=== PATIENT | male | born 1950 | race Hispanic/Latino ===

== ENCOUNTER 2017-08-06 02:04 | Emergency (ER) | payer BC, MEDICARE ==
[2017-08-06 02:21] VITALS: BMI 47.5
[2017-08-06 02:41] VITALS: RESP 18; O2SAT 95
[2017-08-06 03:03] VITALS: TEMP 98.2
[2017-08-06 04:02] LABS: BASO # 0.03 K/mm3 (0.0-2.0); BASO % 0.4 % (0.0-3.0); EOS # 0.2 (0.0-0.7); EOS % 3.2 % (1.5-5.0); GRAN # 4.86 (1.4-6.5); GRAN % 65.4 % (50.0-68.0); HEMOGLOBIN 12.7 g/dL (14.0-18.0); LYMPH % 26.6 % (22.0-35.0); MEAN CELL VOLUME 87.2 fl (80.0-105.0); MEAN CORPUSCULAR HEMOGLOBIN 30.2 pg (25.0-35.0); MEAN CORPUSCULAR HGB CONC 34.6 g/dl (31.0-37.0); MEAN PLATELET VOLUME 9.9 fl (7.0-11.0); MONO # 0.3 (0.1-0.6); MONO % 4.4 % (1.0-6.0); RBC 4.21 10^6/uL (3.5-6.1); RED CELL DISTRIBUTION WIDTH 14.6 % (11.5-14.5); WHITE BLOOD COUNT 7.4 10^3/ul (4.5-11.0)
[2017-08-06 04:06] LABS: INR 1.01 (0.93-1.08); PARTIAL THROMBOPLASTIN TIME 29.4 Seconds (25.1-36.5); PROTHROMBIN TIME 11.5 SECONDS (9.4-12.5)
[2017-08-06 04:27] LABS: ARTERIAL BLOOD GAS HCO3 30.5 mmol/L (21-28); ARTERIAL BLOOD GAS HEMOGLOBIN 11.8 g/dL (11.7-17.4); ARTERIAL BLOOD GAS O2 CAPACITY 16.1 mL/dl (16-24); ARTERIAL BLOOD GAS O2 CONTENT 15.4 ML/dl (15-23); ARTERIAL BLOOD GAS O2 SAT 95.5 % (95-98); ARTERIAL BLOOD GAS PCO2 46 mm/Hg (35-45); ARTERIAL BLOOD GAS PH 7.43 (7.35-7.45); ARTERIAL BLOOD GAS TCO2 31.9 mmol.L (22-28)
--- NOTE | 2017-08-06 04:52 | ED PDOC ---
Arrival/HPI <Bob Hooper - Last Filed: 08/06/17 05:39> - General Historian: Patient, Spouse - History of Present Illness Time/Duration: Prior to Arrival, 1 week Symptom Onset: Sudden <Deshawn Mosher - Last Filed: 08/06/17 06:24> - General Chief Complaint: Headache Time Seen by Provider: 08/06/17 03:14 - History of Present Illness Narrative History of Present Illness (Text): 08/06/17 04:50 67 yo M with PMH of hypertension, COPD, hyperlipidemia, diabetes, chronic back pain s/p pain pump implant, chronic leg wounds presents with complaining of pressure-like headache and "a hole in my head." Patient woke his up with the above complaints, which prompted them to call the ambulance. Symptoms started prior to presentation, and he has not had these symptoms before. Symptoms have resolved since presentation. Patient otherwise feels well. He denies chest pain, shortness of breath, fever, chills, nausea, vomiting, diarrhea, constipation, abdominal pain, dysuria, hematuria, urgency/frequency. Patient is immobile at baseline, chair-bound, though walks to/from bathroom. Patient and deny sick contacts or recent changes in medications. is at bedside, who reports that patient seems slightly confused for the past week, which the patient denies. Patient repeatedly explaining and demonstrating increased exercise tolerance, and increased mobility compared to his baseline. (Deshawn Mosher) Past Medical History - Provider Review Nursing Documentation Reviewed: Yes - Travel History Have you recently traveled outside [place] w/in the past 3 mons?: No - Infectious Disease Hx of Infectious Diseases: MRSA - Tetanus Immunization Tetanus Immunization: Unknown - Cardiac Hx Pacemaker: No - Neurological Hx Paralysis: No - Endocrine/Metabolic Hx Diabetes Mellitus Type 2: Yes Hx Hypothyroidism: Yes - Hematological/Oncological Hx Blood Transfusions: Yes (6 YRS AGO AFTER SPINAL SX-12 UNITS) - Musculoskeletal/Rheumatological Hx Musculoskeletal Disorders: Yes (ARTHRITIS -KNEES) - Psychiatric Hx Emotional Abuse: No Hx Physical Abuse: No Hx Substance Use: Yes (METHADONE FOR PAIN MGT) - Surgical History Hx Cholecystectomy: Yes (2001) Hx Gastric Bypass Surgery: Yes (2007) Hx Orthopedic Surgery: Yes (SPINAL FUSION 2005 &2011) - Anesthesia Hx Anesthesia Reactions: No Hx Malignant Hyperthermia: No - Suicidal Assessment Feels Threatened In Home Enviroment: No <Deshawn Mosher - Last Filed: 08/06/17 06:24> Family/Social History - Physician Review Nursing Documentation Reviewed: Yes Family/Social History: CVA/TIA, Diabetes Smoking Status: Never Smoked Hx Alcohol Use: No Hx Substance Use: Yes (METHADONE FOR PAIN MGT) Hx Substance Use Treatment: No <Deshawn Mosher - Last Filed: 08/06/17 06:24> Allergies/Home Meds <Bob Hooper - Last Filed: 08/06/17 05:39> <Deshawn Mosher - Last Filed: 08/06/17 06:24> Allergies/Adverse Reactions: Allergies Penicillins Allergy (Intermediate, Verified 08/06/17 02:21) hives/itching Home Medications: Home Meds Medication Instructions Recorded Confirmed Cyanocobalamin [Vitamin B12 1000 1,000 mcg IM Q30D 03/31/15 08/06/17 mcg/ml Inj] Ergocalciferol [Vitamin D] 50,000 iu PO MWF 03/31/15 08/06/17 Levothyroxine [Synthroid] 200 mg PO QAM 03/31/15 08/06/17 Testosterone [Androgel] 2 spry TOP DAILY 04/01/15 08/06/17 Benzonatate [Benzonatate] 200 mg PO TID 08/06/17 08/06/17 Fluticasone Propionate [Flonase 1 spray INH PRN PRN 08/06/17 08/06/17 Allergy Relief] Furosemide [Lasix] 40 mg PO DAILY 08/06/17 08/06/17 Gabapentin [Neurontin] 300 mg PO Q8H 08/06/17 08/06/17 Levalbuterol HCl [Xopenex] 1 inh NEB TID PRN 08/06/17 08/06/17 Naloxegol Oxalate [Movantik] 25 mg PO DAILY 08/06/17 08/06/17 hydrALAZINE [Apresoline] 10 mg PO BID 08/06/17 08/06/17 Review of Systems - Review of Systems Constitutional: Normal Eyes: Normal ENT: Normal Respiratory: Cough. absent: Sputum, Wheezing Cardiovascular: Normal Gastrointestinal: Normal Genitourinary Male: Normal Musculoskeletal: Back Pain Skin: Normal Neurological: Headache. absent: Focal Weakness, Gait Changes, Speech Changes, Facial Droop Endocrine: Normal Hemo/Lymphatic: Normal Psychiatric: Normal <Deshawn Mosher - Last Filed: 08/06/17 06:24> Physical Exam Vital Signs Reviewed: Yes Temperature: Afebrile Blood Pressure: Normal Pulse: Regular Respiratory Rate: Normal Appearance: Positive for: Comfortable, Other (chronically ill) Pain Distress: None Mental Status: Positive for: Alert and Oriented X 3. No: Confused, Agitated, Lethargic, Comatose - Systems Exam Head: Present: Atraumatic, Normocephalic, Other (No depression, fracture, or "hole" noted). No: Tenderness, Contusion, Swelling, Ecchymosis Pupils: Present: PERRL Extroacular Muscles: Present: EOMI Conjunctiva: Present: Normal Mouth: Present: Moist Mucous Membranes Neck: Present: Normal Range of Motion Respiratory/Chest: Present: Clear to Auscultation, Decreased Breath Sounds Cardiovascular: Present: Regular Rate and Rhythm, Normal S1, S2 Abdomen: Present: Normal Bowel Sounds. No: Tenderness, Distention Upper Extremity: Present: Normal Inspection. No: Cyanosis, Edema Lower Extremity: Present: Edema, Deformity. No: CALF TENDERNESS, Tenderness Neurological: Present: GCS=15, CN II-XII Intact, Speech Normal, Motor Func Grossly Intact, Normal Sensory Function, Normal Cerebellar Funct Skin: Present: Warm, Dry, Normal Color Psychiatric: Present: Alert, Oriented x 3, Normal Insight. No: Normal Concentration <Deshawn Mosher - Last Filed: 08/06/17 06:24> Vital Signs Temp Pulse Resp BP Pulse Ox 08/06/17 02:40 98.2 F 70 18 149/75 95 Medical Decision Making <Bob Hooper - Last Filed: 08/06/17 05:39> Reassessment Condition: Re-examined, Improved - Lab Interpretations Interpretation: No sign. chg./baseline - RAD Interpretation Workforce Planner: Radiologist <Deshawn Mosher - Last Filed: 08/06/17 06:24> ED Course and Treatment: Impression: Pt seen and evaluated with chief medical technologist. Aware and agree with HPI, clinical findings, plan, and management. Pt, whose past medical history includes COPD, hyperlipidemia, diabetes, chronic back pain, and chronic leg wounds, presented headache. Plan: -- CT Head w/o contrast -- Labs, ABG -- UA -- Reassess and disposition (Bob Hooper) 08/06/17 05:14 Impression: Headache, confusion Differential Diagnosis included but are not limited to: CVA, dementia, delerium , metabolic encephalopathy Plan: -- CT head -- Labs, ABG -- Reassess and disposition Prior Visits: Notes and results from previous visits were reviewed. Patient was last seen in the emergency department on 08/2014. Admitted for acute renal failure Progress Notes: CT head negative Labs, Urinalysis, and AGB unremarkable Patient not complaining of headache, shortness of breath, or confusion Patient's intrathecal pain pump delivers Prialt, which patient reportedly did have side effects from previously, including psychosis, hallucinations, and delusions. One month ago, dose was titrated up "10%". Confusion and delirium are known adverse effects of Prialt. Given current clinical findings, patient is likely presenting with adverse effects 2/2 Prialt. Advised patient to follow up with his PMD and his pain management doctor for continued monitoring and dose titration of Prialt. Patient instructed to return to the ER for any new or worsening concerns. 08/06/17 06:19 (Vidhi,Deshawn) - Lab Interpretations Lab Results: 08/06/17 03:30 08/06/17 03:30 Lab Results 08/06/17 05:30: Urine Color Yellow, Urine Appearance Clear, Urine pH 6.0, Ur Specific [place] <= 1.005, Urine Protein Negative, Urine Glucose (UA) Negative, Urine Ketones Negative, Urine Blood Negative, Urine Nitrate Negative, Urine Bilirubin Negative, Urine Urobilinogen 0.2, Ur Leukocyte Esterase Negative 08/06/17 04:20: pCO2 46 H, pO2 62.0 L, HCO3 30.5 H, ABG pH 7.43, ABG Total CO2 31.9 H, ABG O2 Saturation 95.5, ABG O2 Content 15.4, ABG Base Excess 5.4 H, ABG Hemoglobin 11.8, ABG Carboxyhemoglobin 2.0 H, POC ABG HHb (Measured) 4.4, ABG Methemoglobin 1.0, ABG O2 Capacity 16.1, Hgb O2 Saturation 92.5 L, FiO2 24.0 08/06/17 03:30: Sodium 139, Potassium 3.8, Chloride 100, Carbon Dioxide 29, Anion Gap 14, BUN 9, Creatinine 0.9, Est GFR ( Amer) > 60, Est GFR (Non- Af Amer) > 60, Random Glucose 115 H, Calcium 8.9, Total Bilirubin 1.6 H, AST 38 , ALT 34, Alkaline Phosphatase 71, Total Protein 7.4, Albumin 4.0, Globulin 3.4 , Albumin/Globulin Ratio 1.2 08/06/17 03:30: PT 11.5, INR 1.01, APTT 29.4 08/06/17 03:30: WBC 7.4 D, RBC 4.21, Hgb 12.7 L, Hct 36.7 L, MCV 87.2, MCH 30.2 , MCHC 34.6, RDW 14.6 H, Plt Count 181, MPV 9.9, Gran % 65.4, Lymph % (Auto) 26.6, [place] % (Auto) 4.4, Eos % (Auto) 3.2, Baso % (Auto) 0.4, Gran # 4.86, Lymph # (Auto) 2.0, [place] # (Auto) 0.3, Eos # (Auto) 0.2, Baso # (Auto) 0.03 - RAD Interpretation Radiology Orders: 08/06/17 03:25 HEAD W/O CONTRAST [CT] Stat - PA / 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 CAROLYN has examined the patient and agrees with the treatment plan. <Bob Hooper - Last Filed: 08/06/17 05:39> Disposition/Present on Arrival <Bob Hooper - Last Filed: 08/06/17 05:39> - Present on Arrival Any Indicators Present on Arrival: No History of DVT/PE: No History of Uncontrolled Diabetes: No Urinary Catheter: No History of Decub. Ulcer: No History Surgical Site Infection Following: None - Disposition Have Diagnosis and Disposition been Completed?: Yes Disposition Time: 06:24 Patient Plan: Discharge <Deshawn Mosher - Last Filed: 08/06/17 06:24> - Disposition Diagnosis: Headache, Confusion, Adverse drug effect Disposition: HOME/ ROUTINE Condition: FAIR Discharge Instructions (ExitCare): Adverse Drug Reactions, Adult (DC), Headache , Adult (DC) Forms: [employer] (Romanian)
[2017-08-06 04:58] LABS: ALB/GLOB RATIO 1.2 (1.1-1.8); ALT/SGPT 34 U/L (7-56); AST/SGOT 38 U/L (17-59); BLOOD UREA NITROGEN 9 mg/dL (7-21); CALCIUM 8.9 mg/dL (8.4-10.5); GFR AFRICAN-AMERICAN > 60; GFR NON-AFRICAN AMERICAN > 60
--- NOTE | 2017-08-06 05:14 | CT ---
EXAM: CT Head Without Intravenous Contrast CLINICAL HISTORY: 67 years old, male; Pain; Headache; Additional info: Headache; AMS TECHNIQUE: Axial computed tomography images of the head/brain without intravenous contrast. All CT scans at this facility use one or more dose reduction techniques, viz.: automated exposure control; ma/kV adjustment per patient size (including targeted exams where dose is matched to indication; i.e. head); or iterative reconstruction technique. Coronal and sagittal reformatted images were created and reviewed. COMPARISON: No relevant prior studies available. FINDINGS: Brain: Mild atrophy. No intracranial hemorrhage. No mass. Minimal decreased attenuation within periventricular white matter. No definite edema. Ventricles: No hydrocephalus. Bones/joints: No acute fracture. Soft tissues: Unremarkable. Vasculature: Atherosclerotic disease of intracranial arteries. Sinuses: [id number] mucosal thickening of ethmoid sinuses. Scattered minimal mucosal thickening of remaining sinuses. Mastoid air cells: No mastoid effusion. Orbits: Unremarkable as visualized. IMPRESSION: 1. Nonspecific white matter changes. Acute infarction may be CT occult within first 24 hours. If a focal deficit persists, consider followup CT or MRI for further evaluation. 2. Incidental/non-acute findings are described above.
[2017-08-06 06:08] LABS: URINE BILIRUBIN NEGATIVE (NEGATIVE); URINE BLOOD NEGATIVE (NEGATIVE); URINE GLUCOSE (UA) NEGATIVE (NEGATIVE); URINE LEUKOCYTE ESTERASE NEGATIVE Leu/uL (NEGATIVE); URINE PROTEIN NEGATIVE mg/dL (<30 mg/dL); URINE UROBILINOGEN 0.2 E.U./dL (<1 E.U./dL)
[2017-08-06 06:09] LABS: URINE APPEARANCE CLEAR (CLEAR); URINE COLOR YELLOW (YELLOW)
[2017-08-06 06:53] VITALS: BP 138/75; PULSE 78
== END 2017-08-06 06:45 | disposition home or self-care (01) ==
LOC: ED 02:04
DX: R51 Headache (principal); R41.0 Disorientation, unspecified; E03.9 Hypothyroidism, unspecified; E11.9 Type 2 diabetes mellitus without complications; E78.5 Hyperlipidemia, unspecified; I10 Essential (primary) hypertension; J44.9 Chronic obstructive pulmonary disease, unspecified

== ENCOUNTER 2017-08-06 18:12 | Inpatient (IN) | payer BC, MEDICARE ==
[2017-08-06] MEDS ORDERED: Iodixanol 320 MG/ML 100 ML BOTTLE IV ONE (18:38)
[2017-08-06 18:56] LABS: BASO # 0.03 K/mm3 (0.0-2.0); BASO % 0.2 % (0.0-3.0); EOS % 0.2 % (1.5-5.0); GRAN # 10.88 (1.4-6.5); GRAN % 83.7 % (50.0-68.0); HEMOGLOBIN 15.1 g/dL (14.0-18.0); LYMPH # 1.3 (1.2-3.4); LYMPH % 9.8 % (22.0-35.0); MEAN CELL VOLUME 87.6 fl (80.0-105.0); MEAN CORPUSCULAR HEMOGLOBIN 30.7 pg (25.0-35.0); MEAN PLATELET VOLUME 9.6 fl (7.0-11.0); MONO # 0.8 (0.1-0.6); MONO % 6.1 % (1.0-6.0); RBC 4.92 10^6/uL (3.5-6.1); RED CELL DISTRIBUTION WIDTH 14.6 % (11.5-14.5)
[2017-08-06] MEDS ORDERED: Midazolam 2 MG/2 ML VIAL IVP STA (18:56)
[2017-08-06] MEDS ORDERED: Midazolam 2 MG/2 ML VIAL ONE (19:02)
[2017-08-06 19:05] LABS: ALB/GLOB RATIO 1.2 (1.1-1.8); ALBUMIN 4.6 g/dL (3.0-4.8); ALT/SGPT 39 U/L (7-56); AST/SGOT 62 U/L (17-59); BLOOD UREA NITROGEN 10 mg/dL (7-21); CALCIUM 9.3 mg/dL (8.4-10.5); GFR AFRICAN-AMERICAN > 60; GFR NON-AFRICAN AMERICAN > 60
[2017-08-06 19:13] LABS: INR 1.08 (0.93-1.08); PARTIAL THROMBOPLASTIN TIME 29.3 Seconds (25.1-36.5); PROTHROMBIN TIME 12.3 SECONDS (9.4-12.5)
--- NOTE | 2017-08-06 19:18 | ED PDOC ---
Arrival/HPI - General Chief Complaint: Altered Mental Status Time Seen by Provider: 08/06/17 18:16 Historian: Spouse - History of Present Illness Narrative History of Present Illness (Text): 08/06/17 19:16 A 67 year old male, whose past medical history includes COPD, diabetes, chronic back pain, hypertension, morbid obesity, hyperlipidemia, intra-abdominal and intra-thecal pump device that delivers prialt (Ziconotide) , was brought in by EMS to the emergency department for evaluation of AMS. Patient reported to the emergency department this morning for evaluation of headache. Head CT was negative and patient was discharged home reportedly headache free ambulating to his car. His did report that on joleen way to car he was talking to people he didn't know as if he knew them which was atypical of his personality. Upon reaching home his intrathecal nurse foreman or supervisor and operator natasha at [phone] was contacted and it was deceided that it was possible that his ams was due to the Prialt side effect profile and she came to house and lowered the dosage transabdominally by 10%. Upon going home his mental status deteriorated with waxing /waning mental status, awakening to an increasingly agitated sensorium, not eating all day talking to people that weren't there, screaming at his and daughter calling them "Lucifer" saying that he is God, evetually becoming aggressive and threateninng necessitating a call to EMS , EMS arrived to find him thtroughly uncooperative , aggressive threatening , and had to sedate him with 8 mg IM ativan/ 150 mg ketamine , pt arrived in Emergency department with coarse rhonchorous respiratons on 100 % nonrebreather , nonresponsive to query, moaning uintelligibly , and thrashing about. Pt. was also noted to have fallen faceforward at a certain point during the day rousing and ambulating thereafter with no loc. and daughter denied that he ever complained of chest pain, no recent fevers /chills/complaining of neck pain , althogh ros (+) recent mostly dry cough. 08/06/17 20:28 Symptom Onset: Sudden Symptom Course: Unchanged Activities at Onset: Rest Context: Home Past Medical History - Provider Review Nursing Documentation Reviewed: Yes - Infectious Disease Hx of Infectious Diseases: MRSA - Tetanus Immunization Tetanus Immunization: Unknown - Cardiac Hx Pacemaker: No - Neurological Hx Paralysis: No - Endocrine/Metabolic Hx Diabetes Mellitus Type 2: Yes Hx Hypothyroidism: Yes - Hematological/Oncological Hx Blood Transfusions: Yes (6 YRS AGO AFTER SPINAL SX-12 UNITS) - Musculoskeletal/Rheumatological Hx Musculoskeletal Disorders: Yes (ARTHRITIS -KNEES) - Psychiatric Hx Emotional Abuse: No Hx Physical Abuse: No Hx Substance Use: No - Surgical History Hx Cholecystectomy: Yes (2001) Hx Gastric Bypass Surgery: Yes (2007) Hx Orthopedic Surgery: Yes (SPINAL FUSION 2005 &2011) - Anesthesia Hx Anesthesia Reactions: No Hx Malignant Hyperthermia: No - Suicidal Assessment Feels Threatened In Home Enviroment: No Family/Social History - Physician Review Nursing Documentation Reviewed: Yes Family/Social History: No Known Family HX Smoking Status: Never Smoked Hx Alcohol Use: No Hx Substance Use: No Hx Substance Use Treatment: No Allergies/Home Meds Allergies/Adverse Reactions: Allergies Penicillins Allergy (Intermediate, Verified 08/06/17 18:20) hives/itching Home Medications: Home Meds Medication Instructions Recorded Confirmed Cyanocobalamin [Vitamin B12 1000 1,000 mcg IM Q30D 03/31/15 08/06/17 mcg/ml Inj] Levothyroxine [Synthroid] 200 mg PO QAM 03/31/15 08/06/17 Testosterone [Androgel] 2 spry TOP DAILY 04/01/15 08/06/17 Benzonatate [Benzonatate] 200 mg PO TID 08/06/17 08/06/17 Fluticasone Propionate [Flonase 1 spray INH PRN PRN 08/06/17 08/06/17 Allergy Relief] Furosemide [Lasix] 40 mg PO DAILY 08/06/17 08/06/17 Gabapentin [Neurontin] 300 mg PO Q8H 08/06/17 08/06/17 Levalbuterol HCl [Xopenex] 1 inh NEB TID PRN 08/06/17 08/06/17 Naloxegol Oxalate [Movantik] 25 mg PO DAILY 08/06/17 08/06/17 hydrALAZINE [Apresoline] 10 mg PO BID 08/06/17 08/06/17 Review of Systems - Physician Review All systems were reviewed & negative as marked: Yes - Review of Systems Systems not reviewed;Unavailable: Altered Mental Status Constitutional: Normal Eyes: Normal ENT: Normal Respiratory: Normal Cardiovascular: Normal Gastrointestinal: Normal Genitourinary Male: Normal Musculoskeletal: Normal Skin: Normal Neurological: Headache Endocrine: Normal Hemo/Lymphatic: Normal Psychiatric: Normal Physical Exam Vital Signs Reviewed: Yes Vital Signs Temp Pulse Resp BP Pulse Ox 08/06/17 22:56 77 34 H 111/47 L 100 08/06/17 21:30 79 16 101/62 100 08/06/17 20:22 98.7 F 97 H 20 119/72 98 08/06/17 18:37 98 F 110 H 19 133/83 98 Temperature: Afebrile Blood Pressure: Normal Pulse: Regular Respiratory Rate: Normal Appearance: Positive for: Ill-Appearing, Uncomfortable Pain Distress: None Mental Status: Positive for: Confused, Agitated - Systems Exam Head: Present: Atraumatic, Normocephalic Pupils: Present: PERRL Extroacular Muscles: Present: EOMI Conjunctiva: Present: Normal Mouth: Present: Dry Neck: Present: Normal Range of Motion Respiratory/Chest: Present: Good Air Exchange, Rhonchi. No: Respiratory Distress, Accessory Muscle Use Cardiovascular: Present: Regular Rate and Rhythm, Normal S1, S2. No: Murmurs Abdomen: Present: Normal Bowel Sounds, Other (obese , + mid left sided intraabdominal pump palpable beneath his skin. ). No: Tenderness, Distention, Peritoneal Signs Back: Present: Normal Inspection Upper Extremity: Present: Normal Inspection. No: Cyanosis, Edema Lower Extremity: Present: Normal Inspection. No: Edema Neurological: Present: GCS=15, CN II-XII Intact, Other (barksdale, sonia, will not cooperate with any further neurological testing. ) Skin: Present: Warm, Dry, Normal Color. No: Rashes Psychiatric: Present: Alert, Agitated Medical Decision Making ED Course and Treatment: 08/06/17 19:15 Impression: A 67 year old male with AMS on ziconotide intrathecal pump ekg 1826 08/06/17 st @ 111 w/ + stemi pattern with st elevations in I, aVL, V2, st depressions in v4-v6, II, III, aVF relative to 09/08/2014 e[address] on file . Dr Janet Marcelino billing adjudicator on cath call was called to activate code STEMI at 1830 wth these ekg findings reported to him , but stated pt did not meet criteria and that these ekg findings could also be seen with certain intracerebral pathology such as intracerebral bleed. Dr Marcelino would not be activating code stemi at that point in time pending head ct . Dr. Lanier , stroke neurologist was called at 1841 and presentation discussed out of concern for possible intracerebral bleed and stted that he should be foolwled up post head ct . Stating that there was a strong liklelihood this may all have been toxidrome from the ziconotide. ALthough icp incrementation with intrathecal pumps coul dtheoretically place pt. at risk of SAh or IC bleed. Pt was too agitated to facilatate head ct on first attempt. Second attempt with myself in head ct using ivp versed was also unsuccesful. Pt was transported back to head ct and jointly with family at bedside the risks of possible IC bleed were discussed in light of not only earlier fall but also intrathecal pump and that intubation would be necesittated to faciliatte this procedure given the tie sensitive high stakes diagnosis at hand. Pt was also becoming more sonorous in his respirations and was not protecting his airway. Intubation was conducted with 100 mg fentanyl for IC protection/ 100 mg succinylcholine/ 20 mg etomidate and was succesful with first pass through tube using bougie/direct visualization/ RSI methodology. Upon resultation of troponin at 2.[address] Marcelino whom was resolute that head ct must be conducted first and that he will following the case . Differential Diagnosis included but are not limited to: Plan: -- CT head -- CTA head and neck -- EKG -- labs -- Chest X-ray -- Urinalysis -- Versed -- Reassess and disposition Prior Visits: Notes and results from previous visits were reviewed. Patient was last seen in the emergency department today for evaluation of headache. Progress Notes: PROCEDURE: INTUBATION Performed by the emergency provider Time: 19:47 Consent: Discussion of the risks, benefits, and alternatives to the procedure, along with informed consent was precluded by the urgency of the procedure and the patient condition. Timeout: A timeout to verify the correct patient, procedure, and site was performed. Indication: airway protection and procedural facilitation Pre-oxygenation: [id number] Medications: See MAR for details. ETT Size: 7.0 bougie Confirmation: Cords directly visualized as tube passed, good bilateral breath sounds, positive CO2 detector color change, tube fogging, adequate chest rise, improving pulse oximetry reading, improved skin color, and absence of gastric sounds ETT Secured: The cuff was inflated and the tube was secured appropriately at a distance of 24 cm at the lip. Post-Procedure: There were no immediate complications. CXR Confirmation: Yes 08/06/17 20:52 Pt was signed out to my replacement Dr. Moseley to follow up head ct and said findings with Drs. Marcelino and Dr. Lanier. - Lab Interpretations Lab Results: 08/06/17 18:15 08/06/17 18:15 Lab Results 08/06/17 22:30: pCO2 54 H, pO2 85.0, HCO3 26.0, ABG pH 7.29 L, ABG Total CO2 27.7, ABG O2 Saturation 98.2 H, ABG Base Excess -1.4, ABG Potassium 3.5 L, Glucose 141 H, Lactate 0.9, FiO2 50.0, Sodium 138.0, Chloride 105.0, Arterial Blood Potassium 3.5 L 08/06/17 18:30: PT 12.3, INR 1.08, APTT 29.3 08/06/17 18:17: POC Glucose (mg/dL) 386 H 08/06/17 18:15: Ammonia < 9 L 08/06/17 18:15: Alcohol, Quantitative < 10 08/06/17 18:15: Sodium 140, Potassium 3.9, Chloride 100, Carbon Dioxide 25, Anion Gap 19, BUN 10, Creatinine 1.1, Est GFR ( Amer) > 60, Est GFR (Non- Af Amer) > 60, Random Glucose 185 H, Calcium 9.3, Phosphorus 3.4, Magnesium 1.9 , Total Bilirubin 1.9 H, AST 62 H D, ALT 39, Alkaline Phosphatase 100, Lactate Dehydrogenase 768 H, Total Creatine Kinase 1297 H, CK-MB (CK-2) 20.0 H, CK-MB ( CK-2) % 1.5 L, Troponin I 2.86 H* D, Total Protein 8.4 H, Albumin 4.6, Globulin 3.8, Albumin/Globulin Ratio 1.2 08/06/17 18:15: WBC 13.0 H D, RBC 4.92, Hgb 15.1 D, Hct 43.1, MCV 87.6, MCH 30.7, MCHC 35.0, RDW 14.6 H, Plt Count 245, MPV 9.6, Gran % 83.7 H, Lymph % ( Auto) 9.8 L, Platte % (Auto) 6.1 H, Eos % (Auto) 0.2 L, Baso % (Auto) 0.2, Gran # 10.88 H, Lymph # (Auto) 1.3, Platte # (Auto) 0.8 H, Eos # (Auto) 0.0, Baso # (Auto ) 0.03 I have reviewed the lab results: Yes - RAD Interpretation Radiology Orders: 08/06/17 18:27 HEAD W/O CONTRAST [CT] Stat 08/06/17 18:29 CHEST PORTABLE [RAD] Stat 08/06/17 18:37 CTA HEAD & NECK BUNDLE [CT] Stat 08/06/17 19:57 CHEST PORTABLE [RAD] Stat 08/06/17 20:31 CHEST W/O CONTRAST [CT] Stat - EKG Interpretation Interpreted by ED Physician: Yes Type: 12 lead EKG - Medication Orders Current Medication Orders: Aspirin (Aspirin Chewable) 81 mg NG DAILY [facility] Last Admin: 08/07/17 09:10 Dose: 81 mg Atorvastatin Calcium (Lipitor) 40 mg NG DIN [facility] Last Admin: 08/07/17 17:04 Dose: 40 mg Carvedilol (Coreg) 3.125 mg PO BID [facility] Last Admin: 08/07/17 17:04 Dose: Not Given Non-Admin Reason: BP Parameters Not Met MAR Pulse and Blood Pressure Document 08/07/17 17:04 GLI (Rec: 08/07/17 17:04 [id number] [place] Pulse Pulse Rate (60-90) 103 Propofol (Diprivan) 1,000 mg in 100 mls @ 4.491 mls/hr IV .[id number] PRN; Protocol; 5 MCG/KG/MIN PRN Reason: TITRATE PER MD ORDER Last Admin: 08/07/17 17:02 Dose: 45 mcg/kg/min, 40.415 mls/hr eMAR Start Stop Document 08/07/17 17:02 GLI (Rec: 08/07/17 17:03 GLI [id number]) Intravenous Solution Start Date 08/07/17 Start Time 17:03 End Date 04/15/18 Torres Agitation Sedation Document 08/07/17 17:02 GLI (Rec: 08/07/17 17:03 GLI [id number]) Torres Agitation Sedation Scale Torres Agitation Sedation Scale Score +1 Restless Anxious bu movements not aggressive vigorous Titration Intervention Document 08/07/17 17:02 GLI (Rec: 08/07/17 17:03 GLI [id number]) Titration Intake Cumulative Intake (Rx) 200 Waste Amount 0 Container Volume 100 Titration Dosing Titration Dose 45 IV Rate 40.415 Intake/Decrease Started/Increased Cumulative Dose 2000 Vancomycin HCl (Vancomycin 1gm) 1 gm in 250 mls @ 167 mls/hr IVPB Q12H YESSENIA PRN Reason: Protocol Last Admin: 08/07/17 11:02 Dose: 167 mls/hr eMAR Start Stop Document 08/07/17 11:02 GLI (Rec: 08/07/17 11:03 GLI [id number]) Intravenous Solution Start Date 08/07/17 Start Time 11:03 End Date 08/07/17 Meropenem (Merrem Iv 1 Gm Premix) 50 mls @ 100 mls/hr IVPB Q8 YESSENIA PRN Reason: Protocol Stop: 08/07/17 20:00 Last Admin: 08/07/17 15:12 Dose: 100 mls/hr eMAR Start Stop Document 08/07/17 15:12 GLI (Rec: 08/07/17 15:13 GLI [id number]) Intravenous Solution Start Date 08/07/17 Start Time 15:12 End Date 08/07/17 Levofloxacin/Dextrose (Levaquin 750mg) 750 mg in 150 mls @ 100 mls/hr IVPB DAILY YESSENIA PRN Reason: Protocol Stop: 08/13/17 11:16 Last Admin: 08/07/17 11:15 Dose: 100 mls/hr eMAR Start Stop Document 08/07/17 11:15 GLI (Rec: 08/07/17 11:16 GLI [id number]) Intravenous Solution Start Date 08/07/17 Start Time 11:16 End Date 08/07/17 Sodium Chloride (Sodium Chloride 0.9%) 1,000 mls @ 100 mls/hr IV .Q10H YESSENIA Last Admin: 08/07/17 15:47 Dose: 100 mls/hr eMAR Start Stop Document 08/07/17 15:47 GLI (Rec: 08/07/17 15:47 GLI [id number]) Intravenous Solution Start Date 08/07/17 Start Time 15:47 End Date 08/07/17 Heparin Sodium/Sodium Chloride (Heparin 35489 Units/250ml 1/2 Normal Saline) 25 ,000 units in 250 mls @ 21.283 mls/hr IV .[id number] YESSENIA; 12 UNITS/KG/HR PRN Reason: Protocol Last Admin: 08/07/17 17:28 Dose: 12 units/kg/hr, 21.283 mls/hr eMAR Start Stop Document 08/07/17 17:28 GLI (Rec: 08/07/17 17:28 GLI [id number] Intravenous Solution Start Date 08/07/17 Start Time 17:28 End Date 08/07/17 MAR aPTT Document 08/07/17 17:28 GLI (Rec: 08/07/17 17:28 GL[id number] [place] aPTT aPTT (secs) 76 Titration Intervention Document 08/07/17 17:28 GLI (Rec: 08/07/17 17:28 GLI [id number]) Titration Intake Waste Amount 0 Container Volume 250 Titration Dosing Titration Dose 12 IV Rate 21.283 Intake/Decrease Started Levothyroxine Sodium (Synthroid) 100 mcg GT 0600 [facility] Pantoprazole Sodium (Protonix Inj) 40 mg IVP DAILY [facility] Last Admin: 08/07/17 09:10 Dose: 40 mg IVP Administration Document 08/07/17 09:10 GLI (Rec: 08/07/17 09:10 GLI [id number]) Charges for Administration # of IVP Administrations 1 Ticagrelor (Brilinta) 90 mg PO BID [facility] Last Admin: 08/07/17 17:03 Dose: 90 mg Discontinued Medications Aspirin (Aspirin Supp) 300 mg STAT STA Stop: 08/06/17 22:20 Last Admin: 08/07/17 00:30 Dose: 300 mg Re-Assess: MAR Pain/Vitals Document 08/07/17 01:30 ID (Rec: 08/07/17 02:52 ID [id number]) Pain Reassessment Is This A Pain ReAssessment? No Sleep Is patient sleeping during reassessment? Yes Atorvastatin Calcium (Lipitor) 40 mg PO STAT STA Stop: 08/06/17 22:37 Last Admin: 08/07/17 00:30 Dose: 40 mg Etomidate (Amidate) 20 mg IVP STAT STA Stop: 08/06/17 19:25 Last Admin: 08/06/17 19:47 Dose: 20 mg IVP Administration Document 08/06/17 19:47 GMI (Rec: 08/06/17 20:15 GMI [id number]) Charges for Administration # of IVP Administrations 1 Fentanyl (Fentanyl) 100 mcg IVP ONCE ONE Stop: 08/06/17 19:29 Last Admin: 08/06/17 19:46 Dose: 100 mcg MAR Pain Assessment Document 08/06/17 19:46 GMI (Rec: 08/06/17 20:14 GMI [id number]) Pain Reassessment Is this a pain reassessment? No Sleep Is patient sleeping during reassessment? No Presence of Pain Presence of Pain No IVP Administration Document 08/06/17 19:46 GMI (Rec: 08/06/17 20:14 GMI [id number]) Charges for Administration # of IVP Administrations 1 Furosemide (Lasix) 40 mg IVP ONCE ONE Stop: 08/07/17 11:38 Last Admin: 08/07/17 11:48 Dose: 40 mg MAR Blood Pressure Document 08/07/17 11:48 GLI (Rec: 08/07/17 11:48 GLI [id number] [place] Blood Pressure Blood Pressure (100/60-150/90) 105/70 IVP Administration Document 08/07/17 11:48 GLI (Rec: 08/07/17 11:48 GLI [id number] [place] Charges for Administration # of IVP Administrations 1 Heparin Sodium (Porcine) (Heparin) 8,000 units 70 units/kg (91110 units) IV ONCE ONE PRN Reason: Protocol Stop: 08/06/17 23:01 Last Admin: 08/07/17 02:04 Dose: 8,000 units eMAR Start Stop Document 08/07/17 02:04 ID (Rec: 08/07/17 02:07 ID [id number]) Intravenous Solution Start Date 08/06/17 Start Time 00:00 End Date 08/06/17 Heparin Sodium (Porcine) (Heparin) 4,400 units IVP STAT STA PRN Reason: Protocol Stop: 08/07/17 08:46 Last Admin: 08/07/17 09:06 Dose: 4,400 units MAR aPTT Document 08/07/17 09:06 GLI (Rec: 08/07/17 09:[address]) aPTT aPTT (secs) 36.2 IVP Administration Document 08/07/17 09:06 GLI (Rec: 08/07/17 09:[address]) Charges for Administration # of IVP Administrations 1 Heparin Sodium/Sodium Chloride (Heparin 31370 Units/250ml 1/2 Normal Saline) 25 ,000 units in 250 mls @ 17.962 mls/hr IV .[id number] YESSENIA; 12 UNITS/KG/HR PRN Reason: Protocol Last Admin: 08/07/17 14:30 Dose: 14 units/kg/hr, 20.956 mls/hr eMAR Start Stop Document 08/07/17 14:30 GLI (Rec: 08/07/17 15:[address]) Intravenous Solution Start Date 08/07/17 Start Time 15:46 End Date 08/07/17 Titration Intervention Document 08/07/17 14:30 GLI (Rec: 08/07/17 15:[address]) Titration Intake Cumulative Intake (Rx) 250 Waste Amount 0 Container Volume 250 Titration Dosing Titration Dose 14 IV Rate 20.956 Intake/Decrease Started/Running Cumulative Dose 68292 Cefepime HCl (Maxipime 2gm) 2 gm in 100 mls @ 100 mls/hr IVPB Q12 YESSENIA PRN Reason: Protocol Stop: 08/12/17 10:01 Last Admin: 08/07/17 09:11 Dose: 100 mls/hr eMAR Start Stop Document 08/07/17 09:11 GLI (Rec: 08/07/17 09:11 [facility] [place] Intravenous Solution Start Date 08/07/17 Start Time 09:11 End Date 08/07/17 Sodium Chloride (Sodium Chloride 0.9%) 250 mls @ 999 mls/hr IV .Q16M STA Stop: 08/07/17 00:28 Last Admin: 08/07/17 00:30 Dose: 999 mls/hr eMAR Start Stop Document 08/07/17 00:30 ID (Rec: 08/07/17 02:55 ID [id number]) Intravenous Solution Start Date 08/07/17 Start Time 00:30 End Date 08/07/17 Sodium Chloride (Sodium Chloride 0.9%) 500 mls @ 999 mls/hr IV .Q31M STA Stop: 08/07/17 00:45 Last Admin: 08/07/17 00:30 Dose: Sodium Chloride (Sodium Chloride 0.9%) 1,000 mls @ 100 mls/hr IV .Q10H [facility] Last Admin: 08/07/17 09:07 Dose: 100 mls/hr eMAR Start Stop Document 08/07/17 09:07 GLI (Rec: 08/07/17 09:07 GLI [id number]) Intravenous Solution Start Date 08/07/17 Start Time 09:07 End Date 08/07/17 Sodium Chloride (Sodium Chloride 0.9%) 1,000 mls @ 150 mls/hr IV .Q6H40M [facility] Last Admin: 08/07/17 11:13 Dose: 150 mls/hr eMAR Start Stop Document 08/07/17 11:13 GLI (Rec: 08/07/17 11:13 GLI [id number]) Intravenous Solution Start Date 08/07/17 Start Time 11:13 End Date 08/07/17 Sodium Chloride (Sodium Chloride 0.9%) 1,000 mls @ 999 mls/hr IV .Q1H1M STA Stop: 08/07/17 10:46 Last Admin: 08/07/17 09:50 Dose: 999 mls/hr eMAR Start Stop Document 08/07/17 09:50 GLI (Rec: 08/07/17 11:13 GLI [id number]) Intravenous Solution Start Date 08/07/17 Start Time 11:13 End Date 08/07/17 Levofloxacin/Dextrose (Levaquin 750mg) 750 mg IVPB STAT STA PRN Reason: Protocol Stop: 08/06/17 21:42 Last Admin: 08/06/17 23:08 Dose: 750 mg eMAR Start Stop Document 08/06/17 23:08 IT (Rec: 08/06/17 23:08 IT [id number] Intravenous Solution Start Date 08/06/17 Start Time 23:08 Lidocaine (Lidocaine) 100 mg IV ONCE ONE Stop: 08/06/17 19:24 Last Admin: 08/06/17 19:56 Dose: Midazolam HCl (Versed Inj) 2 mg IVP STAT STA Stop: 08/06/17 18:57 Last Admin: 08/06/17 19:03 Dose: 2 mg IVP Administration Document 08/06/17 19:03 GMI (Rec: 08/06/17 19:04 GMI [id number]) Charges for Administration # of IVP Administrations 1 Succinylcholine Chloride (Quelicin) 120 mg IV STAT STA Stop: 08/06/17 19:26 Last Admin: 08/06/17 19:50 Dose: 120 mg eMAR Start Stop Document 08/06/17 19:50 GMI (Rec: 08/06/17 20:18 GMI [id number]) Intravenous Solution Start Date 08/06/17 Start Time 19:50 End Date 08/06/17 End time 19:50 Total Infusion Time 0 Ticagrelor (Brilinta) 180 mg PO STAT STA Stop: 08/06/17 22:27 Last Admin: 08/07/17 00:45 Dose: 180 mg - Scribe Statement The provider has reviewed the documentation as recorded by the Kim Stevenson Provider Scribe Attestation: All medical record entries made by the Kim were at my direction and personally dictated by me. I have reviewed the chart and agree that the record accurately reflects my personal performance of the history, physical exam, medical decision making, and the department course for this patient. I have also personally directed, reviewed, and agree with the discharge instructions and disposition. Disposition/Present on Arrival - Present on Arrival Any Indicators Present on Arrival: No History of DVT/PE: No History of Uncontrolled Diabetes: No Urinary Catheter: No History of Decub. Ulcer: No History Surgical Site Infection Following: None - Disposition Have Diagnosis and Disposition been Completed?: Yes Diagnosis: Altered mental status, Acute coronary syndrome Disposition: HOSPITALIZED Disposition Time: 21:16 Patient Plan: Admission, ICU Patient Problems: Current Active Problems Problem Status Onset Acute coronary syndrome Acute Altered mental status Acute Condition: CRITICAL
[2017-08-06] MEDS ORDERED: Etomidate 20 mg/10ml Inj IV ONE (19:21)
[2017-08-06] MEDS ORDERED: Succinylcholine 200 mg/10 ml Inj IV ONE (19:22)
[2017-08-06] MEDS ORDERED: Etomidate 20 mg/10ml Inj IVP STA (19:24)
[2017-08-06] MEDS ORDERED: Succinylcholine 200 mg/10 ml Inj IV STA (19:25)
[2017-08-06 19:30] LABS: CK MB% 1.5 % (2.5-3.0); TROPONIN I 2.86 ng/mL
[2017-08-06] MEDS: Propofol 10 mg/ml 1,000 MG/100 ML VIAL IV PRN (20:19)
[2017-08-06] MEDS ORDERED: levoFLOXacin 750 mg in D5W 150 ML BAG IVPB STA (21:41)
--- NOTE | 2017-08-06 21:48 | ED PDOC ---
Physical Exam Vital Signs Reviewed: Yes Vital Signs Temp Pulse Resp BP Pulse Ox 08/06/17 21:30 79 16 101/62 100 08/06/17 20:22 98.7 F 97 H 20 119/72 98 08/06/17 18:37 98 F 110 H 19 133/83 98 Temperature: Afebrile Blood Pressure: Hypertensive Pulse: Tachycardic Respiratory Rate: Normal Appearance: Positive for: Comfortable Pain Distress: None Mental Status: Positive for: Comatose - Systems Exam Head: Present: Atraumatic, Normocephalic Pupils: Present: PERRL Extroacular Muscles: Present: EOMI Conjunctiva: Present: Normal Ears: Present: Normal Mouth: Present: Moist Mucous Membranes Pharnyx: Present: Normal Nose (External): Present: Atraumatic Nose (Internal): Present: Normal Inspection Upper Extremity: Present: Normal Inspection Lower Extremity: Present: Normal Inspection Neurological: Present: Other (intubation) Skin: Present: Warm, Normal Color Psychiatric: Present: Other (intubated) Medical Decision Making ED Course and Treatment: signed out pt with intubated, awaiting ct head, cta head/neck and ct chest. d/w Dr. Lanier who will review imaging. d/w Dr. Lees who will review case after ct readings. will give levaquin due to consolidative preliminary findings on ct chest. awaiting cultures 08/06/17 21:46 08/06/17 22:20 d/w Dr. Serrato ICU who will admit patient to ICU. d/w Dr. Stafford neurology who stated signs of global ischemia but no acute bleeding. no contraindication to anti-coagulation. d/w Dr. Blas who agreed to aspirin, brillinta, heparin. hold plavix at this time. reviewed ECG 2: and stated improved from prior. will hold off on intervention at this time. aspirin 300mg rectal. heparin. CT - HEAD W/O CONTRAST 2017-08-06 04:36 FINDINGS: Brain: Hypodensity of the periventricular white matter consistent with chronic small vessels ischemic change. No intracranial mass, mass effect, or midline shift. No hemorrhage. Ventricles: Unremarkable. No ventriculomegaly. Bones/joints: Unremarkable. No acute fracture. Soft tissues: Unremarkable. Sinuses: Partial opacification ethmoid air cells. Left frontal sinus mucosal disease. No acute sinusitis. Mastoid air cells: Unremarkable as visualized. No mastoid effusion. IMPRESSION: No acute intracranial abnormality. FINDINGS: cta HEAD: Right anterior cerebral artery: Unremarkable. No occlusion or significant stenosis. No aneurysm. Right middle cerebral artery: Unremarkable. No occlusion or significant stenosis. No aneurysm. Right posterior cerebral artery: Unremarkable. No occlusion or significant stenosis. No aneurysm. Left anterior cerebral artery: Unremarkable. No occlusion or significant stenosis. No aneurysm. Left middle cerebral artery: Unremarkable. No occlusion or significant stenosis. No aneurysm. Left posterior cerebral artery: Unremarkable. No occlusion or significant stenosis. No aneurysm. Basilar artery: Unremarkable. No occlusion or significant stenosis. No aneurysm. NECK: Right common carotid artery: Unremarkable. No significant stenosis. No dissection or occlusion. Right internal carotid artery: Unremarkable. No significant stenosis. No dissection or occlusion. Right external carotid artery: Unremarkable. No occlusion. Right vertebral artery: Unremarkable. No significant stenosis. No dissection or occlusion. Left common carotid artery: Unremarkable. No significant stenosis. No dissection or occlusion. Left internal carotid artery: Unremarkable. No significant stenosis. No dissection or occlusion. Left external carotid artery: Unremarkable. No occlusion. Left vertebral artery: Unremarkable. No significant stenosis. No dissection or occlusion. Lung apices: Dependent consolidative changes within both lung apices. HEAD and NECK: Bones/joints: Degenerative changes cervical spine. No acute fracture. No dislocation. Soft tissues: Unremarkable as visualized. No mass. Tubes, lines and devices: Endotracheal tube is above the rolly. CAROTID STENOSIS REFERENCE USING NASCET CRITERIA: % ICA stenosis = (1 - narrowest ICA diameter/diameter of distal cervical ICA) x 100. Mild - <50% stenosis. Moderate - 50-69% stenosis. Severe - 70-94% stenosis. Near occlusion - 95-99% stenosis. Occluded - 100% stenosis. IMPRESSION: 1. Unremarkable intracranial arteries. 2. Unremarkable cervical carotid arteries. 3. Patent vertebral arteries CT - NECK CHEST W/O CONTRAST 2017-04-05 13:54 FINDINGS: Lungs: Severe, bilateral, dependent consolidative changes. Foci of bilateral nonspecific groundglass opacity. Pleural space: Unremarkable. No pneumothorax. No significant effusion. Heart: Mild cardiomegaly. No significant pericardial effusion. Bones/joints: Diffuse thoracic spinal degenerative changes. No acute fracture. No dislocation. Soft tissues: Unremarkable. Vasculature: Atherosclerotic vascular disease. No thoracic aortic aneurysm. Lymph nodes: Unremarkable. No enlarged lymph nodes. Gallbladder and bile ducts: Cholecystectomy. Kidneys and ureters: Bilateral renal calculi. Tubes, lines and devices: The tip of the endotracheal tube is above the rolly. IMPRESSION: 1. The tip of the endotracheal tube is above the rolly. 2. Severe, bilateral, dependent consolidative changes. Foci of bilateral nonspecific groundglass opacity. 3. Remainder of findings as above. 08/06/17 22:24 08/06/17 22:30 d/w Dr. Serrato [facility] who will place heparin orders. 08/06/17 22:30 d/w silvana who accepted for sofia oatesm. 08/06/17 22:31 08/06/17 22:33 Reassessment Condition: Re-examined, Improved - Lab Interpretations Lab Results: 08/06/17 18:15 08/06/17 18:15 Lab Results 08/06/17 18:30: PT 12.3, INR 1.08, APTT 29.3 08/06/17 18:17: POC Glucose (mg/dL) 386 H 08/06/17 18:15: Ammonia < 9 L 08/06/17 18:15: Alcohol, Quantitative < 10 08/06/17 18:15: Sodium 140, Potassium 3.9, Chloride 100, Carbon Dioxide 25, Anion Gap 19, BUN 10, Creatinine 1.1, Est GFR ( Amer) > 60, Est GFR (Non- Af Amer) > 60, Random Glucose 185 H, Calcium 9.3, Phosphorus 3.4, Magnesium 1.9 , Total Bilirubin 1.9 H, AST 62 H D, ALT 39, Alkaline Phosphatase 100, Lactate Dehydrogenase 768 H, Total Creatine Kinase 1297 H, CK-MB (CK-2) 20.0 H, CK-MB ( CK-2) % 1.5 L, Troponin I 2.86 H* D, Total Protein 8.4 H, Albumin 4.6, Globulin 3.8, Albumin/Globulin Ratio 1.2 08/06/17 18:15: WBC 13.0 H D, RBC 4.92, Hgb 15.1 D, Hct 43.1, MCV 87.6, MCH 30.7, MCHC 35.0, RDW 14.6 H, Plt Count 245, MPV 9.6, Gran % 83.7 H, Lymph % ( Auto) 9.8 L, [place] % (Auto) 6.1 H, Eos % (Auto) 0.2 L, Baso % (Auto) 0.2, Gran # 10.88 H, Lymph # (Auto) 1.3, [place] # (Auto) 0.8 H, Eos # (Auto) 0.0, Baso # (Auto ) 0.03 I have reviewed the lab results: Yes - RAD Interpretation Radiology Orders: 08/06/17 18:27 HEAD W/O CONTRAST [CT] Stat 08/06/17 18:29 CHEST PORTABLE [RAD] Stat 08/06/17 18:37 CTA HEAD & NECK BUNDLE [CT] Stat 08/06/17 19:57 CHEST PORTABLE [RAD] Stat 08/06/17 20:31 CHEST W/O CONTRAST [CT] Stat - Medication Orders Current Medication Orders: Propofol (Diprivan) 1,000 mg in 100 mls @ 4.491 mls/hr IV .[id number] PRN; Protocol; 5 MCG/KG/MIN PRN Reason: TITRATE PER MD ORDER Last Admin: 08/06/17 20:19 Dose: 4.491 mls/hr eMAR Start Stop Document 08/06/17 20:19 GMI (Rec: 08/06/17 20:21 GMI [id number]) Intravenous Solution Start Date 08/06/17 Start Time 20:00 Torres Agitation Sedation Document 08/06/17 20:19 GMI (Rec: 08/06/17 20:21 GMI [id number]) Torres Agitation Sedation Scale Torres Agitation Sedation Scale Score +3 Very Agitated: Pulls or removes tube(s) or catheter(s) ; aggressive Discontinued Medications Aspirin (Aspirin Supp) 300 mg RC STAT STA Stop: 08/06/17 22:20 Etomidate (Amidate) 20 mg IVP STAT STA Stop: 08/06/17 19:25 Last Admin: 08/06/17 19:47 Dose: 20 mg IVP Administration Document 08/06/17 19:47 GMI (Rec: 08/06/17 20:15 GMI [id number]) Charges for Administration # of IVP Administrations 1 Fentanyl (Fentanyl) 100 mcg IVP ONCE ONE Stop: 08/06/17 19:29 Last Admin: 08/06/17 19:46 Dose: 100 mcg MAR Pain Assessment Document 08/06/17 19:46 GMI (Rec: 08/06/17 20:14 GMI [id number]) Pain Reassessment Is this a pain reassessment? No Sleep Is patient sleeping during reassessment? No Presence of Pain Presence of Pain No IVP Administration Document 08/06/17 19:46 GMI (Rec: 08/06/17 20:14 GMI [id number]) Charges for Administration # of IVP Administrations 1 Levofloxacin/Dextrose (Levaquin 750mg) 750 mg IVPB STAT STA PRN Reason: Protocol Stop: 08/06/17 21:42 Lidocaine (Lidocaine) 100 mg IV ONCE ONE Stop: 08/06/17 19:24 Last Admin: 08/06/17 19:56 Dose: Midazolam HCl (Versed Inj) 2 mg IVP STAT STA Stop: 08/06/17 18:57 Last Admin: 08/06/17 19:03 Dose: 2 mg IVP Administration Document 08/06/17 19:03 GMI (Rec: 08/06/17 19:04 GMI [id number]) Charges for Administration # of IVP Administrations 1 Succinylcholine Chloride (Quelicin) 120 mg IV STAT STA Stop: 08/06/17 19:26 Last Admin: 08/06/17 19:50 Dose: 120 mg eMAR Start Stop Document 08/06/17 19:50 GMI (Rec: 08/06/17 20:18 GMI [id number]) Intravenous Solution Start Date 08/06/17 Start Time 19:50 End Date 08/06/17 End time 19:50 Total Infusion Time 0 Disposition/Present on Arrival - Present on Arrival Any Indicators Present on Arrival: No History of DVT/PE: No History of Uncontrolled Diabetes: No Urinary Catheter: No History of Decub. Ulcer: No History Surgical Site Infection Following: None - Disposition Have Diagnosis and Disposition been Completed?: Yes Diagnosis: Altered mental status, Acute coronary syndrome Disposition: HOSPITALIZED Disposition Time: 22:30 Patient Plan: Admission, ICU Patient Problems: Current Active Problems Problem Status Onset Altered mental status Acute Acute coronary syndrome Acute Condition: CRITICAL Forms: [employer] ([place]ian)
--- NOTE | 2017-08-06 22:18 | CT ---
EXAM: CT Chest Without Intravenous Contrast CLINICAL HISTORY: 67 years old, male; Signs and symptoms; Other: AMS; Additional info: 67m, AMS, intubation TECHNIQUE: Axial computed tomography images of the chest without intravenous contrast. All CT scans at this facility use one or more dose reduction techniques, viz.: automated exposure control; ma/kV adjustment per patient size (including targeted exams where dose is matched to indication; i.e. head); or iterative reconstruction technique. Coronal and sagittal reformatted images were created and reviewed. COMPARISON: CT - NECK CHEST W/O CONTRAST 2017-04-05 13:54 FINDINGS: Lungs: Severe, bilateral, dependent consolidative changes. Foci of bilateral nonspecific groundglass opacity. Pleural space: Unremarkable. No pneumothorax. No significant effusion. Heart: Mild cardiomegaly. No significant pericardial effusion. Bones/joints: Diffuse thoracic spinal degenerative changes. No acute fracture. No dislocation. Soft tissues: Unremarkable. Vasculature: Atherosclerotic vascular disease. No thoracic aortic aneurysm. Lymph nodes: Unremarkable. No enlarged lymph nodes. Gallbladder and bile ducts: Cholecystectomy. Kidneys and ureters: Bilateral renal calculi. Tubes, lines and devices: The tip of the endotracheal tube is above the rolly. IMPRESSION: 1. The tip of the endotracheal tube is above the rolly. 2. Severe, bilateral, dependent consolidative changes. Foci of bilateral nonspecific groundglass opacity. 3. Remainder of findings as above.
--- NOTE | 2017-08-06 22:22 | CT ---
EXAM: CT Head Without Intravenous Contrast CLINICAL HISTORY: 67 years old, male; Signs and symptoms; Other: AMS R/O bleed TECHNIQUE: Axial computed tomography images of the head/brain without intravenous contrast. All CT scans at this facility use one or more dose reduction techniques, viz.: automated exposure control; ma/kV adjustment per patient size (including targeted exams where dose is matched to indication; i.e. head); or iterative reconstruction technique. Coronal and sagittal reformatted images were created and reviewed. COMPARISON: CT - HEAD W/O CONTRAST 2017-08-06 04:36 FINDINGS: Brain: Hypodensity of the periventricular white matter consistent with chronic small vessels ischemic change. No intracranial mass, mass effect, or midline shift. No hemorrhage. Ventricles: Unremarkable. No ventriculomegaly. Bones/joints: Unremarkable. No acute fracture. Soft tissues: Unremarkable. Sinuses: Partial opacification ethmoid air cells. Left frontal sinus mucosal disease. No acute sinusitis. Mastoid air cells: Unremarkable as visualized. No mastoid effusion. IMPRESSION: No acute intracranial abnormality.
[2017-08-06 22:40] LABS: ARTERIAL BLOOD GAS O2 SAT 98.2 % (95-98); ARTERIAL BLOOD GAS PCO2 54 mm/Hg (35-45); ARTERIAL BLOOD GAS PH 7.29 (7.35-7.45); ARTERIAL BLOOD GAS TCO2 27.7 mmol.L (22-28)
[2017-08-07] MEDS ORDERED: SODIUM CHLORIDE IV STA (00:09)
[2017-08-07] MEDS ORDERED: Sodium Chloride 0.9% 250 ML IV STA (00:13)
[2017-08-07] MEDS ORDERED: Sodium Chloride 0.9% 500 ML IV STA (00:15)
[2017-08-07 00:56] LABS: URINE BILIRUBIN MODERATE (NEGATIVE); URINE BLOOD NEGATIVE (NEGATIVE); URINE GLUCOSE (UA) NEGATIVE (NEGATIVE); URINE LEUKOCYTE ESTERASE NEGATIVE Leu/uL (NEGATIVE); URINE PROTEIN 100 mg/dL (<30 mg/dL); URINE UROBILINOGEN 0.2 E.U./dL (<1 E.U./dL)
[2017-08-07 00:58] LABS: URINE APPEARANCE CLEAR (CLEAR); URINE COLOR YELLOW (YELLOW)
[2017-08-07 01:29] LABS: URINE BACTERIA FEW (NEG); URINE EPITHELIAL CELLS 0 - 2 /hpf (0-5); URINE RBC 0 - 2 /hpf (0-2); URINE WBC 0 - 2 /hpf (0-6)
[2017-08-07 01:30] LABS: VENOUS BLOOD GAS BASE EXCESS 0.8 mmol/L (0.0-2.0); VENOUS BLOOD GAS PO2 60 mm/Hg (30-55); VENOUS BLOOD PH 7.35 (7.32-7.43)
[2017-08-07] MEDS: Vancomycin 1gm in NS 250ml 1 GM/250 ML BAG IVPB SCH ×3 (02:09→21:53)
[2017-08-07] MEDS: Heparin25000 units/250ml 1/2NS 25,000 UNITS/250 ML BAG IV SCH ×2 (02:20→14:30)
[2017-08-07] MEDS: Propofol 10 mg/ml 1,000 MG/100 ML VIAL IV PRN ×6 (02:45→22:15)
--- NOTE | 2017-08-07 02:46 | CP.PCM.CON ---
<Joaquin Banerjee - Last Filed: 08/07/17 03:25> History of Present Illness - History of Present Illness History of Present Illness: ICU Consult Note Consulted for: Intubated pt This is a 67 yo M with PMH including HTN, COPD, HLD, DM, Chronic back pain s/p intrathecal Ziconotide pump, and peripheral vascular disease of bilateral LE who represents to [facility] [place] after being seen in the tester operator (for severe headache , self-resolved) for new onset and worsening AMS, now intubated and sedated. As per family, after being discharged this AM, began speaking to people he didn' t know on his way out of the hospital as if he knew them. Once home, he slept for prolonged period, and intrathecal nurse decreased dose by ~10% as per ED documentation (reduction confirmed by family). On awakening, he was more confused, and now aggressive to family, hallucinating peole who weren't here. Police and EMS called, sedated pt with 8mg Ativan and 150mg Ketamine. Here in ED, given side effect profile of intrathecal ziconotide, efforts were made to obtain head CT as per Neuro, but due to patient's inability to lay flat (due to back pain), two efforts failed, so he was intubated (for airway protection) and sedated heavily to undergo head CT and CTA head/neck. As per neuro, signs of global ischemic, but no acute bleeding, able to be anticoagulated. Additionally , EKG on re-presentation initially concerning for ST-elevations in leads I, aVL , V2, and ST depressions in V4-5, II, III, and aVF. Case was discussed between ED and on-call [facility] Child Nurse, who expressed concern that head CT should be obtained as priority, and after receiving it and being determined to have no contraindications to anticoagulation as per Neuro, pt was started on loading dose Brilinta, was given aspirin, and heparin bolus/drip. Patient will remain intubated tonight, will attempt to wean tomorrow AM, so patient to be monitored in the ICU overnight. Of note, patient was noted to be waking from sedation while in the ICU, getting very agitated, so increasing sedation was pushed, and then he developed pink frothy sputum in his ETT suspicious for flash pulm edema. Additionally, as per family, while on the ziconotide, pt has been intermittently confused and talking to people who aren't there, but denies any h PMH: as above PSH: intrathecal pump placement, cholecystectomy, spinal fusion x2, gastric bypass Fam Hx: unobtainable from pt, no relevant family hx as per family at bedside SocHx: Lives with , as per family and charting no hx tobacco/alcohol/ illicits PMD: Dr. Melgar Review of Systems - Review of Systems All systems: reviewed and no additional remarkable complaints except (as per HPI , unobtainable from pt as intubated prior to consultation/exam) Past Patient History - Infectious Disease Hx of Infectious Diseases: MRSA - Tetanus Immunizations Tetanus Immunization: Unknown - Past Social History Smoking Status: Never Smoked - CARDIAC Hx Cardiac Disorders: Yes Hx Hypercholesterolemia: Yes Hx Hypertension: Yes Hx Pacemaker: No Hx Peripheral Edema: Yes - PULMONARY Hx Respiratory Disorders: Yes Hx Chronic Obstructive Pulmonary Disease (COPD): Yes - NEUROLOGICAL Hx Migraine: No - RENAL Hx Chronic Kidney Disease: Yes - ENDOCRINE/METABOLIC Hx Diabetes Mellitus Type 2: Yes Hx Hypothyroidism: Yes - HEMATOLOGICAL/ONCOLOGICAL Hx Blood Disorders: No - MUSCULOSKELETAL/RHEUMATOLOGICAL Hx Musculoskeletal Disorders: Yes (ARTHRITIS -KNEES) - GENITOURINARY/GYNECOLOGICAL Hx Genitourinary Disorders: No - PSYCHIATRIC Hx Emotional Abuse: No Hx Physical Abuse: No - SURGICAL HISTORY Hx Cholecystectomy: Yes (2001) Hx Gastric Bypass Surgery: Yes (2007) Hx Orthopedic Surgery: Yes (SPINAL FUSION 2005 &2011) - ANESTHESIA Hx Anesthesia Reactions: No Hx Malignant Hyperthermia: No Meds Allergies/Adverse Reactions: Allergies Allergy/AdvReac Type Severity Reaction Status Date / Time Penicillins Allergy Intermediate hives/itchi Verified 08/06/17 18:20 ng - Medications Medications: Current Medications Aspirin (Aspirin Chewable) 81 mg NG DAILY [facility] Carvedilol (Coreg) 3.125 mg PO BID [facility] Propofol (Diprivan) 1,000 mg in 100 mls @ 4.491 mls/hr IV .[id number] PRN; Protocol; 5 MCG/KG/MIN PRN Reason: TITRATE PER MD ORDER Last Admin: 08/06/17 20:19 Dose: 4.491 mls/hr Heparin Sodium/Sodium Chloride (Heparin 82280 Units/250ml 1/2 Normal Saline) 25 ,000 units in 250 mls @ 17.962 mls/hr IV .[id number] [facility]; 12 UNITS/KG/HR PRN Reason: Protocol Cefepime HCl (Maxipime 2gm) 2 gm in 100 mls @ 100 mls/hr IVPB Q12 YESSENIA PRN Reason: Protocol Stop: 08/12/17 10:01 Vancomycin HCl (Vancomycin 1gm) 1 gm in 250 mls @ 167 mls/hr IVPB Q12H YESSENIA PRN Reason: Protocol Pantoprazole Sodium (Protonix Inj) 40 mg IVP DAILY [facility] Physical Exam - Constitutional Appears: No Acute Distress, Combative (when coming out of sedation), Chronically Ill - Head Exam Head Exam: ATRAUMATIC, NORMAL INSPECTION, NORMOCEPHALIC - Eye Exam Eye Exam: absent: Conjunctival injection, Scleral icterus Additional comments: when coming off sedation, opened his eyes, tracking staff at bedside, following some simple commands when awakening from sedation prior to intubation - ENT Exam ENT Exam: Mucous Membranes Moist, Normal Oropharynx - Neck Exam Neck exam: Positive for: Full Rom (appeared to have full ROM when awakening from sedation and thrashing head around) - Respiratory Exam Respiratory Exam: Decreased Breath Sounds (moderately decreased breath sounds in all brock, likely 2/2 body habitus), Clear to Auscultation Bilateral, NORMAL BREATHING PATTERN. absent: Rales, Rhonchi, Wheezes - Cardiovascular Exam Cardiovascular Exam: REGULAR RHYTHM, RRR, +S1, +S2. absent: Bradycardia, Tachycardia, Irregular Rhythm, JVD, +S4 - Extremities Exam Extremities exam: Positive for: pedal edema (+1-2 pitting edema from foot to mid -knee). Negative for: calf tenderness, joint swelling, normal capillary refill , normal inspection (skin changes and waxy texture consistent with PVD), tenderness - Neurological Exam Additional comments: unable to assess, intubated - Psychiatric Exam Additional comments: anxious/agitated when insufficiently sedated - Skin Additional comments: except for bilateral LE, skin dry/warm/intact chronic venous stasis skin changes in bilateral LE Results - Vital Signs Recent Vital Signs: Last Vital Signs Temp 99.2 F 08/07/17 00:02 Pulse 68 08/06/17 23:24 Resp 30 H 08/06/17 23:24 BP 105/55 L 08/06/17 23:24 Pulse Ox 100 08/06/17 23:24 - Labs Result Diagrams: 08/06/17 18:15 08/06/17 18:15 Labs: Laboratory Results - last 24 hr 08/07/17 08/07/17 00:30 01:00 pO2 60 H VBG pH 7.35 VBG pCO2 49.0 VBG HCO3 27.1 VBG Total CO2 28.6 H VBG O2 Sat (Calc) 94.3 H VBG Base Excess 0.8 VBG Potassium 4.1 Sodium 137.0 Chloride 103.0 Glucose 141 H Lactate 1.0 FiO2 21.0 Venous Blood Potassium 4.1 Urine Color Yellow Urine Appearance Clear Urine pH 6.0 Ur Specific Sedley >= 1.030 Urine Protein 100 H Urine Glucose (UA) Negative Urine Ketones 15 H Urine Blood Negative Urine Nitrate Negative Urine Bilirubin Moderate H Urine Urobilinogen 0.2 Ur Leukocyte Esterase Negative Urine RBC 0 - 2 Urine WBC 0 - 2 Ur Epithelial Cells 0 - 2 Urine Bacteria Few Assessment & Plan - Assessment and Plan (Free Text) Assessment: This is a 67 yo M with PMH including HTN, COPD, HLD, DM, Chronic back pain s/p intrathecal Ziconotide pump, and peripheral vascular disease of bilateral LE who represents to [facility] [place] after being seen in the tester operator (for severe headache , self-resolved) for new onset and worsening AMS, now intubated and sedated. Plan: Neuro: -maintain normothermia -CT head/CTA head and neck negative for acute bleed; as per Neuro, concerning for global ischemia, no contraindication for AC as per Neuro -Neuro consulted, appreciate all recs -Pt's Pain Management Physician, Dr. Leon ([phone]) aware of pt in hospital, notified of pt's condition, had pump turned to lowest setting, should be out of system within [address] Leon -Neuroccks -continue sedation with propofol to prevent fighting the ventilator, can consider Versed if additional sedation required or if BP unable to tolerate propfol -patient unable to lay flat due to severity of back pain/disease, maintain at least 30 degree elevation of bed Pulm -intubated for airway protection, sedated on propofol -currently satting well -can attempt sedation vacation in the AM, assess status, may be able to extubate tomorrow AM -pending repeat ABG in AM, repeat CXR -CT chest showed bilateral upper lobe infiltrate, unclear if infectious process vs fungal, s/p Levofloxacin x1 in ED, started on Cefepime/Vanco for empiric coverage, would rec ID consult (no Zosyn, penicillin allergic) -blood and urine cx pending, procal pending Cardio: -transient ST elevations in leads I, aVL, V2, and ST depressions in V4-5, II, III, and aVF; not a STEMI as per [facility] on-call [employer] 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 -ST-elevations disappeared on follow up EKGs, possible transient myocardial stress -no contraindication for AC given head CT findings, so Cardio cleared to start on ASA, Brilinta, Heparin drip -Trop 2.[address] on [address] with transient [address]-elevations, trending trops q6, if continue to elevate may need to undergo cath, decision to be made by Cardio -Started on Coreg 3.125 mg BID -check TSH in AM labs -given likely flash pulmonary edema in ED, avoid aggressive fluids, can bolus 250cc NS IVF for low systolic pressures as needed GI: -OGT placed in ED for access -Protonix 40mg IVP daily for ppx -NPO Renal: -castaneda placed, strict I's and O's -maintain euvolemia and euglycemia (BG 140-180) -continue to monitor Cr -monitor and replete electrolytes as needed Heme: -Hgb 15.1 on admission, but likely hemoconcentration as was 12.7 on initial visit to ED in the AM, and as per prior charting, baseline hgb appears to be 10- 12 -AC with Heparin drip, ASA and Brilinta loading dose as per Cardio -continue to monitor ID: -leukocytosis of 13.0, afebrile -lung CT showed bilateral upper lobe infiltrate vs mass, continue empiric coverage with Vanc/Cefepime Dispo: ICU, pending Cardio eval and additional recs, pending trended trops, pending Heparin drip and medical management of transient ST-elevation on EKG with elevated troponin FEN: NPO, NS IVF only as needed Access: Peripheral IVs, OGT, ETT Consults: Neuro, Cardio Ppx: Protonix for GI, Heparin drip covers for DVT Patient seen and examined with attending, Dr. Serrato. <Richard Serrato Q - Last Filed: 08/07/17 06:48> Meds - Medications Medications: Current Medications Aspirin (Aspirin Chewable) 81 mg NG DAILY [facility] Carvedilol (Coreg) 3.125 mg PO BID [facility] Last Admin: 08/07/17 02:12 Dose: Not Given Propofol (Diprivan) 1,000 mg in 100 mls @ 4.491 mls/hr IV .[id number] PRN; Protocol; 5 MCG/KG/MIN PRN Reason: TITRATE PER MD ORDER Last Admin: 08/07/17 02:45 Dose: 5 mcg/kg/min, 4.491 mls/hr Heparin Sodium/Sodium Chloride (Heparin 94097 Units/250ml 1/2 Normal Saline) 25 ,000 units in 250 mls @ 17.962 mls/hr IV .[id number] [facility]; 12 UNITS/KG/HR PRN Reason: Protocol Last Admin: 08/07/17 02:20 Dose: 12 units/kg/hr, 17.962 mls/hr Cefepime HCl (Maxipime 2gm) 2 gm in 100 mls @ 100 mls/hr IVPB Q12 YESSENIA PRN Reason: Protocol Stop: 08/12/17 10:01 Vancomycin HCl (Vancomycin 1gm) 1 gm in 250 mls @ 167 mls/hr IVPB Q12H YESSENIA PRN Reason: Protocol Last Admin: 08/07/17 02:09 Dose: 167 mls/hr Pantoprazole Sodium (Protonix Inj) 40 mg IVP DAILY [facility] Results - Vital Signs Recent Vital Signs: Last Vital Signs Temp 99.2 F 08/07/17 00:02 Pulse 69 08/07/17 02:12 Resp 30 H 08/06/17 23:24 BP 80/54 L 08/07/17 02:12 Pulse Ox 100 08/06/17 23:24 - Labs Result Diagrams: 08/07/17 05:15 08/07/17 05:15 Labs: Laboratory Results - last 24 hr 08/07/17 08/07/17 08/07/17 00:30 01:00 01:00 WBC RBC Hgb Hct MCV MCH MCHC RDW Plt Count MPV Gran % Lymph % (Auto) Levy % (Auto) Eos % (Auto) Baso % (Auto) Gran # Lymph # (Auto) Levy # (Auto) Eos # (Auto) Baso # (Auto) PT INR APTT pO2 60 H VBG pH 7.35 VBG pCO2 49.0 VBG HCO3 27.1 VBG Total CO2 28.6 H VBG O2 Sat (Calc) 94.3 H VBG Base Excess 0.8 VBG Potassium 4.1 Sodium 137.0 Chloride 103.0 Glucose 141 H Lactate 1.0 FiO2 21.0 Potassium Carbon Dioxide Anion Gap BUN Creatinine Est GFR ( Amer) Est GFR (Non-Af Amer) Random Glucose Calcium Phosphorus Magnesium Total Bilirubin AST ALT Alkaline Phosphatase Troponin I 4.08 H* D Total Protein Albumin Globulin Albumin/Globulin Ratio Venous Blood Potassium 4.1 Urine Color Yellow Urine Appearance Clear Urine pH 6.0 Ur Specific Sedley >= 1.030 Urine Protein 100 H Urine Glucose (UA) Negative Urine Ketones 15 H Urine Blood Negative Urine Nitrate Negative Urine Bilirubin Moderate H Urine Urobilinogen 0.2 Ur Leukocyte Esterase Negative Urine RBC 0 - 2 Urine WBC 0 - 2 Ur Epithelial Cells 0 - 2 Urine Bacteria Few 08/07/17 08/07/17 08/07/17 05:15 05:15 05:15 WBC 11.1 H RBC 4.01 Hgb 12.2 L D Hct 35.7 L MCV 89.0 MCH 30.4 MCHC 34.2 RDW 15.0 H Plt Count 186 MPV 9.9 Gran % 84.2 H Lymph % (Auto) 10.6 L Levy % (Auto) 4.9 Eos % (Auto) 0.1 L Baso % (Auto) 0.2 Gran # 9.36 H Lymph # (Auto) 1.2 Levy # (Auto) 0.5 Eos # (Auto) 0.0 Baso # (Auto) 0.02 PT 13.3 H INR 1.15 H APTT 36.2 pO2 VBG pH VBG pCO2 VBG HCO3 VBG Total CO2 VBG O2 Sat (Calc) VBG Base Excess VBG Potassium Sodium 136 Chloride 100 Glucose Lactate FiO2 Potassium 3.9 Carbon Dioxide 25 Anion Gap 15 BUN 11 Creatinine 1.1 Est GFR ( Amer) > 60 Est GFR (Non-Af Amer) > 60 Random Glucose 111 H Calcium 8.1 L Phosphorus 4.4 Magnesium 1.9 Total Bilirubin 1.3 AST 58 ALT 35 Alkaline Phosphatase 54 Troponin I 3.00 H* D Total Protein 6.2 Albumin 3.4 Globulin 2.8 Albumin/Globulin Ratio 1.2 Venous Blood Potassium Urine Color Urine Appearance Urine pH Ur Specific Sedley Urine Protein Urine Glucose (UA) Urine Ketones Urine Blood Urine Nitrate Urine Bilirubin Urine Urobilinogen Ur Leukocyte Esterase Urine RBC Urine WBC Ur Epithelial Cells Urine Bacteria Attending/Attestation - Attestation I have personally seen and examined this patient.: Yes I have fully participated in the care of the patient.: Yes I have reviewed all pertinent clinical information: Yes Notes (Text): 08/07/17 06:44 I agree with the above note by the resident with the addition of the followin67 y/o male with a complex pmhx as listed above including chronic pain syndrome where he was weaned off of high doses of opiates and started on an intrathecal pump of Ziconitide presented to the ED for the 2nd time in 24hrs with altered mentation and agitation. Case discussed with patient's pain management doctor ( Zandra) who stated the pump had essentially been turned down to the lowest level possible in order to avoid occlusion. Medication effects should ideally be resolved by the AM, where patient's mentation could be re-assessed. Patient was intubated for airway protection; appeared to show copious amounts of pink frothy sputum c/w pulmonary edema. Started on IV Abx for CAP as well as therapeutic anticoagulation for ACS. Case discussed at length with Dr. Moseley in the ED all labs and images available to me thus far have been reviewed total time of care: 45 minutes
[2017-08-07 06:18] LABS: ALB/GLOB RATIO 1.2 (1.1-1.8); ALBUMIN 3.4 g/dL (3.0-4.8); ALT/SGPT 35 U/L (7-56); AST/SGOT 58 U/L (17-59); BLOOD UREA NITROGEN 11 mg/dL (7-21); CALCIUM 8.1 mg/dL (8.4-10.5); GFR AFRICAN-AMERICAN > 60; GFR NON-AFRICAN AMERICAN > 60
[2017-08-07 06:19] LABS: BASO # 0.02 K/mm3 (0.0-2.0); BASO % 0.2 % (0.0-3.0); EOS % 0.1 % (1.5-5.0); GRAN # 9.36 (1.4-6.5); GRAN % 84.2 % (50.0-68.0); HEMOGLOBIN 12.2 g/dL (14.0-18.0); LYMPH # 1.2 (1.2-3.4); LYMPH % 10.6 % (22.0-35.0); MEAN CORPUSCULAR HEMOGLOBIN 30.4 pg (25.0-35.0); MEAN CORPUSCULAR HGB CONC 34.2 g/dl (31.0-37.0); MEAN PLATELET VOLUME 9.9 fl (7.0-11.0); MONO # 0.5 (0.1-0.6); MONO % 4.9 % (1.0-6.0); RBC 4.01 10^6/uL (3.5-6.1); WHITE BLOOD COUNT 11.1 10^3/ul (4.5-11.0)
[2017-08-07 06:35] LABS: INR 1.15 (0.93-1.08); PROTHROMBIN TIME 13.3 SECONDS (9.4-12.5)
[2017-08-07 06:36] LABS: PARTIAL THROMBOPLASTIN TIME 36.2 Seconds (25.1-36.5)
[2017-08-07 07:05] VITALS: BMI 50.2
[2017-08-07 08:02] LABS: ARTERIAL BLOOD GAS HCO3 27.3 mmol/L (21-28); ARTERIAL BLOOD GAS HEMOGLOBIN 15.8 g/dL (11.7-17.4); ARTERIAL BLOOD GAS O2 CAPACITY 21.7 mL/dl (16-24); ARTERIAL BLOOD GAS O2 CONTENT 21.4 ML/dl (15-23); ARTERIAL BLOOD GAS O2 SAT 98.7 % (95-98); ARTERIAL BLOOD GAS PCO2 53 mm/Hg (35-45); ARTERIAL BLOOD GAS PH 7.32 (7.35-7.45); ARTERIAL BLOOD GAS TCO2 28.9 mmol.L (22-28)
--- NOTE | 2017-08-07 08:37 | RAD ---
HISTORY: routine med exam COMPARISON: 02/25/2017 FINDINGS: LUNGS: No active pulmonary disease. PLEURA: No significant pleural effusion identified, no pneumothorax apparent. CARDIOVASCULAR: Normal. OSSEOUS STRUCTURES: No significant abnormalities. VISUALIZED UPPER ABDOMEN: Normal. OTHER FINDINGS: None. IMPRESSION: No active disease.
--- NOTE | 2017-08-07 08:39 | RAD ---
HISTORY: post intubation COMPARISON: 08/06/2017 at 6:35 p.m. FINDINGS: LUNGS: New patchy right-sided opacity, predominantly in lower lung. Patchy left perihilar opacity. New since prior. PLEURA: No significant pleural effusion identified, no pneumothorax apparent. CARDIOVASCULAR: New ET tube approximately 3.6 cm above the tracheal rolly. Nasogastric tube extends to left upper quadrant of abdomen. OSSEOUS STRUCTURES: No significant abnormalities. VISUALIZED UPPER ABDOMEN: Normal. OTHER FINDINGS: None. IMPRESSION: New bilateral pulmonary infiltrates. ETT and NG tube noted.
--- NOTE | 2017-08-07 08:41 | RAD ---
HISTORY: intubated, f/u COMPARISON: 08/06/2017 FINDINGS: LUNGS: Increasing diffuse right-sided pulmonary opacity consistent with consolidation demonstrated on CT examination of the prior day. Increasing left upper lobe patchy opacity. PLEURA: No significant pleural effusion identified, no pneumothorax apparent. CARDIOVASCULAR: ET tube appropriately positioned approximately 4.2 cm above the tracheal rolly. Nasogastric tube extends to the left upper quadrant of the abdomen. OSSEOUS STRUCTURES: No significant abnormalities. VISUALIZED UPPER ABDOMEN: Normal. OTHER FINDINGS: None. IMPRESSION: Increasing right-sided diffuse opacity. Increasing left upper lobe opacity. ET tube and NG tube unchanged.
[2017-08-07] MEDS ORDERED: Sodium Chloride 0.9% 1,000 ML IV SCH ×2 (09:00→09:33)
--- NOTE | 2017-08-07 09:39 | CARD ---
APPROVED REPORT EKG Measurement Heart [id number] MS [id number] <Conclusion> Normal sinus rhythm PRWP NSSTW changes Prolonged QTc
--- NOTE | 2017-08-07 09:40 | CARD ---
APPROVED REPORT EKG Measurement Heart [id number] VA [id number] <Conclusion> Sinus rhythm with 1st degree AV block Right axis deviation Low voltage QRS Cannot rule out lateral wall infarct, acute STTW changes c/w ischemia
[2017-08-07] MEDS ORDERED: Sodium Chloride 0.9% 1,000 ML IV STA (09:46)
--- NOTE | 2017-08-07 09:48 | CARD ---
APPROVED REPORT EKG Measurement Heart [id number] VA [id number] [id number] <Conclusion> Sinus tachycardia Acute AL MO STTW changes c/w injury and ischemia No change from earlier ECG
--- NOTE | 2017-08-07 09:50 | CARD ---
APPROVED REPORT EKG Measurement Heart [id number] [place] [id number] [id number] <Conclusion> Sinus tachycardia Acute anterolateral infarct Lateral injury pattern ACUTE NE STTW changes c/w injury and ischemia
[2017-08-07] MEDS ORDERED: Cefepime IV 2 gm in NS 2 GM/100 ML BAG IVPB SCH (10:00)
--- NOTE | 2017-08-07 10:18 | CP.CCUPN ---
Addendum entered and electronically signed by Franko Hunt DO 08/07/17 12 :42: Please disregard Part 1 of assessment and plan of original document. This is the current Assessment and Plan A/P This is a 67 yo M with PMH including HTN, COPD, HLD, DM, Chronic back pain s/p intrathecal Ziconotide pump, and peripheral vascular disease of bilateral LE who represents to [facility] after being seen in the office support associate (for severe headache , self-resolved) for new onset and worsening AMS, now intubated and sedated. Neuro: -Due to CT head and CTA head and neck findings to be negative for acute bleed, patient can be started on anticoagulation as per Neurology. -Patient's intrathecal ziconotide is currently being controlled by Dr. Leon, patient's Pain management physician. Medication should be out of patient's system within 24 hours. -Continue with neurocheck -Continue with propofol for sedation -Maintain patient elevated at least 30 degrees, complete supine position causes severe pain for patient. Pulmonary -Patient is intubated and on sedation with propofol -PRVC settings 60 4 16 450 -Repeat ABG reveals respiratory acidosis; TV was increased -CT chest showed bilateral upper lobe infiltrate, unclear if infectious process vs fungal, s/p Levofloxacin x1 in ED, started on Cefepime/Vanco for empiric coverage, would rec ID consult (no Zosyn, penicillin allergic) -blood and urine cx pending, procal pending Cardio -Initial transiet ST elevations on EKG upon being admitted which have resolved -Brillinta, Heparin Drip and aspirin started with negative CT and CTA findings. -Troponin 2.86, 4.08, 3.00 -Coreg started -Cardiology on consult Gastrointestinal -OGT -Protonix for prophylaxis -NPO Renal -Patient not producing urine w/ castaneda -Patient given bolus of NS, will continue IVF@150 -Continue to monitor I&O and renal function with Cr -maintain euvolemia and euglycemia -monitor and replete electrolytes as needed Hematological -H&H stable however continue monitor. Patient may be volume depleted causing hemoconcentration -Patient currently on anticoagulation with Heparin, aspirin, brillinta -continue to monitor Infectious disease -leukocytosis downtrending -lung CT showed bilateral upper lobe infiltrate vs mass, continue empiric coverage with Vanc/Cefepime Dispo: ICU FEN: NPO Access: Peripheral IVs, OGT, ETT Consults: Neuro, Cardio Ppx: Protonix for GI, Heparin drip covers for DVT Original Note: <Franko Hunt - Last Filed: 08/07/17 11:38> CCU Subjective - Physician Review Events Since Last Encounter (Free Text): 08/07/17 09:53 Patient has castaneda in, has not been producing urine Subjective (Free Text): 08/07/17 10:18 Patient seen and examined at bedside intubated and on PRVC 60 4 16 450. Critical Care Time Spent (in minutes): 45 CCU Objective - Vital Signs / Intake & Output Vital Signs (Last 4 hours): Vital Signs Pulse BP 08/07/17 09:08 63 91/55 L 08/07/17 06:00 78 Intake and Output (Last 8hrs): Intake & Output 08/06/17 08/07/17 08/07/17 22:59 06:59 14:59 Intake Total 600 90 Output Total 10 Balance 590 90 Weight 177.355 kg Intake: IV 600 90 Right Hand 600 Oral 0 Output: Urine 10 Urethral (Castaneda) 10 Other: # Bowel Movements 0 - Physical Exam Head: Positive for: Atraumatic, Normocephalic Pupils: Positive for: PERRL Extroacular Muscles: Positive for: EOMI Conjunctiva: Positive for: Normal Ears: Positive for: Normal Mouth: Positive for: Moist Mucous Membranes Pharnyx: Positive for: Normal Nose (External): Positive for: Atraumatic Nose (Internal): Positive for: Normal Inspection Neck: Positive for: Normal Range of Motion Respiratory/Chest: Positive for: Good Air Exchange, Rhonchi. Negative for: Respiratory Distress, Accessory Muscle Use Cardiovascular: Positive for: Regular Rate and Rhythm, Normal S1, S2. Negative for: Murmurs Abdomen: Positive for: Normal Bowel Sounds, Other (obese , + mid left sided intraabdominal pump palpable beneath his skin. ). Negative for: Tenderness, Distention, Peritoneal Signs Back: Positive for: Normal Inspection Upper Extremity: Positive for: Normal Inspection Lower Extremity: Positive for: Normal Inspection Neurological: Positive for: Other (intubation) Skin: Positive for: Warm, Normal Color Psychiatric: Positive for: Other (intubated) - Medications Active Medications: Active Medications Generic Name Dose Route Start Last Admin Trade Name Freq PRN Reason Stop Dose Admin Aspirin 81 mg 08/07/17 10:00 08/07/17 09:10 Aspirin Chewable NG 81 mg DAILY YESSENIA Administration Carvedilol 3.125 mg 08/06/17 22:45 08/07/17 09:08 Coreg PO Not Given BID YESSENIA Propofol 1,000 mg in 100 mls @ 4.491 mls/hr 08/06/17 19:32 08/07/17 02:45 Diprivan IV 5 mcg/kg/min .[id number] PRN 4.491 mls/hr TITRATE PER MD ORDER Administration Protocol 5 MCG/KG/MIN Heparin Sodium/Sodium Chloride 25,000 units in 250 mls @ 17.962 mls/hr 22:45 08/07/17 08:28 Heparin 48085 Units/250ml 1/2 Normal Saline IV 14 units/kg/hr .[id number] YESSENIA 20.956 mls/hr Protocol Titration 12 UNITS/KG/HR Cefepime HCl 2 gm in 100 mls @ 100 mls/hr 08/07/17 10:00 08/07/17 09:11 Maxipime 2gm IVPB 08/12/17 10:01 100 mls/hr Q12 YESSENIA Administration Protocol Vancomycin HCl 1 gm in 250 mls @ 167 mls/hr 08/06/17 22:45 08/07/17 02:09 Vancomycin 1gm IVPB 167 mls/hr Q12H YESSENIA Administration Protocol Sodium Chloride 1,000 mls @ 150 mls/hr 08/07/17 09:33 Sodium Chloride 0.9% IV .[id number] YESSENIA Sodium Chloride 1,000 mls @ 999 mls/hr 08/07/17 09:46 Sodium Chloride 0.9% IV 08/07/17 10:46 .[id number] STA Levothyroxine Sodium 100 mcg 08/08/17 06:00 Synthroid GT 0600 YESSENIA Pantoprazole Sodium 40 mg 08/07/17 10:00 08/07/17 09:10 Protonix Inj IVP 40 mg DAILY YESSENIA Administration Ticagrelor 90 mg 08/07/17 10:00 Brilinta PO BID YESSENIA - Patient Studies Lab Studies: Lab Studies 08/07/17 08/07/17 08/07/17 Range/Units 07:50 07:35 05:15 WBC (4.5-11.0) 10^3/ul RBC (3.5-6.1) 10^6/uL Hgb (14.0-18.0) g/dL Hct (42.0-52.0) % MCV (80.0-105.0) fl MCH (25.0-35.0) pg MCHC (31.0-37.0) g/dl RDW (11.5-14.5) % Plt Count (120.0-450.0) 10^3/uL MPV (7.0-11.0) fl Gran % (50.0-68.0) % Lymph % (Auto) (22.0-35.0) % [place] % (Auto) (1.0-6.0) % Eos % (Auto) (1.5-5.0) % Baso % (Auto) (0.0-3.0) % Gran # (1.4-6.5) Lymph # (Auto) (1.2-3.4) [place] # (Auto) (0.1-0.6) Eos # (Auto) (0.0-0.7) Baso # (Auto) (0.0-2.0) K/mm3 PT (9.4-12.5) SECONDS INR (0.93-1.08) APTT (25.1-36.5) Seconds pCO2 53 H (35-45) mm/Hg pO2 101.0 H (30-55) mm/Hg HCO3 27.3 (21-28) mmol/L ABG pH 7.32 L (7.35-7.45) ABG Total CO2 28.9 H (22-28) mmol.L ABG O2 Saturation 98.7 H (95-98) % ABG O2 Content 21.4 (15-23) ML/dl ABG Base Excess 0.1 (-2.0-3.0) mmol/L ABG Hemoglobin 15.8 (11.7-17.4) g/dL ABG Carboxyhemoglobin 1.8 H (0.5-1.5) % POC ABG HHb (Measured) 1.3 (0-5) % ABG Methemoglobin 0.8 (0.0-3.0) % ABG O2 Capacity 21.7 (16-24) mL/dl VBG pH (7.32-7.43) VBG pCO2 (40-60) VBG HCO3 (21-28) mmol/l VBG Total CO2 (22-28) mmol.L VBG O2 Sat (Calc) (40-65) % VBG Base Excess (0.0-2.0) mmol/L VBG Potassium (3.6-5.2) mmol/L Hgb O2 Saturation 96.1 (95.0-98.0) % Sodium (132-148) mmol/L Chloride (98-107) mmol/L Glucose (75-110) mg/dl Lactate (0.7-2.1) mmol/L FiO2 60.0 % Potassium (3.6-5.0) mmol/L Carbon Dioxide (21-33) mmol/L Anion Gap (10-20) BUN (7-21) mg/dL Creatinine (0.8-1.5) mg/dl Est GFR ( Amer) Est GFR (Non-Af Amer) POC Glucose (mg/dL) 106 (65-110) mg/dL Random Glucose (70-110) mg/dL Calcium (8.4-10.5) mg/dL Phosphorus (2.5-4.5) mg/dL Magnesium (1.7-2.2) mg/dL Total Bilirubin (0.2-1.3) mg/dL AST (17-59) U/L ALT (7-56) U/L Alkaline Phosphatase (38-126) U/L Troponin I ng/mL Total Protein (5.8-8.3) g/dL Albumin (3.0-4.8) g/dL Globulin gm/dL Albumin/Globulin Ratio (1.1-1.8) TSH 3rd Generation 1.60 (0.46-4.68) mIU/mL Venous Blood Potassium (3.6-5.2) mmol/L Urine Color (YELLOW) Urine Appearance (CLEAR) Urine pH (4.7-8.0) Ur Specific [place] (1.005-1.035) Urine Protein (<30 mg/dL) mg/dL Urine Glucose (UA) (NEGATIVE) mg/dL Urine Ketones (NEGATIVE) mg/dL Urine Blood (NEGATIVE) Urine Nitrate (NEGATIVE) Urine Bilirubin (NEGATIVE) Urine Urobilinogen (<1 E.U./dL) E.U./dL Ur Leukocyte Esterase (NEGATIVE) Michael/uL Urine RBC (0-2) /hpf Urine WBC (0-6) /hpf Ur Epithelial Cells (0-5) /hpf Urine Bacteria (NEG) 08/07/17 08/07/17 08/07/17 Range/Units 05:15 05:15 05:15 WBC 11.1 H (4.5-11.0) 10^3/ul RBC 4.01 (3.5-6.1) 10^6/uL Hgb 12.2 L D (14.0-18.0) g/dL Hct 35.7 L (42.0-52.0) % MCV 89.0 (80.0-105.0) fl MCH 30.4 (25.0-35.0) pg MCHC 34.2 (31.0-37.0) g/dl RDW 15.0 H (11.5-14.5) % Plt Count 186 (120.0-450.0) 10^3/uL MPV 9.9 (7.0-11.0) fl Gran % 84.2 H (50.0-68.0) % Lymph % (Auto) 10.6 L (22.0-35.0) % [place] % (Auto) 4.9 (1.0-6.0) % Eos % (Auto) 0.1 L (1.5-5.0) % Baso % (Auto) 0.2 (0.0-3.0) % Gran # 9.36 H (1.4-6.5) Lymph # (Auto) 1.2 (1.2-3.4) [place] # (Auto) 0.5 (0.1-0.6) Eos # (Auto) 0.0 (0.0-0.7) Baso # (Auto) 0.02 (0.0-2.0) K/mm3 PT 13.3 H (9.4-12.5) SECONDS INR 1.15 H (0.93-1.08) APTT 36.2 (25.1-36.5) Seconds pCO2 (35-45) mm/Hg pO2 (30-55) mm/Hg HCO3 (21-28) mmol/L ABG pH (7.35-7.45) ABG Total CO2 (22-28) mmol.L ABG O2 Saturation (95-98) % ABG O2 Content (15-23) ML/dl ABG Base Excess (-2.0-3.0) mmol/L ABG Hemoglobin (11.7-17.4) g/dL ABG Carboxyhemoglobin (0.5-1.5) % POC ABG HHb (Measured) (0-5) % ABG Methemoglobin (0.0-3.0) % ABG O2 Capacity (16-24) mL/dl VBG pH (7.32-7.43) VBG pCO2 (40-60) VBG HCO3 (21-28) mmol/l VBG Total CO2 (22-28) mmol.L VBG O2 Sat (Calc) (40-65) % VBG Base Excess (0.0-2.0) mmol/L VBG Potassium (3.6-5.2) mmol/L Hgb O2 Saturation (95.0-98.0) % Sodium 136 (132-148) mmol/L Chloride 100 (98-107) mmol/L Glucose (75-110) mg/dl Lactate (0.7-2.1) mmol/L FiO2 % Potassium 3.9 (3.6-5.0) mmol/L Carbon Dioxide 25 (21-33) mmol/L Anion Gap 15 (10-20) BUN 11 (7-21) mg/dL Creatinine 1.1 (0.8-1.5) mg/dl Est GFR ( Amer) > 60 Est GFR (Non-Af Amer) > 60 POC Glucose (mg/dL) (65-110) mg/dL Random Glucose 111 H (70-110) mg/dL Calcium 8.1 L (8.4-10.5) mg/dL Phosphorus 4.4 (2.5-4.5) mg/dL Magnesium 1.9 (1.7-2.2) mg/dL Total Bilirubin 1.3 (0.2-1.3) mg/dL AST 58 (17-59) U/L ALT 35 (7-56) U/L Alkaline Phosphatase 54 (38-126) U/L Troponin I 3.00 H* D ng/mL Total Protein 6.2 (5.8-8.3) g/dL Albumin 3.4 (3.0-4.8) g/dL Globulin 2.8 gm/dL Albumin/Globulin Ratio 1.2 (1.1-1.8) TSH 3rd Generation (0.46-4.68) mIU/mL Venous Blood Potassium (3.6-5.2) mmol/L Urine Color (YELLOW) Urine Appearance (CLEAR) Urine pH (4.7-8.0) Ur Specific [place] (1.005-1.035) Urine Protein (<30 mg/dL) mg/dL Urine Glucose (UA) (NEGATIVE) mg/dL Urine Ketones (NEGATIVE) mg/dL Urine Blood (NEGATIVE) Urine Nitrate (NEGATIVE) Urine Bilirubin (NEGATIVE) Urine Urobilinogen (<1 E.U./dL) E.U./dL Ur Leukocyte Esterase (NEGATIVE) Michael/uL Urine RBC (0-2) /hpf Urine WBC (0-6) /hpf Ur Epithelial Cells (0-5) /hpf Urine Bacteria (NEG) 08/07/17 08/07/17 08/07/17 Range/Units 01:00 01:00 00:30 WBC (4.5-11.0) 10^3/ul RBC (3.5-6.1) 10^6/uL Hgb (14.0-18.0) g/dL Hct (42.0-52.0) % MCV (80.0-105.0) fl MCH (25.0-35.0) pg MCHC (31.0-37.0) g/dl RDW (11.5-14.5) % Plt Count (120.0-450.0) 10^3/uL MPV (7.0-11.0) fl Gran % (50.0-68.0) % Lymph % (Auto) (22.0-35.0) % [place] % (Auto) (1.0-6.0) % Eos % (Auto) (1.5-5.0) % Baso % (Auto) (0.0-3.0) % Gran # (1.4-6.5) Lymph # (Auto) (1.2-3.4) [place] # (Auto) (0.1-0.6) Eos # (Auto) (0.0-0.7) Baso # (Auto) (0.0-2.0) K/mm3 PT (9.4-12.5) SECONDS INR (0.93-1.08) APTT (25.1-36.5) Seconds pCO2 (35-45) mm/Hg pO2 60 H (30-55) mm/Hg HCO3 (21-28) mmol/L ABG pH (7.35-7.45) ABG Total CO2 (22-28) mmol.L ABG O2 Saturation (95-98) % ABG O2 Content (15-23) ML/dl ABG Base Excess (-2.0-3.0) mmol/L ABG Hemoglobin (11.7-17.4) g/dL ABG Carboxyhemoglobin (0.5-1.5) % POC ABG HHb (Measured) (0-5) % ABG Methemoglobin (0.0-3.0) % ABG O2 Capacity (16-24) mL/dl VBG pH 7.35 (7.32-7.43) VBG pCO2 49.0 (40-60) VBG HCO3 27.1 (21-28) mmol/l VBG Total CO2 28.6 H (22-28) mmol.L VBG O2 Sat (Calc) 94.3 H (40-65) % VBG Base Excess 0.8 (0.0-2.0) mmol/L VBG Potassium 4.1 (3.6-5.2) mmol/L Hgb O2 Saturation (95.0-98.0) % Sodium 137.0 (132-148) mmol/L Chloride 103.0 (98-107) mmol/L Glucose 141 H (75-110) mg/dl Lactate 1.0 (0.7-2.1) mmol/L FiO2 21.0 % Potassium (3.6-5.0) mmol/L Carbon Dioxide (21-33) mmol/L Anion Gap (10-20) BUN (7-21) mg/dL Creatinine (0.8-1.5) mg/dl Est GFR ( Amer) Est GFR (Non-Af Amer) POC Glucose (mg/dL) (65-110) mg/dL Random Glucose (70-110) mg/dL Calcium (8.4-10.5) mg/dL Phosphorus (2.5-4.5) mg/dL Magnesium (1.7-2.2) mg/dL Total Bilirubin (0.2-1.3) mg/dL AST (17-59) U/L ALT (7-56) U/L Alkaline Phosphatase (38-126) U/L Troponin I 4.08 H* D ng/mL Total Protein (5.8-8.3) g/dL Albumin (3.0-4.8) g/dL Globulin gm/dL Albumin/Globulin Ratio (1.1-1.8) TSH 3rd Generation (0.46-4.68) mIU/mL Venous Blood Potassium 4.1 (3.6-5.2) mmol/L Urine Color Yellow (YELLOW) Urine Appearance Clear (CLEAR) Urine pH 6.0 (4.7-8.0) Ur Specific [place] >= 1.030 (1.005-1.035) Urine Protein 100 H (<30 mg/dL) mg/dL Urine Glucose (UA) Negative (NEGATIVE) mg/dL Urine Ketones 15 H (NEGATIVE) mg/dL Urine Blood Negative (NEGATIVE) Urine Nitrate Negative (NEGATIVE) Urine Bilirubin Moderate H (NEGATIVE) Urine Urobilinogen 0.2 (<1 E.U./dL) E.U./dL Ur Leukocyte Esterase Negative (NEGATIVE) Michael/uL Urine RBC 0 - 2 (0-2) /hpf Urine WBC 0 - 2 (0-6) /hpf Ur Epithelial Cells 0 - 2 (0-5) /hpf Urine Bacteria Few (NEG) Laboratory Results - last 24 hr 08/07/17 08/07/17 08/07/17 00:30 01:00 01:00 WBC RBC Hgb Hct MCV MCH MCHC RDW Plt Count MPV Gran % Lymph % (Auto) [place] % (Auto) Eos % (Auto) Baso % (Auto) Gran # Lymph # (Auto) [place] # (Auto) Eos # (Auto) Baso # (Auto) PT INR APTT pCO2 pO2 60 H HCO3 ABG pH ABG Total CO2 ABG O2 Saturation ABG O2 Content ABG Base Excess ABG Hemoglobin ABG Carboxyhemoglobin POC ABG HHb (Measured) ABG Methemoglobin ABG O2 Capacity VBG pH 7.35 VBG pCO2 49.0 VBG HCO3 27.1 VBG Total CO2 28.6 H VBG O2 Sat (Calc) 94.3 H VBG Base Excess 0.8 VBG Potassium 4.1 Hgb O2 Saturation Sodium 137.0 Chloride 103.0 Glucose 141 H Lactate 1.0 FiO2 21.0 Potassium Carbon Dioxide Anion Gap BUN Creatinine Est GFR ( Amer) Est GFR (Non-Af Amer) POC Glucose (mg/dL) Random Glucose Calcium Phosphorus Magnesium Total Bilirubin AST ALT Alkaline Phosphatase Troponin I 4.08 H* D Total Protein Albumin Globulin Albumin/Globulin Ratio TSH 3rd Generation Venous Blood Potassium 4.1 Urine Color Yellow Urine Appearance Clear Urine pH 6.0 Ur Specific [place] >= 1.030 Urine Protein 100 H Urine Glucose (UA) Negative Urine Ketones 15 H Urine Blood Negative Urine Nitrate Negative Urine Bilirubin Moderate H Urine Urobilinogen 0.2 Ur Leukocyte Esterase Negative Urine RBC 0 - 2 Urine WBC 0 - 2 Ur Epithelial Cells 0 - 2 Urine Bacteria Few 08/07/17 08/07/17 08/07/17 05:15 05:15 05:15 WBC 11.1 H RBC 4.01 Hgb 12.2 L D Hct 35.7 L MCV 89.0 MCH 30.4 MCHC 34.2 RDW 15.0 H Plt Count 186 MPV 9.9 Gran % 84.2 H Lymph % (Auto) 10.6 L [place] % (Auto) 4.9 Eos % (Auto) 0.1 L Baso % (Auto) 0.2 Gran # 9.36 H Lymph # (Auto) 1.2 [place] # (Auto) 0.5 Eos # (Auto) 0.0 Baso # (Auto) 0.02 PT 13.3 H INR 1.15 H APTT 36.2 pCO2 pO2 HCO3 ABG pH ABG Total CO2 ABG O2 Saturation ABG O2 Content ABG Base Excess ABG Hemoglobin ABG Carboxyhemoglobin POC ABG HHb (Measured) ABG Methemoglobin ABG O2 Capacity VBG pH VBG pCO2 VBG HCO3 VBG Total CO2 VBG O2 Sat (Calc) VBG Base Excess VBG Potassium Hgb O2 Saturation Sodium 136 Chloride 100 Glucose Lactate FiO2 Potassium 3.9 Carbon Dioxide 25 Anion Gap 15 BUN 11 Creatinine 1.1 Est GFR ( Amer) > 60 Est GFR (Non-Af Amer) > 60 POC Glucose (mg/dL) Random Glucose 111 H Calcium 8.1 L Phosphorus 4.4 Magnesium 1.9 Total Bilirubin 1.3 AST 58 ALT 35 Alkaline Phosphatase 54 Troponin I 3.00 H* D Total Protein 6.2 Albumin 3.4 Globulin 2.8 Albumin/Globulin Ratio 1.2 TSH 3rd Generation Venous Blood Potassium Urine Color Urine Appearance Urine pH Ur Specific [place] Urine Protein Urine Glucose (UA) Urine Ketones Urine Blood Urine Nitrate Urine Bilirubin Urine Urobilinogen Ur Leukocyte Esterase Urine RBC Urine WBC Ur Epithelial Cells Urine Bacteria 08/07/17 08/07/17 08/07/17 05:15 07:35 07:50 WBC RBC Hgb Hct MCV MCH MCHC RDW Plt Count MPV Gran % Lymph % (Auto) [place] % (Auto) Eos % (Auto) Baso % (Auto) Gran # Lymph # (Auto) [place] # (Auto) Eos # (Auto) Baso # (Auto) PT INR APTT pCO2 53 H pO2 101.0 H HCO3 27.3 ABG pH 7.32 L ABG Total CO2 28.9 H ABG O2 Saturation 98.7 H ABG O2 Content 21.4 ABG Base Excess 0.1 ABG Hemoglobin 15.8 ABG Carboxyhemoglobin 1.8 H POC ABG HHb (Measured) 1.3 ABG Methemoglobin 0.8 ABG O2 Capacity 21.7 VBG pH VBG pCO2 VBG HCO3 VBG Total CO2 VBG O2 Sat (Calc) VBG Base Excess VBG Potassium Hgb O2 Saturation 96.1 Sodium Chloride Glucose Lactate FiO2 60.0 Potassium Carbon Dioxide Anion Gap BUN Creatinine Est GFR ( Amer) Est GFR (Non-Af Amer) POC Glucose (mg/dL) 106 Random Glucose Calcium Phosphorus Magnesium Total Bilirubin AST ALT Alkaline Phosphatase Troponin I Total Protein Albumin Globulin Albumin/Globulin Ratio TSH 3rd Generation 1.60 Venous Blood Potassium Urine Color Urine Appearance Urine pH Ur Specific [place] Urine Protein Urine Glucose (UA) Urine Ketones Urine Blood Urine Nitrate Urine Bilirubin Urine Urobilinogen Ur Leukocyte Esterase Urine RBC Urine WBC Ur Epithelial Cells Urine Bacteria EKG/Cardiology Studies: Cardiology / EKG Studies 08/07/17 07:00 EKG [ELECTROCARDIOGRAM] DAILY Comment: Reason For Exam: f/u, transient ST elevations on admit Review of Systems - Review of Systems Systems not reviewed;Unavailable: Intubated Assessment/Plan - Assessment and Plan (Free Text) Assessment: This is a 67 yo M with PMH including HTN, COPD, HLD, DM, Chronic back pain s/p intrathecal Ziconotide pump, and peripheral vascular disease of bilateral LE who represents to [facility] after being seen in the office support associate (for severe headache , self-resolved) for new onset and worsening AMS, now intubated and sedated. Plan: Neurologic -patient is currently intubated however not currently on sedation, able to follow commands Cardiovascular -Patient experienced Atrial fibrillation with RVR, was given Lopressor 5 mg. Currently in A. fib however HR is controlled -BP is controlled, maintain normotension -Continue with solu-cortef Hematological -S/P 2 units of platelets, no further platelets needed at this time as per GI -S/P 5 units of PRBC -General surgery on consult for AV fistula evaluation Renal -ESRD on HD MWF -Nephrology on consult -Continue to maintain euvolemia -Replete electrolytes as needed Pulmonary -Cont with vent support, low tidal volume ventilation and continue with daily cpap trials Gastrointestinal -Bleeding scan negative -Patient will have EGD prior to extubation this morning INfectious disease -Leukocytosis downtrending -Patient will continue on broad spectrum antibiotics -procalcitnon elevated >200 but possibly due to fact that patient was in h emorrhagic shock -CXR negative for infection -CT abdomen/pelvis shows possible enteritis Metabolic -ISS-low -Maintain euglycemia Neuro: -Due to CT head and CTA head and neck findings to be negative for acute bleed, patient can be started on anticoagulation as per Neurology. -Patient's intrathecal ziconotide is currently being controlled by Dr. Leon, patient's Pain management physician. Medication should be out of patient's system within 24 hours. -Continue with neurocheck -Continue with propofol for sedation -Maintain patient elevated at least 30 degrees, complete supine position causes severe pain for patient. Pulmonary -Patient is intubated and on sedation with propofol -PRVC settings 60 4 16 450 -Repeat ABG reveals respiratory acidosis; TV was increased -CT chest showed bilateral upper lobe infiltrate, unclear if infectious process vs fungal, s/p Levofloxacin x1 in ED, started on Cefepime/Vanco for empiric coverage, would rec ID consult (no Zosyn, penicillin allergic) -blood and urine cx pending, procal pending Cardio -Initial transiet ST elevations on EKG upon being admitted which have resolved -Brillinta, Heparin Drip and aspirin started with negative CT and CTA findings. -Troponin 2.86, 4.08, 3.00 -Coreg started -Cardiology on consult Gastrointestinal -OGT -Protonix for prophylaxis -NPO Renal -Patient not producing urine w/ castaneda -Patient given bolus of NS, will continue IVF@150 -Continue to monitor I&O and renal function with Cr -maintain euvolemia and euglycemia -monitor and replete electrolytes as needed Hematological -H&H stable however continue monitor. Patient may be volume depleted causing hemoconcentration -Patient currently on anticoagulation with Heparin, aspirin, brillinta -continue to monitor Infectious disease -leukocytosis downtrending -lung CT showed bilateral upper lobe infiltrate vs mass, continue empiric coverage with Vanc/Cefepime Dispo: ICU FEN: NPO Access: Peripheral IVs, OGT, ETT Consults: Neuro, Cardio Ppx: Protonix for GI, Heparin drip covers for DVT <Min Momin - Last Filed: 08/07/17 13:32> CCU Objective - Vital Signs / Intake & Output Vital Signs (Last 4 hours): Vital Signs Pulse BP Pulse Ox 08/07/17 11:48 105/70 08/07/17 10:00 63 98/58 L 100 08/07/17 09:50 63 100 08/07/17 09:41 64 91/60 L 100 08/07/17 09:40 62 88/53 L 100 08/07/17 09:30 66 89/56 L 100 Intake and Output (Last 8hrs): Intake & Output 08/06/17 08/07/17 08/07/17 22:59 06:59 14:59 Intake Total 600 90 Output Total 10 Balance 590 90 Weight 391 lb 391 lb Intake: IV 600 90 Right Hand 600 Oral 0 Output: Urine 10 Urethral (Castaneda) 10 Other: # Bowel Movements 0 - Medications Active Medications: Active Medications Generic Name Dose Route Start Last Admin Trade Name Freq PRN Reason Stop Dose Admin Aspirin 81 mg 08/07/17 10:00 08/07/17 09:10 Aspirin Chewable NG 81 mg DAILY YESSENIA Administration Atorvastatin Calcium 40 mg 08/07/17 17:00 Lipitor NG DIN YESSENIA Carvedilol 3.125 mg 08/06/17 22:45 08/07/17 09:08 Coreg PO Not Given BID YESSENIA Propofol 1,000 mg in 100 mls @ 4.491 mls/hr 08/06/17 19:32 08/07/17 11:03 Diprivan IV 24.49 mcg/kg/min .[id number] PRN 22 mls/hr TITRATE PER MD ORDER Administration Protocol 5 MCG/KG/MIN Heparin Sodium/Sodium Chloride 25,000 units in 250 mls @ 17.962 mls/hr 22:45 08/07/17 08:28 Heparin 87935 Units/250ml 1/2 Normal Saline IV 14 units/kg/hr .[id number] YESSENIA 20.956 mls/hr Protocol Titration 12 UNITS/KG/HR Vancomycin HCl 1 gm in 250 mls @ 167 mls/hr 08/06/17 22:45 08/07/17 11:02 Vancomycin 1gm IVPB 167 mls/hr Q12H YESSENIA Administration Protocol Meropenem 50 mls @ 100 mls/hr 08/07/17 10:59 08/07/17 11:15 Merrem Iv 1 Gm Premix IVPB 08/07/17 20:00 100 mls/hr Q8 YESSENIA Administration Protocol Levofloxacin/Dextrose 750 mg in 150 mls @ 100 mls/hr 08/07/17 11:15 08/07/17 11:15 Levaquin 750mg IVPB 08/13/17 11:16 100 mls/hr DAILY YESSENIA Administration Protocol Levothyroxine Sodium 100 mcg 08/08/17 06:00 Synthroid GT 0600 YESSENIA Pantoprazole Sodium 40 mg 08/07/17 10:00 08/07/17 09:10 Protonix Inj IVP 40 mg DAILY YESSENIA Administration Ticagrelor 90 mg 08/07/17 10:00 08/07/17 11:15 Brilinta PO 90 mg BID YESSENIA Administration - Patient Studies Lab Studies: Lab Studies 08/07/17 08/07/17 08/07/17 Range/Units 07:50 07:35 05:15 WBC (4.5-11.0) 10^3/ul RBC (3.5-6.1) 10^6/uL Hgb (14.0-18.0) g/dL Hct (42.0-52.0) % MCV (80.0-105.0) fl MCH (25.0-35.0) pg MCHC (31.0-37.0) g/dl RDW (11.5-14.5) % Plt Count (120.0-450.0) 10^3/uL MPV (7.0-11.0) fl Gran % (50.0-68.0) % Lymph % (Auto) (22.0-35.0) % [place] % (Auto) (1.0-6.0) % Eos % (Auto) (1.5-5.0) % Baso % (Auto) (0.0-3.0) % Gran # (1.4-6.5) Lymph # (Auto) (1.2-3.4) [place] # (Auto) (0.1-0.6) Eos # (Auto) (0.0-0.7) Baso # (Auto) (0.0-2.0) K/mm3 PT (9.4-12.5) SECONDS INR (0.93-1.08) APTT (25.1-36.5) Seconds pCO2 53 H (35-45) mm/Hg pO2 101.0 H (30-55) mm/Hg HCO3 27.3 (21-28) mmol/L ABG pH 7.32 L (7.35-7.45) ABG Total CO2 28.9 H (22-28) mmol.L ABG O2 Saturation 98.7 H (95-98) % ABG O2 Content 21.4 (15-23) ML/dl ABG Base Excess 0.1 (-2.0-3.0) mmol/L ABG Hemoglobin 15.8 (11.7-17.4) g/dL ABG Carboxyhemoglobin 1.8 H (0.5-1.5) % POC ABG HHb (Measured) 1.3 (0-5) % ABG Methemoglobin 0.8 (0.0-3.0) % ABG O2 Capacity 21.7 (16-24) mL/dl VBG pH (7.32-7.43) VBG pCO2 (40-60) VBG HCO3 (21-28) mmol/l VBG Total CO2 (22-28) mmol.L VBG O2 Sat (Calc) (40-65) % VBG Base Excess (0.0-2.0) mmol/L VBG Potassium (3.6-5.2) mmol/L Hgb O2 Saturation 96.1 (95.0-98.0) % Sodium (132-148) mmol/L Chloride (98-107) mmol/L Glucose (75-110) mg/dl Lactate (0.7-2.1) mmol/L FiO2 60.0 % Potassium (3.6-5.0) mmol/L Carbon Dioxide (21-33) mmol/L Anion Gap (10-20) BUN (7-21) mg/dL Creatinine (0.8-1.5) mg/dl Est GFR ( Amer) Est GFR (Non-Af Amer) POC Glucose (mg/dL) 106 (65-110) mg/dL Random Glucose (70-110) mg/dL Calcium (8.4-10.5) mg/dL Phosphorus (2.5-4.5) mg/dL Magnesium (1.7-2.2) mg/dL Total Bilirubin (0.2-1.3) mg/dL AST (17-59) U/L ALT (7-56) U/L Alkaline Phosphatase (38-126) U/L Troponin I ng/mL Total Protein (5.8-8.3) g/dL Albumin (3.0-4.8) g/dL Globulin gm/dL Albumin/Globulin Ratio (1.1-1.8) TSH 3rd Generation 1.60 (0.46-4.68) mIU/mL Venous Blood Potassium (3.6-5.2) mmol/L Urine Color (YELLOW) Urine Appearance (CLEAR) Urine pH (4.7-8.0) Ur Specific [place] (1.005-1.035) Urine Protein (<30 mg/dL) mg/dL Urine Glucose (UA) (NEGATIVE) mg/dL Urine Ketones (NEGATIVE) mg/dL Urine Blood (NEGATIVE) Urine Nitrate (NEGATIVE) Urine Bilirubin (NEGATIVE) Urine Urobilinogen (<1 E.U./dL) E.U./dL Ur Leukocyte Esterase (NEGATIVE) Michael/uL Urine RBC (0-2) /hpf Urine WBC (0-6) /hpf Ur Epithelial Cells (0-5) /hpf Urine Bacteria (NEG) 08/07/17 08/07/17 08/07/17 Range/Units 05:15 05:15 05:15 WBC 11.1 H (4.5-11.0) 10^3/ul RBC 4.01 (3.5-6.1) 10^6/uL Hgb 12.2 L D (14.0-18.0) g/dL Hct 35.7 L (42.0-52.0) % MCV 89.0 (80.0-105.0) fl MCH 30.4 (25.0-35.0) pg MCHC 34.2 (31.0-37.0) g/dl RDW 15.0 H (11.5-14.5) % Plt Count 186 (120.0-450.0) 10^3/uL MPV 9.9 (7.0-11.0) fl Gran % 84.2 H (50.0-68.0) % Lymph % (Auto) 10.6 L (22.0-35.0) % [place] % (Auto) 4.9 (1.0-6.0) % Eos % (Auto) 0.1 L (1.5-5.0) % Baso % (Auto) 0.2 (0.0-3.0) % Gran # 9.36 H (1.4-6.5) Lymph # (Auto) 1.2 (1.2-3.4) [place] # (Auto) 0.5 (0.1-0.6) Eos # (Auto) 0.0 (0.0-0.7) Baso # (Auto) 0.02 (0.0-2.0) K/mm3 PT 13.3 H (9.4-12.5) SECONDS INR 1.15 H (0.93-1.08) APTT 36.2 (25.1-36.5) Seconds pCO2 (35-45) mm/Hg pO2 (30-55) mm/Hg HCO3 (21-28) mmol/L ABG pH (7.35-7.45) ABG Total CO2 (22-28) mmol.L ABG O2 Saturation (95-98) % ABG O2 Content (15-23) ML/dl ABG Base Excess (-2.0-3.0) mmol/L ABG Hemoglobin (11.7-17.4) g/dL ABG Carboxyhemoglobin (0.5-1.5) % POC ABG HHb (Measured) (0-5) % ABG Methemoglobin (0.0-3.0) % ABG O2 Capacity (16-24) mL/dl VBG pH (7.32-7.43) VBG pCO2 (40-60) VBG HCO3 (21-28) mmol/l VBG Total CO2 (22-28) mmol.L VBG O2 Sat (Calc) (40-65) % VBG Base Excess (0.0-2.0) mmol/L VBG Potassium (3.6-5.2) mmol/L Hgb O2 Saturation (95.0-98.0) % Sodium 136 (132-148) mmol/L Chloride 100 (98-107) mmol/L Glucose (75-110) mg/dl Lactate (0.7-2.1) mmol/L FiO2 % Potassium 3.9 (3.6-5.0) mmol/L Carbon Dioxide 25 (21-33) mmol/L Anion Gap 15 (10-20) BUN 11 (7-21) mg/dL Creatinine 1.1 (0.8-1.5) mg/dl Est GFR ( Amer) > 60 Est GFR (Non-Af Amer) > 60 POC Glucose (mg/dL) (65-110) mg/dL Random Glucose 111 H (70-110) mg/dL Calcium 8.1 L (8.4-10.5) mg/dL Phosphorus 4.4 (2.5-4.5) mg/dL Magnesium 1.9 (1.7-2.2) mg/dL Total Bilirubin 1.3 (0.2-1.3) mg/dL AST 58 (17-59) U/L ALT 35 (7-56) U/L Alkaline Phosphatase 54 (38-126) U/L Troponin I 3.00 H* D ng/mL Total Protein 6.2 (5.8-8.3) g/dL Albumin 3.4 (3.0-4.8) g/dL Globulin 2.8 gm/dL Albumin/Globulin Ratio 1.2 (1.1-1.8) TSH 3rd Generation (0.46-4.68) mIU/mL Venous Blood Potassium (3.6-5.2) mmol/L Urine Color (YELLOW) Urine Appearance (CLEAR) Urine pH (4.7-8.0) Ur Specific [place] (1.005-1.035) Urine Protein (<30 mg/dL) mg/dL Urine Glucose (UA) (NEGATIVE) mg/dL Urine Ketones (NEGATIVE) mg/dL Urine Blood (NEGATIVE) Urine Nitrate (NEGATIVE) Urine Bilirubin (NEGATIVE) Urine Urobilinogen (<1 E.U./dL) E.U./dL Ur Leukocyte Esterase (NEGATIVE) Michael/uL Urine RBC (0-2) /hpf Urine WBC (0-6) /hpf Ur Epithelial Cells (0-5) /hpf Urine Bacteria (NEG) 08/07/17 08/07/17 08/07/17 Range/Units 01:00 01:00 00:30 WBC (4.5-11.0) 10^3/ul RBC (3.5-6.1) 10^6/uL Hgb (14.0-18.0) g/dL Hct (42.0-52.0) % MCV (80.0-105.0) fl MCH (25.0-35.0) pg MCHC (31.0-37.0) g/dl RDW (11.5-14.5) % Plt Count (120.0-450.0) 10^3/uL MPV (7.0-11.0) fl Gran % (50.0-68.0) % Lymph % (Auto) (22.0-35.0) % [place] % (Auto) (1.0-6.0) % Eos % (Auto) (1.5-5.0) % Baso % (Auto) (0.0-3.0) % Gran # (1.4-6.5) Lymph # (Auto) (1.2-3.4) [place] # (Auto) (0.1-0.6) Eos # (Auto) (0.0-0.7) Baso # (Auto) (0.0-2.0) K/mm3 PT (9.4-12.5) SECONDS INR (0.93-1.08) APTT (25.1-36.5) Seconds pCO2 (35-45) mm/Hg pO2 60 H (30-55) mm/Hg HCO3 (21-28) mmol/L ABG pH (7.35-7.45) ABG Total CO2 (22-28) mmol.L ABG O2 Saturation (95-98) % ABG O2 Content (15-23) ML/dl ABG Base Excess (-2.0-3.0) mmol/L ABG Hemoglobin (11.7-17.4) g/dL ABG Carboxyhemoglobin (0.5-1.5) % POC ABG HHb (Measured) (0-5) % ABG Methemoglobin (0.0-3.0) % ABG O2 Capacity (16-24) mL/dl VBG pH 7.35 (7.32-7.43) VBG pCO2 49.0 (40-60) VBG HCO3 27.1 (21-28) mmol/l VBG Total CO2 28.6 H (22-28) mmol.L VBG O2 Sat (Calc) 94.3 H (40-65) % VBG Base Excess 0.8 (0.0-2.0) mmol/L VBG Potassium 4.1 (3.6-5.2) mmol/L Hgb O2 Saturation (95.0-98.0) % Sodium 137.0 (132-148) mmol/L Chloride 103.0 (98-107) mmol/L Glucose 141 H (75-110) mg/dl Lactate 1.0 (0.7-2.1) mmol/L FiO2 21.0 % Potassium (3.6-5.0) mmol/L Carbon Dioxide (21-33) mmol/L Anion Gap (10-20) BUN (7-21) mg/dL Creatinine (0.8-1.5) mg/dl Est GFR ( Amer) Est GFR (Non-Af Amer) POC Glucose (mg/dL) (65-110) mg/dL Random Glucose (70-110) mg/dL Calcium (8.4-10.5) mg/dL Phosphorus (2.5-4.5) mg/dL Magnesium (1.7-2.2) mg/dL Total Bilirubin (0.2-1.3) mg/dL AST (17-59) U/L ALT (7-56) U/L Alkaline Phosphatase (38-126) U/L Troponin I 4.08 H* D ng/mL Total Protein (5.8-8.3) g/dL Albumin (3.0-4.8) g/dL Globulin gm/dL Albumin/Globulin Ratio (1.1-1.8) TSH 3rd Generation (0.46-4.68) mIU/mL Venous Blood Potassium 4.1 (3.6-5.2) mmol/L Urine Color Yellow (YELLOW) Urine Appearance Clear (CLEAR) Urine pH 6.0 (4.7-8.0) Ur Specific [place] >= 1.030 (1.005-1.035) Urine Protein 100 H (<30 mg/dL) mg/dL Urine Glucose (UA) Negative (NEGATIVE) mg/dL Urine Ketones 15 H (NEGATIVE) mg/dL Urine Blood Negative (NEGATIVE) Urine Nitrate Negative (NEGATIVE) Urine Bilirubin Moderate H (NEGATIVE) Urine Urobilinogen 0.2 (<1 E.U./dL) E.U./dL Ur Leukocyte Esterase Negative (NEGATIVE) Michael/uL Urine RBC 0 - 2 (0-2) /hpf Urine WBC 0 - 2 (0-6) /hpf Ur Epithelial Cells 0 - 2 (0-5) /hpf Urine Bacteria Few (NEG) Laboratory Results - last 24 hr 08/07/17 08/07/17 08/07/17 00:30 01:00 01:00 WBC RBC Hgb Hct MCV MCH MCHC RDW Plt Count MPV Gran % Lymph % (Auto) [place] % (Auto) Eos % (Auto) Baso % (Auto) Gran # Lymph # (Auto) [place] # (Auto) Eos # (Auto) Baso # (Auto) PT INR APTT pCO2 pO2 60 H HCO3 ABG pH ABG Total CO2 ABG O2 Saturation ABG O2 Content ABG Base Excess ABG Hemoglobin ABG Carboxyhemoglobin POC ABG HHb (Measured) ABG Methemoglobin ABG O2 Capacity VBG pH 7.35 VBG pCO2 49.0 VBG HCO3 27.1 VBG Total CO2 28.6 H VBG O2 Sat (Calc) 94.3 H VBG Base Excess 0.8 VBG Potassium 4.1 Hgb O2 Saturation Sodium 137.0 Chloride 103.0 Glucose 141 H Lactate 1.0 FiO2 21.0 Potassium Carbon Dioxide Anion Gap BUN Creatinine Est GFR ( Amer) Est GFR (Non-Af Amer) POC Glucose (mg/dL) Random Glucose Calcium Phosphorus Magnesium Total Bilirubin AST ALT Alkaline Phosphatase Troponin I 4.08 H* D Total Protein Albumin Globulin Albumin/Globulin Ratio TSH 3rd Generation Venous Blood Potassium 4.1 Urine Color Yellow Urine Appearance Clear Urine pH 6.0 Ur Specific [place] >= 1.030 Urine Protein 100 H Urine Glucose (UA) Negative Urine Ketones 15 H Urine Blood Negative Urine Nitrate Negative Urine Bilirubin Moderate H Urine Urobilinogen 0.2 Ur Leukocyte Esterase Negative Urine RBC 0 - 2 Urine WBC 0 - 2 Ur Epithelial Cells 0 - 2 Urine Bacteria Few 08/07/17 08/07/17 08/07/17 05:15 05:15 05:15 WBC 11.1 H RBC 4.01 Hgb 12.2 L D Hct 35.7 L MCV 89.0 MCH 30.4 MCHC 34.2 RDW 15.0 H Plt Count 186 MPV 9.9 Gran % 84.2 H Lymph % (Auto) 10.6 L [place] % (Auto) 4.9 Eos % (Auto) 0.1 L Baso % (Auto) 0.2 Gran # 9.36 H Lymph # (Auto) 1.2 [place] # (Auto) 0.5 Eos # (Auto) 0.0 Baso # (Auto) 0.02 PT 13.3 H INR 1.15 H APTT 36.2 pCO2 pO2 HCO3 ABG pH ABG Total CO2 ABG O2 Saturation ABG O2 Content ABG Base Excess ABG Hemoglobin ABG Carboxyhemoglobin POC ABG HHb (Measured) ABG Methemoglobin ABG O2 Capacity VBG pH VBG pCO2 VBG HCO3 VBG Total CO2 VBG O2 Sat (Calc) VBG Base Excess VBG Potassium Hgb O2 Saturation Sodium 136 Chloride 100 Glucose Lactate FiO2 Potassium 3.9 Carbon Dioxide 25 Anion Gap 15 BUN 11 Creatinine 1.1 Est GFR ( Amer) > 60 Est GFR (Non-Af Amer) > 60 POC Glucose (mg/dL) Random Glucose 111 H Calcium 8.1 L Phosphorus 4.4 Magnesium 1.9 Total Bilirubin 1.3 AST 58 ALT 35 Alkaline Phosphatase 54 Troponin I 3.00 H* D Total Protein 6.2 Albumin 3.4 Globulin 2.8 Albumin/Globulin Ratio 1.2 TSH 3rd Generation Venous Blood Potassium Urine Color Urine Appearance Urine pH Ur Specific [place] Urine Protein Urine Glucose (UA) Urine Ketones Urine Blood Urine Nitrate Urine Bilirubin Urine Urobilinogen Ur Leukocyte Esterase Urine RBC Urine WBC Ur Epithelial Cells Urine Bacteria 08/07/17 08/07/17 08/07/17 05:15 07:35 07:50 WBC RBC Hgb Hct MCV MCH MCHC RDW Plt Count MPV Gran % Lymph % (Auto) [place] % (Auto) Eos % (Auto) Baso % (Auto) Gran # Lymph # (Auto) [place] # (Auto) Eos # (Auto) Baso # (Auto) PT INR APTT pCO2 53 H pO2 101.0 H HCO3 27.3 ABG pH 7.32 L ABG Total CO2 28.9 H ABG O2 Saturation 98.7 H ABG O2 Content 21.4 ABG Base Excess 0.1 ABG Hemoglobin 15.8 ABG Carboxyhemoglobin 1.8 H POC ABG HHb (Measured) 1.3 ABG Methemoglobin 0.8 ABG O2 Capacity 21.7 VBG pH VBG pCO2 VBG HCO3 VBG Total CO2 VBG O2 Sat (Calc) VBG Base Excess VBG Potassium Hgb O2 Saturation 96.1 Sodium Chloride Glucose Lactate FiO2 60.0 Potassium Carbon Dioxide Anion Gap BUN Creatinine Est GFR ( Amer) Est GFR (Non-Af Amer) POC Glucose (mg/dL) 106 Random Glucose Calcium Phosphorus Magnesium Total Bilirubin AST ALT Alkaline Phosphatase Troponin I Total Protein Albumin Globulin Albumin/Globulin Ratio TSH 3rd Generation 1.60 Venous Blood Potassium Urine Color Urine Appearance Urine pH Ur Specific [place] Urine Protein Urine Glucose (UA) Urine Ketones Urine Blood Urine Nitrate Urine Bilirubin Urine Urobilinogen Ur Leukocyte Esterase Urine RBC Urine WBC Ur Epithelial Cells Urine Bacteria EKG/Cardiology Studies: Cardiology / EKG Studies 08/07/17 07:00 EKG [ELECTROCARDIOGRAM] DAILY Comment: Reason For Exam: f/u, transient ST elevations on admit Assessment/Plan - Assessment and Plan (Free Text) Plan: Patient seen and examined on rounds with resident, agree with note with following additions/exceptions: Patient is 67yo male morbidly obese, PMHx of intrathecal pump Ziconotide, presents with NSTEMI, PNA, AMS. Currently afebrile, HD stable, comfortable on PRVC, adequate oxygenation. CT chest with bilateral lower lobe infiltrates. ID following. Elevated torponin, started on heparin drip, cardiology consulted. NSTEMI AMS PNA Recommned: - cont with vent support, low tidal vol ventilation, daily sedation vacation, duonebs Q6hr - Panculture, UCx, BCx, Procal, Sputum Culture - Follow up ID, consider an LP - antibiotics as per ID - Vanco, Cefepime - follow up neuro - follow pain management - ASA, Brillinta, Heparin drip - Statin - ECHO - cardiology eval - monitor - FS control - GI ppx - DVT ppx - Monitor in MICU Critical care time 35 minutes
[2017-08-07] MEDS: levoFLOXacin 750 mg in D5W 750 MG/150 ML BAG IVPB SCH (11:15)
[2017-08-07] MEDS: Meropenem IV 1 gm in NS 50 ML IVPB SCH ×2 (11:15→15:12)
--- NOTE | 2017-08-07 14:27 | CON ---
DATE: The patient is in the ICU, room 128, bed 1. CHIEF COMPLAINT: Respiratory failure, intubated on the ventilator x1 day. HISTORY OF PRESENT ILLNESS: A 67-year-old male with past medical history of morbid obesity with BMI of 50, hypertension, chronic obstructive lung disease, diabetes mellitus, chronic pain syndrome, chronic methadone and oxycodone use, peripheral vascular disease. Intrathecal pump for chronic back pain and has had bilateral lower extremity cellulitis in the past and was seen in 2015 and was admitted in the Emergency Room, required intubation and ventilation, on a ventilator. Infectious Disease consultation requested for choice of antibiotics for his lungs. REVIEW OF SYSTEMS: Reveals no fever has been documented. The patient is intubated on a ventilator, unresponsive, unable to get information out of the patient. There has been no diarrhea. No bright red blood per rectum reported. No chest pain was reported. PAST MEDICAL HISTORY: Significant for hypertension, diabetes, chronic obstructive lung disease, morbid obesity, BMI of 50, chronic methadone and oxycodone use, peripheral vascular disease, chronic pain syndrome. PAST SURGICAL HISTORY: Significant for the intrathecal pump and gastric bypass, orthopedic surgery, spinal fusion, cholecystectomy. ALLERGIES: THE PATIENT IS ALLERGIC TO PENICILLIN, TYPE OF ALLERGY IS NOT CLEAR. MEDICATIONS AT HOME: Reviewed and include Apresoline, AndroGel, Synthroid, gabapentin, Lasix, folic acid. PHYSICAL EXAMINATION GENERAL: On exam, the patient is in bed. VITAL SIGNS: Temperature of 99.2, heart rate of 63, blood pressure is 98/58, it was down below to 88 and down to 80. The patient is on a vent. HEENT: Examination reveals ET tube to be in place. NECK: Supple. LUNGS: Have decreased breath sounds bilaterally. HEART: Normal S1, S2. ABDOMEN: Soft. No rebound or guarding. EXTREMITIES: Examination of the lower extremities, chronic changes, no evidence of active infection. DATA: Laboratory examination reveals a white count of 13,000, hemoglobin of 15, platelets of 245, 83% granulocytosis. Coagulation is noted and the gases are noted. BUN of 11, creatinine of 1.1. Troponin is elevated at 4 and 3. Urinalysis is noted. Microbiology is pending. Chest x-ray is positive for infiltrate. CT scan is positive for an infiltrate. ASSESSMENT AND PLAN: This is a 67-year-old male with morbid obesity, hypertension, body mass index of 50, chronic obstructive lung disease, diabetes, chronic methadone and oxycodone use, peripheral vascular disease, chronic back pain with intrathecal pump presenting with hypotension, leukocytosis, respiratory failure, infiltrates. Severe sepsis, respiratory failure, intubated on a ventilator with community-acquired pneumonia with an acute non-ST elevation myocardial infarction. We will treat the patient with vancomycin, meropenem and Levaquin pending blood cultures, urine cultures, sputum cultures, MRSA screen, HIV test and procalcitonin. Legionella urine antigen will be ordered and we will make further recommendations upon availability of the initial results. Overall prognosis is quite poor, this patient is in critical condition. Antonino Gilmore MD
[2017-08-07] MEDS: Sodium Chloride 0.9% 1,000 ML IV SCH (15:47)
--- NOTE | 2017-08-07 16:17 | CON ---
DATE: CARDIOLOGY CONSULTATION REASON FOR CONSULTATION: Elevated troponin. HISTORY OF PRESENT ILLNESS: The patient is a 67-year-old white male who has a history of hypertension, chronic obstructive lung disease, diabetes mellitus, chronic low back pain, status post intrathecal ziconotide pump and history of peripheral vascular disease who was initially presented to the emergency room yesterday because of headache, which resolved, to be brought in back because of altered mental status. The patient was reported by the family to be confused, hallucinating, and aggressive. The patient required intubation in emergency room. A CT scan and CT angio of the head and neck was reported by the neurologist as signs of global ischemia, but no acute bleeding. Initially, on the second EKG, the patient was noted to have subtle lateral ST elevation with inferior ischemic ST-T wave changes. Dr. Duff, claims supervisor, was consulted, but no intervention was performed because of the neurological instability. So far, while the patient in ICU, there is no reported sustained ventricular tachycardia. The patient is noted to be mildly hypotensive. MEDICATIONS: Aspirin 81 mg once a day, Brilinta 90 mg twice a day, Coreg 3.125 mg twice a day is being withheld because of borderline hypertension, intravenous heparin infusion in the therapeutic regimen for acute coronary artery syndrome, meropenem 1 g intravenously every 8 hours, Synthroid 100 mcg daily via gastrotomy tube, vancomycin 1 g intravenously daily every 12 hours. PHYSICAL EXAMINATION: GENERAL: The patient is an elderly male who is sedated on a ventilator. VITAL SIGNS: Blood pressure 103/61, heart rate 66, temperature 98.2, respirations 23. HEENT: Normocephalic. CHEST: Absent breath sounds over the bases bilaterally. HEART: S1 and S2 regular. ABDOMEN: Soft. EXTREMITIES: A 1+ bilateral leg edema with chronic skin changes bilaterally without pigmentation. LABORATORY DATA: Hemoglobin and hematocrit 12.2 and 35.7 with nearly a drop of 3 g compared to yesterday's hemoglobin and hematocrit of 15.1 and 43.1. White count today is 11.1, platelet count 186,000. Today's SMA-7; sodium 136, potassium 3.9, chloride 100, CO2 of 25, glucose 111, BUN 11, creatinine 1.1. Troponins were 4.08 and 3.01; initial troponin was 2.86. I did review the EKGs and except for the second EKG which was performed exactly 4 minutes after the first EKG and that second EKG revealed a subtle lateral ST elevation with inferolateral ischemic ST segment changes. The rest of the EKGs revealed nonspecific ST-T wave changes including today's EKG. Echocardiographic study performed in February last year revealed normal left ventricular size, wall thickness, and systolic function with grade I abnormal relaxation pattern. Chest x-ray revealed cardiomegaly with bilateral diffuse alveolar infiltrate. Chest CT scan revealed the tip of endotracheal tube is at the level of the rolly, severe bilateral dependent consolidative changes, foci of bilateral nonspecific ground-glass opacity. ASSESSMENT: 1. Consider non-ST elevation myocardial infarction. 2. Altered mental status, rule out underlying sepsis. Other central nervous system differential diagnosis will be left to the neurologist's assessment. 3. Peripheral vascular disease. 4. Chronic obstructive lung disease. 5. Bilateral pneumonia. RECOMMENDATIONS: Continue aspirin 81 mg once a day, Brilinta 90 mg once a day, therapeutic intravenous heparin regimen, continue IV meropenem and IV vancomycin as well as IV Levaquin. Obtain a bedside echocardiogram. Start Lipitor at 40 mg once a day via nasogastric tube. Obtain two sets of blood cultures as well as sputum aspirates for Gram stain and culture. Sharif Giron MD
[2017-08-07] MEDS: Heparin 25,000units in 1/2NS 250 ML BAG IV SCH (17:28)
--- NOTE | 2017-08-07 21:26 | CP.PCM.CON ---
History of Present Illness - History of Present Illness History of Present Illness: Mr. López is a 67-year-old man with a past medical history of PVD, HTN, COPD, HLD, DM, Chronic back pain with intrathecal ziconotide (Prialt) pump, who apparently had a psychotic reaction to ziconitide, started to have visual/ auditory hallucinations, agitation confusion, became combative and was brought back to the ED. He then required intubated for airway protection and combativeness. CT scan of the head did not show any acute findings. In order to have control of his aggressive behavior, he required more than 8 mg of Ativan , 150 mg of Ketamine, and eventually propofol. Currently, he is on 50 mcg of propofol, but his BP appears to be labile. He is responsive to pain and moves all extremities. Review of Systems - Review of Systems All systems: reviewed and no additional remarkable complaints except Past Patient History - Infectious Disease Hx of Infectious Diseases: MRSA - Tetanus Immunizations Tetanus Immunization: Unknown - Past Social History Smoking Status: Never Smoked - CARDIAC Hx Pacemaker: No - PULMONARY Hx Respiratory Disorders: Yes Hx Chronic Obstructive Pulmonary Disease (COPD): Yes - NEUROLOGICAL Hx Paralysis: No - RENAL Hx Chronic Kidney Disease: Yes - ENDOCRINE/METABOLIC Hx Diabetes Mellitus Type 2: Yes Hx Hypothyroidism: Yes - HEMATOLOGICAL/ONCOLOGICAL Hx Blood Transfusions: Yes (6 YRS AGO AFTER SPINAL SX-12 UNITS) - MUSCULOSKELETAL/RHEUMATOLOGICAL Hx Musculoskeletal Disorders: Yes (ARTHRITIS -KNEES) - GENITOURINARY/GYNECOLOGICAL Hx Genitourinary Disorders: No - PSYCHIATRIC Hx Emotional Abuse: No Hx Physical Abuse: No Hx Substance Use: No - SURGICAL HISTORY Hx Cholecystectomy: Yes (2001) Hx Gastric Bypass Surgery: Yes (2007) Hx Orthopedic Surgery: Yes (SPINAL FUSION 2005 &2011) - ANESTHESIA Hx Anesthesia Reactions: No Hx Malignant Hyperthermia: No Meds Allergies/Adverse Reactions: Allergies Allergy/AdvReac Type Severity Reaction Status Date / Time Penicillins Allergy Intermediate hives/itchi Verified 08/06/17 18:20 ng - Medications Medications: Current Medications Aspirin (Aspirin Chewable) 81 mg NG DAILY [facility] Last Admin: 08/07/17 09:10 Dose: 81 mg Atorvastatin Calcium (Lipitor) 40 mg NG DIN [facility] Last Admin: 08/07/17 17:04 Dose: 40 mg Carvedilol (Coreg) 3.125 mg PO BID [facility] Last Admin: 08/07/17 17:04 Dose: Not Given Propofol (Diprivan) 1,000 mg in 100 mls @ 4.491 mls/hr IV .[id number] PRN; Protocol; 5 MCG/KG/MIN PRN Reason: TITRATE PER MD ORDER Last Admin: 08/07/17 19:35 Dose: 45 mcg/kg/min, 40.415 mls/hr Vancomycin HCl (Vancomycin 1gm) 1 gm in 250 mls @ 167 mls/hr IVPB Q12H YESSENIA PRN Reason: Protocol Last Admin: 08/07/17 11:02 Dose: 167 mls/hr Levofloxacin/Dextrose (Levaquin 750mg) 750 mg in 150 mls @ 100 mls/hr IVPB DAILY YESSENIA PRN Reason: Protocol Stop: 08/13/17 11:16 Last Admin: 08/07/17 11:15 Dose: 100 mls/hr Sodium Chloride (Sodium Chloride 0.9%) 1,000 mls @ 100 mls/hr IV .Q10H YESSENIA Last Admin: 08/07/17 15:47 Dose: 100 mls/hr Heparin Sodium/Sodium Chloride (Heparin 85032 Units/250ml 1/2 Normal Saline) 25 ,000 units in 250 mls @ 21.283 mls/hr IV .[id number] YESSENIA; 12 UNITS/KG/HR PRN Reason: Protocol Last Admin: 08/07/17 17:28 Dose: 12 units/kg/hr, 21.283 mls/hr Levothyroxine Sodium (Synthroid) 100 mcg GT 0600 YESSENIA Pantoprazole Sodium (Protonix Inj) 40 mg IVP DAILY [facility] Last Admin: 08/07/17 09:10 Dose: 40 mg Ticagrelor (Brilinta) 90 mg PO BID [facility] Last Admin: 08/07/17 17:03 Dose: 90 mg Physical Exam - Neurological Exam Additional comments: Intubated/sedated. Pupils are reactive, corneals are intact, breathing over the ventilator, responds to painful stimulus with withdrawal. Plantar responses are downgoing. Results - Vital Signs Recent Vital Signs: Last Vital Signs Temp 97.6 F 08/07/17 16:00 Pulse 79 08/07/17 18:00 Resp 28 H 08/07/17 05:40 BP 105/70 08/07/17 11:48 Pulse Ox 100 08/07/17 10:00 - Labs Result Diagrams: 08/07/17 05:15 08/07/17 05:15 Labs: Laboratory Results - last 24 hr 08/07/17 08/07/17 08/07/17 00:30 01:00 01:00 WBC RBC Hgb Hct MCV MCH MCHC RDW Plt Count MPV Gran % Lymph % (Auto) [place] % (Auto) Eos % (Auto) Baso % (Auto) Gran # Lymph # (Auto) [place] # (Auto) Eos # (Auto) Baso # (Auto) PT INR APTT pCO2 pO2 60 H HCO3 ABG pH ABG Total CO2 ABG O2 Saturation ABG O2 Content ABG Base Excess ABG Hemoglobin ABG Carboxyhemoglobin POC ABG HHb (Measured) ABG Methemoglobin ABG O2 Capacity VBG pH 7.35 VBG pCO2 49.0 VBG HCO3 27.1 VBG Total CO2 28.6 H VBG O2 Sat (Calc) 94.3 H VBG Base Excess 0.8 VBG Potassium 4.1 Hgb O2 Saturation Sodium 137.0 Chloride 103.0 Glucose 141 H Lactate 1.0 FiO2 21.0 Potassium Carbon Dioxide Anion Gap BUN Creatinine Est GFR ( Amer) Est GFR (Non-Af Amer) POC Glucose (mg/dL) Random Glucose Calcium Phosphorus Magnesium Total Bilirubin AST ALT Alkaline Phosphatase Troponin I 4.08 H* D Total Protein Albumin Globulin Albumin/Globulin Ratio Procalcitonin TSH 3rd Generation Venous Blood Potassium 4.1 Urine Color Yellow Urine Appearance Clear Urine pH 6.0 Ur Specific [place] >= 1.030 Urine Protein 100 H Urine Glucose (UA) Negative Urine Ketones 15 H Urine Blood Negative Urine Nitrate Negative Urine Bilirubin Moderate H Urine Urobilinogen 0.2 Ur Leukocyte Esterase Negative Urine RBC 0 - 2 Urine WBC 0 - 2 Ur Epithelial Cells 0 - 2 Urine Bacteria Few Ur L.pneumophila Ag 08/07/17 08/07/17 08/07/17 05:15 05:15 05:15 WBC 11.1 H RBC 4.01 Hgb 12.2 L D Hct 35.7 L MCV 89.0 MCH 30.4 MCHC 34.2 RDW 15.0 H Plt Count 186 MPV 9.9 Gran % 84.2 H Lymph % (Auto) 10.6 L [place] % (Auto) 4.9 Eos % (Auto) 0.1 L Baso % (Auto) 0.2 Gran # 9.36 H Lymph # (Auto) 1.2 [place] # (Auto) 0.5 Eos # (Auto) 0.0 Baso # (Auto) 0.02 PT 13.3 H INR 1.15 H APTT 36.2 pCO2 pO2 HCO3 ABG pH ABG Total CO2 ABG O2 Saturation ABG O2 Content ABG Base Excess ABG Hemoglobin ABG Carboxyhemoglobin POC ABG HHb (Measured) ABG Methemoglobin ABG O2 Capacity VBG pH VBG pCO2 VBG HCO3 VBG Total CO2 VBG O2 Sat (Calc) VBG Base Excess VBG Potassium Hgb O2 Saturation Sodium 136 Chloride 100 Glucose Lactate FiO2 Potassium 3.9 Carbon Dioxide 25 Anion Gap 15 BUN 11 Creatinine 1.1 Est GFR ( Amer) > 60 Est GFR (Non-Af Amer) > 60 POC Glucose (mg/dL) Random Glucose 111 H Calcium 8.1 L Phosphorus 4.4 Magnesium 1.9 Total Bilirubin 1.3 AST 58 ALT 35 Alkaline Phosphatase 54 Troponin I 3.00 H* D Total Protein 6.2 Albumin 3.4 Globulin 2.8 Albumin/Globulin Ratio 1.2 Procalcitonin TSH 3rd Generation Venous Blood Potassium Urine Color Urine Appearance Urine pH Ur Specific [place] Urine Protein Urine Glucose (UA) Urine Ketones Urine Blood Urine Nitrate Urine Bilirubin Urine Urobilinogen Ur Leukocyte Esterase Urine RBC Urine WBC Ur Epithelial Cells Urine Bacteria Ur L.pneumophila Ag 08/07/17 08/07/17 08/07/17 05:15 05:15 07:35 WBC RBC Hgb Hct MCV MCH MCHC RDW Plt Count MPV Gran % Lymph % (Auto) [place] % (Auto) Eos % (Auto) Baso % (Auto) Gran # Lymph # (Auto) [place] # (Auto) Eos # (Auto) Baso # (Auto) PT INR APTT pCO2 pO2 HCO3 ABG pH ABG Total CO2 ABG O2 Saturation ABG O2 Content ABG Base Excess ABG Hemoglobin ABG Carboxyhemoglobin POC ABG HHb (Measured) ABG Methemoglobin ABG O2 Capacity VBG pH VBG pCO2 VBG HCO3 VBG Total CO2 VBG O2 Sat (Calc) VBG Base Excess VBG Potassium Hgb O2 Saturation Sodium Chloride Glucose Lactate FiO2 Potassium Carbon Dioxide Anion Gap BUN Creatinine Est GFR ( Amer) Est GFR (Non-Af Amer) POC Glucose (mg/dL) 106 Random Glucose Calcium Phosphorus Magnesium Total Bilirubin AST ALT Alkaline Phosphatase Troponin I Total Protein Albumin Globulin Albumin/Globulin Ratio Procalcitonin 0.05 L TSH 3rd Generation 1.60 Venous Blood Potassium Urine Color Urine Appearance Urine pH Ur Specific [place] Urine Protein Urine Glucose (UA) Urine Ketones Urine Blood Urine Nitrate Urine Bilirubin Urine Urobilinogen Ur Leukocyte Esterase Urine RBC Urine WBC Ur Epithelial Cells Urine Bacteria Ur L.pneumophila Ag 08/07/17 08/07/17 08/07/17 07:50 10:59 13:35 WBC RBC Hgb Hct MCV MCH MCHC RDW Plt Count MPV Gran % Lymph % (Auto) [place] % (Auto) Eos % (Auto) Baso % (Auto) Gran # Lymph # (Auto) [place] # (Auto) Eos # (Auto) Baso # (Auto) PT INR APTT pCO2 53 H pO2 101.0 H HCO3 27.3 ABG pH 7.32 L ABG Total CO2 28.9 H ABG O2 Saturation 98.7 H ABG O2 Content 21.4 ABG Base Excess 0.1 ABG Hemoglobin 15.8 ABG Carboxyhemoglobin 1.8 H POC ABG HHb (Measured) 1.3 ABG Methemoglobin 0.8 ABG O2 Capacity 21.7 VBG pH VBG pCO2 VBG HCO3 VBG Total CO2 VBG O2 Sat (Calc) VBG Base Excess VBG Potassium Hgb O2 Saturation 96.1 Sodium Chloride Glucose Lactate FiO2 60.0 Potassium Carbon Dioxide Anion Gap BUN Creatinine Est GFR ( Amer) Est GFR (Non-Af Amer) POC Glucose (mg/dL) 129 H Random Glucose Calcium Phosphorus Magnesium Total Bilirubin AST ALT Alkaline Phosphatase Troponin I Total Protein Albumin Globulin Albumin/Globulin Ratio Procalcitonin TSH 3rd Generation Venous Blood Potassium Urine Color Urine Appearance Urine pH Ur Specific [place] Urine Protein Urine Glucose (UA) Urine Ketones Urine Blood Urine Nitrate Urine Bilirubin Urine Urobilinogen Ur Leukocyte Esterase Urine RBC Urine WBC Ur Epithelial Cells Urine Bacteria Ur L.pneumophila Ag Negative 08/07/17 08/07/17 08/07/17 14:30 14:30 16:49 WBC RBC Hgb Hct MCV MCH MCHC RDW Plt Count MPV Gran % Lymph % (Auto) [place] % (Auto) Eos % (Auto) Baso % (Auto) Gran # Lymph # (Auto) [place] # (Auto) Eos # (Auto) Baso # (Auto) PT INR APTT 73.8 H pCO2 pO2 HCO3 ABG pH ABG Total CO2 ABG O2 Saturation ABG O2 Content ABG Base Excess ABG Hemoglobin ABG Carboxyhemoglobin POC ABG HHb (Measured) ABG Methemoglobin ABG O2 Capacity VBG pH VBG pCO2 VBG HCO3 VBG Total CO2 VBG O2 Sat (Calc) VBG Base Excess VBG Potassium Hgb O2 Saturation Sodium Chloride Glucose Lactate FiO2 Potassium Carbon Dioxide Anion Gap BUN Creatinine Est GFR ( Amer) Est GFR (Non-Af Amer) POC Glucose (mg/dL) 113 H Random Glucose Calcium Phosphorus Magnesium Total Bilirubin AST ALT Alkaline Phosphatase Troponin I 1.54 H* D Total Protein Albumin Globulin Albumin/Globulin Ratio Procalcitonin TSH 3rd Generation Venous Blood Potassium Urine Color Urine Appearance Urine pH Ur Specific [place] Urine Protein Urine Glucose (UA) Urine Ketones Urine Blood Urine Nitrate Urine Bilirubin Urine Urobilinogen Ur Leukocyte Esterase Urine RBC Urine WBC Ur Epithelial Cells Urine Bacteria Ur L.pneumophila Ag 08/07/17 20:00 WBC RBC Hgb Hct MCV MCH MCHC RDW Plt Count MPV Gran % Lymph % (Auto) [place] % (Auto) Eos % (Auto) Baso % (Auto) Gran # Lymph # (Auto) [place] # (Auto) Eos # (Auto) Baso # (Auto) PT INR APTT 57.3 H pCO2 pO2 HCO3 ABG pH ABG Total CO2 ABG O2 Saturation ABG O2 Content ABG Base Excess ABG Hemoglobin ABG Carboxyhemoglobin POC ABG HHb (Measured) ABG Methemoglobin ABG O2 Capacity VBG pH VBG pCO2 VBG HCO3 VBG Total CO2 VBG O2 Sat (Calc) VBG Base Excess VBG Potassium Hgb O2 Saturation Sodium Chloride Glucose Lactate FiO2 Potassium Carbon Dioxide Anion Gap BUN Creatinine Est GFR ( Amer) Est GFR (Non-Af Amer) POC Glucose (mg/dL) Random Glucose Calcium Phosphorus Magnesium Total Bilirubin AST ALT Alkaline Phosphatase Troponin I Total Protein Albumin Globulin Albumin/Globulin Ratio Procalcitonin TSH 3rd Generation Venous Blood Potassium Urine Color Urine Appearance Urine pH Ur Specific [place] Urine Protein Urine Glucose (UA) Urine Ketones Urine Blood Urine Nitrate Urine Bilirubin Urine Urobilinogen Ur Leukocyte Esterase Urine RBC Urine WBC Ur Epithelial Cells Urine Bacteria Ur L.pneumophila Ag Assessment & Plan (1) Encephalopathy acute Assessment and Plan: Likely due to ziconotide side effects which appear to be common in up to 15% of patients. Based on the PI, this medication can be stopped abruptly due to side effects of psychosis without risk of withdrawal. Furthermore, since the patient has a history of psychosis, it is now contraindicated to continue with this medication. I recommend discontinuing it. We attempted to contact the infusion nurse and Dr. Leon for assistance. CT scan of the head did not show any concerning findings and his brisk response to painful stimulus with normal brainstem reflexes indicate no significant prolonged injury to the brain. However, the patient appears to be hypotensive due to propofol at this time. I recommend using a different sedation strategy if needed. Consider Precedex. If the patient does not return to baseline after stopping ziconotide and he is extubated/off sedation, we may obtain repeat imaging and and EEG for further evaluation. Thank you for this consultation. Status: Acute Priority: High
[2017-08-08] MEDS: Propofol 10 mg/ml 1,000 MG/100 ML VIAL IV PRN ×5 (01:30→21:39)
[2017-08-08] MEDS: Sodium Chloride 0.9% 1,000 ML IV SCH (02:33)
[2017-08-08] MEDS: Levothyroxine 100 MCG TAB GT SCH (05:06)
[2017-08-08] MEDS: Heparin 25,000units in 1/2NS 250 ML BAG IV SCH ×2 (05:15→16:20)
[2017-08-08 06:05] LABS: HEMOGLOBIN 11.5 g/dL (14.0-18.0); MEAN CELL VOLUME 90.8 fl (80.0-105.0); MEAN CORPUSCULAR HEMOGLOBIN 30.2 pg (25.0-35.0); MEAN CORPUSCULAR HGB CONC 33.2 g/dl (31.0-37.0); MEAN PLATELET VOLUME 9.4 fl (7.0-11.0); RBC 3.81 10^6/uL (3.5-6.1); RED CELL DISTRIBUTION WIDTH 15.6 % (11.5-14.5)
[2017-08-08 06:39] LABS: ALB/GLOB RATIO 1.2 (1.1-1.8); ALBUMIN 3.3 g/dL (3.0-4.8); ALT/SGPT 30 U/L (7-56); AST/SGOT 44 U/L (17-59); BLOOD UREA NITROGEN 9 mg/dL (7-21); CALCIUM 8.1 mg/dL (8.4-10.5); GFR AFRICAN-AMERICAN > 60; GFR NON-AFRICAN AMERICAN > 60
[2017-08-08 06:51] LABS: TROPONIN I 0.68 ng/mL
--- NOTE | 2017-08-08 07:20 | HP ---
HISTORY OF PRESENT ILLNESS: The patient is seen in the [facility] in [place]. He is in the ICU. The patient was admitted through the emergency room. The history is protracted. The patient was brought in with altered mental state, aggressive behavior. The patient apparently had a headache in the morning. The patient visited the emergency room. He was evaluated with a CAT scan, which was negative. The patient was discharged and the patient ambulated home, but according to the , the patient after he left the hospital started hallucinating and getting very aggressive, so the patient was brought back to the emergency room and the patient was very difficult to control. He was not accepting the request for test to be done on him and he was fighting the staff. The patient had to be sedated. Apparently, he was given 8 mg of Ativan and he was also given ketamine. The patient was subsequently intubated and attempt to do a CAT scan failed and in the meantime, the patient's evaluation was continued and it was found that the patient had abnormal troponin in the blood as well as the patient has changes in the EKG consistent with ischemic heart disease, possible myocardial infarction and the key operator who is friction welding machine operator was called. The restaurant busser denied or refused to treat the patient with invasive method to prevent an acute AK or progression of an acute AK. borematic machine operator requested the ER physician to contact the neurologist, get a CAT scan and when everything is clear that he should be notified. PAST MEDICAL HISTORY: The patient's past history is significant in that he is a big man, weighs more than 300 pounds and he is more than 6 feet tall. Apparently, in the past he has had gastric bypass to lose weight. He lost 100 pounds and he has regained all that weight. The patient also has history of cholecystectomy. The patient has had back pain, for which he has a pain pump inserted in the dural space. The patient also has history of diabetes. The patient has history of hypertension, chronic lung disease. The patient has a history of sepsis in the past. The patient has had deficiency of testosterone for which he was getting supplement. The patient also has hypothyroidism and chronic respiratory cough. PHYSICAL EXAMINATION: GENERAL: The patient is sedated and he is intubated and he is on a respirator. HEENT: Examination of the head, the patient has a . The eyes show dilated pupils bilaterally. NECK: The thyroid is not clinically enlarged. JVP is not noted to be elevated. LUNGS: Trachea central. The bilateral respiratory sounds heard scattered. No localizing signs. HEART: Normal sinus rhythm. Heart rate of 78. VITAL SIGNS: The patient's blood pressure 80/54, his oxygen is maintained by respirator. ABDOMEN: Soft. Liver and spleen not palpable. CHIEF MERCHANDISING OFFICER: He is sedated and on the respirator. MEDICATIONS: The patient's list of medications at home, the patient was on hydralazine for blood pressure. The patient was on testosterone daily. The patient was on [place], Synthroid, , which is a bronchodilator. The patient is on Neurontin, Lasix, folic acid. The patient was on Flonase for nasal allergy sign and also vitamin B12. The patient is currently placed on Maxipime and vancomycin antibiotic. The patient is getting Coreg 3.125 mg b.i.d., aspirin 81 mg daily. The patient gets heparin drip for prophylaxis. LABORATORY DATA: His blood work done in the hospital shows a white count of 13,000 to start with, his platelet count was 245,000. His chemistry: The patient's blood sugar was 111 and 106, but intermittently the patient's blood sugar has been elevated, we have to cover the patient with insulin. The patient's troponin level was abnormal. It was noted and was notified to the restaurant busser. IMPRESSION: The patient's condition is critical. He is in the Intensive Care Unit and we will have consultation with Dr. Andrew Hernandez, who is the restaurant busser, normally covering for Dr. Melgar and we will have digital media producer, Dr. Grace see the patient and consult and may have Infectious Disease also see the patient and consult and the radiosonde specialist in the Intensive Care Unit will keep a close eye on the patient and treat the patient accordingly. As mentioned, his overall prognosis is guarded. Khoa Ramos MD EM
[2017-08-08] MEDS ORDERED: Potassium Chloride 20 mEq/15 ml LIQ UD PO STA (07:28)
--- NOTE | 2017-08-08 07:32 | CP.CCUPN ---
<Franko Hunt - Last Filed: 08/08/17 11:52> CCU Subjective - Physician Review Subjective (Free Text): 08/07/17 10:18 Patient seen and examined at bedside intubated and on PRVC 60 4 16 450. 08/08/17 07:45 Patient seen and examined at bedside, intubated and on PRVC 50 7 16 450. Critical Care Time Spent (in minutes): 40 CCU Objective - Vital Signs / Intake & Output Vital Signs (Last 4 hours): Vital Signs Temp Pulse 08/08/17 06:00 61 08/08/17 04:00 98.3 F Intake and Output (Last 8hrs): Intake & Output 08/07/17 08/08/17 08/08/17 22:59 06:59 14:59 Intake Total 2660 2200 Output Total 2550 800 Balance 110 1400 Intake: IV 2660 2200 Left Hand 240 1100 Right Antecubital 1800 400 Right Hand 320 250 Oral 0 Output: Urine 2550 800 Urethral (Castaneda) 2550 800 Stool 0 0 - Physical Exam Head: Positive for: Atraumatic, Normocephalic Pupils: Positive for: PERRL Extroacular Muscles: Positive for: EOMI Conjunctiva: Positive for: Normal Ears: Positive for: Normal Mouth: Positive for: Dry Pharnyx: Positive for: Normal Nose (External): Positive for: Atraumatic Nose (Internal): Positive for: Normal Inspection Neck: Positive for: Normal Range of Motion Respiratory/Chest: Positive for: Good Air Exchange, Rhonchi. Negative for: Clear to Auscultation, Respiratory Distress, Accessory Muscle Use Cardiovascular: Positive for: Regular Rate and Rhythm, Normal S1, S2. Negative for: Murmurs Abdomen: Positive for: Normal Bowel Sounds, Other (obese , + mid left sided intraabdominal pump palpable beneath his skin. ). Negative for: Tenderness, Distention, Peritoneal Signs Back: Positive for: Normal Inspection Upper Extremity: Positive for: Normal Inspection. Negative for: Cyanosis, Edema Lower Extremity: Positive for: Normal Inspection. Negative for: Edema Neurological: Positive for: GCS=15, CN II-XII Intact, Other (barksdale, sonia, will not cooperate with any further neurological testing. ) Skin: Positive for: Warm, Dry, Normal Color. Negative for: Rashes Psychiatric: Positive for: Alert, Agitated - Medications Active Medications: Active Medications Generic Name Dose Route Start Last Admin Trade Name Freq PRN Reason Stop Dose Admin Aspirin 81 mg 08/07/17 10:00 08/07/17 09:10 Aspirin Chewable NG 81 mg DAILY YESSENIA Administration Atorvastatin Calcium 40 mg 08/07/17 17:00 08/07/17 17:04 Lipitor NG 40 mg DIN YESSENIA Administration Carvedilol 3.125 mg 08/06/17 22:45 08/07/17 17:04 Coreg PO Not Given BID YESSENIA Propofol 1,000 mg in 100 mls @ 4.491 mls/hr 08/06/17 19:32 08/08/17 04:01 Diprivan IV 45 mcg/kg/min .[id number] PRN 40.415 mls/hr TITRATE PER MD ORDER Administration Protocol 5 MCG/KG/MIN Vancomycin HCl 1 gm in 250 mls @ 167 mls/hr 08/06/17 22:45 08/07/17 21:53 Vancomycin 1gm IVPB 167 mls/hr Q12H YESSENIA Administration Protocol Levofloxacin/Dextrose 750 mg in 150 mls @ 100 mls/hr 08/07/17 11:15 08/07/17 11:15 Levaquin 750mg IVPB 08/13/17 11:16 100 mls/hr DAILY YESSENIA Administration Protocol Sodium Chloride 1,000 mls @ 100 mls/hr 08/07/17 15:15 08/08/17 02:33 Sodium Chloride 0.9% IV 100 mls/hr .Q10H YESSENIA Administration Heparin Sodium/Sodium Chloride 25,000 units in 250 mls @ 21.283 mls/hr 17:30 08/08/17 05:15 Heparin 66429 Units/250ml 1/2 Normal Saline IV 12 units/kg/hr .[id number] YESSENIA 21.283 mls/hr Protocol Administration 12 UNITS/KG/HR Levothyroxine Sodium 100 mcg 08/08/17 06:00 08/08/17 05:06 Synthroid GT 100 mcg 0600 YESSENIA Administration Pantoprazole Sodium 40 mg 08/07/17 10:00 08/07/17 09:10 Protonix Inj IVP 40 mg DAILY YESSENIA Administration Ticagrelor 90 mg 08/07/17 10:00 08/07/17 17:03 Brilinta PO 90 mg BID YESSENIA Administration - Patient Studies Lab Studies: Microbiology Studies 08/07/17 14:00 Gram Stain - Final Trachasp Lab Studies 08/08/17 08/08/17 08/07/17 Range/Units 05:25 05:25 22:28 WBC 7.0 D (4.5-11.0) 10^3/ul RBC 3.81 (3.5-6.1) 10^6/uL Hgb 11.5 L (14.0-18.0) g/dL Hct 34.6 L (42.0-52.0) % MCV 90.8 (80.0-105.0) fl MCH 30.2 (25.0-35.0) pg MCHC 33.2 (31.0-37.0) g/dl RDW 15.6 H (11.5-14.5) % Plt Count 133 (120.0-450.0) 10^3/uL MPV 9.4 (7.0-11.0) fl APTT (25.1-36.5) Seconds pCO2 (35-45) mm/Hg pO2 (80-100) mm/Hg HCO3 (21-28) mmol/L ABG pH (7.35-7.45) ABG Total CO2 (22-28) mmol.L ABG O2 Saturation (95-98) % ABG O2 Content (15-23) ML/dl ABG Base Excess (-2.0-3.0) mmol/L ABG Hemoglobin (11.7-17.4) g/dL ABG Carboxyhemoglobin (0.5-1.5) % POC ABG HHb (Measured) (0-5) % ABG Methemoglobin (0.0-3.0) % ABG O2 Capacity (16-24) mL/dl Hgb O2 Saturation (95.0-98.0) % FiO2 % Sodium 142 (132-148) mmol/L Potassium 3.3 L (3.6-5.0) mmol/L Chloride 104 (98-107) mmol/L Carbon Dioxide 30 (21-33) mmol/L Anion Gap 12 (10-20) BUN 9 (7-21) mg/dL Creatinine 1.0 (0.8-1.5) mg/dl Est GFR ( Amer) > 60 Est GFR (Non-Af Amer) > 60 POC Glucose (mg/dL) 87 (65-110) mg/dL Random Glucose 85 (70-110) mg/dL Calcium 8.1 L (8.4-10.5) mg/dL Total Bilirubin 1.5 H (0.2-1.3) mg/dL AST 44 (17-59) U/L ALT 30 (7-56) U/L Alkaline Phosphatase 55 (38-126) U/L Troponin I 0.68 H* D ng/mL Total Protein 5.9 (5.8-8.3) g/dL Albumin 3.3 (3.0-4.8) g/dL Globulin 2.6 gm/dL Albumin/Globulin Ratio 1.2 (1.1-1.8) Procalcitonin (0.19-0.49) NG/ML Ur L.pneumophila Ag (NEGATIVE) 08/07/17 08/07/17 08/07/17 Range/Units 20:00 20:00 16:49 WBC (4.5-11.0) 10^3/ul RBC (3.5-6.1) 10^6/uL Hgb (14.0-18.0) g/dL Hct (42.0-52.0) % MCV (80.0-105.0) fl MCH (25.0-35.0) pg MCHC (31.0-37.0) g/dl RDW (11.5-14.5) % Plt Count (120.0-450.0) 10^3/uL MPV (7.0-11.0) fl APTT 57.3 H (25.1-36.5) Seconds pCO2 (35-45) mm/Hg pO2 (80-100) mm/Hg HCO3 (21-28) mmol/L ABG pH (7.35-7.45) ABG Total CO2 (22-28) mmol.L ABG O2 Saturation (95-98) % ABG O2 Content (15-23) ML/dl ABG Base Excess (-2.0-3.0) mmol/L ABG Hemoglobin (11.7-17.4) g/dL ABG Carboxyhemoglobin (0.5-1.5) % POC ABG HHb (Measured) (0-5) % ABG Methemoglobin (0.0-3.0) % ABG O2 Capacity (16-24) mL/dl Hgb O2 Saturation (95.0-98.0) % FiO2 % Sodium (132-148) mmol/L Potassium (3.6-5.0) mmol/L Chloride (98-107) mmol/L Carbon Dioxide (21-33) mmol/L Anion Gap (10-20) BUN (7-21) mg/dL Creatinine (0.8-1.5) mg/dl Est GFR ( Amer) Est GFR (Non-Af Amer) POC Glucose (mg/dL) 113 H (65-110) mg/dL Random Glucose (70-110) mg/dL Calcium (8.4-10.5) mg/dL Total Bilirubin (0.2-1.3) mg/dL AST (17-59) U/L ALT (7-56) U/L Alkaline Phosphatase (38-126) U/L Troponin I 1.11 H* D ng/mL Total Protein (5.8-8.3) g/dL Albumin (3.0-4.8) g/dL Globulin gm/dL Albumin/Globulin Ratio (1.1-1.8) Procalcitonin (0.19-0.49) NG/ML Ur L.pneumophila Ag (NEGATIVE) 08/07/17 08/07/17 08/07/17 Range/Units 14:30 14:30 13:35 WBC (4.5-11.0) 10^3/ul RBC (3.5-6.1) 10^6/uL Hgb (14.0-18.0) g/dL Hct (42.0-52.0) % MCV (80.0-105.0) fl MCH (25.0-35.0) pg MCHC (31.0-37.0) g/dl RDW (11.5-14.5) % Plt Count (120.0-450.0) 10^3/uL MPV (7.0-11.0) fl APTT 73.8 H (25.1-36.5) Seconds pCO2 (35-45) mm/Hg pO2 (80-100) mm/Hg HCO3 (21-28) mmol/L ABG pH (7.35-7.45) ABG Total CO2 (22-28) mmol.L ABG O2 Saturation (95-98) % ABG O2 Content (15-23) ML/dl ABG Base Excess (-2.0-3.0) mmol/L ABG Hemoglobin (11.7-17.4) g/dL ABG Carboxyhemoglobin (0.5-1.5) % POC ABG HHb (Measured) (0-5) % ABG Methemoglobin (0.0-3.0) % ABG O2 Capacity (16-24) mL/dl Hgb O2 Saturation (95.0-98.0) % FiO2 % Sodium (132-148) mmol/L Potassium (3.6-5.0) mmol/L Chloride (98-107) mmol/L Carbon Dioxide (21-33) mmol/L Anion Gap (10-20) BUN (7-21) mg/dL Creatinine (0.8-1.5) mg/dl Est GFR ( Amer) Est GFR (Non-Af Amer) POC Glucose (mg/dL) (65-110) mg/dL Random Glucose (70-110) mg/dL Calcium (8.4-10.5) mg/dL Total Bilirubin (0.2-1.3) mg/dL AST (17-59) U/L ALT (7-56) U/L Alkaline Phosphatase (38-126) U/L Troponin I 1.54 H* D ng/mL Total Protein (5.8-8.3) g/dL Albumin (3.0-4.8) g/dL Globulin gm/dL Albumin/Globulin Ratio (1.1-1.8) Procalcitonin (0.19-0.49) NG/ML Ur L.pneumophila Ag Negative (NEGATIVE) 08/07/17 08/07/17 08/07/17 Range/Units 10:59 07:50 07:35 WBC (4.5-11.0) 10^3/ul RBC (3.5-6.1) 10^6/uL Hgb (14.0-18.0) g/dL Hct (42.0-52.0) % MCV (80.0-105.0) fl MCH (25.0-35.0) pg MCHC (31.0-37.0) g/dl RDW (11.5-14.5) % Plt Count (120.0-450.0) 10^3/uL MPV (7.0-11.0) fl APTT (25.1-36.5) Seconds pCO2 53 H (35-45) mm/Hg pO2 101.0 H (80-100) mm/Hg HCO3 27.3 (21-28) mmol/L ABG pH 7.32 L (7.35-7.45) ABG Total CO2 28.9 H (22-28) mmol.L ABG O2 Saturation 98.7 H (95-98) % ABG O2 Content 21.4 (15-23) ML/dl ABG Base Excess 0.1 (-2.0-3.0) mmol/L ABG Hemoglobin 15.8 (11.7-17.4) g/dL ABG Carboxyhemoglobin 1.8 H (0.5-1.5) % POC ABG HHb (Measured) 1.3 (0-5) % ABG Methemoglobin 0.8 (0.0-3.0) % ABG O2 Capacity 21.7 (16-24) mL/dl Hgb O2 Saturation 96.1 (95.0-98.0) % FiO2 60.0 % Sodium (132-148) mmol/L Potassium (3.6-5.0) mmol/L Chloride (98-107) mmol/L Carbon Dioxide (21-33) mmol/L Anion Gap (10-20) BUN (7-21) mg/dL Creatinine (0.8-1.5) mg/dl Est GFR ( Amer) Est GFR (Non-Af Amer) POC Glucose (mg/dL) 129 H 106 (65-110) mg/dL Random Glucose (70-110) mg/dL Calcium (8.4-10.5) mg/dL Total Bilirubin (0.2-1.3) mg/dL AST (17-59) U/L ALT (7-56) U/L Alkaline Phosphatase (38-126) U/L Troponin I ng/mL Total Protein (5.8-8.3) g/dL Albumin (3.0-4.8) g/dL Globulin gm/dL Albumin/Globulin Ratio (1.1-1.8) Procalcitonin (0.19-0.49) NG/ML Ur L.pneumophila Ag (NEGATIVE) 08/07/17 Range/Units 05:15 WBC (4.5-11.0) 10^3/ul RBC (3.5-6.1) 10^6/uL Hgb (14.0-18.0) g/dL Hct (42.0-52.0) % MCV (80.0-105.0) fl MCH (25.0-35.0) pg MCHC (31.0-37.0) g/dl RDW (11.5-14.5) % Plt Count (120.0-450.0) 10^3/uL MPV (7.0-11.0) fl APTT (25.1-36.5) Seconds pCO2 (35-45) mm/Hg pO2 (80-100) mm/Hg HCO3 (21-28) mmol/L ABG pH (7.35-7.45) ABG Total CO2 (22-28) mmol.L ABG O2 Saturation (95-98) % ABG O2 Content (15-23) ML/dl ABG Base Excess (-2.0-3.0) mmol/L ABG Hemoglobin (11.7-17.4) g/dL ABG Carboxyhemoglobin (0.5-1.5) % POC ABG HHb (Measured) (0-5) % ABG Methemoglobin (0.0-3.0) % ABG O2 Capacity (16-24) mL/dl Hgb O2 Saturation (95.0-98.0) % FiO2 % Sodium (132-148) mmol/L Potassium (3.6-5.0) mmol/L Chloride (98-107) mmol/L Carbon Dioxide (21-33) mmol/L Anion Gap (10-20) BUN (7-21) mg/dL Creatinine (0.8-1.5) mg/dl Est GFR ( Amer) Est GFR (Non-Af Amer) POC Glucose (mg/dL) (65-110) mg/dL Random Glucose (70-110) mg/dL Calcium (8.4-10.5) mg/dL Total Bilirubin (0.2-1.3) mg/dL AST (17-59) U/L ALT (7-56) U/L Alkaline Phosphatase (38-126) U/L Troponin I ng/mL Total Protein (5.8-8.3) g/dL Albumin (3.0-4.8) g/dL Globulin gm/dL Albumin/Globulin Ratio (1.1-1.8) Procalcitonin 0.05 L (0.19-0.49) NG/ML Ur L.pneumophila Ag (NEGATIVE) Laboratory Results - last 24 hr 08/07/17 08/07/17 08/07/17 05:15 07:35 07:50 WBC RBC Hgb Hct MCV MCH MCHC RDW Plt Count MPV APTT pCO2 53 H pO2 101.0 H HCO3 27.3 ABG pH 7.32 L ABG Total CO2 28.9 H ABG O2 Saturation 98.7 H ABG O2 Content 21.4 ABG Base Excess 0.1 ABG Hemoglobin 15.8 ABG Carboxyhemoglobin 1.8 H POC ABG HHb (Measured) 1.3 ABG Methemoglobin 0.8 ABG O2 Capacity 21.7 Hgb O2 Saturation 96.1 FiO2 60.0 Sodium Potassium Chloride Carbon Dioxide Anion Gap BUN Creatinine Est GFR ( Amer) Est GFR (Non-Af Amer) POC Glucose (mg/dL) 106 Random Glucose Calcium Total Bilirubin AST ALT Alkaline Phosphatase Troponin I Total Protein Albumin Globulin Albumin/Globulin Ratio Procalcitonin 0.05 L Ur L.pneumophila Ag 08/07/17 08/07/17 08/07/17 10:59 13:35 14:30 WBC RBC Hgb Hct MCV MCH MCHC RDW Plt Count MPV APTT pCO2 pO2 HCO3 ABG pH ABG Total CO2 ABG O2 Saturation ABG O2 Content ABG Base Excess ABG Hemoglobin ABG Carboxyhemoglobin POC ABG HHb (Measured) ABG Methemoglobin ABG O2 Capacity Hgb O2 Saturation FiO2 Sodium Potassium Chloride Carbon Dioxide Anion Gap BUN Creatinine Est GFR ( Amer) Est GFR (Non-Af Amer) POC Glucose (mg/dL) 129 H Random Glucose Calcium Total Bilirubin AST ALT Alkaline Phosphatase Troponin I 1.54 H* D Total Protein Albumin Globulin Albumin/Globulin Ratio Procalcitonin Ur L.pneumophila Ag Negative 08/07/17 08/07/17 08/07/17 14:30 16:49 20:00 WBC RBC Hgb Hct MCV MCH MCHC RDW Plt Count MPV APTT 73.8 H pCO2 pO2 HCO3 ABG pH ABG Total CO2 ABG O2 Saturation ABG O2 Content ABG Base Excess ABG Hemoglobin ABG Carboxyhemoglobin POC ABG HHb (Measured) ABG Methemoglobin ABG O2 Capacity Hgb O2 Saturation FiO2 Sodium Potassium Chloride Carbon Dioxide Anion Gap BUN Creatinine Est GFR ( Amer) Est GFR (Non-Af Amer) POC Glucose (mg/dL) 113 H Random Glucose Calcium Total Bilirubin AST ALT Alkaline Phosphatase Troponin I 1.11 H* D Total Protein Albumin Globulin Albumin/Globulin Ratio Procalcitonin Ur L.pneumophila Ag 08/07/17 08/07/17 08/08/17 20:00 22:28 05:25 WBC 7.0 D RBC 3.81 Hgb 11.5 L Hct 34.6 L MCV 90.8 MCH 30.2 MCHC 33.2 RDW 15.6 H Plt Count 133 MPV 9.4 APTT 57.3 H pCO2 pO2 HCO3 ABG pH ABG Total CO2 ABG O2 Saturation ABG O2 Content ABG Base Excess ABG Hemoglobin ABG Carboxyhemoglobin POC ABG HHb (Measured) ABG Methemoglobin ABG O2 Capacity Hgb O2 Saturation FiO2 Sodium Potassium Chloride Carbon Dioxide Anion Gap BUN Creatinine Est GFR ( Amer) Est GFR (Non-Af Amer) POC Glucose (mg/dL) 87 Random Glucose Calcium Total Bilirubin AST ALT Alkaline Phosphatase Troponin I Total Protein Albumin Globulin Albumin/Globulin Ratio Procalcitonin Ur L.pneumophila Ag 08/08/17 05:25 WBC RBC Hgb Hct MCV MCH MCHC RDW Plt Count MPV APTT pCO2 pO2 HCO3 ABG pH ABG Total CO2 ABG O2 Saturation ABG O2 Content ABG Base Excess ABG Hemoglobin ABG Carboxyhemoglobin POC ABG HHb (Measured) ABG Methemoglobin ABG O2 Capacity Hgb O2 Saturation FiO2 Sodium 142 Potassium 3.3 L Chloride 104 Carbon Dioxide 30 Anion Gap 12 BUN 9 Creatinine 1.0 Est GFR ( Amer) > 60 Est GFR (Non-Af Amer) > 60 POC Glucose (mg/dL) Random Glucose 85 Calcium 8.1 L Total Bilirubin 1.5 H AST 44 ALT 30 Alkaline Phosphatase 55 Troponin I 0.68 H* D Total Protein 5.9 Albumin 3.3 Globulin 2.6 Albumin/Globulin Ratio 1.2 Procalcitonin Ur L.pneumophila Ag EKG/Cardiology Studies: Cardiology / EKG Studies 08/07/17 07:00 EKG [ELECTROCARDIOGRAM] DAILY Comment: Reason For Exam: f/u, transient ST elevations on admit Fingerstick Blood Sugar Results: 87 Review of Systems - Review of Systems Systems not reviewed;Unavailable: Intubated Assessment/Plan - Assessment and Plan (Free Text) Assessment: This is a 67 yo M with PMH including HTN, COPD, HLD, DM, Chronic back pain s/p intrathecal Ziconotide pump, and peripheral vascular disease of bilateral LE who represents to [facility] [place] being seen in the [employer] (for severe headache , self-resolved) for new onset and worsening AMS, now intubated and sedated. Plan: Neuro: -Due to CT head and CTA head and neck findings to be negative for acute bleed, anticoagulation started. -Patient's intrathecal ziconotide is currently being controlled by Dr. Leon, currently at lowest basal dose. Symptoms of psychosis should be completely resolved as it has been >24 hours. -Continue with neurocheck -Will consider extubation today, patient now responsive. -Maintain patient elevated at least 30 degrees, complete supine position causes severe pain for patient. Pulmonary -Patient is intubated and on sedation with precedex, will go down on propofol as patient becomes hypotensive -PRVC settings 50 7 16 450 -Repeat ABG -CT chest showed bilateral upper lobe infiltrate, currently treating pneumonia with vancomycin and levaquin -blood cx negative for growth after 24 hours, procal 0.05, trachasp cultures pending Cardio -Initial transiet ST elevations on EKG upon being admitted which have resolved -Continue with Brillinta, Heparin Drip and aspirin -Troponin highest was 4.08 now down to 0.68 -Cardiology on consult Gastrointestinal -OGT -Protonix for prophylaxis -NPO Renal -castaneda in place, producing urine, NS@100 -Continue to monitor I&O and renal function with Cr -maintain euvolemia -monitor and replete electrolytes as needed Hematological -H&H decreasing, anemia work up Infectious disease -leukocytosis resolved -lung CT showed bilateral upper lobe infiltrate vs mass, continue with vanc and levaquin, will start merrem Dispo: ICU FEN: NPO Access: Peripheral IVs, OGT, ETT Consults: Neuro, Cardio Ppx: Protonix for GI, Heparin drip covers for DVT <Rasheed Porter - Last Filed: 08/08/17 12:13> CCU Objective - Vital Signs / Intake & Output Vital Signs (Last 4 hours): Vital Signs Pulse Resp BP Pulse Ox 08/08/17 10:20 54 L 95 08/08/17 10:15 55 L 81/44 L 95 08/08/17 10:10 56 L 81/37 L 95 08/08/17 10:08 56 L 79/56 L 08/08/17 10:05 57 L 79/42 L 95 08/08/17 10:00 56 L 78/38 L 96 08/08/17 09:50 59 L 96 08/08/17 09:40 63 95 08/08/17 09:30 68 96 08/08/17 09:20 74 96 08/08/17 09:10 74 96 08/08/17 09:00 86 105/58 L 90 L 08/08/17 08:59 85 123/58 L 91 L 08/08/17 08:50 100 08/08/17 08:40 87 100 08/08/17 08:30 91 H 99 08/08/17 08:20 86 100 08/08/17 08:19 87 21 99 08/08/17 08:10 83 100 Intake and Output (Last 8hrs): Intake & Output 08/07/17 08/08/17 08/08/17 22:59 06:59 14:59 Intake Total 2660 2200 195 Output Total 2550 800 Balance 110 1400 195 Weight 397 lb 14.95 oz Intake: IV 2660 2200 195 Left Hand 240 1100 Right Antecubital 1800 400 Right Hand 320 250 Oral 0 Output: Urine 2550 800 Urethral (Castaneda) 2550 800 Stool 0 0 - Medications Active Medications: Active Medications Generic Name Dose Route Start Last Admin Trade Name Freq PRN Reason Stop Dose Admin Albuterol/Ipratropium 3 ml 08/08/17 08:52 Duoneb 3 Mg/0.5 Mg (3 Ml) Ud IH Q2H PRN Shortness of Breath Albuterol/Ipratropium 3 ml 08/08/17 14:00 Duoneb 3 Mg/0.5 Mg (3 Ml) Ud IH [id number] YESSENIA Aspirin 81 mg 08/07/17 10:00 04/16/18 10:08 Aspirin Chewable NG 81 mg DAILY YESSENIA Administration Atorvastatin Calcium 40 mg 08/07/17 17:00 08/07/17 17:04 Lipitor NG 40 mg DIN YESSENIA Administration Carvedilol 3.125 mg 08/06/17 22:45 08/08/17 10:08 Coreg PO Not Given BID YESSENIA Propofol 1,000 mg in 100 mls @ 4.491 mls/hr 08/06/17 19:32 08/08/17 11:47 Diprivan IV 30 mcg/kg/min .[id number] PRN 26.943 mls/hr TITRATE PER MD ORDER Titration Protocol 5 MCG/KG/MIN Vancomycin HCl 1 gm in 250 mls @ 167 mls/hr 08/06/17 22:45 08/08/17 10:04 Vancomycin 1gm IVPB 167 mls/hr Q12H YESSENIA Administration Protocol Levofloxacin/Dextrose 750 mg in 150 mls @ 100 mls/hr 08/07/17 11:15 08/07/17 11:15 Levaquin 750mg IVPB 08/13/17 11:16 100 mls/hr DAILY YESSENIA Administration Protocol Heparin Sodium/Sodium Chloride 25,000 units in 250 mls @ 21.283 mls/hr 17:30 08/08/17 08:15 Heparin 96406 Units/250ml 1/2 Normal Saline IV 14 units/kg/hr .[id number] YESSENIA 24.83 mls/hr Protocol Titration 12 UNITS/KG/HR Dexmedetomidine HCl 400 mcg in 100 mls @ 8.868 mls/hr 08/08/17 08:48 11:47 Precedex 400mcg/100ml IV 0.2 mcg/kg/hr .[id number] PRN 8.868 mls/hr Agitation Titration Protocol 0.2 MCG/KG/HR Meropenem 50 mls @ 100 mls/hr 08/08/17 12:15 Merrem Iv 1 Gm Premix IVPB 08/08/17 12:44 Q8H YESSENIA Protocol Levothyroxine Sodium 100 mcg 08/08/17 06:00 08/08/17 05:06 Synthroid GT 100 mcg 0600 YESSENIA Administration Pantoprazole Sodium 40 mg 08/07/17 10:00 08/08/17 10:05 Protonix Inj IVP 40 mg DAILY YESSENIA Administration Ticagrelor 90 mg 08/07/17 10:00 08/08/17 10:05 Brilinta PO 90 mg BID YESSENIA Administration - Patient Studies Lab Studies: Microbiology Studies 08/07/17 14:00 Gram Stain - Final Trachasp Lab Studies 08/08/17 08/08/17 08/08/17 Range/Units 11:22 08:30 08:00 WBC (4.5-11.0) 10^3/ul RBC (3.5-6.1) 10^6/uL Hgb (14.0-18.0) g/dL Hct (42.0-52.0) % MCV (80.0-105.0) fl MCH (25.0-35.0) pg MCHC (31.0-37.0) g/dl RDW (11.5-14.5) % Plt Count (120.0-450.0) 10^3/uL MPV (7.0-11.0) fl APTT (25.1-36.5) Seconds pCO2 (35-45) mm/Hg pO2 (80-100) mm/Hg HCO3 (21-28) mmol/L ABG pH (7.35-7.45) ABG Total CO2 (22-28) mmol.L ABG O2 Saturation (95-98) % ABG Base Excess (-2.0-3.0) mmol/L ABG Potassium (3.6-5.2) mmol/L Glucose (75-110) mg/dl Lactate (0.7-2.1) mmol/L Mechanical Rate FiO2 % Tidal Volume PEEP Sodium (132-148) mmol/L Potassium (3.6-5.0) mmol/L Chloride (98-107) mmol/L Carbon Dioxide (21-33) mmol/L Anion Gap (10-20) BUN (7-21) mg/dL Creatinine (0.8-1.5) mg/dl Est GFR ( Amer) Est GFR (Non-Af Amer) POC Glucose (mg/dL) 117 H (65-110) mg/dL Random Glucose (70-110) mg/dL Calcium (8.4-10.5) mg/dL Iron 50 (45-180) ug/dL TIBC 271 (261-462) ug/dL % Saturation 19 L (20-55) % Total Bilirubin (0.2-1.3) mg/dL Direct Bilirubin (0.0-0.4) mg/dL AST (17-59) U/L ALT (7-56) U/L Alkaline Phosphatase (38-126) U/L Troponin I ng/mL NT-Pro-B Natriuret Pep 1420 H (0-450) pg/mL Total Protein (5.8-8.3) g/dL Albumin (3.0-4.8) g/dL Globulin gm/dL Albumin/Globulin Ratio (1.1-1.8) Procalcitonin (0.19-0.49) NG/ML Arterial Blood Potassium (3.6-5.2) mmol/L Ur L.pneumophila Ag (NEGATIVE) 08/08/17 08/08/17 08/08/17 Range/Units 08:00 07:45 07:39 WBC (4.5-11.0) 10^3/ul RBC (3.5-6.1) 10^6/uL Hgb (14.0-18.0) g/dL Hct (42.0-52.0) % MCV (80.0-105.0) fl MCH (25.0-35.0) pg MCHC (31.0-37.0) g/dl RDW (11.5-14.5) % Plt Count (120.0-450.0) 10^3/uL MPV (7.0-11.0) fl APTT (25.1-36.5) Seconds pCO2 46 H (35-45) mm/Hg pO2 111.0 H (80-100) mm/Hg HCO3 27.2 (21-28) mmol/L ABG pH 7.38 (7.35-7.45) ABG Total CO2 28.6 H (22-28) mmol.L ABG O2 Saturation 99.6 H (95-98) % ABG Base Excess 1.5 (-2.0-3.0) mmol/L ABG Potassium 3.2 L (3.6-5.2) mmol/L Glucose 91 (75-110) mg/dl Lactate 0.5 L (0.7-2.1) mmol/L Mechanical Rate 16 FiO2 60.0 % Tidal Volume 450 PEEP 7 Sodium 142.0 (132-148) mmol/L Potassium (3.6-5.0) mmol/L Chloride 109.0 H (98-107) mmol/L Carbon Dioxide (21-33) mmol/L Anion Gap (10-20) BUN (7-21) mg/dL Creatinine (0.8-1.5) mg/dl Est GFR ( Amer) Est GFR (Non-Af Amer) POC Glucose (mg/dL) 82 (65-110) mg/dL Random Glucose (70-110) mg/dL Calcium (8.4-10.5) mg/dL Iron (45-180) ug/dL TIBC (261-462) ug/dL % Saturation (20-55) % Total Bilirubin (0.2-1.3) mg/dL Direct Bilirubin 0.2 (0.0-0.4) mg/dL AST (17-59) U/L ALT (7-56) U/L Alkaline Phosphatase (38-126) U/L Troponin I ng/mL NT-Pro-B Natriuret Pep (0-450) pg/mL Total Protein (5.8-8.3) g/dL Albumin (3.0-4.8) g/dL Globulin gm/dL Albumin/Globulin Ratio (1.1-1.8) Procalcitonin (0.19-0.49) NG/ML Arterial Blood Potassium 3.2 L (3.6-5.2) mmol/L Ur L.pneumophila Ag (NEGATIVE) 08/08/17 08/08/17 08/08/17 Range/Units 06:45 05:25 05:25 WBC 7.0 D (4.5-11.0) 10^3/ul RBC 3.81 (3.5-6.1) 10^6/uL Hgb 11.5 L (14.0-18.0) g/dL Hct 34.6 L (42.0-52.0) % MCV 90.8 (80.0-105.0) fl MCH 30.2 (25.0-35.0) pg MCHC 33.2 (31.0-37.0) g/dl RDW 15.6 H (11.5-14.5) % Plt Count 133 (120.0-450.0) 10^3/uL MPV 9.4 (7.0-11.0) fl APTT 43.1 H (25.1-36.5) Seconds pCO2 (35-45) mm/Hg pO2 (80-100) mm/Hg HCO3 (21-28) mmol/L ABG pH (7.35-7.45) ABG Total CO2 (22-28) mmol.L ABG O2 Saturation (95-98) % ABG Base Excess (-2.0-3.0) mmol/L ABG Potassium (3.6-5.2) mmol/L Glucose (75-110) mg/dl Lactate (0.7-2.1) mmol/L Mechanical Rate FiO2 % Tidal Volume PEEP Sodium 142 (132-148) mmol/L Potassium 3.3 L (3.6-5.0) mmol/L Chloride 104 (98-107) mmol/L Carbon Dioxide 30 (21-33) mmol/L Anion Gap 12 (10-20) BUN 9 (7-21) mg/dL Creatinine 1.0 (0.8-1.5) mg/dl Est GFR ( Amer) > 60 Est GFR (Non-Af Amer) > 60 POC Glucose (mg/dL) (65-110) mg/dL Random Glucose 85 (70-110) mg/dL Calcium 8.1 L (8.4-10.5) mg/dL Iron (45-180) ug/dL TIBC (261-462) ug/dL % Saturation (20-55) % Total Bilirubin 1.5 H (0.2-1.3) mg/dL Direct Bilirubin (0.0-0.4) mg/dL AST 44 (17-59) U/L ALT 30 (7-56) U/L Alkaline Phosphatase 55 (38-126) U/L Troponin I 0.68 H* D ng/mL NT-Pro-B Natriuret Pep (0-450) pg/mL Total Protein 5.9 (5.8-8.3) g/dL Albumin 3.3 (3.0-4.8) g/dL Globulin 2.6 gm/dL Albumin/Globulin Ratio 1.2 (1.1-1.8) Procalcitonin (0.19-0.49) NG/ML Arterial Blood Potassium (3.6-5.2) mmol/L Ur L.pneumophila Ag (NEGATIVE) 08/07/17 08/07/17 08/07/17 Range/Units 22:28 20:00 20:00 WBC (4.5-11.0) 10^3/ul RBC (3.5-6.1) 10^6/uL Hgb (14.0-18.0) g/dL Hct (42.0-52.0) % MCV (80.0-105.0) fl MCH (25.0-35.0) pg MCHC (31.0-37.0) g/dl RDW (11.5-14.5) % Plt Count (120.0-450.0) 10^3/uL MPV (7.0-11.0) fl APTT 57.3 H (25.1-36.5) Seconds pCO2 (35-45) mm/Hg pO2 (80-100) mm/Hg HCO3 (21-28) mmol/L ABG pH (7.35-7.45) ABG Total CO2 (22-28) mmol.L ABG O2 Saturation (95-98) % ABG Base Excess (-2.0-3.0) mmol/L ABG Potassium (3.6-5.2) mmol/L Glucose (75-110) mg/dl Lactate (0.7-2.1) mmol/L Mechanical Rate FiO2 % Tidal Volume PEEP Sodium (132-148) mmol/L Potassium (3.6-5.0) mmol/L Chloride (98-107) mmol/L Carbon Dioxide (21-33) mmol/L Anion Gap (10-20) BUN (7-21) mg/dL Creatinine (0.8-1.5) mg/dl Est GFR ( Amer) Est GFR (Non-Af Amer) POC Glucose (mg/dL) 87 (65-110) mg/dL Random Glucose (70-110) mg/dL Calcium (8.4-10.5) mg/dL Iron (45-180) ug/dL TIBC (261-462) ug/dL % Saturation (20-55) % Total Bilirubin (0.2-1.3) mg/dL Direct Bilirubin (0.0-0.4) mg/dL AST (17-59) U/L ALT (7-56) U/L Alkaline Phosphatase (38-126) U/L Troponin I 1.11 H* D ng/mL NT-Pro-B Natriuret Pep (0-450) pg/mL Total Protein (5.8-8.3) g/dL Albumin (3.0-4.8) g/dL Globulin gm/dL Albumin/Globulin Ratio (1.1-1.8) Procalcitonin (0.19-0.49) NG/ML Arterial Blood Potassium (3.6-5.2) mmol/L Ur L.pneumophila Ag (NEGATIVE) 08/07/17 08/07/17 08/07/17 Range/Units 16:49 14:30 14:30 WBC (4.5-11.0) 10^3/ul RBC (3.5-6.1) 10^6/uL Hgb (14.0-18.0) g/dL Hct (42.0-52.0) % MCV (80.0-105.0) fl MCH (25.0-35.0) pg MCHC (31.0-37.0) g/dl RDW (11.5-14.5) % Plt Count (120.0-450.0) 10^3/uL MPV (7.0-11.0) fl APTT 73.8 H (25.1-36.5) Seconds pCO2 (35-45) mm/Hg pO2 (80-100) mm/Hg HCO3 (21-28) mmol/L ABG pH (7.35-7.45) ABG Total CO2 (22-28) mmol.L ABG O2 Saturation (95-98) % ABG Base Excess (-2.0-3.0) mmol/L ABG Potassium (3.6-5.2) mmol/L Glucose (75-110) mg/dl Lactate (0.7-2.1) mmol/L Mechanical Rate FiO2 % Tidal Volume PEEP Sodium (132-148) mmol/L Potassium (3.6-5.0) mmol/L Chloride (98-107) mmol/L Carbon Dioxide (21-33) mmol/L Anion Gap (10-20) BUN (7-21) mg/dL Creatinine (0.8-1.5) mg/dl Est GFR ( Amer) Est GFR (Non-Af Amer) POC Glucose (mg/dL) 113 H (65-110) mg/dL Random Glucose (70-110) mg/dL Calcium (8.4-10.5) mg/dL Iron (45-180) ug/dL TIBC (261-462) ug/dL % Saturation (20-55) % Total Bilirubin (0.2-1.3) mg/dL Direct Bilirubin (0.0-0.4) mg/dL AST (17-59) U/L ALT (7-56) U/L Alkaline Phosphatase (38-126) U/L Troponin I 1.54 H* D ng/mL NT-Pro-B Natriuret Pep (0-450) pg/mL Total Protein (5.8-8.3) g/dL Albumin (3.0-4.8) g/dL Globulin gm/dL Albumin/Globulin Ratio (1.1-1.8) Procalcitonin (0.19-0.49) NG/ML Arterial Blood Potassium (3.6-5.2) mmol/L Ur L.pneumophila Ag (NEGATIVE) 08/07/17 08/07/17 08/07/17 Range/Units 13:35 10:59 05:15 WBC (4.5-11.0) 10^3/ul RBC (3.5-6.1) 10^6/uL Hgb (14.0-18.0) g/dL Hct (42.0-52.0) % MCV (80.0-105.0) fl MCH (25.0-35.0) pg MCHC (31.0-37.0) g/dl RDW (11.5-14.5) % Plt Count (120.0-450.0) 10^3/uL MPV (7.0-11.0) fl APTT (25.1-36.5) Seconds pCO2 (35-45) mm/Hg pO2 (80-100) mm/Hg HCO3 (21-28) mmol/L ABG pH (7.35-7.45) ABG Total CO2 (22-28) mmol.L ABG O2 Saturation (95-98) % ABG Base Excess (-2.0-3.0) mmol/L ABG Potassium (3.6-5.2) mmol/L Glucose (75-110) mg/dl Lactate (0.7-2.1) mmol/L Mechanical Rate FiO2 % Tidal Volume PEEP Sodium (132-148) mmol/L Potassium (3.6-5.0) mmol/L Chloride (98-107) mmol/L Carbon Dioxide (21-33) mmol/L Anion Gap (10-20) BUN (7-21) mg/dL Creatinine (0.8-1.5) mg/dl Est GFR ( Amer) Est GFR (Non-Af Amer) POC Glucose (mg/dL) 129 H (65-110) mg/dL Random Glucose (70-110) mg/dL Calcium (8.4-10.5) mg/dL Iron (45-180) ug/dL TIBC (261-462) ug/dL % Saturation (20-55) % Total Bilirubin (0.2-1.3) mg/dL Direct Bilirubin (0.0-0.4) mg/dL AST (17-59) U/L ALT (7-56) U/L Alkaline Phosphatase (38-126) U/L Troponin I ng/mL NT-Pro-B Natriuret Pep (0-450) pg/mL Total Protein (5.8-8.3) g/dL Albumin (3.0-4.8) g/dL Globulin gm/dL Albumin/Globulin Ratio (1.1-1.8) Procalcitonin 0.05 L (0.19-0.49) NG/ML Arterial Blood Potassium (3.6-5.2) mmol/L Ur L.pneumophila Ag Negative (NEGATIVE) Laboratory Results - last 24 hr 08/07/17 08/07/17 08/07/17 05:15 10:59 13:35 WBC RBC Hgb Hct MCV MCH MCHC RDW Plt Count MPV APTT pCO2 pO2 HCO3 ABG pH ABG Total CO2 ABG O2 Saturation ABG Base Excess ABG Potassium Glucose Lactate Mechanical Rate FiO2 Tidal Volume PEEP Sodium Potassium Chloride Carbon Dioxide Anion Gap BUN Creatinine Est GFR ( Amer) Est GFR (Non-Af Amer) POC Glucose (mg/dL) 129 H Random Glucose Calcium Iron TIBC % Saturation Total Bilirubin Direct Bilirubin AST ALT Alkaline Phosphatase Troponin I NT-Pro-B Natriuret Pep Total Protein Albumin Globulin Albumin/Globulin Ratio Procalcitonin 0.05 L Arterial Blood Potassium Ur L.pneumophila Ag Negative 08/07/17 08/07/17 08/07/17 14:30 14:30 16:49 WBC RBC Hgb Hct MCV MCH MCHC RDW Plt Count MPV APTT 73.8 H pCO2 pO2 HCO3 ABG pH ABG Total CO2 ABG O2 Saturation ABG Base Excess ABG Potassium Glucose Lactate Mechanical Rate FiO2 Tidal Volume PEEP Sodium Potassium Chloride Carbon Dioxide Anion Gap BUN Creatinine Est GFR ( Amer) Est GFR (Non-Af Amer) POC Glucose (mg/dL) 113 H Random Glucose Calcium Iron TIBC % Saturation Total Bilirubin Direct Bilirubin AST ALT Alkaline Phosphatase Troponin I 1.54 H* D NT-Pro-B Natriuret Pep Total Protein Albumin Globulin Albumin/Globulin Ratio Procalcitonin Arterial Blood Potassium Ur L.pneumophila Ag 08/07/17 08/07/17 08/07/17 20:00 20:00 22:28 WBC RBC Hgb Hct MCV MCH MCHC RDW Plt Count MPV APTT 57.3 H pCO2 pO2 HCO3 ABG pH ABG Total CO2 ABG O2 Saturation ABG Base Excess ABG Potassium Glucose Lactate Mechanical Rate FiO2 Tidal Volume PEEP Sodium Potassium Chloride Carbon Dioxide Anion Gap BUN Creatinine Est GFR ( Amer) Est GFR (Non-Af Amer) POC Glucose (mg/dL) 87 Random Glucose Calcium Iron TIBC % Saturation Total Bilirubin Direct Bilirubin AST ALT Alkaline Phosphatase Troponin I 1.11 H* D NT-Pro-B Natriuret Pep Total Protein Albumin Globulin Albumin/Globulin Ratio Procalcitonin Arterial Blood Potassium Ur L.pneumophila Ag 08/08/17 08/08/17 08/08/17 05:25 05:25 06:45 WBC 7.0 D RBC 3.81 Hgb 11.5 L Hct 34.6 L MCV 90.8 MCH 30.2 MCHC 33.2 RDW 15.6 H Plt Count 133 MPV 9.4 APTT 43.1 H pCO2 pO2 HCO3 ABG pH ABG Total CO2 ABG O2 Saturation ABG Base Excess ABG Potassium Glucose Lactate Mechanical Rate FiO2 Tidal Volume PEEP Sodium 142 Potassium 3.3 L Chloride 104 Carbon Dioxide 30 Anion Gap 12 BUN 9 Creatinine 1.0 Est GFR ( Amer) > 60 Est GFR (Non-Af Amer) > 60 POC Glucose (mg/dL) Random Glucose 85 Calcium 8.1 L Iron TIBC % Saturation Total Bilirubin 1.5 H Direct Bilirubin AST 44 ALT 30 Alkaline Phosphatase 55 Troponin I 0.68 H* D NT-Pro-B Natriuret Pep Total Protein 5.9 Albumin 3.3 Globulin 2.6 Albumin/Globulin Ratio 1.2 Procalcitonin Arterial Blood Potassium Ur L.pneumophila Ag 08/08/17 08/08/17 08/08/17 07:39 07:45 08:00 WBC RBC Hgb Hct MCV MCH MCHC RDW Plt Count MPV APTT pCO2 46 H pO2 111.0 H HCO3 27.2 ABG pH 7.38 ABG Total CO2 28.6 H ABG O2 Saturation 99.6 H ABG Base Excess 1.5 ABG Potassium 3.2 L Glucose 91 Lactate 0.5 L Mechanical Rate 16 FiO2 60.0 Tidal Volume 450 PEEP 7 Sodium 142.0 Potassium Chloride 109.0 H Carbon Dioxide Anion Gap BUN Creatinine Est GFR ( Amer) Est GFR (Non-Af Amer) POC Glucose (mg/dL) 82 Random Glucose Calcium Iron TIBC % Saturation Total Bilirubin Direct Bilirubin 0.2 AST ALT Alkaline Phosphatase Troponin I NT-Pro-B Natriuret Pep Total Protein Albumin Globulin Albumin/Globulin Ratio Procalcitonin Arterial Blood Potassium 3.2 L Ur L.pneumophila Ag 08/08/17 08/08/17 08/08/17 08:00 08:30 11:22 WBC RBC Hgb Hct MCV MCH MCHC RDW Plt Count MPV APTT pCO2 pO2 HCO3 ABG pH ABG Total CO2 ABG O2 Saturation ABG Base Excess ABG Potassium Glucose Lactate Mechanical Rate FiO2 Tidal Volume PEEP Sodium Potassium Chloride Carbon Dioxide Anion Gap BUN Creatinine Est GFR ( Amer) Est GFR (Non-Af Amer) POC Glucose (mg/dL) 117 H Random Glucose Calcium Iron 50 TIBC 271 % Saturation 19 L Total Bilirubin Direct Bilirubin AST ALT Alkaline Phosphatase Troponin I NT-Pro-B Natriuret Pep 1420 H Total Protein Albumin Globulin Albumin/Globulin Ratio Procalcitonin Arterial Blood Potassium Ur L.pneumophila Ag Attending/Attestation - Attestation I have personally seen and examined this patient.: Yes I have fully participated in the care of the patient.: Yes I have reviewed all pertinent clinical information: Yes Notes (Text): 08/08/17 12:09 The patient was seen and examined at the bedside. Patient care was discussed with resident Medical records, lab studies, and imaging were reviewed and management issues were discussed and formulated. Last 24H events reviewed. Agree with above treatment plans as outlined in ' note with addition of the following: Acute Respiratory Failure \ Hypoxemia \ Sepsis \ PNA \ NSTEMI \ COPD \ Encephalopathy -hemodynamic monitoring to maintain MAP>65; continue ASa, Brilinta, Statin, and BBlocker as per cardio team; f\u Echo -heparin drip and monitor PTT and for bleed -mechanical ventilation and o2 supplementation to maintain Spo2 >90 Pao2>60 -monitor for TV 6ml\kg IBW and plateau pressure <30 -ABG in AM reviewed and Fio2 decreased to 50%; start PS and weaning when oxygenation improves -CXR reviewed and consolidation still noted -continue nebs and pulmonary toileting -continue broad spectrum Abx as per ID team and f\u cultures -f\u Bun\Cr and U\o; monitor and replace e-lites; d\c NS; diuresis if B\P tolerates -Tube feds diet and aspiration precautions -Neurology f\u appreciated; pt awake and alert during sedation vacation -continue precedex -DVT \ PUD prophylaxis CCM time 37min
[2017-08-08 07:42] LABS: ARTERIAL BLOOD GAS HCO3 27.2 mmol/L (21-28); ARTERIAL BLOOD GAS O2 SAT 99.6 % (95-98); ARTERIAL BLOOD GAS PCO2 46 mm/Hg (35-45); ARTERIAL BLOOD GAS PH 7.38 (7.35-7.45); ARTERIAL BLOOD GAS TCO2 28.6 mmol.L (22-28)
[2017-08-08 08:13] LABS: BILIRUBIN,DIRECT 0.2 mg/dL (0.0-0.4)
[2017-08-08 08:17] LABS: IRON 50 ug/dL (45-180)
[2017-08-08 08:26] LABS: % IRON SATURATION 19 % (20-55); TOTAL IRON BINDING CAPACITY 271 ug/dL (261-462)
--- NOTE | 2017-08-08 08:33 | RAD ---
HISTORY: pna, resp failure COMPARISON: 08/07/2017. FINDINGS: The endotracheal tube terminates 3 cm proximal to the rolly. The nasogastric tube terminates in the stomach LUNGS: There is no significant interval change in right upper lobe consolidation and severe pulmonary venous congestion. PLEURA: No significant pleural effusion identified, no pneumothorax apparent. CARDIOVASCULAR: The heart remains enlarged. OSSEOUS STRUCTURES: No significant abnormalities. VISUALIZED UPPER ABDOMEN: Normal. OTHER FINDINGS: None. IMPRESSION: Persistent right upper lobe consolidation which may represent pneumonia or pulmonary edema. Persistent cardiomegaly and pulmonary venous congestion. Stable position of endotracheal and nasogastric tubes.
[2017-08-08] MEDS: Dexmedetomidine 400mcg/100mL 400 MCG/100 ML BOTTLE IV PRN ×2 (08:55→16:43)
[2017-08-08] MEDS: Vancomycin 1gm in NS 250ml 1 GM/250 ML BAG IVPB SCH ×2 (10:04→22:10)
--- NOTE | 2017-08-08 10:14 | CON ---
DATE: 08/07/2017 PULMONARY CONSULTATION The patient was seen and examined in Intensive Care Unit on ventilator. He is moderately sedated, but arousable. His temperature is 98, respirations 16/16. He is on 60% FiO2 by mechanical ventilation and 4 cm of positive pressure. The patient is unable to give history. All information was obtained from chart and prior encounters. Today's arterial blood gas shows pH of 7.32, pCO2 of 53 and pO2 of 101. His initial blood gas showed pH of 7.29 with pCO2 of 54 and pO2 of 85, so it is not much different from the current one. His chemistries are normal except for the slightly elevated glucose and his troponins are elevated. WBC is 11.1, hemoglobin of 12.2. PAST SURGICAL HISTORY: Intrathecal pump placement, cholecystectomy, spinal fusion, gastric bypass. FAMILY HISTORY: Unobtainable. SOCIAL HISTORY: Lives with . No history of tobacco or alcohol abuse. REVIEW OF SYSTEMS: All 12 systems were reviewed and this expresses itself just complains of agitation, unable to obtain the rest of the review of systems. All other systems negative. PHYSICAL EXAMINATION VITAL SIGNS: T 98, R 18. He is on 60% FiO2 by mechanical ventilation and 4 cm of positive pressure. HEAD, EARS, NOSE AND THROAT: Examination is within normal limits. NECK: Supple with no jugular vein distention. CHEST: Symmetrical. HEART: S1 and S2. No S3. Regular. LUNGS: A few scattered rhonchi. No wheezing. GASTROINTESTINAL: Soft and nontender. No organomegaly. GENITOURINARY: Unable to evaluate. EXTREMITIES: No edema. SKIN: Clear with no skin rashes. NEUROLOGIC: No neurologic deficits. HISTORY OF PRESENT ILLNESS: He was discharged today prior to admission actually the same day and on the way to home, he became confused and agitated. The nurse who manages the intrathecal ziconotide pump decreased the dose of medication; however, patient became more agitated and upon arrival at the Emergency Room, required endotracheal intubation for airway protection. ASSESSMENT: So, initial assessment was respiratory failure in a patient with altered mental status. He had a clear chest x-ray and good blood gas with some increase in the alveolar-arterial oxygen gradient on 60% FiO2. His FiO2 can be decreased slightly and as soon as patient is awake and alert, an attempt can be made to place him on CPAP. Extubation should take place in the next 24 hours. Isaac Giron MD [facility] # [id number] EM
--- NOTE | 2017-08-08 10:29 | CP.PCM.PN ---
Subjective - Date & Time of Evaluation Date of Evaluation: 08/08/17 Time of Evaluation: 09:25 - Subjective Subjective: Comfortable, still on the ventilator, not in distress, afebrile. Objective - Vital Signs/Intake and Output Vital Signs (last 24 hours): Temp Pulse Resp BP Pulse Ox 98.3 F 59 L 28 H 105/70 100 08/08/17 04:00 08/08/17 02:00 08/07/17 05:40 08/07/17 11:48 08/07/17 10:00 Intake and Output: 08/07/17 08/08/17 18:59 06:59 Intake Total 2810 2150 Output Total 2550 800 Balance 260 1350 - Medications Medications: Current Medications Aspirin (Aspirin Chewable) 81 mg NG DAILY [facility] Last Admin: 08/07/17 09:10 Dose: 81 mg Atorvastatin Calcium (Lipitor) 40 mg NG DIN [facility] Last Admin: 08/07/17 17:04 Dose: 40 mg Carvedilol (Coreg) 3.125 mg PO BID [facility] Last Admin: 08/07/17 17:04 Dose: Not Given Propofol (Diprivan) 1,000 mg in 100 mls @ 4.491 mls/hr IV .[id number] PRN; Protocol; 5 MCG/KG/MIN PRN Reason: TITRATE PER MD ORDER Last Admin: 08/08/17 04:01 Dose: 45 mcg/kg/min, 40.415 mls/hr Vancomycin HCl (Vancomycin 1gm) 1 gm in 250 mls @ 167 mls/hr IVPB Q12H [facility] PRN Reason: Protocol Last Admin: 08/07/17 21:53 Dose: 167 mls/hr Levofloxacin/Dextrose (Levaquin 750mg) 750 mg in 150 mls @ 100 mls/hr IVPB DAILY [facility] PRN Reason: Protocol Stop: 08/13/17 11:16 Last Admin: 08/07/17 11:15 Dose: 100 mls/hr Sodium Chloride (Sodium Chloride 0.9%) 1,000 mls @ 100 mls/hr IV .Q10H [facility] Last Admin: 08/08/17 02:33 Dose: 100 mls/hr Heparin Sodium/Sodium Chloride (Heparin 42779 Units/250ml 1/2 Normal Saline) 25 ,000 units in 250 mls @ 21.283 mls/hr IV .[id number] YESSENIA; 12 UNITS/KG/HR PRN Reason: Protocol Last Admin: 08/07/17 17:28 Dose: 12 units/kg/hr, 21.283 mls/hr Levothyroxine Sodium (Synthroid) 100 mcg GT 0600 [facility] Last Admin: 08/08/17 05:06 Dose: 100 mcg Pantoprazole Sodium (Protonix Inj) 40 mg IVP DAILY [facility] Last Admin: 08/07/17 09:10 Dose: 40 mg Ticagrelor (Brilinta) 90 mg PO BID [facility] Last Admin: 08/07/17 17:03 Dose: 90 mg - Labs Labs: 08/08/17 05:25 08/07/17 05:15 PT 13.3 SECONDS (9.4-12.5) H 08/07/17 05:15 INR 1.15 (0.93-1.08) H 08/07/17 05:15 APTT 57.3 Seconds (25.1-36.5) H 08/07/17 20:00 - Constitutional Appears: Chronically Ill, Other (intubated, sedated) - Head Exam Head Exam: NORMAL INSPECTION - ENT Exam Additional comments: ET tube in place - Respiratory Exam Respiratory Exam: Decreased Breath Sounds - Cardiovascular Exam Cardiovascular Exam: +S1, +S2 - GI/Abdominal Exam GI & Abdominal Exam: Soft. absent: Tenderness Assessment and Plan - Assessment and Plan (Free Text) Plan: Assessment Severe sepsis with ventilator-dependent respiratory failure due to severe community-acquired pneumonia on top of acute NSTEMI morbid obesity with BMI 50 HTN COPD chronic methadone use DM peripheral vascular disease chronic back pain S/P intrathecal pump placement Plan Continue Vancomycin, Merrem and Levaquin day 2 pending final sputum cx results; blood cx are negative; reviewed CT chest showing bilateral lower lobe consolidations; WBC count has now normalized will continue to monitor clinically follow up management for NSTEMI
[2017-08-08] MEDS ORDERED: Meropenem IV 1 gm in NS 50 ML IVPB SCH (12:15)
[2017-08-08] MEDS: levoFLOXacin 750 mg in D5W 750 MG/150 ML BAG IVPB SCH (12:27)
[2017-08-08] MEDS: Albuterol-Ipratrop 3 mg / 0.5 (3 ml) UD IH SCH ×2 (13:07→20:28)
[2017-08-08 13:15] LABS: FERRITIN 22.9 ng/mL
--- NOTE | 2017-08-08 13:40 | PN ---
DATE: 08/08/2017 CARDIOLOGY FOLLOWUP SUBJECTIVE: The patient remains sedated and remains on a ventilator. PHYSICAL EXAMINATION VITAL SIGNS: Blood pressure is 81 systolic, heart rate is in the 90s. NECK: Negative JVD. LUNGS: No rales noted. HEART: Reveals S1, S2. EXTREMITIES: Chronic edematous changes. LABORATORY DATA: Potassium is 3.3, BUN and creatinine unremarkable. Hemoglobin is 11. IMPRESSION: 1. Respiratory failure. 2. Altered mental status. 3. Morbid obesity. 4. Chronic pain syndrome. 5. Non-ST elevation myocardial infarction. 6. History of hypertension. PLAN: Given these findings, the patient's hypotension is likely due to the heavy sedation. His elevated ProBNP is unlikely due to left heart CHF. His last ejection fraction was normal. We will discuss with the game attendant to try to get him off the respirator as soon as possible. Andrew Hernandez MD
[2017-08-08 13:45] LABS: FOLATE > 20.0 ng/mL
--- NOTE | 2017-08-08 14:03 | PN ---
DATE: 08/08/2017(740am-830am) PULMONARY NOTE SUBJECTIVE: The patient remains on the ventilator. He is currently awake and alert. PHYSICAL EXAMINATION VITAL SIGNS: Temperature is 98.3, pulse 61, respirations 16/16, last blood pressure recorded 98/58. HEENT: Normocephalic, atraumatic. No JVD. CARDIOVASCULAR: Systolic ejection murmur at the lower left sternal border. Questionable S3 gallop. LUNGS: Crackles at both bases. Minimal rhonchi. No wheezing. EXTREMITIES: Positive for chronic edema. No cyanosis or clubbing. Calves are nontender to palpation. GI: Abdomen is soft, nontender and nondistended. Bowel sounds are positive. SKIN: Chronic cellulitic changes on his legs. NEUROLOGIC: Limited at the present time. PERTINENT LABORATORY DATA: Chest x-ray was done this morning and reviewed. There is a slight decrease in the pulmonary infiltrates on today's film. Arterial blood gas was done on PRVC 16, tidal volume 450, FiO2 of 40%. Results are pH 7.38, pCO2 of 46, pO2 of 111. Troponin this morning 0.68. Peak troponin 4.08. IMPRESSION: 1. Respiratory failure. 2. Rule out aspiration pneumonia. Rule out noncardiac pulmonary edema. Rule out congestive heart failure. 3. Acute myocardial infarction. 4. Morbid obesity. 5. Mild anemia. 6. Encephalopathy - improving. PLAN: The patient remains on the ventilator. He is currently in the ICU. He is awake and alert this morning. I did discuss the case with the night nurse at length. The night nurse stated that the patient had a pretty good night. I did review the chest x-ray as above. The x-ray shows decreased pulmonary infiltrates - compared to the previous film. Previous procalcitonin done was negative. I would continue with the antibiotic coverage as per Infectious Disease. Input by Dr. Gilmore is noted. There are no temperatures noted. The leukocytosis has resolved. I have also ordered a stat B-type natriuretic peptide to be done. The patient was given one dose of Lasix yesterday. As above, the infiltrates are slightly better on chest x-ray. In addition, the arterial blood gas is also better - with a decrease in the alveolar-arterial gradient. I would continue with the Cardiology evaluation. Troponin is now trending downward. Again, the peak troponin is 4.08. The patient is currently on a heparin drip. The clinical status of this patient is certainly improved - compared to his initial presentation. He does remain critically ill. I will discuss the above with the entire ICU team the next few moments. I will also discuss the above with the attending physician. García Grace MD MTDD
--- NOTE | 2017-08-08 14:19 | PN ---
DATE: 08/08/17 SUBJECTIVE: The patient is in the Critical Care Unit and the patient was admitted with unresponsive state, altered mental state. The patient has been treated for morbid obesity. The patient has had bariatric surgery in the past. The patient also has history of severe pain, back pain. The patient had catheter implant in the epidural space to control the pain. The patient is septic. Patient had pneumonia of the lung and is more alert and awake this morning. He is able to move all four limbs and shows aggressive side of him. OBJECTIVE VITAL SIGNS: The patient's pulse is 61. LUNGS: Bilateral crepitations with no localizing signs clinically. Chest x-ray shows pneumonia. HEART: Normal sinus rhythm. Sinus bradycardia. ABDOMEN: Obesity present. CENTRAL NERVOUS SYSTEM: He is conscious and not able to assess his mental state. He moves all 4 limbs, but the true neurological findings cannot be established. We will continue his medication. The patient is on aspirin 81 mg daily, Brilinta 90 mg b.i.d., Coreg 3.125 mg b.i.d., on Diprivan drip. The patient is on wean on the respirator. The patient is on heparin prophylaxis. The patient is on levofloxacin, Lipitor, pantoprazole, Synthroid, vancomycin. LABORATORY DATA: The patient's blood work, hemoglobin 11.5, white count is 7000. Chemistry: The patient's iron is 50, TIBC 271, saturation is . The patient is improving. . Khoa Ramos MD EM
--- NOTE | 2017-08-08 17:19 | CARD ---
APPROVED REPORT EXAM: Two-dimensional and M-mode echocardiogram with Doppler and color Doppler. INDICATION ID [id number] DIMENSIONS Left Atrium (2D)4.2 (1.6-4.0cm)IVSd1.1 (0.7-1.1cm) LVDd4.6 (3.9-5.9cm)PWd1.2 (0.7-1.1cm) LVDs3.2 (2.5-4.0cm)FS (%) 30.8 % LVEF (%)58.5 (>50%) M-Mode DIMENSIONS Aortic Root3.90 (2.2-3.7cm)Aortic Cusp Exc.2.30 (1.5-2.0cm) Aortic Valve AoV Peak Eghvuymm175.0cm/Annamarie Peak GR.11mmHg Mitral Valve MV E Pisdalal31.1cm/sMV A Fqlbrcoc00.6cm/sE/A ratio1.0 TDI Lateral E' Peak V8.09cm/sMedial E' Peak V6.24cm/sE/Lateral E'8.2 E/Medial E'10.6 Pulmonary Valve PV Peak Wbabtooa14.6cm/sPV Peak Grad.2mmHg Tricuspid Valve TR Peak [id number]/sRAP [id number] Peak Gr.21mmHg [id number] LEFT VENTRICLE The left ventricle is normal size. There is normal left ventricular wall thickness. The left ventricular function is normal. The left ventricular ejection fraction is within the normal range. There is normal LV segmental wall motion. Transmitral Doppler flow pattern is Grade I-abnormal relaxation pattern. RIGHT VENTRICLE The right ventricle is normal size. There is normal right ventricular wall thickness. The right ventricular systolic function is normal. ATRIA The left atrium size is normal. The right atrium size is normal. AORTIC VALVE The aortic valve is not well visualized. No aortic regurgitation is present. There is no aortic valvular stenosis. MITRAL VALVE The mitral valve is moderately thickened. There is no mitral valve regurgitation noted. There is no mitral valve stenosis. TRICUSPID VALVE The tricuspid valve is normal in structure. There is trace tricuspid regurgitation. GREAT VESSELS The aortic root is mildly enlarged. The IVC is normal in size and collapses >50% with inspiration. <Conclusion> The left ventricle is normal size. There is normal left ventricular wall thickness. The left ventricular function is normal. The left ventricular ejection fraction is within the normal range. There is normal LV segmental wall motion. Transmitral Doppler flow pattern is Grade I-abnormal relaxation pattern.
[2017-08-09] MEDS: Propofol 10 mg/ml 1,000 MG/100 ML VIAL IV PRN ×4 (00:05→06:34)
[2017-08-09] MEDS: Albuterol-Ipratrop 3 mg / 0.5 (3 ml) UD IH SCH ×5 (01:29→19:54)
[2017-08-09] MEDS: Dexmedetomidine 400mcg/100mL 400 MCG/100 ML BOTTLE IV PRN ×2 (01:30→07:42)
[2017-08-09] MEDS: Heparin 25,000units in 1/2NS 250 ML BAG IV SCH ×2 (04:50→15:51)
[2017-08-09 06:12] LABS: ARTERIAL BLOOD GAS HCO3 20.9 mmol/L (21-28); ARTERIAL BLOOD GAS HEMOGLOBIN 9.9 g/dL (11.7-17.4); ARTERIAL BLOOD GAS O2 CAPACITY 13.6 mL/dl (16-24); ARTERIAL BLOOD GAS O2 CONTENT 13.4 ML/dl (15-23); ARTERIAL BLOOD GAS O2 SAT 98.5 % (95-98); ARTERIAL BLOOD GAS PCO2 37 mm/Hg (35-45); ARTERIAL BLOOD GAS PH 7.36 (7.35-7.45)
[2017-08-09 06:33] LABS: BASO # 0.02 K/mm3 (0.0-2.0); BASO % 0.3 % (0.0-3.0); EOS # 0.2 (0.0-0.7); EOS % 2.2 % (1.5-5.0); GRAN # 5.34 (1.4-6.5); GRAN % 73.4 % (50.0-68.0); HEMOGLOBIN 10.6 g/dL (14.0-18.0); LYMPH # 1.4 (1.2-3.4); LYMPH % 19.2 % (22.0-35.0); MEAN CELL VOLUME 90.7 fl (80.0-105.0); MEAN CORPUSCULAR HEMOGLOBIN 29.9 pg (25.0-35.0); MEAN CORPUSCULAR HGB CONC 32.9 g/dl (31.0-37.0); MEAN PLATELET VOLUME 9.9 fl (7.0-11.0); MONO # 0.4 (0.1-0.6); MONO % 4.9 % (1.0-6.0); RBC 3.55 10^6/uL (3.5-6.1); RED CELL DISTRIBUTION WIDTH 15.7 % (11.5-14.5); WHITE BLOOD COUNT 7.3 10^3/ul (4.5-11.0)
[2017-08-09 06:51] LABS: ALB/GLOB RATIO 1.2 (1.1-1.8); ALBUMIN 3.3 g/dL (3.0-4.8); ALT/SGPT 33 U/L (7-56); AST/SGOT 39 U/L (17-59); BLOOD UREA NITROGEN 10 mg/dL (7-21); CALCIUM 8.2 mg/dL (8.4-10.5); GFR AFRICAN-AMERICAN > 60; GFR NON-AFRICAN AMERICAN > 60
[2017-08-09] MEDS: Levothyroxine 100 MCG TAB GT SCH (06:53)
--- NOTE | 2017-08-09 07:31 | CP.CCUPN ---
<Franko Hunt - Last Filed: 08/09/17 11:45> CCU Subjective - Physician Review Subjective (Free Text): 08/07/17 10:18 Patient seen and examined at bedside intubated and on PRVC 60 4 16 450. 08/08/17 07:45 Patient seen and examined at bedside, intubated and on PRVC 50 7 16 450. 08/09/17 07:30 Patient aggressive overnight, precedex was stopped this morning. Patient currently intubated and on sedation with propofol. Normotensive. CCU Objective - Vital Signs / Intake & Output Vital Signs (Last 4 hours): Vital Signs Temp Pulse BP Pulse Ox 08/09/17 06:53 124/70 08/09/17 05:00 60 08/09/17 04:30 99.7 F H 60 107/54 L 97 08/09/17 04:20 99.7 F H 54 L 96 08/09/17 04:15 99.7 F H 52 L 96/43 L 95 08/09/17 04:10 99.7 F H 55 L 95 08/09/17 04:00 99.7 F H 53 L 101/44 L 94 L 08/09/17 03:50 99.7 F H 55 L 92 L 08/09/17 03:45 99.7 F H 54 L 92/44 L 96 08/09/17 03:40 99.7 F H 53 L 96 Intake and Output (Last 8hrs): Intake & Output 08/08/17 08/09/17 08/09/17 22:59 06:59 14:59 Intake Total 1247 3688 50 Output Total 1000 450 Balance 247 3238 50 Intake: IV 797 3238 50 Left Hand 1100 Right Antecubital 324 Right Hand 168 168 Right Upper arm 1330 Oral 0 Other 450 450 Output: Urine 1000 450 Urethral (Barger) 1000 450 Stool 0 - Physical Exam Head: Positive for: Atraumatic, Normocephalic Pupils: Positive for: PERRL Extroacular Muscles: Positive for: EOMI Conjunctiva: Positive for: Normal Ears: Positive for: Normal Mouth: Positive for: Dry Pharnyx: Positive for: Normal Nose (External): Positive for: Atraumatic Nose (Internal): Positive for: Normal Inspection Neck: Positive for: Normal Range of Motion Respiratory/Chest: Positive for: Good Air Exchange, Rales. Negative for: Clear to Auscultation, Respiratory Distress, Accessory Muscle Use Cardiovascular: Positive for: Regular Rate and Rhythm, Normal S1, S2. Negative for: Murmurs Abdomen: Positive for: Normal Bowel Sounds, Other (obese , + mid left sided intraabdominal pump palpable beneath his skin. ). Negative for: Tenderness, Distention, Peritoneal Signs Back: Positive for: Normal Inspection Upper Extremity: Positive for: Normal Inspection. Negative for: Cyanosis, Edema Lower Extremity: Positive for: Normal Inspection. Negative for: Edema Neurological: Positive for: GCS=15, CN II-XII Intact, Other (barksdale, sonia, will not cooperate with any further neurological testing. ) Skin: Positive for: Warm, Dry, Normal Color. Negative for: Rashes Psychiatric: Positive for: Alert, Agitated - Medications Active Medications: Active Medications Generic Name Dose Route Start Last Admin Trade Name Freq PRN Reason Stop Dose Admin Albuterol/Ipratropium 3 ml 08/08/17 08:52 Duoneb 3 Mg/0.5 Mg (3 Ml) Ud IH Q2H PRN Shortness of Breath Albuterol/Ipratropium 3 ml 08/08/17 14:00 08/09/17 02:46 Duoneb 3 Mg/0.5 Mg (3 Ml) Ud IH 3 ml [id number] YESSENIA Administration Aspirin 81 mg 08/07/17 10:00 08/08/17 10:08 Aspirin Chewable NG 81 mg DAILY YESSENIA Administration Atorvastatin Calcium 40 mg 08/07/17 17:00 08/08/17 18:11 Lipitor NG Not Given DIN YESSENIA Carvedilol 3.125 mg 08/06/17 22:45 08/08/17 17:30 Coreg PO Not Given BID YESSENIA Propofol 1,000 mg in 100 mls @ 4.491 mls/hr 08/06/17 19:32 08/09/17 06:34 Diprivan IV 45 mcg/kg/min .[id number] PRN 40.415 mls/hr TITRATE PER MD ORDER Administration Protocol 5 MCG/KG/MIN Vancomycin HCl 1 gm in 250 mls @ 167 mls/hr 08/06/17 22:45 08/08/17 22:10 Vancomycin 1gm IVPB 167 mls/hr Q12H YESSENIA Administration Protocol Levofloxacin/Dextrose 750 mg in 150 mls @ 100 mls/hr 08/07/17 11:15 08/08/17 12:27 Levaquin 750mg IVPB 08/13/17 11:16 100 mls/hr DAILY YESSENIA Administration Protocol Heparin Sodium/Sodium Chloride 25,000 units in 250 mls @ 21.283 mls/hr 17:30 08/09/17 07:22 Heparin 21039 Units/250ml 1/2 Normal Saline IV 14 units/kg/hr .[id number] YESSENIA 24.83 mls/hr Protocol Titration 12 UNITS/KG/HR Dexmedetomidine HCl 400 mcg in 100 mls @ 8.868 mls/hr 08/08/17 08:48 01:30 Precedex 400mcg/100ml IV 0.5 mcg/kg/hr .[id number] PRN 22.169 mls/hr Agitation Administration Protocol 0.2 MCG/KG/HR Acetaminophen 1,000 mg in 100 mls @ 400 mls/hr 08/08/17 14:10 08/08/17 14:20 Ofirmev IVPB 08/10/17 14:11 400 mls/hr Q6H PRN Administration Pain, severe (8-10) Levothyroxine Sodium 100 mcg 08/08/17 06:00 08/09/17 06:53 Synthroid GT 100 mcg 0600 YESSENIA Administration Pantoprazole Sodium 40 mg 08/07/17 10:00 08/08/17 10:05 Protonix Inj IVP 40 mg DAILY YESSENIA Administration Ticagrelor 90 mg 08/07/17 10:00 08/08/17 18:10 Brilinta PO Not Given BID [facility] - Patient Studies Lab Studies: Microbiology Studies 08/07/17 00:30 MRSA Culture (Admit) - Final Naris MRSA NOT DETECTED 08/07/17 00:30 Urine Culture - Final Urine,Barger No Growth (<1,000 CFU/ML) Lab Studies 08/09/17 08/09/17 08/09/17 Range/Units 06:33 06:07 05:30 WBC (4.5-11.0) 10^3/ul RBC (3.5-6.1) 10^6/uL Hgb (14.0-18.0) g/dL Hct (42.0-52.0) % MCV (80.0-105.0) fl MCH (25.0-35.0) pg MCHC (31.0-37.0) g/dl RDW (11.5-14.5) % Plt Count (120.0-450.0) 10^3/uL MPV (7.0-11.0) fl Gran % (50.0-68.0) % Lymph % (Auto) (22.0-35.0) % [place] % (Auto) (1.0-6.0) % Eos % (Auto) (1.5-5.0) % Baso % (Auto) (0.0-3.0) % Gran # (1.4-6.5) Lymph # (Auto) (1.2-3.4) [place] # (Auto) (0.1-0.6) Eos # (Auto) (0.0-0.7) Baso # (Auto) (0.0-2.0) K/mm3 APTT 82.1 H (25.1-36.5) Seconds pCO2 37 (35-45) mm/Hg pO2 86.0 (80-100) mm/Hg HCO3 20.9 L (21-28) mmol/L ABG pH 7.36 (7.35-7.45) ABG Total CO2 22.0 (22-28) mmol.L ABG O2 Saturation 98.5 H (95-98) % ABG O2 Content 13.4 L (15-23) ML/dl ABG Base Excess -4.1 L (-2.0-3.0) mmol/L ABG Hemoglobin 9.9 L (11.7-17.4) g/dL ABG Carboxyhemoglobin 1.8 H (0.5-1.5) % POC ABG HHb (Measured) 1.5 (0-5) % ABG Methemoglobin 1.2 (0.0-3.0) % ABG O2 Capacity 13.6 L (16-24) mL/dl ABG Potassium (3.6-5.2) mmol/L Hgb O2 Saturation 95.6 (95.0-98.0) % Sodium 143 (132-148) mmol/L Chloride 106 (98-107) mmol/L Glucose (75-110) mg/dl Lactate (0.7-2.1) mmol/L Mechanical Rate FiO2 50.0 % Tidal Volume PEEP Potassium 3.6 (3.6-5.0) mmol/L Carbon Dioxide 25 (21-33) mmol/L Anion Gap 16 (10-20) BUN 10 (7-21) mg/dL Creatinine 1.0 (0.8-1.5) mg/dl Est GFR ( Amer) > 60 Est GFR (Non-Af Amer) > 60 POC Glucose (mg/dL) (65-110) mg/dL Random Glucose 102 (70-110) mg/dL Calcium 8.2 L (8.4-10.5) mg/dL Iron (45-180) ug/dL TIBC (261-462) ug/dL % Saturation (20-55) % Transferrin (206-381) mg/dL Ferritin ng/mL Total Bilirubin 1.0 (0.2-1.3) mg/dL Direct Bilirubin (0.0-0.4) mg/dL AST 39 (17-59) U/L ALT 33 (7-56) U/L Alkaline Phosphatase 51 (38-126) U/L NT-Pro-B Natriuret Pep (0-450) pg/mL Total Protein 6.1 (5.8-8.3) g/dL Albumin 3.3 (3.0-4.8) g/dL Globulin 2.8 gm/dL Albumin/Globulin Ratio 1.2 (1.1-1.8) Vitamin B12 (239-931) pg/mL Folate ng/mL Arterial Blood Potassium (3.6-5.2) mmol/L 08/09/17 08/09/17 08/08/17 Range/Units 05:30 00:40 22:00 WBC 7.3 (4.5-11.0) 10^3/ul RBC 3.55 (3.5-6.1) 10^6/uL Hgb 10.6 L (14.0-18.0) g/dL Hct 32.2 L (42.0-52.0) % MCV 90.7 (80.0-105.0) fl MCH 29.9 (25.0-35.0) pg MCHC 32.9 (31.0-37.0) g/dl RDW 15.7 H (11.5-14.5) % Plt Count 145 (120.0-450.0) 10^3/uL MPV 9.9 (7.0-11.0) fl Gran % 73.4 H (50.0-68.0) % Lymph % (Auto) 19.2 L (22.0-35.0) % [place] % (Auto) 4.9 (1.0-6.0) % Eos % (Auto) 2.2 (1.5-5.0) % Baso % (Auto) 0.3 (0.0-3.0) % Gran # 5.34 (1.4-6.5) Lymph # (Auto) 1.4 (1.2-3.4) [place] # (Auto) 0.4 (0.1-0.6) Eos # (Auto) 0.2 (0.0-0.7) Baso # (Auto) 0.02 (0.0-2.0) K/mm3 APTT 77.4 H (25.1-36.5) Seconds pCO2 (35-45) mm/Hg pO2 (80-100) mm/Hg HCO3 (21-28) mmol/L ABG pH (7.35-7.45) ABG Total CO2 (22-28) mmol.L ABG O2 Saturation (95-98) % ABG O2 Content (15-23) ML/dl ABG Base Excess (-2.0-3.0) mmol/L ABG Hemoglobin (11.7-17.4) g/dL ABG Carboxyhemoglobin (0.5-1.5) % POC ABG HHb (Measured) (0-5) % ABG Methemoglobin (0.0-3.0) % ABG O2 Capacity (16-24) mL/dl ABG Potassium (3.6-5.2) mmol/L Hgb O2 Saturation (95.0-98.0) % Sodium (132-148) mmol/L Chloride (98-107) mmol/L Glucose (75-110) mg/dl Lactate (0.7-2.1) mmol/L Mechanical Rate FiO2 % Tidal Volume PEEP Potassium (3.6-5.0) mmol/L Carbon Dioxide (21-33) mmol/L Anion Gap (10-20) BUN (7-21) mg/dL Creatinine (0.8-1.5) mg/dl Est GFR ( Amer) Est GFR (Non-Af Amer) POC Glucose (mg/dL) 108 (65-110) mg/dL Random Glucose (70-110) mg/dL Calcium (8.4-10.5) mg/dL Iron (45-180) ug/dL TIBC (261-462) ug/dL % Saturation (20-55) % Transferrin (206-381) mg/dL Ferritin ng/mL Total Bilirubin (0.2-1.3) mg/dL Direct Bilirubin (0.0-0.4) mg/dL AST (17-59) U/L ALT (7-56) U/L Alkaline Phosphatase (38-126) U/L NT-Pro-B Natriuret Pep (0-450) pg/mL Total Protein (5.8-8.3) g/dL Albumin (3.0-4.8) g/dL Globulin gm/dL Albumin/Globulin Ratio (1.1-1.8) Vitamin B12 (239-931) pg/mL Folate ng/mL Arterial Blood Potassium (3.6-5.2) mmol/L 08/08/17 08/08/17 08/08/17 Range/Units 16:13 16:05 11:22 WBC (4.5-11.0) 10^3/ul RBC (3.5-6.1) 10^6/uL Hgb (14.0-18.0) g/dL Hct (42.0-52.0) % MCV (80.0-105.0) fl MCH (25.0-35.0) pg MCHC (31.0-37.0) g/dl RDW (11.5-14.5) % Plt Count (120.0-450.0) 10^3/uL MPV (7.0-11.0) fl Gran % (50.0-68.0) % Lymph % (Auto) (22.0-35.0) % [place] % (Auto) (1.0-6.0) % Eos % (Auto) (1.5-5.0) % Baso % (Auto) (0.0-3.0) % Gran # (1.4-6.5) Lymph # (Auto) (1.2-3.4) [place] # (Auto) (0.1-0.6) Eos # (Auto) (0.0-0.7) Baso # (Auto) (0.0-2.0) K/mm3 APTT 41.0 H (25.1-36.5) Seconds pCO2 (35-45) mm/Hg pO2 (80-100) mm/Hg HCO3 (21-28) mmol/L ABG pH (7.35-7.45) ABG Total CO2 (22-28) mmol.L ABG O2 Saturation (95-98) % ABG O2 Content (15-23) ML/dl ABG Base Excess (-2.0-3.0) mmol/L ABG Hemoglobin (11.7-17.4) g/dL ABG Carboxyhemoglobin (0.5-1.5) % POC ABG HHb (Measured) (0-5) % ABG Methemoglobin (0.0-3.0) % ABG O2 Capacity (16-24) mL/dl ABG Potassium (3.6-5.2) mmol/L Hgb O2 Saturation (95.0-98.0) % Sodium (132-148) mmol/L Chloride (98-107) mmol/L Glucose (75-110) mg/dl Lactate (0.7-2.1) mmol/L Mechanical Rate FiO2 % Tidal Volume PEEP Potassium (3.6-5.0) mmol/L Carbon Dioxide (21-33) mmol/L Anion Gap (10-20) BUN (7-21) mg/dL Creatinine (0.8-1.5) mg/dl Est GFR ( Amer) Est GFR (Non-Af Amer) POC Glucose (mg/dL) 108 117 H (65-110) mg/dL Random Glucose (70-110) mg/dL Calcium (8.4-10.5) mg/dL Iron (45-180) ug/dL TIBC (261-462) ug/dL % Saturation (20-55) % Transferrin (206-381) mg/dL Ferritin ng/mL Total Bilirubin (0.2-1.3) mg/dL Direct Bilirubin (0.0-0.4) mg/dL AST (17-59) U/L ALT (7-56) U/L Alkaline Phosphatase (38-126) U/L NT-Pro-B Natriuret Pep (0-450) pg/mL Total Protein (5.8-8.3) g/dL Albumin (3.0-4.8) g/dL Globulin gm/dL Albumin/Globulin Ratio (1.1-1.8) Vitamin B12 (239-931) pg/mL Folate ng/mL Arterial Blood Potassium (3.6-5.2) mmol/L 08/08/17 08/08/17 08/08/17 Range/Units 08:30 08:00 08:00 WBC (4.5-11.0) 10^3/ul RBC (3.5-6.1) 10^6/uL Hgb (14.0-18.0) g/dL Hct (42.0-52.0) % MCV (80.0-105.0) fl MCH (25.0-35.0) pg MCHC (31.0-37.0) g/dl RDW (11.5-14.5) % Plt Count (120.0-450.0) 10^3/uL MPV (7.0-11.0) fl Gran % (50.0-68.0) % Lymph % (Auto) (22.0-35.0) % [place] % (Auto) (1.0-6.0) % Eos % (Auto) (1.5-5.0) % Baso % (Auto) (0.0-3.0) % Gran # (1.4-6.5) Lymph # (Auto) (1.2-3.4) [place] # (Auto) (0.1-0.6) Eos # (Auto) (0.0-0.7) Baso # (Auto) (0.0-2.0) K/mm3 APTT (25.1-36.5) Seconds pCO2 (35-45) mm/Hg pO2 (80-100) mm/Hg HCO3 (21-28) mmol/L ABG pH (7.35-7.45) ABG Total CO2 (22-28) mmol.L ABG O2 Saturation (95-98) % ABG O2 Content (15-23) ML/dl ABG Base Excess (-2.0-3.0) mmol/L ABG Hemoglobin (11.7-17.4) g/dL ABG Carboxyhemoglobin (0.5-1.5) % POC ABG HHb (Measured) (0-5) % ABG Methemoglobin (0.0-3.0) % ABG O2 Capacity (16-24) mL/dl ABG Potassium (3.6-5.2) mmol/L Hgb O2 Saturation (95.0-98.0) % Sodium (132-148) mmol/L Chloride (98-107) mmol/L Glucose (75-110) mg/dl Lactate (0.7-2.1) mmol/L Mechanical Rate FiO2 % Tidal Volume PEEP Potassium (3.6-5.0) mmol/L Carbon Dioxide (21-33) mmol/L Anion Gap (10-20) BUN (7-21) mg/dL Creatinine (0.8-1.5) mg/dl Est GFR ( Amer) Est GFR (Non-Af Amer) POC Glucose (mg/dL) (65-110) mg/dL Random Glucose (70-110) mg/dL Calcium (8.4-10.5) mg/dL Iron 50 (45-180) ug/dL TIBC 271 (261-462) ug/dL % Saturation 19 L (20-55) % Transferrin 203.59 L (206-381) mg/dL Ferritin ng/mL Total Bilirubin (0.2-1.3) mg/dL Direct Bilirubin (0.0-0.4) mg/dL AST (17-59) U/L ALT (7-56) U/L Alkaline Phosphatase (38-126) U/L NT-Pro-B Natriuret Pep 1420 H (0-450) pg/mL Total Protein (5.8-8.3) g/dL Albumin (3.0-4.8) g/dL Globulin gm/dL Albumin/Globulin Ratio (1.1-1.8) Vitamin B12 (239-931) pg/mL Folate ng/mL Arterial Blood Potassium (3.6-5.2) mmol/L 04/16/18 04/16/18 04/16/18 Range/Units 08:00 07:45 07:39 WBC (4.5-11.0) 10^3/ul RBC (3.5-6.1) 10^6/uL Hgb (14.0-18.0) g/dL Hct (42.0-52.0) % MCV (80.0-105.0) fl MCH (25.0-35.0) pg MCHC (31.0-37.0) g/dl RDW (11.5-14.5) % Plt Count (120.0-450.0) 10^3/uL MPV (7.0-11.0) fl Gran % (50.0-68.0) % Lymph % (Auto) (22.0-35.0) % [place] % (Auto) (1.0-6.0) % Eos % (Auto) (1.5-5.0) % Baso % (Auto) (0.0-3.0) % Gran # (1.4-6.5) Lymph # (Auto) (1.2-3.4) [place] # (Auto) (0.1-0.6) Eos # (Auto) (0.0-0.7) Baso # (Auto) (0.0-2.0) K/mm3 APTT (25.1-36.5) Seconds pCO2 46 H (35-45) mm/Hg pO2 111.0 H (80-100) mm/Hg HCO3 27.2 (21-28) mmol/L ABG pH 7.38 (7.35-7.45) ABG Total CO2 28.6 H (22-28) mmol.L ABG O2 Saturation 99.6 H (95-98) % ABG O2 Content (15-23) ML/dl ABG Base Excess 1.5 (-2.0-3.0) mmol/L ABG Hemoglobin (11.7-17.4) g/dL ABG Carboxyhemoglobin (0.5-1.5) % POC ABG HHb (Measured) (0-5) % ABG Methemoglobin (0.0-3.0) % ABG O2 Capacity (16-24) mL/dl ABG Potassium 3.2 L (3.6-5.2) mmol/L Hgb O2 Saturation (95.0-98.0) % Sodium 142.0 (132-148) mmol/L Chloride 109.0 H (98-107) mmol/L Glucose 91 (75-110) mg/dl Lactate 0.5 L (0.7-2.1) mmol/L Mechanical Rate 16 FiO2 60.0 % Tidal Volume 450 PEEP 7 Potassium (3.6-5.0) mmol/L Carbon Dioxide (21-33) mmol/L Anion Gap (10-20) BUN (7-21) mg/dL Creatinine (0.8-1.5) mg/dl Est GFR ( Amer) Est GFR (Non-Af Amer) POC Glucose (mg/dL) 82 (65-110) mg/dL Random Glucose (70-110) mg/dL Calcium (8.4-10.5) mg/dL Iron (45-180) ug/dL TIBC (261-462) ug/dL % Saturation (20-55) % Transferrin (206-381) mg/dL Ferritin 22.9 ng/mL Total Bilirubin (0.2-1.3) mg/dL Direct Bilirubin 0.2 (0.0-0.4) mg/dL AST (17-59) U/L ALT (7-56) U/L Alkaline Phosphatase (38-126) U/L NT-Pro-B Natriuret Pep (0-450) pg/mL Total Protein (5.8-8.3) g/dL Albumin (3.0-4.8) g/dL Globulin gm/dL Albumin/Globulin Ratio (1.1-1.8) Vitamin B12 377 (239-931) pg/mL Folate > 20.0 ng/mL Arterial Blood Potassium 3.2 L (3.6-5.2) mmol/L 08/08/17 Range/Units 06:45 WBC (4.5-11.0) 10^3/ul RBC (3.5-6.1) 10^6/uL Hgb (14.0-18.0) g/dL Hct (42.0-52.0) % MCV (80.0-105.0) fl MCH (25.0-35.0) pg MCHC (31.0-37.0) g/dl RDW (11.5-14.5) % Plt Count (120.0-450.0) 10^3/uL MPV (7.0-11.0) fl Gran % (50.0-68.0) % Lymph % (Auto) (22.0-35.0) % [place] % (Auto) (1.0-6.0) % Eos % (Auto) (1.5-5.0) % Baso % (Auto) (0.0-3.0) % Gran # (1.4-6.5) Lymph # (Auto) (1.2-3.4) [place] # (Auto) (0.1-0.6) Eos # (Auto) (0.0-0.7) Baso # (Auto) (0.0-2.0) K/mm3 APTT 43.1 H (25.1-36.5) Seconds pCO2 (35-45) mm/Hg pO2 (80-100) mm/Hg HCO3 (21-28) mmol/L ABG pH (7.35-7.45) ABG Total CO2 (22-28) mmol.L ABG O2 Saturation (95-98) % ABG O2 Content (15-23) ML/dl ABG Base Excess (-2.0-3.0) mmol/L ABG Hemoglobin (11.7-17.4) g/dL ABG Carboxyhemoglobin (0.5-1.5) % POC ABG HHb (Measured) (0-5) % ABG Methemoglobin (0.0-3.0) % ABG O2 Capacity (16-24) mL/dl ABG Potassium (3.6-5.2) mmol/L Hgb O2 Saturation (95.0-98.0) % Sodium (132-148) mmol/L Chloride (98-107) mmol/L Glucose (75-110) mg/dl Lactate (0.7-2.1) mmol/L Mechanical Rate FiO2 % Tidal Volume PEEP Potassium (3.6-5.0) mmol/L Carbon Dioxide (21-33) mmol/L Anion Gap (10-20) BUN (7-21) mg/dL Creatinine (0.8-1.5) mg/dl Est GFR ( Amer) Est GFR (Non-Af Amer) POC Glucose (mg/dL) (65-110) mg/dL Random Glucose (70-110) mg/dL Calcium (8.4-10.5) mg/dL Iron (45-180) ug/dL TIBC (261-462) ug/dL % Saturation (20-55) % Transferrin (206-381) mg/dL Ferritin ng/mL Total Bilirubin (0.2-1.3) mg/dL Direct Bilirubin (0.0-0.4) mg/dL AST (17-59) U/L ALT (7-56) U/L Alkaline Phosphatase (38-126) U/L NT-Pro-B Natriuret Pep (0-450) pg/mL Total Protein (5.8-8.3) g/dL Albumin (3.0-4.8) g/dL Globulin gm/dL Albumin/Globulin Ratio (1.1-1.8) Vitamin B12 (239-931) pg/mL Folate ng/mL Arterial Blood Potassium (3.6-5.2) mmol/L Laboratory Results - last 24 hr 08/08/17 08/08/17 08/08/17 06:45 07:39 07:45 WBC RBC Hgb Hct MCV MCH MCHC RDW Plt Count MPV Gran % Lymph % (Auto) [place] % (Auto) Eos % (Auto) Baso % (Auto) Gran # Lymph # (Auto) [place] # (Auto) Eos # (Auto) Baso # (Auto) APTT 43.1 H pCO2 46 H pO2 111.0 H HCO3 27.2 ABG pH 7.38 ABG Total CO2 28.6 H ABG O2 Saturation 99.6 H ABG O2 Content ABG Base Excess 1.5 ABG Hemoglobin ABG Carboxyhemoglobin POC ABG HHb (Measured) ABG Methemoglobin ABG O2 Capacity ABG Potassium 3.2 L Hgb O2 Saturation Sodium 142.0 Chloride 109.0 H Glucose 91 Lactate 0.5 L Mechanical Rate 16 FiO2 60.0 Tidal Volume 450 PEEP 7 Potassium Carbon Dioxide Anion Gap BUN Creatinine Est GFR ( Amer) Est GFR (Non-Af Amer) POC Glucose (mg/dL) 82 Random Glucose Calcium Iron TIBC % Saturation Transferrin Ferritin Total Bilirubin Direct Bilirubin AST ALT Alkaline Phosphatase NT-Pro-B Natriuret Pep Total Protein Albumin Globulin Albumin/Globulin Ratio Vitamin B12 Folate Arterial Blood Potassium 3.2 L 08/08/17 08/08/17 08/08/17 08:00 08:00 08:00 WBC RBC Hgb Hct MCV MCH MCHC RDW Plt Count MPV Gran % Lymph % (Auto) [place] % (Auto) Eos % (Auto) Baso % (Auto) Gran # Lymph # (Auto) [place] # (Auto) Eos # (Auto) Baso # (Auto) APTT pCO2 pO2 HCO3 ABG pH ABG Total CO2 ABG O2 Saturation ABG O2 Content ABG Base Excess ABG Hemoglobin ABG Carboxyhemoglobin POC ABG HHb (Measured) ABG Methemoglobin ABG O2 Capacity ABG Potassium Hgb O2 Saturation Sodium Chloride Glucose Lactate Mechanical Rate FiO2 Tidal Volume PEEP Potassium Carbon Dioxide Anion Gap BUN Creatinine Est GFR ( Amer) Est GFR (Non-Af Amer) POC Glucose (mg/dL) Random Glucose Calcium Iron 50 TIBC 271 % Saturation 19 L Transferrin 203.59 L Ferritin 22.9 Total Bilirubin Direct Bilirubin 0.2 AST ALT Alkaline Phosphatase NT-Pro-B Natriuret Pep Total Protein Albumin Globulin Albumin/Globulin Ratio Vitamin B12 377 Folate > 20.0 Arterial Blood Potassium 08/08/17 08/08/17 08/08/17 08:30 11:22 16:05 WBC RBC Hgb Hct MCV MCH MCHC RDW Plt Count MPV Gran % Lymph % (Auto) [place] % (Auto) Eos % (Auto) Baso % (Auto) Gran # Lymph # (Auto) [place] # (Auto) Eos # (Auto) Baso # (Auto) APTT 41.0 H pCO2 pO2 HCO3 ABG pH ABG Total CO2 ABG O2 Saturation ABG O2 Content ABG Base Excess ABG Hemoglobin ABG Carboxyhemoglobin POC ABG HHb (Measured) ABG Methemoglobin ABG O2 Capacity ABG Potassium Hgb O2 Saturation Sodium Chloride Glucose Lactate Mechanical Rate FiO2 Tidal Volume PEEP Potassium Carbon Dioxide Anion Gap BUN Creatinine Est GFR ( Amer) Est GFR (Non-Af Amer) POC Glucose (mg/dL) 117 H Random Glucose Calcium Iron TIBC % Saturation Transferrin Ferritin Total Bilirubin Direct Bilirubin AST ALT Alkaline Phosphatase NT-Pro-B Natriuret Pep 1420 H Total Protein Albumin Globulin Albumin/Globulin Ratio Vitamin B12 Folate Arterial Blood Potassium 08/08/17 08/08/17 08/09/17 16:13 22:00 00:40 WBC RBC Hgb Hct MCV MCH MCHC RDW Plt Count MPV Gran % Lymph % (Auto) [place] % (Auto) Eos % (Auto) Baso % (Auto) Gran # Lymph # (Auto) [place] # (Auto) Eos # (Auto) Baso # (Auto) APTT 77.4 H pCO2 pO2 HCO3 ABG pH ABG Total CO2 ABG O2 Saturation ABG O2 Content ABG Base Excess ABG Hemoglobin ABG Carboxyhemoglobin POC ABG HHb (Measured) ABG Methemoglobin ABG O2 Capacity ABG Potassium Hgb O2 Saturation Sodium Chloride Glucose Lactate Mechanical Rate FiO2 Tidal Volume PEEP Potassium Carbon Dioxide Anion Gap BUN Creatinine Est GFR ( Amer) Est GFR (Non-Af Amer) POC Glucose (mg/dL) 108 108 Random Glucose Calcium Iron TIBC % Saturation Transferrin Ferritin Total Bilirubin Direct Bilirubin AST ALT Alkaline Phosphatase NT-Pro-B Natriuret Pep Total Protein Albumin Globulin Albumin/Globulin Ratio Vitamin B12 Folate Arterial Blood Potassium 08/09/17 08/09/17 08/09/17 05:30 05:30 06:07 WBC 7.3 RBC 3.55 Hgb 10.6 L Hct 32.2 L MCV 90.7 MCH 29.9 MCHC 32.9 RDW 15.7 H Plt Count 145 MPV 9.9 Gran % 73.4 H Lymph % (Auto) 19.2 L [place] % (Auto) 4.9 Eos % (Auto) 2.2 Baso % (Auto) 0.3 Gran # 5.34 Lymph # (Auto) 1.4 [place] # (Auto) 0.4 Eos # (Auto) 0.2 Baso # (Auto) 0.02 APTT pCO2 37 pO2 86.0 HCO3 20.9 L ABG pH 7.36 ABG Total CO2 22.0 ABG O2 Saturation 98.5 H ABG O2 Content 13.4 L ABG Base Excess -4.1 L ABG Hemoglobin 9.9 L ABG Carboxyhemoglobin 1.8 H POC ABG HHb (Measured) 1.5 ABG Methemoglobin 1.2 ABG O2 Capacity 13.6 L ABG Potassium Hgb O2 Saturation 95.6 Sodium 143 Chloride 106 Glucose Lactate Mechanical Rate FiO2 50.0 Tidal Volume PEEP Potassium 3.6 Carbon Dioxide 25 Anion Gap 16 BUN 10 Creatinine 1.0 Est GFR ( Amer) > 60 Est GFR (Non-Af Amer) > 60 POC Glucose (mg/dL) Random Glucose 102 Calcium 8.2 L Iron TIBC % Saturation Transferrin Ferritin Total Bilirubin 1.0 Direct Bilirubin AST 39 ALT 33 Alkaline Phosphatase 51 NT-Pro-B Natriuret Pep Total Protein 6.1 Albumin 3.3 Globulin 2.8 Albumin/Globulin Ratio 1.2 Vitamin B12 Folate Arterial Blood Potassium 08/09/17 06:33 WBC RBC Hgb Hct MCV MCH MCHC RDW Plt Count MPV Gran % Lymph % (Auto) [place] % (Auto) Eos % (Auto) Baso % (Auto) Gran # Lymph # (Auto) [place] # (Auto) Eos # (Auto) Baso # (Auto) APTT 82.1 H pCO2 pO2 HCO3 ABG pH ABG Total CO2 ABG O2 Saturation ABG O2 Content ABG Base Excess ABG Hemoglobin ABG Carboxyhemoglobin POC ABG HHb (Measured) ABG Methemoglobin ABG O2 Capacity ABG Potassium Hgb O2 Saturation Sodium Chloride Glucose Lactate Mechanical Rate FiO2 Tidal Volume PEEP Potassium Carbon Dioxide Anion Gap BUN Creatinine Est GFR ( Amer) Est GFR (Non-Af Amer) POC Glucose (mg/dL) Random Glucose Calcium Iron TIBC % Saturation Transferrin Ferritin Total Bilirubin Direct Bilirubin AST ALT Alkaline Phosphatase NT-Pro-B Natriuret Pep Total Protein Albumin Globulin Albumin/Globulin Ratio Vitamin B12 Folate Arterial Blood Potassium Fingerstick Blood Sugar Results: 87 Review of Systems - Review of Systems Systems not reviewed;Unavailable: Intubated Assessment/Plan - Assessment and Plan (Free Text) Plan: This is a 67 yo M with PMH including HTN, COPD, HLD, DM, Chronic back pain s/p intrathecal Ziconotide pump, and peripheral vascular disease of bilateral LE who represents to [facility] after being seen in the inspector line (for severe headache , self-resolved) for new onset and worsening AMS, psychosis and aggression, now intubated and sedated on propofol. Plan: Neuro/Psych: -Intubated and on sedation with propofol -Intrathecal Prilant still present, cannot be shut off completely -Haldol has been added -Consider get psych on consult considering family history of psychosis from paternal grandfather Pulmonary -Patient is intubated and on propofol -PRVC -Repeat ABG pCO2 37, pO2 86, HCO3 20.9, pH 7.36 -CT chest showed bilateral upper lobe infiltrate, currently treating pneumonia with vancomycin,levaquin, and merrem -blood cx negative for growth after 48 hours, procal 0.05, trachasp cultures pending -Patient now on ativan and precedex, will try wean off propofol. Cardio -NSTEMI; Continue with Brillinta, Heparin Drip and aspirin -Cardiology on consult -Echo; echo LVEF normal Gastrointestinal -OGT -Protonix for prophylaxis -NPO Renal -maintain euvolemia -monitor and replete electrolytes as needed Hematological -monitor H&H Infectious disease -leukocytosis resolved -Infectious disease consulted; patient on merrem, vancomycin, levaquin -blood cx negative after 48 hours, trachasp cultures pending, procal 0.05; procal repeated Dispo: ICU FEN: NPO Access: Peripheral IVs, OGT, ETT Consults: Neuro, Cardio Ppx: Protonix for GI, Heparin drip covers for DVT <Yovani Roland - Last Filed: 08/09/17 17:27> CCU Objective - Vital Signs / Intake & Output Vital Signs (Last 4 hours): Vital Signs Temp Pulse Resp BP Pulse Ox 08/09/17 17:17 142/75 08/09/17 16:38 20 08/09/17 16:03 100.4 F H 101 H 92 L 08/09/17 16:00 100.4 F H 105 H 34 H 133/60 88 L 08/09/17 15:58 100.4 F H 105 H 46 H 08/09/17 15:53 100.4 F H 100 H 31 H 08/09/17 15:50 100.4 F H 100 H 33 H 90 L 08/09/17 15:48 100.4 F H 102 H 28 H 08/09/17 15:40 100.4 F H 105 H 38 H 87 L 08/09/17 15:39 100.4 F H 107 H 15 08/09/17 15:37 100.4 F H 105 H 86 L 08/09/17 15:35 100.4 F H 108 H 88 L 08/09/17 15:30 100.4 F H 103 H 18 91 L 08/09/17 15:29 100.4 F H 103 H 27 H 08/09/17 15:24 100.4 F H 104 H 91 L 08/09/17 15:20 100.4 F H 106 H 19 92 L 04/17/18 15:10 100.4 F H 111 H 34 H 89 L 18 15:01 100.4 F H 110 H 15 101/60 94 L 18 15:00 100.4 F H 112 H 92 L 18 14:59 100.4 F H 106 H 95 18 14:50 100.4 F H 101 H 25 H 95 18 14:44 100.2 F H 117 H 100 18 14:42 100.2 F H 107 H 95 18 14:41 100.2 F H 109 H 99 08/09/18 14:40 100.2 F H 105 H 19 100 08/09/17 14:37 100.2 F H 105 H 97 08/09/17 14:30 100.2 F H 103 H 26 H 95 18 14:25 100.2 F H 109 H 97 08/09/17 14:20 100.2 F H 110 H 33 H 95 08/09/17 14:17 100.2 F H 106 H 97 08/09/18 14:16 100.0 F H 104 H 96 18 14:10 100.0 F H 107 H 28 H 98 18 14:08 100.0 F H 105 H 98 08/09/18 14:07 100.0 F H 109 H 99 08/09/18 14:00 100.0 F H 118 H 37 H 93 L 08/09/17 13:59 100.0 F H 118 H 96 18 13:50 99.9 F H 107 H 47 H 89 L 18 13:40 100.0 F H 108 H 38 H 89 L 18 13:38 100.0 F H 105 H 30 H 145/77 90 L 18 13:35 100.0 F H 107 H 33 H 18 13:34 100.0 F H 123 H 21 18 13:33 100.0 F H 105 H 39 H 08/09/18 13:32 100.0 F H 104 H 32 H 18 13:31 100.0 F H 104 H 29 H 18 13:30 100.0 F H 102 H 18 96 08/09/17 13:29 100.0 F H 105 H 90 L 08/09/17 13:28 100.0 F H 101 H 25 H Intake and Output (Last 8hrs): Intake & Output 08/09/17 08/09/17 08/09/17 06:59 14:59 22:59 Intake Total 3688 331 200 Output Total 450 2400 Balance 3238 -2069 200 Intake: IV 3238 331 200 Left Hand 1100 Right Hand 168 Right Upper arm 1330 246 Oral 0 Other 450 Output: Urine 450 2400 Urethral (Barger) 450 2400 Stool 0 - Medications Active Medications: Active Medications Generic Name Dose Route Start Last Admin Trade Name Freq PRN Reason Stop Dose Admin Albuterol/Ipratropium 3 ml 08/08/17 08:52 Duoneb 3 Mg/0.5 Mg (3 Ml) Ud IH Q2H PRN Shortness of Breath Albuterol/Ipratropium 3 ml 08/08/17 14:00 08/09/17 13:22 Duoneb 3 Mg/0.5 Mg (3 Ml) Ud IH 3 ml [id number] YESSENIA Administration Aspirin 325 mg 08/10/17 10:00 Ecotrin PO DAILY YESSENIA Atorvastatin Calcium 40 mg 08/07/17 17:00 08/09/17 16:46 Lipitor NG Not Given DIN YESSENIA Furosemide 40 mg 08/09/17 18:00 08/09/17 17:17 Lasix IVP 40 mg BID YESSENIA Administration Haloperidol Lactate 4 mg 08/09/17 07:37 08/09/17 17:16 Haldol IVP 4 mg Q4H PRN Administration Agitation Protocol Propofol 1,000 mg in 100 mls @ 4.491 mls/hr 08/06/17 19:32 08/09/17 08:05 Diprivan IV 0 mcg/kg/min .[id number] PRN 0 mls/hr TITRATE PER MD ORDER Titration Protocol 5 MCG/KG/MIN Vancomycin HCl 1 gm in 250 mls @ 167 mls/hr 08/06/17 22:45 08/09/17 10:04 Vancomycin 1gm IVPB 167 mls/hr Q12H YESSENIA Administration Protocol Levofloxacin/Dextrose 750 mg in 150 mls @ 100 mls/hr 08/07/17 11:15 08/09/17 09:04 Levaquin 750mg IVPB 08/13/17 11:16 100 mls/hr DAILY YESSENIA Administration Protocol Heparin Sodium/Sodium Chloride 25,000 units in 250 mls @ 21.283 mls/hr 17:30 08/09/17 15:51 Heparin 56129 Units/250ml 1/2 Normal Saline IV 14 units/kg/hr .[id number] YESSENIA 24.83 mls/hr Protocol Administration 12 UNITS/KG/HR Dexmedetomidine HCl 400 mcg in 100 mls @ 9.025 mls/hr 08/09/17 07:32 09:18 Precedex 400mcg/100ml IV 0 mcg/kg/hr .[id number] PRN 0 mls/hr Agitation Titration Protocol 0.2 MCG/KG/HR Acetaminophen 1,000 mg in 100 mls @ 400 mls/hr 08/09/17 15:31 Ofirmev IVPB 08/10/17 14:11 Q6H PRN Temperature Levothyroxine Sodium 100 mcg 08/08/17 06:00 08/09/17 06:53 Synthroid GT 100 mcg 0600 YESSENIA Administration Lorazepam 4 mg 08/09/17 07:39 08/09/17 11:00 Ativan IVP 4 mg Q4H PRN Administration Agitation Pantoprazole Sodium 40 mg 08/07/17 10:00 08/09/17 09:04 Protonix Inj IVP 40 mg DAILY YESSENIA Administration Saliva Substitute 0 ml 08/09/17 13:10 Saliva Substitute PO DAILY PRN Dry mouth - Patient Studies Lab Studies: Microbiology Studies 08/07/17 14:00 Gram Stain - Final Trachasp Sputum Culture - Final NORMAL ORAL VANESSA 08/07/17 00:30 MRSA Culture (Admit) - Final Naris MRSA NOT DETECTED Lab Studies 08/09/17 08/09/17 08/09/17 Range/Units 15:28 11:48 11:19 WBC (4.5-11.0) 10^3/ul RBC (3.5-6.1) 10^6/uL Hgb (14.0-18.0) g/dL Hct (42.0-52.0) % MCV (80.0-105.0) fl MCH (25.0-35.0) pg MCHC (31.0-37.0) g/dl RDW (11.5-14.5) % Plt Count (120.0-450.0) 10^3/uL MPV (7.0-11.0) fl Gran % (50.0-68.0) % Lymph % (Auto) (22.0-35.0) % [place] % (Auto) (1.0-6.0) % Eos % (Auto) (1.5-5.0) % Baso % (Auto) (0.0-3.0) % Gran # (1.4-6.5) Lymph # (Auto) (1.2-3.4) [place] # (Auto) (0.1-0.6) Eos # (Auto) (0.0-0.7) Baso # (Auto) (0.0-2.0) K/mm3 APTT 59.5 H (25.1-36.5) Seconds pCO2 43 (35-45) mm/Hg pO2 89.0 (80-100) mm/Hg HCO3 27.3 (21-28) mmol/L ABG pH 7.41 (7.35-7.45) ABG Total CO2 28.6 H (22-28) mmol.L ABG O2 Saturation 98.4 H (95-98) % ABG O2 Content 16.0 (15-23) ML/dl ABG Base Excess 2.3 (-2.0-3.0) mmol/L ABG Hemoglobin 11.8 (11.7-17.4) g/dL ABG Carboxyhemoglobin 1.6 H (0.5-1.5) % POC ABG HHb (Measured) 1.6 (0-5) % ABG Methemoglobin 0.8 (0.0-3.0) % ABG O2 Capacity 16.3 (16-24) mL/dl Hgb O2 Saturation 96.0 (95.0-98.0) % FiO2 50.0 % Sodium (132-148) mmol/L Potassium (3.6-5.0) mmol/L Chloride (98-107) mmol/L Carbon Dioxide (21-33) mmol/L Anion Gap (10-20) BUN (7-21) mg/dL Creatinine (0.8-1.5) mg/dl Est GFR ( Amer) Est GFR (Non-Af Amer) POC Glucose (mg/dL) 192 H (65-110) mg/dL Random Glucose (70-110) mg/dL Calcium (8.4-10.5) mg/dL Phosphorus (2.5-4.5) mg/dL Magnesium (1.7-2.2) mg/dL Total Bilirubin (0.2-1.3) mg/dL AST (17-59) U/L ALT (7-56) U/L Alkaline Phosphatase (38-126) U/L Total Creatine Kinase (35-230) U/L CK-MB (CK-2) (0.0-3.6) ng/mL CK-MB (CK-2) % (2.5-3.0) % Troponin I ng/mL Total Protein (5.8-8.3) g/dL Albumin (3.0-4.8) g/dL Globulin gm/dL Albumin/Globulin Ratio (1.1-1.8) Urine Opiates Screen (NEGATIVE) Urine Methadone Screen (NEGATIVE) Ur Barbiturates Screen (NEGATIVE) Ur Phencyclidine Scrn (NEGATIVE) Ur Amphetamines Screen (NEGATIVE) U Benzodiazepines Scrn (NEGATIVE) U Oth Cocaine Metabols (NEGATIVE) U Cannabinoids Screen (NEGATIVE) HIV 1&2 Ag/Ab, 4th Gen (Nonreactive) 08/09/17 08/09/17 08/09/17 Range/Units 10:30 10:30 07:39 WBC (4.5-11.0) 10^3/ul RBC (3.5-6.1) 10^6/uL Hgb (14.0-18.0) g/dL Hct (42.0-52.0) % MCV (80.0-105.0) fl MCH (25.0-35.0) pg MCHC (31.0-37.0) g/dl RDW (11.5-14.5) % Plt Count (120.0-450.0) 10^3/uL MPV (7.0-11.0) fl Gran % (50.0-68.0) % Lymph % (Auto) (22.0-35.0) % [place] % (Auto) (1.0-6.0) % Eos % (Auto) (1.5-5.0) % Baso % (Auto) (0.0-3.0) % Gran # (1.4-6.5) Lymph # (Auto) (1.2-3.4) [place] # (Auto) (0.1-0.6) Eos # (Auto) (0.0-0.7) Baso # (Auto) (0.0-2.0) K/mm3 APTT (25.1-36.5) Seconds pCO2 (35-45) mm/Hg pO2 (80-100) mm/Hg HCO3 (21-28) mmol/L ABG pH (7.35-7.45) ABG Total CO2 (22-28) mmol.L ABG O2 Saturation (95-98) % ABG O2 Content (15-23) ML/dl ABG Base Excess (-2.0-3.0) mmol/L ABG Hemoglobin (11.7-17.4) g/dL ABG Carboxyhemoglobin (0.5-1.5) % POC ABG HHb (Measured) (0-5) % ABG Methemoglobin (0.0-3.0) % ABG O2 Capacity (16-24) mL/dl Hgb O2 Saturation (95.0-98.0) % FiO2 % Sodium (132-148) mmol/L Potassium (3.6-5.0) mmol/L Chloride (98-107) mmol/L Carbon Dioxide (21-33) mmol/L Anion Gap (10-20) BUN (7-21) mg/dL Creatinine (0.8-1.5) mg/dl Est GFR ( Amer) Est GFR (Non-Af Amer) POC Glucose (mg/dL) 90 (65-110) mg/dL Random Glucose (70-110) mg/dL Calcium (8.4-10.5) mg/dL Phosphorus (2.5-4.5) mg/dL Magnesium (1.7-2.2) mg/dL Total Bilirubin (0.2-1.3) mg/dL AST (17-59) U/L ALT (7-56) U/L Alkaline Phosphatase (38-126) U/L Total Creatine Kinase 541 H (35-230) U/L CK-MB (CK-2) 5.4 H (0.0-3.6) ng/mL CK-MB (CK-2) % 1.0 L (2.5-3.0) % Troponin I 0.60 H* ng/mL Total Protein (5.8-8.3) g/dL Albumin (3.0-4.8) g/dL Globulin gm/dL Albumin/Globulin Ratio (1.1-1.8) Urine Opiates Screen Negative (NEGATIVE) Urine Methadone Screen Negative (NEGATIVE) Ur Barbiturates Screen Negative (NEGATIVE) Ur Phencyclidine Scrn Negative (NEGATIVE) Ur Amphetamines Screen Negative (NEGATIVE) U Benzodiazepines Scrn Negative (NEGATIVE) U Oth Cocaine Metabols Negative (NEGATIVE) U Cannabinoids Screen Negative (NEGATIVE) HIV 1&2 Ag/Ab, 4th Gen (Nonreactive) 08/09/17 08/09/17 08/09/17 Range/Units 06:33 06:07 05:30 WBC (4.5-11.0) 10^3/ul RBC (3.5-6.1) 10^6/uL Hgb (14.0-18.0) g/dL Hct (42.0-52.0) % MCV (80.0-105.0) fl MCH (25.0-35.0) pg MCHC (31.0-37.0) g/dl RDW (11.5-14.5) % Plt Count (120.0-450.0) 10^3/uL MPV (7.0-11.0) fl Gran % (50.0-68.0) % Lymph % (Auto) (22.0-35.0) % [place] % (Auto) (1.0-6.0) % Eos % (Auto) (1.5-5.0) % Baso % (Auto) (0.0-3.0) % Gran # (1.4-6.5) Lymph # (Auto) (1.2-3.4) [place] # (Auto) (0.1-0.6) Eos # (Auto) (0.0-0.7) Baso # (Auto) (0.0-2.0) K/mm3 APTT 82.1 H (25.1-36.5) Seconds pCO2 37 (35-45) mm/Hg pO2 86.0 (80-100) mm/Hg HCO3 20.9 L (21-28) mmol/L ABG pH 7.36 (7.35-7.45) ABG Total CO2 22.0 (22-28) mmol.L ABG O2 Saturation 98.5 H (95-98) % ABG O2 Content 13.4 L (15-23) ML/dl ABG Base Excess -4.1 L (-2.0-3.0) mmol/L ABG Hemoglobin 9.9 L (11.7-17.4) g/dL ABG Carboxyhemoglobin 1.8 H (0.5-1.5) % POC ABG HHb (Measured) 1.5 (0-5) % ABG Methemoglobin 1.2 (0.0-3.0) % ABG O2 Capacity 13.6 L (16-24) mL/dl Hgb O2 Saturation 95.6 (95.0-98.0) % FiO2 50.0 % Sodium (132-148) mmol/L Potassium (3.6-5.0) mmol/L Chloride (98-107) mmol/L Carbon Dioxide (21-33) mmol/L Anion Gap (10-20) BUN (7-21) mg/dL Creatinine (0.8-1.5) mg/dl Est GFR ( Amer) Est GFR (Non-Af Amer) POC Glucose (mg/dL) (65-110) mg/dL Random Glucose (70-110) mg/dL Calcium (8.4-10.5) mg/dL Phosphorus 3.7 (2.5-4.5) mg/dL Magnesium 2.0 (1.7-2.2) mg/dL Total Bilirubin (0.2-1.3) mg/dL AST (17-59) U/L ALT (7-56) U/L Alkaline Phosphatase (38-126) U/L Total Creatine Kinase (35-230) U/L CK-MB (CK-2) (0.0-3.6) ng/mL CK-MB (CK-2) % (2.5-3.0) % Troponin I ng/mL Total Protein (5.8-8.3) g/dL Albumin (3.0-4.8) g/dL Globulin gm/dL Albumin/Globulin Ratio (1.1-1.8) Urine Opiates Screen (NEGATIVE) Urine Methadone Screen (NEGATIVE) Ur Barbiturates Screen (NEGATIVE) Ur Phencyclidine Scrn (NEGATIVE) Ur Amphetamines Screen (NEGATIVE) U Benzodiazepines Scrn (NEGATIVE) U Oth Cocaine Metabols (NEGATIVE) U Cannabinoids Screen (NEGATIVE) HIV 1&2 Ag/Ab, 4th Gen (Nonreactive) 08/09/17 08/09/17 08/09/17 Range/Units 05:30 05:30 00:40 WBC 7.3 (4.5-11.0) 10^3/ul RBC 3.55 (3.5-6.1) 10^6/uL Hgb 10.6 L (14.0-18.0) g/dL Hct 32.2 L (42.0-52.0) % MCV 90.7 (80.0-105.0) fl MCH 29.9 (25.0-35.0) pg MCHC 32.9 (31.0-37.0) g/dl RDW 15.7 H (11.5-14.5) % Plt Count 145 (120.0-450.0) 10^3/uL MPV 9.9 (7.0-11.0) fl Gran % 73.4 H (50.0-68.0) % Lymph % (Auto) 19.2 L (22.0-35.0) % [place] % (Auto) 4.9 (1.0-6.0) % Eos % (Auto) 2.2 (1.5-5.0) % Baso % (Auto) 0.3 (0.0-3.0) % Gran # 5.34 (1.4-6.5) Lymph # (Auto) 1.4 (1.2-3.4) [place] # (Auto) 0.4 (0.1-0.6) Eos # (Auto) 0.2 (0.0-0.7) Baso # (Auto) 0.02 (0.0-2.0) K/mm3 APTT 77.4 H (25.1-36.5) Seconds pCO2 (35-45) mm/Hg pO2 (80-100) mm/Hg HCO3 (21-28) mmol/L ABG pH (7.35-7.45) ABG Total CO2 (22-28) mmol.L ABG O2 Saturation (95-98) % ABG O2 Content (15-23) ML/dl ABG Base Excess (-2.0-3.0) mmol/L ABG Hemoglobin (11.7-17.4) g/dL ABG Carboxyhemoglobin (0.5-1.5) % POC ABG HHb (Measured) (0-5) % ABG Methemoglobin (0.0-3.0) % ABG O2 Capacity (16-24) mL/dl Hgb O2 Saturation (95.0-98.0) % FiO2 % Sodium 143 (132-148) mmol/L Potassium 3.6 (3.6-5.0) mmol/L Chloride 106 (98-107) mmol/L Carbon Dioxide 25 (21-33) mmol/L Anion Gap 16 (10-20) BUN 10 (7-21) mg/dL Creatinine 1.0 (0.8-1.5) mg/dl Est GFR ( Amer) > 60 Est GFR (Non-Af Amer) > 60 POC Glucose (mg/dL) (65-110) mg/dL Random Glucose 102 (70-110) mg/dL Calcium 8.2 L (8.4-10.5) mg/dL Phosphorus (2.5-4.5) mg/dL Magnesium (1.7-2.2) mg/dL Total Bilirubin 1.0 (0.2-1.3) mg/dL AST 39 (17-59) U/L ALT 33 (7-56) U/L Alkaline Phosphatase 51 (38-126) U/L Total Creatine Kinase (35-230) U/L CK-MB (CK-2) (0.0-3.6) ng/mL CK-MB (CK-2) % (2.5-3.0) % Troponin I ng/mL Total Protein 6.1 (5.8-8.3) g/dL Albumin 3.3 (3.0-4.8) g/dL Globulin 2.8 gm/dL Albumin/Globulin Ratio 1.2 (1.1-1.8) Urine Opiates Screen (NEGATIVE) Urine Methadone Screen (NEGATIVE) Ur Barbiturates Screen (NEGATIVE) Ur Phencyclidine Scrn (NEGATIVE) Ur Amphetamines Screen (NEGATIVE) U Benzodiazepines Scrn (NEGATIVE) U Oth Cocaine Metabols (NEGATIVE) U Cannabinoids Screen (NEGATIVE) HIV 1&2 Ag/Ab, 4th Gen (Nonreactive) 08/08/17 08/08/17 08/07/17 Range/Units 22:00 16:13 05:30 WBC (4.5-11.0) 10^3/ul RBC (3.5-6.1) 10^6/uL Hgb (14.0-18.0) g/dL Hct (42.0-52.0) % MCV (80.0-105.0) fl MCH (25.0-35.0) pg MCHC (31.0-37.0) g/dl RDW (11.5-14.5) % Plt Count (120.0-450.0) 10^3/uL MPV (7.0-11.0) fl Gran % (50.0-68.0) % Lymph % (Auto) (22.0-35.0) % [place] % (Auto) (1.0-6.0) % Eos % (Auto) (1.5-5.0) % Baso % (Auto) (0.0-3.0) % Gran # (1.4-6.5) Lymph # (Auto) (1.2-3.4) [place] # (Auto) (0.1-0.6) Eos # (Auto) (0.0-0.7) Baso # (Auto) (0.0-2.0) K/mm3 APTT (25.1-36.5) Seconds pCO2 (35-45) mm/Hg pO2 (80-100) mm/Hg HCO3 (21-28) mmol/L ABG pH (7.35-7.45) ABG Total CO2 (22-28) mmol.L ABG O2 Saturation (95-98) % ABG O2 Content (15-23) ML/dl ABG Base Excess (-2.0-3.0) mmol/L ABG Hemoglobin (11.7-17.4) g/dL ABG Carboxyhemoglobin (0.5-1.5) % POC ABG HHb (Measured) (0-5) % ABG Methemoglobin (0.0-3.0) % ABG O2 Capacity (16-24) mL/dl Hgb O2 Saturation (95.0-98.0) % FiO2 % Sodium (132-148) mmol/L Potassium (3.6-5.0) mmol/L Chloride (98-107) mmol/L Carbon Dioxide (21-33) mmol/L Anion Gap (10-20) BUN (7-21) mg/dL Creatinine (0.8-1.5) mg/dl Est GFR ( Amer) Est GFR (Non-Af Amer) POC Glucose (mg/dL) 108 108 (65-110) mg/dL Random Glucose (70-110) mg/dL Calcium (8.4-10.5) mg/dL Phosphorus (2.5-4.5) mg/dL Magnesium (1.7-2.2) mg/dL Total Bilirubin (0.2-1.3) mg/dL AST (17-59) U/L ALT (7-56) U/L Alkaline Phosphatase (38-126) U/L Total Creatine Kinase (35-230) U/L CK-MB (CK-2) (0.0-3.6) ng/mL CK-MB (CK-2) % (2.5-3.0) % Troponin I ng/mL Total Protein (5.8-8.3) g/dL Albumin (3.0-4.8) g/dL Globulin gm/dL Albumin/Globulin Ratio (1.1-1.8) Urine Opiates Screen (NEGATIVE) Urine Methadone Screen (NEGATIVE) Ur Barbiturates Screen (NEGATIVE) Ur Phencyclidine Scrn (NEGATIVE) Ur Amphetamines Screen (NEGATIVE) U Benzodiazepines Scrn (NEGATIVE) U Oth Cocaine Metabols (NEGATIVE) U Cannabinoids Screen (NEGATIVE) HIV 1&2 Ag/Ab, 4th Gen Nonreactive (Nonreactive) Laboratory Results - last 24 hr 08/07/17 08/08/17 08/08/17 05:30 16:13 22:00 WBC RBC Hgb Hct MCV MCH MCHC RDW Plt Count MPV Gran % Lymph % (Auto) [place] % (Auto) Eos % (Auto) Baso % (Auto) Gran # Lymph # (Auto) [place] # (Auto) Eos # (Auto) Baso # (Auto) APTT pCO2 pO2 HCO3 ABG pH ABG Total CO2 ABG O2 Saturation ABG O2 Content ABG Base Excess ABG Hemoglobin ABG Carboxyhemoglobin POC ABG HHb (Measured) ABG Methemoglobin ABG O2 Capacity Hgb O2 Saturation FiO2 Sodium Potassium Chloride Carbon Dioxide Anion Gap BUN Creatinine Est GFR ( Amer) Est GFR (Non-Af Amer) POC Glucose (mg/dL) 108 108 Random Glucose Calcium Phosphorus Magnesium Total Bilirubin AST ALT Alkaline Phosphatase Total Creatine Kinase CK-MB (CK-2) CK-MB (CK-2) % Troponin I Total Protein Albumin Globulin Albumin/Globulin Ratio Urine Opiates Screen Urine Methadone Screen Ur Barbiturates Screen Ur Phencyclidine Scrn Ur Amphetamines Screen U Benzodiazepines Scrn U Oth Cocaine Metabols U Cannabinoids Screen HIV 1&2 Ag/Ab, 4th Gen Nonreactive 08/09/17 08/09/17 08/09/17 00:40 05:30 05:30 WBC 7.3 RBC 3.55 Hgb 10.6 L Hct 32.2 L MCV 90.7 MCH 29.9 MCHC 32.9 RDW 15.7 H Plt Count 145 MPV 9.9 Gran % 73.4 H Lymph % (Auto) 19.2 L [place] % (Auto) 4.9 Eos % (Auto) 2.2 Baso % (Auto) 0.3 Gran # 5.34 Lymph # (Auto) 1.4 [place] # (Auto) 0.4 Eos # (Auto) 0.2 Baso # (Auto) 0.02 APTT 77.4 H pCO2 pO2 HCO3 ABG pH ABG Total CO2 ABG O2 Saturation ABG O2 Content ABG Base Excess ABG Hemoglobin ABG Carboxyhemoglobin POC ABG HHb (Measured) ABG Methemoglobin ABG O2 Capacity Hgb O2 Saturation FiO2 Sodium 143 Potassium 3.6 Chloride 106 Carbon Dioxide 25 Anion Gap 16 BUN 10 Creatinine 1.0 Est GFR ( Amer) > 60 Est GFR (Non-Af Amer) > 60 POC Glucose (mg/dL) Random Glucose 102 Calcium 8.2 L Phosphorus Magnesium Total Bilirubin 1.0 AST 39 ALT 33 Alkaline Phosphatase 51 Total Creatine Kinase CK-MB (CK-2) CK-MB (CK-2) % Troponin I Total Protein 6.1 Albumin 3.3 Globulin 2.8 Albumin/Globulin Ratio 1.2 Urine Opiates Screen Urine Methadone Screen Ur Barbiturates Screen Ur Phencyclidine Scrn Ur Amphetamines Screen U Benzodiazepines Scrn U Oth Cocaine Metabols U Cannabinoids Screen HIV 1&2 Ag/Ab, 4th Gen 08/09/17 08/09/17 08/09/17 05:30 06:07 06:33 WBC RBC Hgb Hct MCV MCH MCHC RDW Plt Count MPV Gran % Lymph % (Auto) [place] % (Auto) Eos % (Auto) Baso % (Auto) Gran # Lymph # (Auto) [place] # (Auto) Eos # (Auto) Baso # (Auto) APTT 82.1 H pCO2 37 pO2 86.0 HCO3 20.9 L ABG pH 7.36 ABG Total CO2 22.0 ABG O2 Saturation 98.5 H ABG O2 Content 13.4 L ABG Base Excess -4.1 L ABG Hemoglobin 9.9 L ABG Carboxyhemoglobin 1.8 H POC ABG HHb (Measured) 1.5 ABG Methemoglobin 1.2 ABG O2 Capacity 13.6 L Hgb O2 Saturation 95.6 FiO2 50.0 Sodium Potassium Chloride Carbon Dioxide Anion Gap BUN Creatinine Est GFR ( Amer) Est GFR (Non-Af Amer) POC Glucose (mg/dL) Random Glucose Calcium Phosphorus 3.7 Magnesium 2.0 Total Bilirubin AST ALT Alkaline Phosphatase Total Creatine Kinase CK-MB (CK-2) CK-MB (CK-2) % Troponin I Total Protein Albumin Globulin Albumin/Globulin Ratio Urine Opiates Screen Urine Methadone Screen Ur Barbiturates Screen Ur Phencyclidine Scrn Ur Amphetamines Screen U Benzodiazepines Scrn U Oth Cocaine Metabols U Cannabinoids Screen HIV 1&2 Ag/Ab, 4th Gen 08/09/17 08/09/17 08/09/17 07:39 10:30 10:30 WBC RBC Hgb Hct MCV MCH MCHC RDW Plt Count MPV Gran % Lymph % (Auto) [place] % (Auto) Eos % (Auto) Baso % (Auto) Gran # Lymph # (Auto) [place] # (Auto) Eos # (Auto) Baso # (Auto) APTT pCO2 pO2 HCO3 ABG pH ABG Total CO2 ABG O2 Saturation ABG O2 Content ABG Base Excess ABG Hemoglobin ABG Carboxyhemoglobin POC ABG HHb (Measured) ABG Methemoglobin ABG O2 Capacity Hgb O2 Saturation FiO2 Sodium Potassium Chloride Carbon Dioxide Anion Gap BUN Creatinine Est GFR ( Amer) Est GFR (Non-Af Amer) POC Glucose (mg/dL) 90 Random Glucose Calcium Phosphorus Magnesium Total Bilirubin AST ALT Alkaline Phosphatase Total Creatine Kinase 541 H CK-MB (CK-2) 5.4 H CK-MB (CK-2) % 1.0 L Troponin I 0.60 H* Total Protein Albumin Globulin Albumin/Globulin Ratio Urine Opiates Screen Negative Urine Methadone Screen Negative Ur Barbiturates Screen Negative Ur Phencyclidine Scrn Negative Ur Amphetamines Screen Negative U Benzodiazepines Scrn Negative U Oth Cocaine Metabols Negative U Cannabinoids Screen Negative HIV 1&2 Ag/Ab, 4th Gen 08/09/17 08/09/17 08/09/17 11:19 11:48 15:28 WBC RBC Hgb Hct MCV MCH MCHC RDW Plt Count MPV Gran % Lymph % (Auto) [place] % (Auto) Eos % (Auto) Baso % (Auto) Gran # Lymph # (Auto) [place] # (Auto) Eos # (Auto) Baso # (Auto) APTT 59.5 H pCO2 43 pO2 89.0 HCO3 27.3 ABG pH 7.41 ABG Total CO2 28.6 H ABG O2 Saturation 98.4 H ABG O2 Content 16.0 ABG Base Excess 2.3 ABG Hemoglobin 11.8 ABG Carboxyhemoglobin 1.6 H POC ABG HHb (Measured) 1.6 ABG Methemoglobin 0.8 ABG O2 Capacity 16.3 Hgb O2 Saturation 96.0 FiO2 50.0 Sodium Potassium Chloride Carbon Dioxide Anion Gap BUN Creatinine Est GFR ( Amer) Est GFR (Non-Af Amer) POC Glucose (mg/dL) 192 H Random Glucose Calcium Phosphorus Magnesium Total Bilirubin AST ALT Alkaline Phosphatase Total Creatine Kinase CK-MB (CK-2) CK-MB (CK-2) % Troponin I Total Protein Albumin Globulin Albumin/Globulin Ratio Urine Opiates Screen Urine Methadone Screen Ur Barbiturates Screen Ur Phencyclidine Scrn Ur Amphetamines Screen U Benzodiazepines Scrn U Oth Cocaine Metabols U Cannabinoids Screen HIV 1&2 Ag/Ab, 4th Gen EKG/Cardiology Studies: Cardiology / EKG Studies 08/09/17 10:04 EKG [ELECTROCARDIOGRAM] Stat Comment: Reason For Exam: AMI 08/10/17 07:00 EKG [ELECTROCARDIOGRAM] DAILY Comment: Reason For Exam: AMI 08/11/17 07:00 EKG [ELECTROCARDIOGRAM] DAILY Comment: Reason For Exam: AMI Attending/Attestation - Attestation I have personally seen and examined this patient.: Yes I have fully participated in the care of the patient.: Yes I have reviewed all pertinent clinical information: Yes Notes (Text): 08/09/17 17:[address] Roland note
--- NOTE | 2017-08-09 08:30 | RAD ---
HISTORY: f/u COMPARISON: 08/08/2017. FINDINGS: The endotracheal tube terminates 4.5 cm proximal to the rolly. LUNGS: Again seen opacification of the right hemithorax. There is severe pulmonary venous congestion. PLEURA: No significant pleural effusion identified, no pneumothorax apparent. CARDIOVASCULAR: The heart remains enlarged with prominent central vasculature. OSSEOUS STRUCTURES: No significant abnormalities. VISUALIZED UPPER ABDOMEN: Normal. OTHER FINDINGS: None. IMPRESSION: No significant interval change in congestive heart failure with presumable pulmonary edema in the right lung. Follow-up is advised.
--- NOTE | 2017-08-09 08:43 | PN ---
DATE: 08/09/2017 SUBJECTIVE: The patient was seen and examined at bedside. At present time, he is sedated with propofol 40 mcg/kg per minute. Precedex was held temporarily due to concern for his heart rate overnight. PHYSICAL EXAMINATION: VITAL SIGNS: Nevertheless, the patient tolerates pressure support trial with 5/5 and FIO2 of 40-50%. His rapid shallow breathing index is 50. He is breathing about 25 times per minute with tidal volume around 360-450. On that setting, his heart rate 74, blood pressure 145/54, temperature 98.6, end-tidal CO2 on the monitor 42, oxygen saturation 94-98%. ENT: Head and neck atraumatic. LUNGS: Few crackles bibasilarly. HEART: Regular rate and rhythm. S1 and S2 normal. ABDOMEN: Soft, nontender and nondistended. MUSCULOSKELETAL: Chronic venous stasis in both lower extremities. Trace bilateral pedal and ankle edema. NEURO: The patient was seen moving upper and lower extremities. SKIN: Moist. PSYCH: The patient is sedated. LABORATORY DATA: ABG is 7.36/37/86 on 50% FIO2. WBC is 7.3, hemoglobin 10.6, platelet count 145. Sodium 143, potassium 3.6, chloride 106, carbon dioxide 25. BUN 10, creatinine 1, down from 1.1. Glucose 102. Of note, proBNP 1420. Procalcitonin less than 0.05. Urine Legionella antigen is negative. Urine is negative for leukocyte esterase and nitrites. MEDICATIONS: Tylenol IV p.r.n., DuoNeb p.r.n. and every 6 hours, aspirin, Lipitor, Coreg, Precedex drip, Lasix 40 mg IV was given early in the morning with subsequent release of more than 900 mL of urine, Haldol p.r.n., heparin drip (PTT today 82, therapeutic), levofloxacin, Synthroid, Ativan p.r.n., Protonix, propofol drip, Brilinta, vancomycin. Chest x-ray: Bilateral fluffy infiltrates. Echocardiogram revealed relatively normal left ventricular systolic and diastolic function as well as right ventricular function as well. ASSESSMENT AND PLAN: This is a 67-year-old gentleman, who presented with altered mental status including hallucinations, agitations and inability to control his airways, for which he was intubated. Later, he was found to have bilateral fluffy infiltrates with concomitant hypoxemic respiratory failure. His troponin leaked and he had only minimal leukocytosis. Differential diagnosis included congestive heart failure versus severe community-acquired pneumonia including aspiration pneumonia/pneumonitis. The patient was started on broad-spectrum antibiotics and septic workup initiated. Of note, procalcitonin came back less than 0.05. Due to initial troponin leak up to 4, the patient was started on dual antiplatelet therapy as well as therapeutic anticoagulation and beta-blockers as well as statins. Cardiology Service was following the patient as well. Conservative fluid management was utilized and Lasix was given early in the morning with good response 2.4 L u/o within couple hours). His creatinine started trending down. At present time, the patient is afebrile. His leukocytosis resolved. Results of procalcitonin level noted. If requires PRVC we will continue with protective lung ventilation strategy including 6-8 mL per predicted body weight of tidal volume and plateau pressure less than 30, head of bed elevated >35 degrees. Oral hygiene. At present time, however, the patient tolerates pressure support trial pretty well. It appears that main obstacle to the patient's liberation from mechanical ventilation during the Intensive Care Unit course was his mental status. We will proceed with Precedex and attempt weaning off propofol. We will start the patient on Ativan p.r.n. as well as Haldol p.r.n. We will get urine toxicology screen. We will try to employ non-medicamentous measures to minimize possibility of delirium including optimization of circadian and sleep pattern. Frequent reorientation. The patient is on broad-spectrum antibiotics and ID Service is following him. I would repeat procalcitonin level just to make sure it stays low. So far, blood cultures from August 06 (3 days ago) were negative. Tracheal aspirate showed no organisms and only a few polymorphonuclears wbc. If unable to extubate, we will put nasogastric tube and start enteral nutrition. We will continue gastrointestinal prophylaxis and head of bed elevated at >35 degrees. We will continue to maintain blood glucose within 140-180 range according to NICE-SUGAR trial We will continue to maintain euvolemia, euglycemia, normothermia and oxygen saturation more than 90%. We will try to came at -1 L fluid balance snow. Addendum: patient received 2 doses of Haldol 4 mg IV with good effect, which allowed extubate to BPAP. Patient is on 06/10; fi02 50%. Relatively comfortable, following commands, good cough reflex. Tolerates BPAP intermittantly. ccm time 40 min Yovani Roland MD [place]
--- NOTE | 2017-08-09 08:50 | PN ---
DATE: 08/09/2017(640am-730am) PULMONARY NOTE SUBJECTIVE: The patient remains on the ventilator. He is sedated this morning. PHYSICAL EXAMINATION: VITAL SIGNS: Temperature is 99.7, pulse is 60, respiratory rate 16/16, blood pressure 124/70. Oxygen saturation on the ventilator is 98%. HEENT: Normocephalic, atraumatic. NECK: No JVD. CARDIOVASCULAR: Systolic ejection murmur at the lower left sternal border. Questionable S3 gallop. LUNGS: Crackles at both bases. Less rhonchi. No wheezing. EXTREMITIES: Positive for chronic edema. No cyanosis or clubbing. GI: Abdomen is soft, nondistended. Bowel sounds are positive. SKIN: Skin reveals chronic cellulitic changes on his legs. NEUROLOGIC: Exam limited at the present time. PERTINENT LABORATORY DATA: Chest x-ray was done this morning and reviewed. Significant bilateral pulmonary infiltrates remain. Arterial blood gas was done on PRVC 16, tidal volume 450, FiO2 of 50%. Results are pH 7.36, pCO2 of 37 and pO2 of 86. B-type natriuretic peptide was done yesterday. It is significantly elevated at 1420. IMPRESSION: 1. Respiratory failure. 2. Rule out aspiration pneumonia. Rule out noncardiac pulmonary edema. Rule out congestive heart failure. 3. Acute myocardial infarction. 4. Morbid obesity. 5. Mild anemia. 6. Encephalopathy. PLAN: The patient remains on the ventilator. He is currently sedated. I discussed the case with the night nurse at length. The night nurse stated that the patient had a pretty uneventful night, but is not doing well overall. I did review the chest x-ray as above. Significant bilateral pulmonary infiltrates remain. I have also reviewed the laboratory data. A significant rise in the B-type natriuretic peptide was noted. I will give a stat dose of Lasix this morning. I will also discuss the above with Cardiology (Dr. Hernandez). I have also reviewed the arterial blood gas. The arterial blood gas is worse--- with an increase in the alveolar-arterial gradient. I will discuss the ventilator settings with the ICU team in the next few moments. Low grade temperatures are now noted. The leukocytosis, however, has resolved. I would continue with the antibiotic coverage as per Infectious Disease. Input by Dr. Hardy is noted. Repeat a.m. labs are pending. The patient remains critically ill with overall very guarded prognosis. I will discuss the above with the entire ICU team in the next few moments. I will also discuss the above with the attending physician later this morning. García Grace MD MTDBrinda
[2017-08-09] MEDS: levoFLOXacin 750 mg in D5W 750 MG/150 ML BAG IVPB SCH (09:04)
[2017-08-09] MEDS ORDERED: Potassium Chloride 20 mEq/15 ml LIQ UD PO STA (09:43)
[2017-08-09] MEDS: Vancomycin 1gm in NS 250ml 1 GM/250 ML BAG IVPB SCH ×2 (10:04→21:53)
[2017-08-09 11:02] LABS: TROPONIN I 0.6 ng/mL
[2017-08-09 11:04] LABS: CK-MB 5.4 ng/mL (0.0-3.6)
[2017-08-09 11:08] LABS: OPIATES, UR NEGATIVE (NEGATIVE); PHENCYCLIDINE, UR NEGATIVE (NEGATIVE)
[2017-08-09 11:09] LABS: BARBITURATES, UR NEGATIVE (NEGATIVE); BENZODIAZEPINES, UR NEGATIVE (NEGATIVE)
--- NOTE | 2017-08-09 11:42 | PN ---
DATE: 08/09/2017 SUBJECTIVE: The patient has been seen by since admission. The patient was seen in ICU bed 1. The patient is intubated on CPAP at this time. Responsive to painful stimuli. Overnight nurse's notes were reviewed. The patient received Lasix 40 mg IV with an output of more than 2000 mL after Lasix. PHYSICAL EXAMINATION: VITAL SIGNS: T-max 98.6. Telemetry shows sinus rhythm 59, 63, 54, 82, blood pressure 105/56, 145/54, 133/71, 133/70, respiration is 21, 23. The patient is on CPAP at present, O2 sat is 92-90%. Output for 08/08/2017 was 1800. Today's output is 2850. HEENT: Head: Normocephalic, atraumatic. HEENT examination shows positive ET tube. CARDIOVASCULAR: S1, S2, regular rhythm. LUNGS: Shows questionable decreased breath sound at the bases. ABDOMEN: Protuberant, obese. GENITALIA: Male. Positive Barger catheter. EXTREMITIES: Shows chronic leg skin changes of the both legs with decreasing lymphedema. MUSCULOSKELETAL: Shows a body weight of almost 400 pounds and a BMI of 51. NEUROLOGICAL: The patient is only responsive to painful stimuli. DIAGNOSTICS: On 08/09/2017, WBC 7.3, hemoglobin and hematocrit 10.6 and 32.2, platelet 145. Granulocytes 73%. PTT 82. ABG on 50% FiO2, pH of 7.36, pCO2 37, pO2 86, bicarb 22, saturation 98.5. Chemistries: Sodium 143, potassium 3.6, chloride 106, CO2 25, anion gap 16, BUN 10, creatinine 1, GFR greater than 60, glucose 102, calcium 8.2. LFTs are normal. BNP yesterday was 1420. Sputum cultures, urine cultures, MRSA and blood cultures no growth. IMPRESSION AND PLAN: 1. Ventilator-dependent respiratory failure. 2. Status post altered mental status and behavioral disorder. 3. Status post hallucination. 4. Morbid obesity with elevated body mass index of 51. 5. Transient low grade fever. 6. Transient tachycardia. 7. Transient hypotension. 8. Hypoxemia. 9. Leukocytosis with granulocytosis. 10. Normocytic anemia. 11. Transient hypercarbia and respiratory acidosis. 12. Hypokalemia. 13. Non-ST elevation myocardial infarction with elevated troponin. 14. Elevated CPK, questionable rhabdomyolysis. 15. History of hypothyroidism and vitamin B12 deficiency. 16. History of testosterone deficiency. 17. Hypokalemia. 18. Proteinuria, bilirubinuria, pyuria and ketonuria. 19. Questionable bilateral pleural effusion. 20. Right upper lobe consolidation versus pneumonia versus pulmonary edema. 21. Cardiomegaly. 22. Questionable ventilator dependent pneumonia and consolidation. 23. Bilateral dependent consolidation and bilateral ground-glass opacities. 24. Thoracic spine degenerative joint disease. 25. Status post cholecystectomy. 26. Status post gastric bypass. 27. Bilateral nephrolithiasis. 28. Encephalopathy, etiology undetermined. 29. 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 30. Ethmoid air cell partial opacification and left frontal sinus mucosal disease. 31. Left ventricular ejection fraction of 58% with grade 1 abnormal relaxation pattern. 32. Moderately thickened mitral valve. 33. Sinus tachycardia. 34. Acute anterolateral infarct with lateral injury and ischemia. 35. Acute anterolateral myocardial infarction. 36. History of hypertension, history of chronic pain syndrome, status post intrathecal ziconotide pump placement. 37. Bilateral lower extremity lymphedema. 38. Chronic pain syndrome. 39. Bilateral multilobar pneumonia. 40. History of chronic obstructive pulmonary disease. 41. History of chronic methadone and oxycodone use. 42. Transient hypertension. 43. Severe sepsis with ventilator-dependent respiratory failure. 44. Non-ST elevation myocardial infarction. 45. Acute encephalopathy probably secondary to intrathecal ziconotide side effect. 46. Transient psychosis. 47. Status post encephalopathy with hallucination and psychosis. 48. Questionable and possible ventilator-dependent bilateral multilobar aspiration pneumonia versus healthcare-associated pneumonia. 49. Morbid obesity. 50. Severe sepsis. 51. History of hypothyroidism. PLAN: At this time, the patient is placed on CPAP at present. The patient has been ordered serial labs. Overall prognosis guarded to poor. Condition critical, family aware. Time spent in the entire management more than 35 minutes. Dictated and electronically signed, not read. Kolton Melgar MD
[2017-08-09 11:51] LABS: ARTERIAL BLOOD GAS HCO3 27.3 mmol/L (21-28); ARTERIAL BLOOD GAS HEMOGLOBIN 11.8 g/dL (11.7-17.4); ARTERIAL BLOOD GAS O2 CAPACITY 16.3 mL/dl (16-24); ARTERIAL BLOOD GAS O2 SAT 98.4 % (95-98); ARTERIAL BLOOD GAS PCO2 43 mm/Hg (35-45); ARTERIAL BLOOD GAS PH 7.41 (7.35-7.45); ARTERIAL BLOOD GAS TCO2 28.6 mmol.L (22-28)
[2017-08-09] MEDS ORDERED: Saliva Substitute 44.3 ML PO PRN (13:10)
--- NOTE | 2017-08-09 14:01 | PN ---
DATE: 08/09/2017 CARDIOLOGY FOLLOWUP The patient is extubated today. He is awake, restless with mild dyspnea. OBJECTIVE VITAL SIGNS: On physical exam, blood pressure is 168/90, heart rate is in the 90s. NECK: Negative JVD. LUNGS: Bilateral rhonchi. HEART: Reveal S1, S2. EXTREMITIES: Without change. LABORATORY DATA: Troponin is down to 0.6 from peak of 4.08. BUN and creatinine unremarkable. Hemoglobin is 10.8. IMPRESSION 1. Status post respiratory failure, status post extubated 2. Non-ST elevation myocardial infarction. 3. Altered mental status. 4. Coronary artery disease. 5. Hypertension. 6. Morbid obesity. 7. Pneumonia. Given these findings, we will increase his Lasix to 40 b.i.d. We will discontinue his Brilinta. We will continue his aspirin and heparin. When the patient is more cooperative and his mental status and respiratory status improves, we will consider taking him to the director of cardiac cath lab to evaluate his high probability for coronary artery disease. I have discussed this in detail with the patient's daughter. nAdrew Hernandez MD
--- NOTE | 2017-08-09 15:53 | CP.PCM.PN ---
<Danny Almanza Ashvin - Last Filed: 08/09/17 16:50> Subjective - Date & Time of Evaluation Date of Evaluation: 08/09/17 Time of Evaluation: 15:50 - Subjective Subjective: Medicine progress note: Dr. Melgar Patient seen and examined at bedside. HPI limited 2/2 patient being intubated and sedated. Nursing notes from overnight reviewed. Limited urine output, patient getting agitated. Objective - Vital Signs/Intake and Output Vital Signs (last 24 hours): Temp Pulse Resp BP Pulse Ox 100.4 F H 111 H 34 H 101/60 89 L 08/09/17 15:10 08/09/17 15:10 08/09/17 15:10 08/09/17 15:01 08/09/17 15:10 Intake and Output: 08/09/17 08/09/17 06:59 18:59 Intake Total 3878 331 Output Total 450 2400 Balance 3428 -4229 - Medications Medications: Current Medications Albuterol/Ipratropium (Duoneb 3 Mg/0.5 Mg (3 Ml) Ud) 3 ml IH Q2H PRN PRN Reason: Shortness of Breath Albuterol/Ipratropium (Duoneb 3 Mg/0.5 Mg (3 Ml) Ud) 3 ml IH [id number] [facility] Last Admin: 08/09/17 13:22 Dose: 3 ml Aspirin (Ecotrin) 325 mg PO DAILY [facility] Atorvastatin Calcium (Lipitor) 40 mg NG DIN [facility] Last Admin: 08/08/17 18:11 Dose: Not Given Furosemide (Lasix) 40 mg IVP BID [facility] Haloperidol Lactate (Haldol) 4 mg IVP Q4H PRN; Protocol PRN Reason: Agitation Last Admin: 08/09/17 12:30 Dose: 4 mg Propofol (Diprivan) 1,000 mg in 100 mls @ 4.491 mls/hr IV .[id number] PRN; Protocol; 5 MCG/KG/MIN PRN Reason: TITRATE PER MD ORDER Last Titration: 08/09/17 08:05 Dose: 0 mcg/kg/min, 0 mls/hr Vancomycin HCl (Vancomycin 1gm) 1 gm in 250 mls @ 167 mls/hr IVPB Q12H YESSENIA PRN Reason: Protocol Last Admin: 08/09/17 10:04 Dose: 167 mls/hr Levofloxacin/Dextrose (Levaquin 750mg) 750 mg in 150 mls @ 100 mls/hr IVPB DAILY YESSENIA PRN Reason: Protocol Stop: 08/13/17 11:16 Last Admin: 08/09/17 09:04 Dose: 100 mls/hr Heparin Sodium/Sodium Chloride (Heparin 87347 Units/250ml 1/2 Normal Saline) 25 ,000 units in 250 mls @ 21.283 mls/hr IV .[id number] YESSENIA; 12 UNITS/KG/HR PRN Reason: Protocol Last Titration: 08/09/17 07:22 Dose: 14 units/kg/hr, 24.83 mls/hr Dexmedetomidine HCl (Precedex 400mcg/100ml) 400 mcg in 100 mls @ 9.025 mls/hr IV .[id number] PRN; Protocol; 0.2 MCG/KG/HR PRN Reason: Agitation Last Titration: 08/09/17 09:18 Dose: 0 mcg/kg/hr, 0 mls/hr Acetaminophen (Ofirmev) 1,000 mg in 100 mls @ 400 mls/hr IVPB Q6H PRN PRN Reason: Temperature Stop: 08/10/17 14:11 Levothyroxine Sodium (Synthroid) 100 mcg GT 0600 YESSENIA Last Admin: 08/09/17 06:53 Dose: 100 mcg Lorazepam (Ativan) 4 mg IVP Q4H PRN PRN Reason: Agitation Last Admin: 08/09/17 11:00 Dose: 4 mg Pantoprazole Sodium (Protonix Inj) 40 mg IVP DAILY YESS[facility] Last Admin: 08/09/17 09:04 Dose: 40 mg Saliva Substitute (Saliva Substitute) 0 ml PO DAILY PRN PRN Reason: Dry mouth - Labs Labs: 08/09/17 05:30 08/09/17 05:30 PT 13.3 SECONDS (9.4-12.5) H 08/07/17 05:15 INR 1.15 (0.93-1.08) H 08/07/17 05:15 APTT 59.5 Seconds (25.1-36.5) H 08/09/17 15:28 - Constitutional Appears: Chronically Ill - Head Exam Head Exam: ATRAUMATIC, NORMAL INSPECTION, NORMOCEPHALIC Additional comments: Patient intubated and sedated - Eye Exam Eye Exam: EOMI, Normal appearance, PERRL Pupil Exam: NORMAL ACCOMODATION, PERRL - ENT Exam ENT Exam: Mucous Membranes Moist, Normal Exam - Neck Exam Neck Exam: Full ROM, Normal Inspection. absent: Lymphadenopathy - Respiratory Exam Respiratory Exam: Clear to Ausculation Bilateral, NORMAL BREATHING PATTERN - Cardiovascular Exam Cardiovascular Exam: REGULAR RHYTHM, +S1, +S2. absent: Murmur - GI/Abdominal Exam GI & Abdominal Exam: Soft, Normal Bowel Sounds. absent: Tenderness - Rectal Exam Rectal Exam: NORMAL INSPECTION - Exam Exam: Circumcision, NORMAL INSPECTION External exam: NORMAL EXTERNAL EXAM Speculum exam: NORMAL SPECULUM EXAM Bimanual exam: NORMAL BIMANUAL EXAM - Extremities Exam Extremities Exam: Full ROM, Normal Capillary Refill, Normal Inspection. absent : Joint Swelling, Pedal Edema - Back Exam Back Exam: NORMAL INSPECTION - Neurological Exam Neurological Exam: Alert, Awake, CN II-XII Intact, Normal Gait, Oriented x3 - Psychiatric Exam Psychiatric exam: Normal Affect, Normal Mood - Skin Skin Exam: Dry, Intact, Normal Color, Warm Assessment and Plan - Assessment and Plan (Free Text) Assessment: This is a 67 yo M with PMH including HTN, COPD, HLD, DM, Chronic back pain s/p intrathecal Ziconotide pump, and peripheral vascular disease of bilateral LE who [place] [facility] [place] in the machine iron[place] (for severe headache , self-resolved) for new onset and worsening AMS, now intubated and sedated. Patient also had an acute NSTEMI. ECHO showed transmitral doppler flow abnormal relaxation with normal ejection fraction. Troponins up to 4.08. Patient also had bilateral upper lobe infiltrates on Chest XR, most suggestive of pneumonia with a white count of 13 (now resolved). Blood culture, naris culture, urine culture, and sputum culture all negative. Altered Mental Status, possibly 2/2 Ziconotide intrathecal pump - Patient is intubated and sedated on propofol - Haldol NSTEMI - Brilinta, Heparin drip, ASA - Cardiology consult: Dr. Hernandez Upper Lobe Pneumonia, likely 2/2 Aspiration - Merrem, Vancomycin, Levaquin History of Hypertension -Patient currently normotensive History of COPD - Patient currently on ventilator; Nikia YESSENIA and PRN History of Hyperlipidemia - Holding lipitor because of sedation History of Diabetes - Patient has no oral intake, no sliding scale for now History Chronic Back Pain - Still on intrathecal ziconotide pump History of Hypothyroidism - Synthroid GI/DVT Prophylaxis -Pantoprazole; heparin drip, brilinta <Kolton Melgar U - Last Filed: 08/15/17 17:54> Objective - Vital Signs/Intake and Output Vital Signs (last 24 hours): Temp Pulse Resp BP Pulse Ox 98.2 F 76 20 120/69 94 L 08/15/17 17:25 08/15/17 17:25 08/15/17 17:25 08/15/17 17:25 08/15/17 10:00 Intake and Output: 08/15/17 08/15/17 06:59 18:59 Intake Total 1220 Output Total 3050 Balance -1830 - Medications Medications: Current Medications Acetylcysteine (Acetylcysteine 20%) 4 ml IH [id number] [facility] Last Admin: 08/15/17 13:37 Dose: Not Given Albuterol/Ipratropium (Duoneb 3 Mg/0.5 Mg (3 Ml) Ud) 3 ml IH Q2H PRN PRN Reason: Shortness of Breath Last Admin: 08/15/17 06:06 Dose: 3 ml Albuterol/Ipratropium (Duoneb 3 Mg/0.5 Mg (3 Ml) Ud) 3 ml IH [id number] [facility] Last Admin: 08/15/17 13:38 Dose: 3 ml Aspirin (Ecotrin) 325 mg PO DAILY [facility] Last Admin: 08/15/17 09:29 Dose: 325 mg Atorvastatin Calcium (Lipitor) 40 mg NG DIN [facility] Last Admin: 08/14/17 17:40 Dose: 40 mg Clopidogrel Bisulfate (Plavix) 75 mg PO DAILY [facility] Last Admin: 08/15/17 09:30 Dose: 75 mg Furosemide (Lasix) 40 mg IVP DAILY [facility] Last Admin: 08/15/17 09:30 Dose: 40 mg Levothyroxine Sodium (Synthroid) 100 mcg PO 0600 [facility] Last Admin: 08/15/17 05:06 Dose: 100 mcg Pantoprazole Sodium (Protonix Ec Tab) 40 mg PO ACB [facility] Last Admin: 08/15/17 09:30 Dose: 40 mg Potassium Chloride (K-Dur 20 Meq Er Tab) 20 meq PO BID [facility] Last Admin: 08/15/17 09:29 Dose: 20 meq Saliva Substitute (Saliva Substitute) 0 ml PO DAILY PRN PRN Reason: Dry mouth Valsartan (Diovan) 160 mg PO DAILY YESS[facility]IA Last Admin: 08/15/17 09:30 Dose: 160 mg - Labs Labs: 08/14/17 06:30 08/14/17 06:30 PT 13.3 SECONDS (9.4-12.5) H 08/07/17 05:15 INR 1.15 (0.93-1.08) H 08/07/17 05:15 APTT 74.6 Seconds (25.1-36.5) H 08/13/17 07:00 Attending/Attestation - Attestation I have personally seen and examined this patient.: Yes I have fully participated in the care of the patient.: Yes I have reviewed all pertinent clinical information, including history, physical exam and plan: Yes Notes (Text): Please see/read my dictated notes.
--- NOTE | 2017-08-09 16:33 | CT ---
PROCEDURE: CTA HEAD AND NECK WITH CONTRAST HISTORY: r/o aneurysmal bleed COMPARISON: None available. TECHNIQUE: Initial noncontrast head CT was performed. Subsequently, CT angiogram of the head and neck were performed after the intravenous administration of 80 mL of Omnipaque 350. Contiguous 1.5mm thick images were obtained in the axial plane of the neck. 2-D coronal and sagittal MPR images were obtained. Imaging postprocessing was performed with 3-D images also obtained. A delayed contrast head CT was also obtained. This CT exam was performed using one or more of the following dose reduction techniques: Automated exposure control, adjustment of the mA and/or kV according to patient size, and/or use of iterative reconstruction technique. Contrast dose: 100 mL Visipaque 320 Radiation dose: Total exam DLP = 1080.66 mGy-cm. FINDINGS: HEAD: Right: The intracranial internal carotid artery, and anterior and middle cerebral arteries are widely patent. Left: The intracranial internal carotid artery, and anterior and middle cerebral arteries are widely patent. Posterior circulation: The visualized intracranial vertebral arteries, basilar artery and posterior cerebral arteries are widely patent. Ther is no endoluminal filling defect to suggest thrombus. There is no intracranial saccular aneurysm. There is no abnormal enhancement on the postcontrast CT. NECK: There is a three vessel aortic arch. There is no stenosis at the origins of the great vessels at the level of the aortic arch. There are atherosclerotic calcifications in the carotid bulbs. Right Carotid: On the right, the common carotid, internal carotid and external carotid arteries are widely patent. There is no hemodynamically significant stenosis in the internal carotid artery by NASCET criteria. Left Carotid: On the left, the common carotid, internal carotid and external carotid arteries are widely patent.There is no hemodynamically significant stenosis in the internal carotid artery by NASCET criteria. The vertebral arteries are widely patent. The right vertebral artery is hypoplastic, an anatomic variant. The visualized soft tissues of the neck are normal. The visualized brain and cervical spine are within normal limits. There is confluent airspace disease in the wrist lies posterior lungs. Endotracheal tube ends above the rolly. IMPRESSION: No evidence for saccular aneurysm, occlusion or definite significant stenosis. No evidence of hemodynamically significant stenosis in the internal carotid arteries by NASCET criteria. Patent vertebral arteries. The right vertebral artery is hypoplastic, an anatomic variant. A preliminary report was provided by [facility].
--- NOTE | 2017-08-09 18:50 | PN ---
DATE: 08/09/2017 SUBJECTIVE: The patient seen early this morning in the ICU 128, bed 1. The patient remained intubated on the ventilator and continued to have low-grade fevers. OBJECTIVE: VITAL SIGNS: Temperature is 100.4, blood pressure is 130/60, respiratory rate of 24, heart rate of 105, saturating at 88%. HEENT: ET tube in place. NECK: Supple. LUNGS: Have decreased breath sounds. HEART: Normal S1 and S2. ABDOMEN: Soft, nontender. LABORATORY EXAMINATION: Reveals the patient's white count is 7.3, hemoglobin of 10, platelets of 145 and chemistries reveals the BUN of 10, creatinine of 1. Troponin is 0.6. Procalcitonin is 0.05 and urinalysis is noted. HIV is nonreactive. Urine for Legionella antigen is negative. Microbiology reveals the blood cultures are negative. Urine cultures are noted. Dr. Grace's note is reviewed. Dr. Roland's note is reviewed. ASSESSMENT AND PLAN: A 67-year-old male with severe sepsis; respiratory failure; ventilator-dependent respiratory failure due to severe community-acquired pneumonia on top of acute non-ST elevation myocardial infarction with morbid obesity with a BMI of 50 and hypertension; chronic obstructive lung disease; chronic methadone use; diabetes mellitus; peripheral vascular disease; chronic back pain, status post intrathecal pump placement. The cultures are negative. Procalcitonin negative. On vancomycin, meropenem and Levaquin day #3. Review of orders reveals the Levaquin to be active, vancomycin is active, meropenem has been discontinued by Pharmacy and start meropenem. We will follow with you. Antonino Gilmore MD
--- NOTE | 2017-08-09 21:26 | CARD ---
APPROVED REPORT EKG Measurement Heart [id number] <Conclusion> Sinus tachycardia with fusion complexes Nonspecific ST abnormality Abnormal ECG
[2017-08-09 21:37] LABS: ALB/GLOB RATIO 1.4 (1.1-1.8); ALBUMIN 4.2 g/dL (3.0-4.8); ALT/SGPT 38 U/L (7-56); AST/SGOT 49 U/L (17-59); BLOOD UREA NITROGEN 9 mg/dL (7-21); CALCIUM 8.9 mg/dL (8.4-10.5); GFR AFRICAN-AMERICAN > 60; GFR NON-AFRICAN AMERICAN > 60
[2017-08-09] MEDS: Meropenem IV 1 gm in NS 50 ML IVPB SCH (21:54)
[2017-08-10] MEDS: Dexmedetomidine 400mcg/100mL 400 MCG/100 ML BOTTLE IV PRN ×2 (00:12→14:26)
[2017-08-10] MEDS: Heparin 25,000units in 1/2NS 250 ML BAG IV SCH ×2 (03:15→17:07)
[2017-08-10] MEDS: Meropenem IV 1 gm in NS 50 ML IVPB SCH ×3 (05:58→22:13)
[2017-08-10] MEDS: Levothyroxine 100 MCG TAB GT SCH (05:59)
[2017-08-10 06:24] LABS: ARTERIAL BLOOD GAS HEMOGLOBIN 11.7 g/dL (11.7-17.4); ARTERIAL BLOOD GAS O2 CONTENT 15.7 ML/dl (15-23); ARTERIAL BLOOD GAS O2 SAT 97.9 % (95-98); ARTERIAL BLOOD GAS PCO2 41 mm/Hg (35-45); ARTERIAL BLOOD GAS PH 7.41 (7.35-7.45); ARTERIAL BLOOD GAS TCO2 27.3 mmol.L (22-28)
[2017-08-10 07:11] LABS: BASO # 0.02 K/mm3 (0.0-2.0); BASO % 0.3 % (0.0-3.0); EOS # 0.1 (0.0-0.7); EOS % 1.8 % (1.5-5.0); GRAN # 4.66 (1.4-6.5); GRAN % 70.1 % (50.0-68.0); HEMOGLOBIN 11.9 g/dL (14.0-18.0); LYMPH # 1.3 (1.2-3.4); LYMPH % 18.8 % (22.0-35.0); MEAN CELL VOLUME 90.3 fl (80.0-105.0); MEAN CORPUSCULAR HEMOGLOBIN 29.6 pg (25.0-35.0); MEAN CORPUSCULAR HGB CONC 32.8 g/dl (31.0-37.0); MEAN PLATELET VOLUME 10.2 fl (7.0-11.0); MONO # 0.6 (0.1-0.6); RBC 4.02 10^6/uL (3.5-6.1); RED CELL DISTRIBUTION WIDTH 15.5 % (11.5-14.5); WHITE BLOOD COUNT 6.7 10^3/ul (4.5-11.0)
[2017-08-10 07:38] LABS: ALB/GLOB RATIO 1.3 (1.1-1.8); ALBUMIN 4.1 g/dL (3.0-4.8); ALT/SGPT 35 U/L (7-56); AST/SGOT 42 U/L (17-59); BILIRUBIN,DIRECT 0.4 mg/dL (0.0-0.4); BLOOD UREA NITROGEN 11 mg/dL (7-21); CALCIUM 8.9 mg/dL (8.4-10.5); GFR AFRICAN-AMERICAN > 60; GFR NON-AFRICAN AMERICAN > 60; TROPONIN I 0.36 ng/mL
[2017-08-10 07:54] LABS: CK-MB 4.1 ng/mL (0.0-3.6)
--- NOTE | 2017-08-10 08:16 | PN ---
DATE: 08/10/2017 PULMONARY NOTE SUBJECTIVE: The patient is now extubated. He is on high-flow oxygen delivery. He is mildly short of breath, but in no acute distress. He is somewhat confused. PHYSICAL EXAMINATION: VITAL SIGNS: Temperature is 99.9, pulse 58, respirations 22, blood pressure 166/76. Oxygen saturation on high-flow delivery is 95%. HEENT: Normocephalic, atraumatic. NECK: No JVD. CARDIOVASCULAR: Systolic ejection murmur at the lower left sternal border. Questionable S3 gallop. LUNGS: Less crackles at the bases. Less rhonchi. No wheezing. EXTREMITIES: Positive for chronic edema. No cyanosis or clubbing. Calves are nontender to palpation. GI: Abdomen is soft, nontender, nondistended. Bowel sounds are positive. SKIN: Chronic cellulitic changes on both legs. NEUROLOGIC: Exam limited at the present time. PERTINENT LABORATORY DATA: Chest x-ray was done this morning and reviewed. The chest x-ray shows definite improvement-- with decreased pulmonary infiltrates. Bilateral infiltrates still remain (right worse than left). Arterial blood gas was done on high-flow delivery. Results are pH 7.41, pCO2 of 41, pO2 of 76. CBC: White count 7.3, hemoglobin 10.6, hematocrit 32.2 and platelets of 145,000. IMPRESSION: 1. Respiratory failure. 2. Congestive heart failure. 3. Acute myocardial infarction. 4. Rule out aspiration pneumonia. 5. Anemia. 6. Encephalopathy. PLAN: The patient is now off of the ventilator. He is on high-flow delivery. He is mildly short of breath, but in no acute distress. He is somewhat confused. I discussed the case with the night nurse at length. The night nurse confirms that the patient was confused, and kept taking off his BiPAP mask. He certainly appears confused to me this morning. I did review the chest x-ray as above. The chest x-ray shows definite improvement with decreased pulmonary infiltrates. There are still residual infiltrates (right worse than left). I have also reviewed the arterial blood gas. The arterial blood gas reveals a normal pH with a fairly significant alveolar-arterial gradient. We will continue with the high-flow delivery for now. The patient remains with low grade fevers. The leukocytosis has resolved. In addition, the repeat procalcitonin is again negative. However, I would continue with the current antibiotic therapy for now. I would continue with the treatment for acute myocardial infarction and congestive heart failure as per Dr. Hernandez. The Lasix dosage has been increased. Repeat a.m. labs are pending. I will also order aspiration precautions-given the above. The clinical status of this patient is significantly improved overall. However, again, his future status/prognosis does remain very guarded. I will discuss the above with the entire ICU team in the next few moments. I will also discuss the above with the attending physician. García Grace MD MTDD
[2017-08-10] MEDS: Albuterol-Ipratrop 3 mg / 0.5 (3 ml) UD IH SCH ×3 (08:20→19:30)
[2017-08-10] MEDS ORDERED: Potassium Chloride 40 mEq/30 ml LIQ UD PO ONE (08:27)
[2017-08-10] MEDS: levoFLOXacin 750 mg in D5W 750 MG/150 ML BAG IVPB SCH (09:16)
[2017-08-10] MEDS: Aspirin 325 mg EC Tablets PO SCH (09:16)
[2017-08-10 09:43] LABS: FREE T4 1.25 ng/dL (0.78-2.19); T4 9.1 ug/dL (5.5-11.0)
--- NOTE | 2017-08-10 09:47 | CP.PCM.PN ---
<ArchieDanny Ashvin - Last Filed: 08/10/17 11:06> Subjective - Date & Time of Evaluation Date of Evaluation: 08/10/17 Time of Evaluation: 09:33 - Subjective Subjective: Medicine progress note: Dr. Melgar Patient seen and examined at bedside. Patient is extubated today, and states he is feeling groggy and has a sore throat. Patient does not recall what occurred over the past few days. Patient denies any other complaints at this time. Per nursing, patient is less aggressive and disoriented than he has been. Objective - Vital Signs/Intake and Output Vital Signs (last 24 hours): Temp Pulse Resp BP Pulse Ox 98.8 F 94 H 26 H 156/85 H 85 L 08/10/17 09:02 08/10/17 09:07 08/10/17 09:02 08/10/17 09:16 08/10/17 08:38 Intake and Output: 08/10/17 08/10/17 06:59 18:59 Intake Total 1440 Output Total 1850 Balance -410 - Medications Medications: Current Medications Albuterol/Ipratropium (Duoneb 3 Mg/0.5 Mg (3 Ml) Ud) 3 ml IH Q2H PRN PRN Reason: Shortness of Breath Albuterol/Ipratropium (Duoneb 3 Mg/0.5 Mg (3 Ml) Ud) 3 ml IH [id number] [facility] Last Admin: 08/10/17 08:20 Dose: 3 ml Aspirin (Ecotrin) 325 mg PO DAILY [facility] Last Admin: 08/10/17 09:16 Dose: 325 mg Atorvastatin Calcium (Lipitor) 40 mg NG DIN [facility] Last Admin: 08/09/17 16:46 Dose: Not Given Furosemide (Lasix) 40 mg IVP DAILY [facility] Last Admin: 08/10/17 09:16 Dose: 40 mg Propofol (Diprivan) 1,000 mg in 100 mls @ 4.491 mls/hr IV .[id number] PRN; Protocol; 5 MCG/KG/MIN PRN Reason: TITRATE PER MD ORDER Last Titration: 08/09/17 08:05 Dose: 0 mcg/kg/min, 0 mls/hr Vancomycin HCl (Vancomycin 1gm) 1 gm in 250 mls @ 167 mls/hr IVPB Q12H YESSENIA PRN Reason: Protocol Last Admin: 08/09/17 21:53 Dose: 167 mls/hr Levofloxacin/Dextrose (Levaquin 750mg) 750 mg in 150 mls @ 100 mls/hr IVPB DAILY YESSENIA PRN Reason: Protocol Stop: 08/13/17 11:16 Last Admin: 08/10/17 09:16 Dose: 100 mls/hr Heparin Sodium/Sodium Chloride (Heparin 31084 Units/250ml 1/2 Normal Saline) 25 ,000 units in 250 mls @ 21.283 mls/hr IV .[id number] YESSENIA; 12 UNITS/KG/HR PRN Reason: Protocol Last Admin: 08/10/17 03:15 Dose: 14 units/kg/hr, 24.83 mls/hr Dexmedetomidine HCl (Precedex 400mcg/100ml) 400 mcg in 100 mls @ 9.025 mls/hr IV .Q11H5M PRN; Protocol; 0.2 MCG/KG/HR PRN Reason: Agitation Last Admin: 08/10/17 00:12 Dose: 0.2 mcg/kg/hr, 9.025 mls/hr Acetaminophen (Ofirmev) 1,000 mg in 100 mls @ 400 mls/hr IVPB Q6H PRN PRN Reason: Temperature Stop: 08/10/17 14:11 Meropenem (Merrem Iv 1 Gm Premix) 50 mls @ 100 mls/hr IVPB Q8 YESSENIA PRN Reason: Protocol Stop: 08/18/17 22:01 Last Admin: 08/10/17 05:58 Dose: 100 mls/hr Levothyroxine Sodium (Synthroid) 100 mcg GT 0600 [facility] Last Admin: 08/10/17 05:59 Dose: 100 mcg Lorazepam (Ativan) 4 mg IVP Q4H PRN PRN Reason: Agitation Last Admin: 08/09/17 11:00 Dose: 4 mg Pantoprazole Sodium (Protonix Inj) 40 mg IVP DAILY [facility] Last Admin: 08/10/17 09:16 Dose: 40 mg Potassium Chloride (K-Dur 20 Meq Er Tab) 20 meq PO BID YESSENIA Quetiapine Fumarate (Seroquel) 25 mg PO HS YESSENIA PRN Reason: Protocol Saliva Substitute (Saliva Substitute) 0 ml PO DAILY PRN PRN Reason: Dry mouth Ziprasidone (Geodon Inj) 10 mg IM Q8H PRN; Protocol PRN Reason: Agitation - Labs Labs: 08/10/17 06:00 08/10/17 06:00 PT 13.3 SECONDS (9.4-12.5) H 08/07/17 05:15 INR 1.15 (0.93-1.08) H 08/07/17 05:15 APTT 56.4 Seconds (25.1-36.5) H 08/10/17 06:00 - Constitutional Appears: Well - Head Exam Head Exam: ATRAUMATIC, NORMAL INSPECTION, NORMOCEPHALIC - Eye Exam Eye Exam: EOMI, Normal appearance, PERRL Pupil Exam: NORMAL ACCOMODATION, PERRL - ENT Exam ENT Exam: Mucous Membranes Moist, Normal Exam - Neck Exam Neck Exam: Full ROM, Normal Inspection. absent: Lymphadenopathy - Respiratory Exam Respiratory Exam: Clear to Ausculation Bilateral, NORMAL BREATHING PATTERN - Cardiovascular Exam Cardiovascular Exam: REGULAR RHYTHM, +S1, +S2. absent: Murmur - GI/Abdominal Exam GI & Abdominal Exam: Soft, Normal Bowel Sounds. absent: Tenderness - Extremities Exam Extremities Exam: Full ROM, Normal Capillary Refill, Normal Inspection. absent : Joint Swelling, Pedal Edema - Back Exam Back Exam: NORMAL INSPECTION - Neurological Exam Neurological Exam: Alert, Awake, CN II-XII Intact, Normal Gait, Oriented x3 - Psychiatric Exam Psychiatric exam: Normal Affect, Normal Mood - Skin Skin Exam: Dry, Intact, Normal Color, Warm Assessment and Plan - Assessment and Plan (Free Text) Assessment: This is a 67 yo M with PMH including HTN, COPD, HLD, DM, Chronic back pain s/p intrathecal Ziconotide pump, and peripheral vascular disease of bilateral LE who presented to [facility] [place] after being seen in the fire technician (for severe headache , self-resolved) for new onset and worsening AMS, who was intubated and sedated. Patient was extubated today, is understandably groggy but is alert and oriented X 3. Patient's Haldol was discontinued. Patient also had an acute NSTEMI. ECHO showed transmitral doppler flow abnormal relaxation with normal ejection fraction. Troponins up to 4.08 but now downtrending. aPTT on Heparin drip is 56.4. Patient also had bilateral upper lobe infiltrates on Chest XR, most suggestive of pneumonia with a white count of 13 (now resolved). Blood culture, naris culture, urine culture, and sputum culture all negative. Plan: Altered Mental Status, possibly 2/2 Ziconotide intrathecal pump - Patient was extubated - Geodon 10 q8 NSTEMI - Heparin drip, ASA; Brilinta discontinued - Cardiology consult: Dr. Hernandez Upper Lobe Pneumonia, likely 2/2 Aspiration - Merrem, Vancomycin, Levaquin History of Hypertension -Patient currently normotensive History of COPD - Patient currently on ventilator; Duonebs YESSENIA and PRN History of Hyperlipidemia - Holding lipitor because of sedation History of Diabetes - Patient has no oral intake, no sliding scale for now History Chronic Back Pain - Still on intrathecal ziconotide pump History of Hypothyroidism - Synthroid GI/DVT Prophylaxis - Pantoprazole; heparin drip Dispo: Patient can be discharged from ICU and sent to Tele. <Kolton Melgar U - Last Filed: 08/15/17 17:54> Objective - Vital Signs/Intake and Output Vital Signs (last 24 hours): Temp Pulse Resp BP Pulse Ox 98.2 F 76 20 120/69 94 L 08/15/17 17:25 08/15/17 17:25 08/15/17 17:25 08/15/17 17:25 08/15/17 10:00 Intake and Output: 08/15/17 08/15/17 06:59 18:59 Intake Total 1220 Output Total 3050 Balance -1830 - Medications Medications: Current Medications Acetylcysteine (Acetylcysteine 20%) 4 ml IH [id number] YESSENIA Last Admin: 08/15/17 13:37 Dose: Not Given Albuterol/Ipratropium (Duoneb 3 Mg/0.5 Mg (3 Ml) Ud) 3 ml IH Q2H PRN PRN Reason: Shortness of Breath Last Admin: 08/15/17 06:06 Dose: 3 ml Albuterol/Ipratropium (Duoneb 3 Mg/0.5 Mg (3 Ml) Ud) 3 ml IH [id number] YESSENIA Last Admin: 08/15/17 13:38 Dose: 3 ml Aspirin (Ecotrin) 325 mg PO DAILY YESSENIA Last Admin: 08/15/17 09:29 Dose: 325 mg Atorvastatin Calcium (Lipitor) 40 mg NG DIN YESSENIA Last Admin: 08/14/17 17:40 Dose: 40 mg Clopidogrel Bisulfate (Plavix) 75 mg PO DAILY [facility] Last Admin: 08/15/17 09:30 Dose: 75 mg Furosemide (Lasix) 40 mg IVP DAILY [facility] Last Admin: 08/15/17 09:30 Dose: 40 mg Levothyroxine Sodium (Synthroid) 100 mcg PO 0600 [facility] Last Admin: 08/15/17 05:06 Dose: 100 mcg Pantoprazole Sodium (Protonix Ec Tab) 40 mg PO ACB [facility] Last Admin: 08/15/17 09:30 Dose: 40 mg Potassium Chloride (K-Dur 20 Meq Er Tab) 20 meq PO BID [facility] Last Admin: 08/15/17 09:29 Dose: 20 meq Saliva Substitute (Saliva Substitute) 0 ml PO DAILY PRN PRN Reason: Dry mouth Valsartan (Diovan) 160 mg PO DAILY [facility] Last Admin: 08/15/17 09:30 Dose: 160 mg - Labs Labs: 08/14/17 06:30 08/14/17 06:30 PT 13.3 SECONDS (9.4-12.5) H 08/07/17 05:15 INR 1.15 (0.93-1.08) H 08/07/17 05:15 APTT 74.6 Seconds (25.1-36.5) H 08/13/17 07:00 Attending/Attestation - Attestation I have personally seen and examined this patient.: Yes I have fully participated in the care of the patient.: Yes I have reviewed all pertinent clinical information, including history, physical exam and plan: Yes Notes (Text): Please see/read my dictated notes.
--- NOTE | 2017-08-10 09:55 | RAD ---
HISTORY: Follow-up COMPARISON: Comparison made with prior study dated 08/09/2017 FINDINGS: Interval removal ETT. LUNGS: Persistent mild vascular congestive changes with bilateral alveolar-type infiltrates and suspected small bilateral effusions. PLEURA: No significant pleural effusion identified, no pneumothorax apparent. CARDIOVASCULAR: Cardiomegaly. OSSEOUS STRUCTURES: No significant abnormalities. VISUALIZED UPPER ABDOMEN: Normal. OTHER FINDINGS: None. IMPRESSION: Interval removal ETT. Persistent mild vascular congestive changes with bilateral alveolar-type infiltrates and suspected small bilateral effusions.
[2017-08-10] MEDS ORDERED: Potassium Chloride 20 mEq ER Tab PO SCH (10:00)
[2017-08-10] MEDS: Vancomycin 1gm in NS 250ml 1 GM/250 ML BAG IVPB SCH (11:03)
--- NOTE | 2017-08-10 13:52 | PN ---
DATE: 08/10/2017 CARDIOLOGY FOLLOWUP SUBJECTIVE: The patient is in bed, off the respirator, still complaining of mild shortness of breath with mild confusion. OBJECTIVE: VITAL SIGNS: Blood pressure is 156/85, heart rate in the 90s. NECK: Negative JVD. LUNGS: Decreased breath sounds. HEART: Reveal S1, S2. Decreased heart sounds. EXTREMITIES: Chronic edematous changes. LABORATORY DATA: Hemoglobin is 11.9. Chemistries: Troponin is down to 0.36. BUN and creatinine are unremarkable. IMPRESSION: 1. Status post respiratory failure. 2. Gpt-[id number] myocardial infarction. 3. Coronary artery disease. 4. Altered mental status. 5. Chronic edema. 6. Hypertension. 7. Morbid obesity. Given these findings, we will continue on medical therapy at this time. The patient is currently unable to undergo a cardiac catheterization given his unwillingness as well as his inability to cooperate. Andrew Hernandez MD
--- NOTE | 2017-08-10 14:08 | PN ---
DATE: 08/10/2017 SUBJECTIVE: The patient was seen and examined at bedside. He is comfortable. He talks in full sentences. He is not in respiratory or otherwise distress. His FiO2 requirements weaned down to 2 liters nasal cannula with oxygen saturation 98%. He drank water, which he tolerated very well. PHYSICAL EXAMINATION: VITAL SIGNS: Temperature 98.8, blood pressure 156/85, heart rate 94, respiratory rate 26. ENT: Head and neck atraumatic. LUNGS: Clear to auscultation bilaterally. HEART: Regular rate and rhythm. S1 and S2 normal. ABDOMEN: Soft, nontender and nondistended. MUSCULOSKELETAL: Chronic venous static changes, but no C/C/E. NEURO: The patient moves all extremities spontaneously. SKIN: Moist. PSYCH: The patient confused, but comfortable, alert and awake. LABORATORY DATA: WBC is 6.7, hemoglobin 11.9, platelet count 167. Sodium 147, potassium 3.6, chloride 103, carbon dioxide 27, BUN 11, creatinine 0.9, glucose 107. AST 42, ALT 35, bilirubin 0.4. Troponin 0.36 and trending down. ABG showed 7.41/41/76 on 50% high flow (since then FiO2 was wean down to nasal cannula). MEDICATIONS: Tylenol p.r.n., DuoNeb p.r.n. and every 6 hours on standard basis, aspirin, Lipitor, Precedex, Lasix 40 mg IV daily, heparin drip, levofloxacin, levothyroxine, Ativan p.r.n., meropenem, Protonix, potassium supplementation, Seroquel 25 mg at bedtime, vancomycin, Geodon. ASSESSMENT AND PLAN: This 67-year-old gentleman who is recovering from hypoxemic respiratory failure secondary to congestive heart failure exacerbation. He has also being completing course of antibiotics for potential community-acquired pneumonia. His ICU course complicated by ICU delirium for which he received two doses of Haldol yesterday and was on Precedex overnight. Today, his mental status is much clearer. Precedex as weaned. He is comfortable. He is able to maintain conversation. He still somewhat confused. However, he is able to protect his airway. He is not agitated, he is calm, watching TV, eating and asking common sence questions. At present time, we will continue with low dose night time Precedex. We will avoid opioids or benzodiazepines for their deliriogenic effect. Psychiatry help with prevention and treatment of hisdelirium appreciated. The patient currently on Seroquel. He has Geodon p.r.n. We will optimize his circadian and sleep patterns. We will try to avoid sleep interruption. Frequent reorientation and exposure to familiar objects is encouraged. We will continue target euvolemia, euglycemia, normothermia and oxygen saturation more than 90%. We will continue with deep venous thrombosis and gastrointestinal prophylaxis. Addendum: Ok to downgrade to tele<-- discussed with Dr. Melgar, who agreed. ccm time 40 min Yovani Roland MD MTDD
--- NOTE | 2017-08-10 14:48 | CP.CCUPN ---
<Franko Hunt - Last Filed: 08/10/17 14:54> CCU Subjective - Physician Review Subjective (Free Text): 08/07/17 10:18 Patient seen and examined at bedside intubated and on PRVC 60 4 16 450. 08/08/17 07:45 Patient seen and examined at bedside, intubated and on PRVC 50 7 16 450. 08/09/17 07:30 Patient aggressive overnight, precedex was stopped this morning. Patient currently intubated and on sedation with propofol. Normotensive. 08/10/17 14:45 Patient seen and examined on bedside. Patient is now extubated and aware of his surroundings. His main complaint at the moment is dry mouth. Patient denies chest pain, abdominal pain, shortness of breath, nausea, vomiting, headache. Critical Care Time Spent (in minutes): 40 CCU Objective - Vital Signs / Intake & Output Vital Signs (Last 4 hours): Vital Signs Temp Pulse Pulse Ox 08/10/17 14:00 83 08/10/17 10:55 98.8 F 95 H 92 L 08/10/17 10:53 98.8 F 101 H 08/10/17 10:50 98.8 F 90 95 Intake and Output (Last 8hrs): Intake & Output 08/09/17 08/10/17 08/10/17 22:59 06:59 14:59 Intake Total 717 1440 100 Output Total 2200 1850 Balance -1483 -410 100 Intake: IV 717 1200 100 Right Antecubital 450 Right Upper arm 507 420 Oral 240 Output: Urine 2200 1850 Urethral (Barger) 2200 1850 - Physical Exam Head: Positive for: Atraumatic, Normocephalic Pupils: Positive for: PERRL Extroacular Muscles: Positive for: EOMI Conjunctiva: Positive for: Normal Ears: Positive for: Normal Mouth: Positive for: Dry Pharnyx: Positive for: Normal Nose (External): Positive for: Atraumatic Nose (Internal): Positive for: Normal Inspection Neck: Positive for: Normal Range of Motion Respiratory/Chest: Positive for: Good Air Exchange, Rales. Negative for: Clear to Auscultation, Respiratory Distress, Accessory Muscle Use Cardiovascular: Positive for: Regular Rate and Rhythm, Normal S1, S2. Negative for: Murmurs Abdomen: Positive for: Normal Bowel Sounds, Other (obese , + mid left sided intraabdominal pump palpable beneath his skin. ). Negative for: Tenderness, Distention, Peritoneal Signs Back: Positive for: Normal Inspection Upper Extremity: Positive for: Normal Inspection. Negative for: Cyanosis, Edema Lower Extremity: Positive for: Normal Inspection. Negative for: Edema Neurological: Positive for: GCS=15, CN II-XII Intact, Other (barksdale, sonia, will not cooperate with any further neurological testing. ) Skin: Positive for: Warm, Dry, Other (acanthotic changes bilaterally on lower extremities). Negative for: Rashes Psychiatric: Positive for: Alert, Agitated - Medications Active Medications: Active Medications Generic Name Dose Route Start Last Admin Trade Name Freq PRN Reason Stop Dose Admin Albuterol/Ipratropium 3 ml 08/08/17 08:52 Duoneb 3 Mg/0.5 Mg (3 Ml) Ud IH Q2H PRN Shortness of Breath Albuterol/Ipratropium 3 ml 08/08/17 14:00 08/10/17 14:10 Duoneb 3 Mg/0.5 Mg (3 Ml) Ud IH 3 ml [id number] YESSENIA Administration Aspirin 325 mg 08/10/17 10:00 08/10/17 09:16 Ecotrin PO 325 mg DAILY YESSENIA Administration Atorvastatin Calcium 40 mg 08/07/17 17:00 08/09/17 16:46 Lipitor NG Not Given DIN YESSENIA Furosemide 40 mg 08/10/17 10:00 08/10/17 09:16 Lasix IVP 40 mg DAILY YESSENIA Administration Propofol 1,000 mg in 100 mls @ 4.491 mls/hr 08/06/17 19:32 08/09/17 08:05 Diprivan IV 0 mcg/kg/min .[id number] PRN 0 mls/hr TITRATE PER MD ORDER Titration Protocol 5 MCG/KG/MIN Vancomycin HCl 1 gm in 250 mls @ 167 mls/hr 08/06/17 22:45 08/10/17 11:03 Vancomycin 1gm IVPB 167 mls/hr Q12H YESSENIA Administration Protocol Levofloxacin/Dextrose 750 mg in 150 mls @ 100 mls/hr 08/07/17 11:15 08/10/17 09:16 Levaquin 750mg IVPB 08/13/17 11:16 100 mls/hr DAILY YESSENIA Administration Protocol Heparin Sodium/Sodium Chloride 25,000 units in 250 mls @ 21.283 mls/hr 17:30 08/10/17 03:15 Heparin 39068 Units/250ml 1/2 Normal Saline IV 14 units/kg/hr .[id number] YESSENIA 24.83 mls/hr Protocol Administration 12 UNITS/KG/HR Dexmedetomidine HCl 400 mcg in 100 mls @ 9.025 mls/hr 08/09/17 07:32 14:26 Precedex 400mcg/100ml IV 0.2 mcg/kg/hr .[id number] PRN 9.025 mls/hr Agitation Administration Protocol 0.2 MCG/KG/HR Meropenem 50 mls @ 100 mls/hr 08/09/17 22:00 08/10/17 14:23 Merrem Iv 1 Gm Premix IVPB 08/18/17 22:01 100 mls/hr Q8 YESSENIA Administration Protocol Levothyroxine Sodium 100 mcg 08/08/17 06:00 08/10/17 05:59 Synthroid GT 100 mcg 0600 YESSENIA Administration Lorazepam 4 mg 08/09/17 07:39 08/09/17 11:00 Ativan IVP 4 mg Q4H PRN Administration Agitation Pantoprazole Sodium 40 mg 08/07/17 10:00 08/10/17 09:16 Protonix Inj IVP 40 mg DAILY YESSENIA Administration Potassium Chloride 20 meq 08/11/17 10:00 K-Dur 20 Meq Er Tab PO BID YESSENIA Quetiapine Fumarate 25 mg 08/10/17 22:00 Seroquel PO HS YESSENIA Protocol Saliva Substitute 0 ml 08/09/17 13:10 Saliva Substitute PO DAILY PRN Dry mouth Ziprasidone 10 mg 08/10/17 09:24 Geodon Inj IM Q8H PRN Agitation Protocol - Patient Studies Lab Studies: Lab Studies 08/10/17 08/10/17 08/10/17 Range/Units 12:12 07:30 06:15 WBC (4.5-11.0) 10^3/ul RBC (3.5-6.1) 10^6/uL Hgb (14.0-18.0) g/dL Hct (42.0-52.0) % MCV (80.0-105.0) fl MCH (25.0-35.0) pg MCHC (31.0-37.0) g/dl RDW (11.5-14.5) % Plt Count (120.0-450.0) 10^3/uL MPV (7.0-11.0) fl Gran % (50.0-68.0) % Lymph % (Auto) (22.0-35.0) % Sharkey % (Auto) (1.0-6.0) % Eos % (Auto) (1.5-5.0) % Baso % (Auto) (0.0-3.0) % Gran # (1.4-6.5) Lymph # (Auto) (1.2-3.4) Sharkey # (Auto) (0.1-0.6) Eos # (Auto) (0.0-0.7) Baso # (Auto) (0.0-2.0) K/mm3 APTT (25.1-36.5) Seconds pCO2 41 (35-45) mm/Hg pO2 76.0 L (80-100) mm/Hg HCO3 26.0 (21-28) mmol/L ABG pH 7.41 (7.35-7.45) ABG Total CO2 27.3 (22-28) mmol.L ABG O2 Saturation 97.9 (95-98) % ABG O2 Content 15.7 (15-23) ML/dl ABG Base Excess 1.2 (-2.0-3.0) mmol/L ABG Hemoglobin 11.7 (11.7-17.4) g/dL ABG Carboxyhemoglobin 1.9 H (0.5-1.5) % POC ABG HHb (Measured) 2.0 (0-5) % ABG Methemoglobin 1.0 (0.0-3.0) % ABG O2 Capacity 16.0 (16-24) mL/dl Hgb O2 Saturation 95.1 (95.0-98.0) % FiO2 50.0 % Sodium (132-148) mmol/L Potassium (3.6-5.0) mmol/L Chloride (98-107) mmol/L Carbon Dioxide (21-33) mmol/L Anion Gap (10-20) BUN (7-21) mg/dL Creatinine (0.8-1.5) mg/dl Est GFR ( Amer) Est GFR (Non-Af Amer) POC Glucose (mg/dL) 114 H (65-110) mg/dL Random Glucose (70-110) mg/dL Calcium (8.4-10.5) mg/dL Phosphorus (2.5-4.5) mg/dL Magnesium (1.7-2.2) mg/dL Total Bilirubin (0.2-1.3) mg/dL Direct Bilirubin (0.0-0.4) mg/dL AST (17-59) U/L ALT (7-56) U/L Alkaline Phosphatase (38-126) U/L Total Creatine Kinase (35-230) U/L CK-MB (CK-2) (0.0-3.6) ng/mL CK-MB (CK-2) % Troponin I ng/mL NT-Pro-B Natriuret Pep (0-450) pg/mL Total Protein (5.8-8.3) g/dL Albumin (3.0-4.8) g/dL Globulin gm/dL Albumin/Globulin Ratio (1.1-1.8) Procalcitonin (0.19-0.49) NG/ML Free T4 1.25 (0.78-2.19) ng/dL Thyroxine (T4) 9.1 (5.5-11.0) ug/dL TSH 3rd Generation 6.86 H (0.46-4.68) mIU/mL 08/10/17 08/10/17 08/10/17 Range/Units 06:00 06:00 06:00 WBC (4.5-11.0) 10^3/ul RBC (3.5-6.1) 10^6/uL Hgb (14.0-18.0) g/dL Hct (42.0-52.0) % MCV (80.0-105.0) fl MCH (25.0-35.0) pg MCHC (31.0-37.0) g/dl RDW (11.5-14.5) % Plt Count (120.0-450.0) 10^3/uL MPV (7.0-11.0) fl Gran % (50.0-68.0) % Lymph % (Auto) (22.0-35.0) % Sharkey % (Auto) (1.0-6.0) % Eos % (Auto) (1.5-5.0) % Baso % (Auto) (0.0-3.0) % Gran # (1.4-6.5) Lymph # (Auto) (1.2-3.4) Sharkey # (Auto) (0.1-0.6) Eos # (Auto) (0.0-0.7) Baso # (Auto) (0.0-2.0) K/mm3 APTT 56.4 H (25.1-36.5) Seconds pCO2 (35-45) mm/Hg pO2 (80-100) mm/Hg HCO3 (21-28) mmol/L ABG pH (7.35-7.45) ABG Total CO2 (22-28) mmol.L ABG O2 Saturation (95-98) % ABG O2 Content (15-23) ML/dl ABG Base Excess (-2.0-3.0) mmol/L ABG Hemoglobin (11.7-17.4) g/dL ABG Carboxyhemoglobin (0.5-1.5) % POC ABG HHb (Measured) (0-5) % ABG Methemoglobin (0.0-3.0) % ABG O2 Capacity (16-24) mL/dl Hgb O2 Saturation (95.0-98.0) % FiO2 % Sodium 147 (132-148) mmol/L Potassium 3.6 (3.6-5.0) mmol/L Chloride 103 (98-107) mmol/L Carbon Dioxide 27 (21-33) mmol/L Anion Gap 20 (10-20) BUN 11 (7-21) mg/dL Creatinine 0.9 (0.8-1.5) mg/dl Est GFR ( Amer) > 60 Est GFR (Non-Af Amer) > 60 POC Glucose (mg/dL) (65-110) mg/dL Random Glucose 107 (70-110) mg/dL Calcium 8.9 (8.4-10.5) mg/dL Phosphorus 3.5 (2.5-4.5) mg/dL Magnesium 1.7 (1.7-2.2) mg/dL Total Bilirubin 1.3 (0.2-1.3) mg/dL Direct Bilirubin 0.4 (0.0-0.4) mg/dL AST 42 (17-59) U/L ALT 35 (7-56) U/L Alkaline Phosphatase 65 (38-126) U/L Total Creatine Kinase 633 H (35-230) U/L CK-MB (CK-2) 4.1 H (0.0-3.6) ng/mL CK-MB (CK-2) % Cancelled Troponin I 0.36 H* D ng/mL NT-Pro-B Natriuret Pep 5220 H (0-450) pg/mL Total Protein 7.2 (5.8-8.3) g/dL Albumin 4.1 (3.0-4.8) g/dL Globulin 3.1 gm/dL Albumin/Globulin Ratio 1.3 (1.1-1.8) Procalcitonin (0.19-0.49) NG/ML Free T4 (0.78-2.19) ng/dL Thyroxine (T4) (5.5-11.0) ug/dL TSH 3rd Generation (0.46-4.68) mIU/mL 08/10/17 08/09/17 08/09/17 Range/Units 06:00 21:20 21:20 WBC 6.7 (4.5-11.0) 10^3/ul RBC 4.02 (3.5-6.1) 10^6/uL Hgb 11.9 L (14.0-18.0) g/dL Hct 36.3 L (42.0-52.0) % MCV 90.3 (80.0-105.0) fl MCH 29.6 (25.0-35.0) pg MCHC 32.8 (31.0-37.0) g/dl RDW 15.5 H (11.5-14.5) % Plt Count 167 (120.0-450.0) 10^3/uL MPV 10.2 (7.0-11.0) fl Gran % 70.1 H (50.0-68.0) % Lymph % (Auto) 18.8 L (22.0-35.0) % Sharkey % (Auto) 9.0 H (1.0-6.0) % Eos % (Auto) 1.8 (1.5-5.0) % Baso % (Auto) 0.3 (0.0-3.0) % Gran # 4.66 (1.4-6.5) Lymph # (Auto) 1.3 (1.2-3.4) Sharkey # (Auto) 0.6 (0.1-0.6) Eos # (Auto) 0.1 (0.0-0.7) Baso # (Auto) 0.02 (0.0-2.0) K/mm3 APTT 58.3 H (25.1-36.5) Seconds pCO2 (35-45) mm/Hg pO2 (80-100) mm/Hg HCO3 (21-28) mmol/L ABG pH (7.35-7.45) ABG Total CO2 (22-28) mmol.L ABG O2 Saturation (95-98) % ABG O2 Content (15-23) ML/dl ABG Base Excess (-2.0-3.0) mmol/L ABG Hemoglobin (11.7-17.4) g/dL ABG Carboxyhemoglobin (0.5-1.5) % POC ABG HHb (Measured) (0-5) % ABG Methemoglobin (0.0-3.0) % ABG O2 Capacity (16-24) mL/dl Hgb O2 Saturation (95.0-98.0) % FiO2 % Sodium 146 (132-148) mmol/L Potassium 3.5 L (3.6-5.0) mmol/L Chloride 102 (98-107) mmol/L Carbon Dioxide 27 (21-33) mmol/L Anion Gap 20 (10-20) BUN 9 (7-21) mg/dL Creatinine 0.9 (0.8-1.5) mg/dl Est GFR ( Amer) > 60 Est GFR (Non-Af Amer) > 60 POC Glucose (mg/dL) (65-110) mg/dL Random Glucose 129 H (70-110) mg/dL Calcium 8.9 (8.4-10.5) mg/dL Phosphorus (2.5-4.5) mg/dL Magnesium (1.7-2.2) mg/dL Total Bilirubin 1.4 H (0.2-1.3) mg/dL Direct Bilirubin (0.0-0.4) mg/dL AST 49 (17-59) U/L ALT 38 (7-56) U/L Alkaline Phosphatase 66 (38-126) U/L Total Creatine Kinase (35-230) U/L CK-MB (CK-2) (0.0-3.6) ng/mL CK-MB (CK-2) % Troponin I ng/mL NT-Pro-B Natriuret Pep (0-450) pg/mL Total Protein 7.3 (5.8-8.3) g/dL Albumin 4.2 (3.0-4.8) g/dL Globulin 3.0 gm/dL Albumin/Globulin Ratio 1.4 (1.1-1.8) Procalcitonin (0.19-0.49) NG/ML Free T4 (0.78-2.19) ng/dL Thyroxine (T4) (5.5-11.0) ug/dL TSH 3rd Generation (0.46-4.68) mIU/mL 08/09/17 08/09/17 08/09/17 Range/Units 16:13 15:28 11:19 WBC (4.5-11.0) 10^3/ul RBC (3.5-6.1) 10^6/uL Hgb (14.0-18.0) g/dL Hct (42.0-52.0) % MCV (80.0-105.0) fl MCH (25.0-35.0) pg MCHC (31.0-37.0) g/dl RDW (11.5-14.5) % Plt Count (120.0-450.0) 10^3/uL MPV (7.0-11.0) fl Gran % (50.0-68.0) % Lymph % (Auto) (22.0-35.0) % Sharkey % (Auto) (1.0-6.0) % Eos % (Auto) (1.5-5.0) % Baso % (Auto) (0.0-3.0) % Gran # (1.4-6.5) Lymph # (Auto) (1.2-3.4) Sharkey # (Auto) (0.1-0.6) Eos # (Auto) (0.0-0.7) Baso # (Auto) (0.0-2.0) K/mm3 APTT 59.5 H (25.1-36.5) Seconds pCO2 (35-45) mm/Hg pO2 (80-100) mm/Hg HCO3 (21-28) mmol/L ABG pH (7.35-7.45) ABG Total CO2 (22-28) mmol.L ABG O2 Saturation (95-98) % ABG O2 Content (15-23) ML/dl ABG Base Excess (-2.0-3.0) mmol/L ABG Hemoglobin (11.7-17.4) g/dL ABG Carboxyhemoglobin (0.5-1.5) % POC ABG HHb (Measured) (0-5) % ABG Methemoglobin (0.0-3.0) % ABG O2 Capacity (16-24) mL/dl Hgb O2 Saturation (95.0-98.0) % FiO2 % Sodium (132-148) mmol/L Potassium (3.6-5.0) mmol/L Chloride (98-107) mmol/L Carbon Dioxide (21-33) mmol/L Anion Gap (10-20) BUN (7-21) mg/dL Creatinine (0.8-1.5) mg/dl Est GFR ( Amer) Est GFR (Non-Af Amer) POC Glucose (mg/dL) 108 192 H (65-110) mg/dL Random Glucose (70-110) mg/dL Calcium (8.4-10.5) mg/dL Phosphorus (2.5-4.5) mg/dL Magnesium (1.7-2.2) mg/dL Total Bilirubin (0.2-1.3) mg/dL Direct Bilirubin (0.0-0.4) mg/dL AST (17-59) U/L ALT (7-56) U/L Alkaline Phosphatase (38-126) U/L Total Creatine Kinase (35-230) U/L CK-MB (CK-2) (0.0-3.6) ng/mL CK-MB (CK-2) % Troponin I ng/mL NT-Pro-B Natriuret Pep (0-450) pg/mL Total Protein (5.8-8.3) g/dL Albumin (3.0-4.8) g/dL Globulin gm/dL Albumin/Globulin Ratio (1.1-1.8) Procalcitonin (0.19-0.49) NG/ML Free T4 (0.78-2.19) ng/dL Thyroxine (T4) (5.5-11.0) ug/dL TSH 3rd Generation (0.46-4.68) mIU/mL 08/09/17 08/09/17 Range/Units 10:30 07:39 WBC (4.5-11.0) 10^3/ul RBC (3.5-6.1) 10^6/uL Hgb (14.0-18.0) g/dL Hct (42.0-52.0) % MCV (80.0-105.0) fl MCH (25.0-35.0) pg MCHC (31.0-37.0) g/dl RDW (11.5-14.5) % Plt Count (120.0-450.0) 10^3/uL MPV (7.0-11.0) fl Gran % (50.0-68.0) % Lymph % (Auto) (22.0-35.0) % Sharkey % (Auto) (1.0-6.0) % Eos % (Auto) (1.5-5.0) % Baso % (Auto) (0.0-3.0) % Gran # (1.4-6.5) Lymph # (Auto) (1.2-3.4) Sharkey # (Auto) (0.1-0.6) Eos # (Auto) (0.0-0.7) Baso # (Auto) (0.0-2.0) K/mm3 APTT (25.1-36.5) Seconds pCO2 (35-45) mm/Hg pO2 (80-100) mm/Hg HCO3 (21-28) mmol/L ABG pH (7.35-7.45) ABG Total CO2 (22-28) mmol.L ABG O2 Saturation (95-98) % ABG O2 Content (15-23) ML/dl ABG Base Excess (-2.0-3.0) mmol/L ABG Hemoglobin (11.7-17.4) g/dL ABG Carboxyhemoglobin (0.5-1.5) % POC ABG HHb (Measured) (0-5) % ABG Methemoglobin (0.0-3.0) % ABG O2 Capacity (16-24) mL/dl Hgb O2 Saturation (95.0-98.0) % FiO2 % Sodium (132-148) mmol/L Potassium (3.6-5.0) mmol/L Chloride (98-107) mmol/L Carbon Dioxide (21-33) mmol/L Anion Gap (10-20) BUN (7-21) mg/dL Creatinine (0.8-1.5) mg/dl Est GFR ( Amer) Est GFR (Non-Af Amer) POC Glucose (mg/dL) 90 (65-110) mg/dL Random Glucose (70-110) mg/dL Calcium (8.4-10.5) mg/dL Phosphorus (2.5-4.5) mg/dL Magnesium (1.7-2.2) mg/dL Total Bilirubin (0.2-1.3) mg/dL Direct Bilirubin (0.0-0.4) mg/dL AST (17-59) U/L ALT (7-56) U/L Alkaline Phosphatase (38-126) U/L Total Creatine Kinase (35-230) U/L CK-MB (CK-2) (0.0-3.6) ng/mL CK-MB (CK-2) % Troponin I ng/mL NT-Pro-B Natriuret Pep (0-450) pg/mL Total Protein (5.8-8.3) g/dL Albumin (3.0-4.8) g/dL Globulin gm/dL Albumin/Globulin Ratio (1.1-1.8) Procalcitonin < 0.05 L (0.19-0.49) NG/ML Free T4 (0.78-2.19) ng/dL Thyroxine (T4) (5.5-11.0) ug/dL TSH 3rd Generation (0.46-4.68) mIU/mL Laboratory Results - last 24 hr 08/09/17 08/09/17 08/09/17 07:39 10:30 11:19 WBC RBC Hgb Hct MCV MCH MCHC RDW Plt Count MPV Gran % Lymph % (Auto) Sharkey % (Auto) Eos % (Auto) Baso % (Auto) Gran # Lymph # (Auto) Sharkey # (Auto) Eos # (Auto) Baso # (Auto) APTT pCO2 pO2 HCO3 ABG pH ABG Total CO2 ABG O2 Saturation ABG O2 Content ABG Base Excess ABG Hemoglobin ABG Carboxyhemoglobin POC ABG HHb (Measured) ABG Methemoglobin ABG O2 Capacity Hgb O2 Saturation FiO2 Sodium Potassium Chloride Carbon Dioxide Anion Gap BUN Creatinine Est GFR ( Amer) Est GFR (Non-Af Amer) POC Glucose (mg/dL) 90 192 H Random Glucose Calcium Phosphorus Magnesium Total Bilirubin Direct Bilirubin AST ALT Alkaline Phosphatase Total Creatine Kinase CK-MB (CK-2) CK-MB (CK-2) % Troponin I NT-Pro-B Natriuret Pep Total Protein Albumin Globulin Albumin/Globulin Ratio Procalcitonin < 0.05 L Free T4 Thyroxine (T4) TSH 3rd Generation 08/09/17 08/09/17 08/09/17 15:28 16:13 21:20 WBC RBC Hgb Hct MCV MCH MCHC RDW Plt Count MPV Gran % Lymph % (Auto) Sharkey % (Auto) Eos % (Auto) Baso % (Auto) Gran # Lymph # (Auto) Sharkey # (Auto) Eos # (Auto) Baso # (Auto) APTT 59.5 H 58.3 H pCO2 pO2 HCO3 ABG pH ABG Total CO2 ABG O2 Saturation ABG O2 Content ABG Base Excess ABG Hemoglobin ABG Carboxyhemoglobin POC ABG HHb (Measured) ABG Methemoglobin ABG O2 Capacity Hgb O2 Saturation FiO2 Sodium Potassium Chloride Carbon Dioxide Anion Gap BUN Creatinine Est GFR ( Amer) Est GFR (Non-Af Amer) POC Glucose (mg/dL) 108 Random Glucose Calcium Phosphorus Magnesium Total Bilirubin Direct Bilirubin AST ALT Alkaline Phosphatase Total Creatine Kinase CK-MB (CK-2) CK-MB (CK-2) % Troponin I NT-Pro-B Natriuret Pep Total Protein Albumin Globulin Albumin/Globulin Ratio Procalcitonin Free T4 Thyroxine (T4) TSH 3rd Generation 08/09/17 08/10/17 08/10/17 21:20 06:00 06:00 WBC 6.7 RBC 4.02 Hgb 11.9 L Hct 36.3 L MCV 90.3 MCH 29.6 MCHC 32.8 RDW 15.5 H Plt Count 167 MPV 10.2 Gran % 70.1 H Lymph % (Auto) 18.8 L Sharkey % (Auto) 9.0 H Eos % (Auto) 1.8 Baso % (Auto) 0.3 Gran # 4.66 Lymph # (Auto) 1.3 Sharkey # (Auto) 0.6 Eos # (Auto) 0.1 Baso # (Auto) 0.02 APTT 56.4 H pCO2 pO2 HCO3 ABG pH ABG Total CO2 ABG O2 Saturation ABG O2 Content ABG Base Excess ABG Hemoglobin ABG Carboxyhemoglobin POC ABG HHb (Measured) ABG Methemoglobin ABG O2 Capacity Hgb O2 Saturation FiO2 Sodium 146 Potassium 3.5 L Chloride 102 Carbon Dioxide 27 Anion Gap 20 BUN 9 Creatinine 0.9 Est GFR ( Amer) > 60 Est GFR (Non-Af Amer) > 60 POC Glucose (mg/dL) Random Glucose 129 H Calcium 8.9 Phosphorus Magnesium Total Bilirubin 1.4 H Direct Bilirubin AST 49 ALT 38 Alkaline Phosphatase 66 Total Creatine Kinase CK-MB (CK-2) CK-MB (CK-2) % Troponin I NT-Pro-B Natriuret Pep Total Protein 7.3 Albumin 4.2 Globulin 3.0 Albumin/Globulin Ratio 1.4 Procalcitonin Free T4 Thyroxine (T4) TSH 3rd Generation 08/10/17 08/10/17 08/10/17 06:00 06:00 06:15 WBC RBC Hgb Hct MCV MCH MCHC RDW Plt Count MPV Gran % Lymph % (Auto) Sharkey % (Auto) Eos % (Auto) Baso % (Auto) Gran # Lymph # (Auto) Sharkey # (Auto) Eos # (Auto) Baso # (Auto) APTT pCO2 41 pO2 76.0 L HCO3 26.0 ABG pH 7.41 ABG Total CO2 27.3 ABG O2 Saturation 97.9 ABG O2 Content 15.7 ABG Base Excess 1.2 ABG Hemoglobin 11.7 ABG Carboxyhemoglobin 1.9 H POC ABG HHb (Measured) 2.0 ABG Methemoglobin 1.0 ABG O2 Capacity 16.0 Hgb O2 Saturation 95.1 FiO2 50.0 Sodium 147 Potassium 3.6 Chloride 103 Carbon Dioxide 27 Anion Gap 20 BUN 11 Creatinine 0.9 Est GFR ( Amer) > 60 Est GFR (Non-Af Amer) > 60 POC Glucose (mg/dL) Random Glucose 107 Calcium 8.9 Phosphorus 3.5 Magnesium 1.7 Total Bilirubin 1.3 Direct Bilirubin 0.4 AST 42 ALT 35 Alkaline Phosphatase 65 Total Creatine Kinase 633 H CK-MB (CK-2) 4.1 H CK-MB (CK-2) % Cancelled Troponin I 0.36 H* D NT-Pro-B Natriuret Pep 5220 H Total Protein 7.2 Albumin 4.1 Globulin 3.1 Albumin/Globulin Ratio 1.3 Procalcitonin Free T4 Thyroxine (T4) TSH 3rd Generation 08/10/17 08/10/17 07:30 12:12 WBC RBC Hgb Hct MCV MCH MCHC RDW Plt Count MPV Gran % Lymph % (Auto) Sharkey % (Auto) Eos % (Auto) Baso % (Auto) Gran # Lymph # (Auto) Sharkey # (Auto) Eos # (Auto) Baso # (Auto) APTT pCO2 pO2 HCO3 ABG pH ABG Total CO2 ABG O2 Saturation ABG O2 Content ABG Base Excess ABG Hemoglobin ABG Carboxyhemoglobin POC ABG HHb (Measured) ABG Methemoglobin ABG O2 Capacity Hgb O2 Saturation FiO2 Sodium Potassium Chloride Carbon Dioxide Anion Gap BUN Creatinine Est GFR ( Amer) Est GFR (Non-Af Amer) POC Glucose (mg/dL) 114 H Random Glucose Calcium Phosphorus Magnesium Total Bilirubin Direct Bilirubin AST ALT Alkaline Phosphatase Total Creatine Kinase CK-MB (CK-2) CK-MB (CK-2) % Troponin I NT-Pro-B Natriuret Pep Total Protein Albumin Globulin Albumin/Globulin Ratio Procalcitonin Free T4 1.25 Thyroxine (T4) 9.1 TSH 3rd Generation 6.86 H EKG/Cardiology Studies: Cardiology / EKG Studies 08/10/17 07:00 EKG [ELECTROCARDIOGRAM] DAILY Comment: Reason For Exam: AMI 08/11/17 07:00 EKG [ELECTROCARDIOGRAM] DAILY Comment: Reason For Exam: AMI Fingerstick Blood Sugar Results: 114 Review of Systems - Constitutional Constitutional: absent: Fever, Chills - EENT Nose/Mouth/Throat: Dry Mouth. absent: Neck Pain - Cardiovascular Cardiovascular: absent: Chest Pain, Dyspnea - Respiratory Respiratory: Cough. absent: Dyspnea - Gastrointestinal Gastrointestinal: absent: Diarrhea, Nausea, Vomiting - Genitourinary Genitourinary: absent: Dysuria - Neurological Neurological: absent: Dizziness - Psychiatric Psychiatric: absent: Hallucinations - Endocrine Endocrine: Fatigue Critical Care Progress Note - Nutrition Nutrition: Nutrition Category Date Time Status Heart Healthy Diet [DIET] Diets 08/10/17 Breakfast Ordered Assessment/Plan - Assessment and Plan (Free Text) Assessment: This is a 67 yo M with PMH including HTN, COPD, HLD, DM, Chronic back pain s/p intrathecal Ziconotide pump, and peripheral vascular disease of bilateral LE who represented to [facility] after being seen for new onset and worsening AMS, psychosis and aggression. Plan: Neuro/Psych: -Extubated now on high flow delivery -Intrathecal Prilant still present, however no longer releasing prilant since medication has been replaced with normal saline -Haldol discontinued -Patient remains confused however confusion is improving -Psych consulted; geodon and seroquel added to patient regimen Pulmonary -Patient is extubated, currently on high flow delivery -CT chest showed bilateral upper lobe infiltrate, currently treating for possible pneumonia with vancomycin,levaquin, and merrem -blood cx negative for growth after 72 hours, repeat procal <0.05, trachasp cultures show normal oral brendan -Will consider adding precedex overnight however may not be needed as patient is calmer Cardio -Cardiology on consult; recommends cath however patient is refusing -NSTEMI; Continue with Heparin Drip and aspirin. Will also continue to diurese with lasix -Echo; echo LVEF normal Gastrointestinal -Soft Heart healthy diet started -Protonix for prophylaxis -Aspiration precautions Renal -maintain euvolemia -monitor and replete electrolytes as needed Hematological -monitor H&H Infectious disease -leukocytosis resolved -Infectious disease consulted; patient on merrem, vancomycin, levaquin -blood cx negative for growth after 72 hours, repeat procal <0.05, trachasp cultures show normal oral brendan Dispo: Physical therapy <Yovani Roland - Last Filed: 08/10/17 15:37> CCU Objective - Vital Signs / Intake & Output Vital Signs (Last 4 hours): Vital Signs Pulse 08/10/17 14:00 83 Intake and Output (Last 8hrs): Intake & Output 08/10/17 08/10/17 08/10/17 06:59 14:59 22:59 Intake Total 1440 100 Output Total 1850 Balance -410 100 Intake: IV 1200 100 Right Antecubital 450 Right Upper arm 420 Oral 240 Output: Urine 1850 Urethral (Barger) 1850 - Medications Active Medications: Active Medications Generic Name Dose Route Start Last Admin Trade Name Freq PRN Reason Stop Dose Admin Albuterol/Ipratropium 3 ml 08/08/17 08:52 Duoneb 3 Mg/0.5 Mg (3 Ml) Ud IH Q2H PRN Shortness of Breath Albuterol/Ipratropium 3 ml 08/08/17 14:00 08/10/17 14:10 Duoneb 3 Mg/0.5 Mg (3 Ml) Ud IH 3 ml [id number] YESSENIA Administration Aspirin 325 mg 08/10/17 10:00 08/10/17 09:16 Ecotrin PO 325 mg DAILY YESSENIA Administration Atorvastatin Calcium 40 mg 08/07/17 17:00 08/09/17 16:46 Lipitor NG Not Given DIN YESSENIA Furosemide 40 mg 08/10/17 10:00 08/10/17 09:16 Lasix IVP 40 mg DAILY YESSENIA Administration Propofol 1,000 mg in 100 mls @ 4.491 mls/hr 08/06/17 19:32 08/09/17 08:05 Diprivan IV 0 mcg/kg/min .[id number] PRN 0 mls/hr TITRATE PER MD ORDER Titration Protocol 5 MCG/KG/MIN Vancomycin HCl 1 gm in 250 mls @ 167 mls/hr 08/06/17 22:45 08/10/17 11:03 Vancomycin 1gm IVPB 167 mls/hr Q12H YESSENIA Administration Protocol Levofloxacin/Dextrose 750 mg in 150 mls @ 100 mls/hr 08/07/17 11:15 08/10/17 09:16 Levaquin 750mg IVPB 08/13/17 11:16 100 mls/hr DAILY YESSEINA Administration Protocol Heparin Sodium/Sodium Chloride 25,000 units in 250 mls @ 21.283 mls/hr 17:30 08/10/17 03:15 Heparin 39466 Units/250ml 1/2 Normal Saline IV 14 units/kg/hr .[id number] YESSENIA 24.83 mls/hr Protocol Administration 12 UNITS/KG/HR Dexmedetomidine HCl 400 mcg in 100 mls @ 9.025 mls/hr 08/09/17 07:32 14:26 Precedex 400mcg/100ml IV 0.2 mcg/kg/hr .[id number] PRN 9.025 mls/hr Agitation Administration Protocol 0.2 MCG/KG/HR Meropenem 50 mls @ 100 mls/hr 08/09/17 22:00 08/10/17 14:23 Merrem Iv 1 Gm Premix IVPB 08/18/17 22:01 100 mls/hr Q8 YESSENIA Administration Protocol Levothyroxine Sodium 100 mcg 08/08/17 06:00 08/10/17 05:59 Synthroid GT 100 mcg 0600 YESSENIA Administration Lorazepam 4 mg 08/09/17 07:39 08/09/17 11:00 Ativan IVP 4 mg Q4H PRN Administration Agitation Pantoprazole Sodium 40 mg 08/07/17 10:00 08/10/17 09:16 Protonix Inj IVP 40 mg DAILY YESSENIA Administration Potassium Chloride 20 meq 08/11/17 10:00 K-Dur 20 Meq Er Tab PO BID YESSENIA Quetiapine Fumarate 25 mg 08/10/17 22:00 Seroquel PO HS YESSENIA Protocol Saliva Substitute 0 ml 08/09/17 13:10 Saliva Substitute PO DAILY PRN Dry mouth Ziprasidone 10 mg 08/10/17 09:24 Geodon Inj IM Q8H PRN Agitation Protocol - Patient Studies Lab Studies: Lab Studies 08/10/17 08/10/17 08/10/17 Range/Units 12:12 07:30 06:15 WBC (4.5-11.0) 10^3/ul RBC (3.5-6.1) 10^6/uL Hgb (14.0-18.0) g/dL Hct (42.0-52.0) % MCV (80.0-105.0) fl MCH (25.0-35.0) pg MCHC (31.0-37.0) g/dl RDW (11.5-14.5) % Plt Count (120.0-450.0) 10^3/uL MPV (7.0-11.0) fl Gran % (50.0-68.0) % Lymph % (Auto) (22.0-35.0) % Sharkey % (Auto) (1.0-6.0) % Eos % (Auto) (1.5-5.0) % Baso % (Auto) (0.0-3.0) % Gran # (1.4-6.5) Lymph # (Auto) (1.2-3.4) Sharkey # (Auto) (0.1-0.6) Eos # (Auto) (0.0-0.7) Baso # (Auto) (0.0-2.0) K/mm3 APTT (25.1-36.5) Seconds pCO2 41 (35-45) mm/Hg pO2 76.0 L (80-100) mm/Hg HCO3 26.0 (21-28) mmol/L ABG pH 7.41 (7.35-7.45) ABG Total CO2 27.3 (22-28) mmol.L ABG O2 Saturation 97.9 (95-98) % ABG O2 Content 15.7 (15-23) ML/dl ABG Base Excess 1.2 (-2.0-3.0) mmol/L ABG Hemoglobin 11.7 (11.7-17.4) g/dL ABG Carboxyhemoglobin 1.9 H (0.5-1.5) % POC ABG HHb (Measured) 2.0 (0-5) % ABG Methemoglobin 1.0 (0.0-3.0) % ABG O2 Capacity 16.0 (16-24) mL/dl Hgb O2 Saturation 95.1 (95.0-98.0) % FiO2 50.0 % Sodium (132-148) mmol/L Potassium (3.6-5.0) mmol/L Chloride (98-107) mmol/L Carbon Dioxide (21-33) mmol/L Anion Gap (10-20) BUN (7-21) mg/dL Creatinine (0.8-1.5) mg/dl Est GFR ( Amer) Est GFR (Non-Af Amer) POC Glucose (mg/dL) 114 H (65-110) mg/dL Random Glucose (70-110) mg/dL Calcium (8.4-10.5) mg/dL Phosphorus (2.5-4.5) mg/dL Magnesium (1.7-2.2) mg/dL Total Bilirubin (0.2-1.3) mg/dL Direct Bilirubin (0.0-0.4) mg/dL AST (17-59) U/L ALT (7-56) U/L Alkaline Phosphatase (38-126) U/L Total Creatine Kinase (35-230) U/L CK-MB (CK-2) (0.0-3.6) ng/mL CK-MB (CK-2) % Troponin I ng/mL NT-Pro-B Natriuret Pep (0-450) pg/mL Total Protein (5.8-8.3) g/dL Albumin (3.0-4.8) g/dL Globulin gm/dL Albumin/Globulin Ratio (1.1-1.8) Procalcitonin (0.19-0.49) NG/ML Free T4 1.25 (0.78-2.19) ng/dL Thyroxine (T4) 9.1 (5.5-11.0) ug/dL TSH 3rd Generation 6.86 H (0.46-4.68) mIU/mL 08/10/17 08/10/17 08/10/17 Range/Units 06:00 06:00 06:00 WBC (4.5-11.0) 10^3/ul RBC (3.5-6.1) 10^6/uL Hgb (14.0-18.0) g/dL Hct (42.0-52.0) % MCV (80.0-105.0) fl MCH (25.0-35.0) pg MCHC (31.0-37.0) g/dl RDW (11.5-14.5) % Plt Count (120.0-450.0) 10^3/uL MPV (7.0-11.0) fl Gran % (50.0-68.0) % Lymph % (Auto) (22.0-35.0) % Sharkey % (Auto) (1.0-6.0) % Eos % (Auto) (1.5-5.0) % Baso % (Auto) (0.0-3.0) % Gran # (1.4-6.5) Lymph # (Auto) (1.2-3.4) Sharkey # (Auto) (0.1-0.6) Eos # (Auto) (0.0-0.7) Baso # (Auto) (0.0-2.0) K/mm3 APTT 56.4 H (25.1-36.5) Seconds pCO2 (35-45) mm/Hg pO2 (80-100) mm/Hg HCO3 (21-28) mmol/L ABG pH (7.35-7.45) ABG Total CO2 (22-28) mmol.L ABG O2 Saturation (95-98) % ABG O2 Content (15-23) ML/dl ABG Base Excess (-2.0-3.0) mmol/L ABG Hemoglobin (11.7-17.4) g/dL ABG Carboxyhemoglobin (0.5-1.5) % POC ABG HHb (Measured) (0-5) % ABG Methemoglobin (0.0-3.0) % ABG O2 Capacity (16-24) mL/dl Hgb O2 Saturation (95.0-98.0) % FiO2 % Sodium 147 (132-148) mmol/L Potassium 3.6 (3.6-5.0) mmol/L Chloride 103 (98-107) mmol/L Carbon Dioxide 27 (21-33) mmol/L Anion Gap 20 (10-20) BUN 11 (7-21) mg/dL Creatinine 0.9 (0.8-1.5) mg/dl Est GFR ( Amer) > 60 Est GFR (Non-Af Amer) > 60 POC Glucose (mg/dL) (65-110) mg/dL Random Glucose 107 (70-110) mg/dL Calcium 8.9 (8.4-10.5) mg/dL Phosphorus 3.5 (2.5-4.5) mg/dL Magnesium 1.7 (1.7-2.2) mg/dL Total Bilirubin 1.3 (0.2-1.3) mg/dL Direct Bilirubin 0.4 (0.0-0.4) mg/dL AST 42 (17-59) U/L ALT 35 (7-56) U/L Alkaline Phosphatase 65 (38-126) U/L Total Creatine Kinase 633 H (35-230) U/L CK-MB (CK-2) 4.1 H (0.0-3.6) ng/mL CK-MB (CK-2) % Cancelled Troponin I 0.36 H* D ng/mL NT-Pro-B Natriuret Pep 5220 H (0-450) pg/mL Total Protein 7.2 (5.8-8.3) g/dL Albumin 4.1 (3.0-4.8) g/dL Globulin 3.1 gm/dL Albumin/Globulin Ratio 1.3 (1.1-1.8) Procalcitonin (0.19-0.49) NG/ML Free T4 (0.78-2.19) ng/dL Thyroxine (T4) (5.5-11.0) ug/dL TSH 3rd Generation (0.46-4.68) mIU/mL 08/10/17 08/09/17 08/09/17 Range/Units 06:00 21:20 21:20 WBC 6.7 (4.5-11.0) 10^3/ul RBC 4.02 (3.5-6.1) 10^6/uL Hgb 11.9 L (14.0-18.0) g/dL Hct 36.3 L (42.0-52.0) % MCV 90.3 (80.0-105.0) fl MCH 29.6 (25.0-35.0) pg MCHC 32.8 (31.0-37.0) g/dl RDW 15.5 H (11.5-14.5) % Plt Count 167 (120.0-450.0) 10^3/uL MPV 10.2 (7.0-11.0) fl Gran % 70.1 H (50.0-68.0) % Lymph % (Auto) 18.8 L (22.0-35.0) % Sharkey % (Auto) 9.0 H (1.0-6.0) % Eos % (Auto) 1.8 (1.5-5.0) % Baso % (Auto) 0.3 (0.0-3.0) % Gran # 4.66 (1.4-6.5) Lymph # (Auto) 1.3 (1.2-3.4) Sharkey # (Auto) 0.6 (0.1-0.6) Eos # (Auto) 0.1 (0.0-0.7) Baso # (Auto) 0.02 (0.0-2.0) K/mm3 APTT 58.3 H (25.1-36.5) Seconds pCO2 (35-45) mm/Hg pO2 (80-100) mm/Hg HCO3 (21-28) mmol/L ABG pH (7.35-7.45) ABG Total CO2 (22-28) mmol.L ABG O2 Saturation (95-98) % ABG O2 Content (15-23) ML/dl ABG Base Excess (-2.0-3.0) mmol/L ABG Hemoglobin (11.7-17.4) g/dL ABG Carboxyhemoglobin (0.5-1.5) % POC ABG HHb (Measured) (0-5) % ABG Methemoglobin (0.0-3.0) % ABG O2 Capacity (16-24) mL/dl Hgb O2 Saturation (95.0-98.0) % FiO2 % Sodium 146 (132-148) mmol/L Potassium 3.5 L (3.6-5.0) mmol/L Chloride 102 (98-107) mmol/L Carbon Dioxide 27 (21-33) mmol/L Anion Gap 20 (10-20) BUN 9 (7-21) mg/dL Creatinine 0.9 (0.8-1.5) mg/dl Est GFR ( Amer) > 60 Est GFR (Non-Af Amer) > 60 POC Glucose (mg/dL) (65-110) mg/dL Random Glucose 129 H (70-110) mg/dL Calcium 8.9 (8.4-10.5) mg/dL Phosphorus (2.5-4.5) mg/dL Magnesium (1.7-2.2) mg/dL Total Bilirubin 1.4 H (0.2-1.3) mg/dL Direct Bilirubin (0.0-0.4) mg/dL AST 49 (17-59) U/L ALT 38 (7-56) U/L Alkaline Phosphatase 66 (38-126) U/L Total Creatine Kinase (35-230) U/L CK-MB (CK-2) (0.0-3.6) ng/mL CK-MB (CK-2) % Troponin I ng/mL NT-Pro-B Natriuret Pep (0-450) pg/mL Total Protein 7.3 (5.8-8.3) g/dL Albumin 4.2 (3.0-4.8) g/dL Globulin 3.0 gm/dL Albumin/Globulin Ratio 1.4 (1.1-1.8) Procalcitonin (0.19-0.49) NG/ML Free T4 (0.78-2.19) ng/dL Thyroxine (T4) (5.5-11.0) ug/dL TSH 3rd Generation (0.46-4.68) mIU/mL 08/09/17 08/09/17 08/09/17 Range/Units 16:13 15:28 11:19 WBC (4.5-11.0) 10^3/ul RBC (3.5-6.1) 10^6/uL Hgb (14.0-18.0) g/dL Hct (42.0-52.0) % MCV (80.0-105.0) fl MCH (25.0-35.0) pg MCHC (31.0-37.0) g/dl RDW (11.5-14.5) % Plt Count (120.0-450.0) 10^3/uL MPV (7.0-11.0) fl Gran % (50.0-68.0) % Lymph % (Auto) (22.0-35.0) % Sharkey % (Auto) (1.0-6.0) % Eos % (Auto) (1.5-5.0) % Baso % (Auto) (0.0-3.0) % Gran # (1.4-6.5) Lymph # (Auto) (1.2-3.4) Sharkey # (Auto) (0.1-0.6) Eos # (Auto) (0.0-0.7) Baso # (Auto) (0.0-2.0) K/mm3 APTT 59.5 H (25.1-36.5) Seconds pCO2 (35-45) mm/Hg pO2 (80-100) mm/Hg HCO3 (21-28) mmol/L ABG pH (7.35-7.45) ABG Total CO2 (22-28) mmol.L ABG O2 Saturation (95-98) % ABG O2 Content (15-23) ML/dl ABG Base Excess (-2.0-3.0) mmol/L ABG Hemoglobin (11.7-17.4) g/dL ABG Carboxyhemoglobin (0.5-1.5) % POC ABG HHb (Measured) (0-5) % ABG Methemoglobin (0.0-3.0) % ABG O2 Capacity (16-24) mL/dl Hgb O2 Saturation (95.0-98.0) % FiO2 % Sodium (132-148) mmol/L Potassium (3.6-5.0) mmol/L Chloride (98-107) mmol/L Carbon Dioxide (21-33) mmol/L Anion Gap (10-20) BUN (7-21) mg/dL Creatinine (0.8-1.5) mg/dl Est GFR ( Amer) Est GFR (Non-Af Amer) POC Glucose (mg/dL) 108 192 H (65-110) mg/dL Random Glucose (70-110) mg/dL Calcium (8.4-10.5) mg/dL Phosphorus (2.5-4.5) mg/dL Magnesium (1.7-2.2) mg/dL Total Bilirubin (0.2-1.3) mg/dL Direct Bilirubin (0.0-0.4) mg/dL AST (17-59) U/L ALT (7-56) U/L Alkaline Phosphatase (38-126) U/L Total Creatine Kinase (35-230) U/L CK-MB (CK-2) (0.0-3.6) ng/mL CK-MB (CK-2) % Troponin I ng/mL NT-Pro-B Natriuret Pep (0-450) pg/mL Total Protein (5.8-8.3) g/dL Albumin (3.0-4.8) g/dL Globulin gm/dL Albumin/Globulin Ratio (1.1-1.8) Procalcitonin (0.19-0.49) NG/ML Free T4 (0.78-2.19) ng/dL Thyroxine (T4) (5.5-11.0) ug/dL TSH 3rd Generation (0.46-4.68) mIU/mL 08/09/17 08/09/17 Range/Units 10:30 07:39 WBC (4.5-11.0) 10^3/ul RBC (3.5-6.1) 10^6/uL Hgb (14.0-18.0) g/dL Hct (42.0-52.0) % MCV (80.0-105.0) fl MCH (25.0-35.0) pg MCHC (31.0-37.0) g/dl RDW (11.5-14.5) % Plt Count (120.0-450.0) 10^3/uL MPV (7.0-11.0) fl Gran % (50.0-68.0) % Lymph % (Auto) (22.0-35.0) % Sharkey % (Auto) (1.0-6.0) % Eos % (Auto) (1.5-5.0) % Baso % (Auto) (0.0-3.0) % Gran # (1.4-6.5) Lymph # (Auto) (1.2-3.4) Sharkey # (Auto) (0.1-0.6) Eos # (Auto) (0.0-0.7) Baso # (Auto) (0.0-2.0) K/mm3 APTT (25.1-36.5) Seconds pCO2 (35-45) mm/Hg pO2 (80-100) mm/Hg HCO3 (21-28) mmol/L ABG pH (7.35-7.45) ABG Total CO2 (22-28) mmol.L ABG O2 Saturation (95-98) % ABG O2 Content (15-23) ML/dl ABG Base Excess (-2.0-3.0) mmol/L ABG Hemoglobin (11.7-17.4) g/dL ABG Carboxyhemoglobin (0.5-1.5) % POC ABG HHb (Measured) (0-5) % ABG Methemoglobin (0.0-3.0) % ABG O2 Capacity (16-24) mL/dl Hgb O2 Saturation (95.0-98.0) % FiO2 % Sodium (132-148) mmol/L Potassium (3.6-5.0) mmol/L Chloride (98-107) mmol/L Carbon Dioxide (21-33) mmol/L Anion Gap (10-20) BUN (7-21) mg/dL Creatinine (0.8-1.5) mg/dl Est GFR ( Amer) Est GFR (Non-Af Amer) POC Glucose (mg/dL) 90 (65-110) mg/dL Random Glucose (70-110) mg/dL Calcium (8.4-10.5) mg/dL Phosphorus (2.5-4.5) mg/dL Magnesium (1.7-2.2) mg/dL Total Bilirubin (0.2-1.3) mg/dL Direct Bilirubin (0.0-0.4) mg/dL AST (17-59) U/L ALT (7-56) U/L Alkaline Phosphatase (38-126) U/L Total Creatine Kinase (35-230) U/L CK-MB (CK-2) (0.0-3.6) ng/mL CK-MB (CK-2) % Troponin I ng/mL NT-Pro-B Natriuret Pep (0-450) pg/mL Total Protein (5.8-8.3) g/dL Albumin (3.0-4.8) g/dL Globulin gm/dL Albumin/Globulin Ratio (1.1-1.8) Procalcitonin < 0.05 L (0.19-0.49) NG/ML Free T4 (0.78-2.19) ng/dL Thyroxine (T4) (5.5-11.0) ug/dL TSH 3rd Generation (0.46-4.68) mIU/mL Laboratory Results - last 24 hr 08/09/17 08/09/17 08/09/17 07:39 10:30 11:19 WBC RBC Hgb Hct MCV MCH MCHC RDW Plt Count MPV Gran % Lymph % (Auto) Sharkey % (Auto) Eos % (Auto) Baso % (Auto) Gran # Lymph # (Auto) Sharkey # (Auto) Eos # (Auto) Baso # (Auto) APTT pCO2 pO2 HCO3 ABG pH ABG Total CO2 ABG O2 Saturation ABG O2 Content ABG Base Excess ABG Hemoglobin ABG Carboxyhemoglobin POC ABG HHb (Measured) ABG Methemoglobin ABG O2 Capacity Hgb O2 Saturation FiO2 Sodium Potassium Chloride Carbon Dioxide Anion Gap BUN Creatinine Est GFR ( Amer) Est GFR (Non-Af Amer) POC Glucose (mg/dL) 90 192 H Random Glucose Calcium Phosphorus Magnesium Total Bilirubin Direct Bilirubin AST ALT Alkaline Phosphatase Total Creatine Kinase CK-MB (CK-2) CK-MB (CK-2) % Troponin I NT-Pro-B Natriuret Pep Total Protein Albumin Globulin Albumin/Globulin Ratio Procalcitonin < 0.05 L Free T4 Thyroxine (T4) TSH 3rd Generation 08/09/17 08/09/17 08/09/17 15:28 16:13 21:20 WBC RBC Hgb Hct MCV MCH MCHC RDW Plt Count MPV Gran % Lymph % (Auto) Sharkey % (Auto) Eos % (Auto) Baso % (Auto) Gran # Lymph # (Auto) Sharkey # (Auto) Eos # (Auto) Baso # (Auto) APTT 59.5 H 58.3 H pCO2 pO2 HCO3 ABG pH ABG Total CO2 ABG O2 Saturation ABG O2 Content ABG Base Excess ABG Hemoglobin ABG Carboxyhemoglobin POC ABG HHb (Measured) ABG Methemoglobin ABG O2 Capacity Hgb O2 Saturation FiO2 Sodium Potassium Chloride Carbon Dioxide Anion Gap BUN Creatinine Est GFR ( Amer) Est GFR (Non-Af Amer) POC Glucose (mg/dL) 108 Random Glucose Calcium Phosphorus Magnesium Total Bilirubin Direct Bilirubin AST ALT Alkaline Phosphatase Total Creatine Kinase CK-MB (CK-2) CK-MB (CK-2) % Troponin I NT-Pro-B Natriuret Pep Total Protein Albumin Globulin Albumin/Globulin Ratio Procalcitonin Free T4 Thyroxine (T4) TSH 3rd Generation 08/09/17 08/10/17 08/10/17 21:20 06:00 06:00 WBC 6.7 RBC 4.02 Hgb 11.9 L Hct 36.3 L MCV 90.3 MCH 29.6 MCHC 32.8 RDW 15.5 H Plt Count 167 MPV 10.2 Gran % 70.1 H Lymph % (Auto) 18.8 L Sharkey % (Auto) 9.0 H Eos % (Auto) 1.8 Baso % (Auto) 0.3 Gran # 4.66 Lymph # (Auto) 1.3 Sharkey # (Auto) 0.6 Eos # (Auto) 0.1 Baso # (Auto) 0.02 APTT 56.4 H pCO2 pO2 HCO3 ABG pH ABG Total CO2 ABG O2 Saturation ABG O2 Content ABG Base Excess ABG Hemoglobin ABG Carboxyhemoglobin POC ABG HHb (Measured) ABG Methemoglobin ABG O2 Capacity Hgb O2 Saturation FiO2 Sodium 146 Potassium 3.5 L Chloride 102 Carbon Dioxide 27 Anion Gap 20 BUN 9 Creatinine 0.9 Est GFR ( Amer) > 60 Est GFR (Non-Af Amer) > 60 POC Glucose (mg/dL) Random Glucose 129 H Calcium 8.9 Phosphorus Magnesium Total Bilirubin 1.4 H Direct Bilirubin AST 49 ALT 38 Alkaline Phosphatase 66 Total Creatine Kinase CK-MB (CK-2) CK-MB (CK-2) % Troponin I NT-Pro-B Natriuret Pep Total Protein 7.3 Albumin 4.2 Globulin 3.0 Albumin/Globulin Ratio 1.4 Procalcitonin Free T4 Thyroxine (T4) TSH 3rd Generation 08/10/17 08/10/17 08/10/17 06:00 06:00 06:15 WBC RBC Hgb Hct MCV MCH MCHC RDW Plt Count MPV Gran % Lymph % (Auto) Sharkey % (Auto) Eos % (Auto) Baso % (Auto) Gran # Lymph # (Auto) Sharkey # (Auto) Eos # (Auto) Baso # (Auto) APTT pCO2 41 pO2 76.0 L HCO3 26.0 ABG pH 7.41 ABG Total CO2 27.3 ABG O2 Saturation 97.9 ABG O2 Content 15.7 ABG Base Excess 1.2 ABG Hemoglobin 11.7 ABG Carboxyhemoglobin 1.9 H POC ABG HHb (Measured) 2.0 ABG Methemoglobin 1.0 ABG O2 Capacity 16.0 Hgb O2 Saturation 95.1 FiO2 50.0 Sodium 147 Potassium 3.6 Chloride 103 Carbon Dioxide 27 Anion Gap 20 BUN 11 Creatinine 0.9 Est GFR ( Amer) > 60 Est GFR (Non-Af Amer) > 60 POC Glucose (mg/dL) Random Glucose 107 Calcium 8.9 Phosphorus 3.5 Magnesium 1.7 Total Bilirubin 1.3 Direct Bilirubin 0.4 AST 42 ALT 35 Alkaline Phosphatase 65 Total Creatine Kinase 633 H CK-MB (CK-2) 4.1 H CK-MB (CK-2) % Cancelled Troponin I 0.36 H* D NT-Pro-B Natriuret Pep 5220 H Total Protein 7.2 Albumin 4.1 Globulin 3.1 Albumin/Globulin Ratio 1.3 Procalcitonin Free T4 Thyroxine (T4) TSH 3rd Generation 08/10/17 08/10/17 07:30 12:12 WBC RBC Hgb Hct MCV MCH MCHC RDW Plt Count MPV Gran % Lymph % (Auto) Sharkey % (Auto) Eos % (Auto) Baso % (Auto) Gran # Lymph # (Auto) Sharkey # (Auto) Eos # (Auto) Baso # (Auto) APTT pCO2 pO2 HCO3 ABG pH ABG Total CO2 ABG O2 Saturation ABG O2 Content ABG Base Excess ABG Hemoglobin ABG Carboxyhemoglobin POC ABG HHb (Measured) ABG Methemoglobin ABG O2 Capacity Hgb O2 Saturation FiO2 Sodium Potassium Chloride Carbon Dioxide Anion Gap BUN Creatinine Est GFR ( Amer) Est GFR (Non-Af Amer) POC Glucose (mg/dL) 114 H Random Glucose Calcium Phosphorus Magnesium Total Bilirubin Direct Bilirubin AST ALT Alkaline Phosphatase Total Creatine Kinase CK-MB (CK-2) CK-MB (CK-2) % Troponin I NT-Pro-B Natriuret Pep Total Protein Albumin Globulin Albumin/Globulin Ratio Procalcitonin Free T4 1.25 Thyroxine (T4) 9.1 TSH 3rd Generation 6.86 H EKG/Cardiology Studies: Cardiology / EKG Studies 08/10/17 07:00 EKG [ELECTROCARDIOGRAM] DAILY Comment: Reason For Exam: AMI 08/11/17 07:00 EKG [ELECTROCARDIOGRAM] DAILY Comment: Reason For Exam: AMI Critical Care Progress Note - Nutrition Nutrition: Nutrition Category Date Time Status Heart Healthy Diet [DIET] Diets 08/10/17 Breakfast Ordered Attending/Attestation - Attestation I have personally seen and examined this patient.: Yes I have fully participated in the care of the patient.: Yes I have reviewed all pertinent clinical information: Yes Notes (Text): 08/10/17 15:[address] Roland note
--- NOTE | 2017-08-10 15:46 | PN ---
DATE: 08/10/2017 SUBJECTIVE: The patient is seen in the ICU. The patient is now extubated. The patient is sitting up in the bed. The patient is completely alert, awake, oriented x3. The patient does not offer any specific complaints. There is no hallucination noted. The patient refused BiPAP overnight nurse's notes. PHYSICAL EXAMINATION: VITAL SIGNS: T-max in the last 24-hour 100.8. Telemetry shows sinus rhythm, heart rate 90s, 87, 84, 94, 92. Blood pressure 156/85, respiration 26 to 31, O2 sat 92%-95%. Intake output: Output yesterday 2200. Today's output 1850. HEAD: Normocephalic, atraumatic. EENT: Shows pinkish conjunctivae. Anicteric sclerae. No oropharyngeal lesions. NECK: Supple. No jugular venous distention. CHEST: Kyphosis. Decreased breath sounds at the bases. Positive rhonchi upper lung brock. CARDIOVASCULAR: S1, S2. Questionable soft systolic murmur in the left sternal border, right second intercostal space. ABDOMEN: Obese. Positive bowel sound. GENITALIA: Male. Rectal: Deferred. EXTREMITY: Shows chronic skin changes of the lower extremity and chronic lymphedema of the lower extremity. MUSCULOSKELETAL: Shows a body mass index of 51.5. NEUROLOGIC: The patient is alert, awake, oriented x3. Cranial nerves II through XII intact. Motor strength is 5/5. Gait examination is not tested. DIAGNOSTICS: 08/10; WBC 6.7, hemoglobin/hematocrit 11.9/36.3, platelets 167, granulocytes 70% segs. PTT is 56.4. ABG on 50% FiO2, pH of 7.41, pCO2 of 41 pO2 of 76, bicarb 27, saturation of 97.9. Sodium 147, potassium 3.6, chloride 103, CO2 of 27, anion gap 20, BUN 11, creatinine 0.9, GFR greater than 60, glucose 107, calcium 8.9, phosphorus 3.5, magnesium 1.7. CPK is down to 633. Troponin is down to 0.36 from a peak troponin of 4.08. BNP is 5220. TSH is high at 6.86. T4 is 9.1. HIV is nonreactive. Legionella is negative. Microbiology, cultures are all negative. IMPRESSION AND PLAN: 1. Status post ventilator dependent respiratory failure and status post extubation. 2. Congestive heart failure with bilateral multilobar pneumonia, infiltrate and bilateral effusion. 3. Cardiomegaly. 4. Super morbid obesity. 5. Acute non-ST elevation myocardial infarction with elevated troponin. 6. Right-axis deviation. 7. Age-indeterminate anterior infarct. 8. Status post altered mental status and encephalopathy. 9. Severe sepsis. 10. Bilateral multilobar community-acquired pneumonia. 11. History of narcotic dependent pain syndrome. 12. Chronic obstructive pulmonary disease. 13. Bilateral lower extremity lymphedema. 14. Status post gastric bypass. 15. Gait dysfunction. 16. Severe deconditioning. 17. History of hypothyroidism. 18. Febrile illness and fever. 19. Normocytic anemia. 20. Leukocytosis with granulocytosis. 21. Mild respiratory acidosis. 22. Hypokalemia. 23. Mild rhabdomyolysis with elevated CPK. 24. Hypothyroidism with elevated TSH. 25. History of vitamin B12 deficiency. 26. History of testosterone deficiency. 27. History of hypertension. 28. Proteinuria. 29. Ketonuria. 30. Bilirubinuria. 31. Bacteriuria. 32. Psychosis. 1. Ventilator-dependent respiratory failure. 2. Status post altered mental status and behavioral disorder. 3. Status post hallucination. 4. Morbid obesity with elevated body mass index of 51. 5. Transient low grade fever. 6. Transient tachycardia. 7. Transient hypotension. 8. Hypoxemia. 9. Leukocytosis with granulocytosis. 10. Normocytic anemia. 11. Transient hypercarbia and respiratory acidosis. 12. Hypokalemia. 13. Non-ST elevation myocardial infarction with elevated troponin. 14. Elevated CPK, questionable rhabdomyolysis. 15. History of hypothyroidism and vitamin B12 deficiency. 16. History of testosterone deficiency. 17. Hypokalemia. 18. Proteinuria, bilirubinuria, pyuria and ketonuria. 19. Questionable bilateral pleural effusion. 20. Right upper lobe consolidation versus pneumonia versus pulmonary edema. 21. Cardiomegaly. 22. Questionable ventilator dependent pneumonia and consolidation. 23. Bilateral dependent consolidation and bilateral ground-glass opacities. 24. Thoracic spine degenerative joint disease. 25. Status post cholecystectomy. 26. Status post gastric bypass. 27. Bilateral nephrolithiasis. 28. Encephalopathy, etiology undetermined. 29. 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 30. Ethmoid air cell partial opacification and left frontal sinus mucosal disease. 31. Left ventricular ejection fraction of 58% with grade 1 abnormal relaxation pattern. 32. Moderately thickened mitral valve. 33. Sinus tachycardia. 34. Acute anterolateral infarct with lateral injury and ischemia. 35. Acute anterolateral myocardial infarction. 36. History of hypertension, history of chronic pain syndrome, status post intrathecal ziconotide pump placement. 37. Bilateral lower extremity lymphedema. 38. Chronic pain syndrome. 39. Bilateral multilobar pneumonia. 40. History of chronic obstructive pulmonary disease. 41. History of chronic methadone and oxycodone use. 42. Transient hypertension. 43. Severe sepsis with ventilator-dependent respiratory failure. 44. Non-ST elevation myocardial infarction. 45. Acute encephalopathy probably secondary to intrathecal ziconotide side effect. 46. Transient psychosis. 47. Status post encephalopathy with hallucination and psychosis. 48. Questionable and possible ventilator-dependent bilateral multilobar aspiration pneumonia versus healthcare-associated pneumonia. 49. Morbid obesity. 50. Severe sepsis. 51. History of hypothyroidism. PLAN AT THIS TIME: The patient has been considered for transfer out of the ICU to telemetry in front of nursing station after cleared by Cardiology. The patient has been ordered serial labs. The patient's current consultation: 1. Cardiology. 2. Infectious Disease. 3. Neurology. 4. Psychiatry. 5. Pulmonary. Current medications: IV Tylenol 1000 mg IV every 6 hours, Ativan 4 mg IV every 4 hours p.r.n., DuoNeb nebulizer every 6 hours round the clock every 2 hours p.r.n., Ecotrin 325 daily, Geodon 10 mg IM every 8 hours p.r.n. by the industrial spraypainter, heparin drip. K-Dur 20 mEq twice a day, Lasix 40 mg IV daily, Levaquin 750 mg IV daily, Lipitor 40 mg daily, meropenem 1 gm IV every 8 hours. The patient has been ordered potassium supplementation for hypokalemia. The patient is on Protonix 40 IV daily. The patient is started by industrial spraypainter on Seroquel 25 at bedtime, Synthroid 100 mcg daily, vancomycin 1 gm IV every 12 hours. Repeat chest x-ray has been ordered. The patient is on BiPAP. Repeat EKG ordered. Heart-healthy diet, out of bed ordered. Prognosis is guarded. Condition critical. Time spent more than 35 minutes. Dictated and electronically signed, not read. Kolton Melgar MD [facility] # [id number]
--- NOTE | 2017-08-10 22:24 | CARD ---
APPROVED REPORT EKG Measurement Heart [id number] <Conclusion> Normal sinus rhythm Rightward axis Anterior infarct, age undetermined Abnormal ECG
--- NOTE | 2017-08-10 22:34 | CON ---
DATE: HISTORY OF PRESENT ILLNESS: Shortly, the patient is 67-year-old male, multiple medical problems including COPD, diabetes, chronic back pain. The patient is on intrathecal and abdominal pump device for his chronic pain, hypertension, morbid obesity, hyperlipidemia. The patient was brought in by EMS for altered mental status and lately the patient started to have hallucinations, was calling his daughter as well as his as Lucifer. The patient was saying that he is god and eventually, he became aggressive as well as agitated. EMS gave him 8 mg of IM Ativan at this scene as well as 150 mg of and it happened on 08/06. Multiple medical issues were found that could affect the patient's presentation; for example, the patient was found to have pneumonia, also leukocytosis as well as blood pressure elevation as well as NSTEMI. On top of that, there is some malfunction on his device for his chronic pain, which led the patient to admission to ICU intubation and extubation yesterday. Psych consult was called for evaluation of periods of agitation as well as hallucination, possible medication management. The patient was seen and examined, previous history reviewed. Based on the previous history, the patient had one consultation services by Dr. Alas, but back then patient most likely was on delirium stage and Psychiatry signed off. It happened in 08/2014. 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 This functional tester typewriters evaluated the patient in the ICU. The patient was extubated. The patient observed eating. The patient presented to be confused, was smiling inappropriately, had difficulty to sustain and shift the tension. The patient knows that he is in [place]. The patient does not know what is the month and date, but was aware of year. The patient does not remember the circumstances of his admission to the medical side ICU. No meaningful conversation possible because the patient was not able to provide any of the history. Collaterals were obtained from the intensive care team and the rotary furnace operator, Dr. Roland. The patient has episodes of agitation and aggression, which were medicated by Haldol IV push. This functional tester typewriters recommended to switch to second generation of antipsychotic medication IM. The patient also is improving on the current medication management which are; acetaminophen, DuoNeb, aspirin, Lipitor, Precedex, Lasix, heparin, Levaquin, Synthroid, Ativan 4 mg IV push every 4 hours as needed for agitation, meropenem, Protonix, potassium chloride, propofol. Seroquel will be recommended 25 mg at the nighttime. vancomycin, and Geodon 10 mg IM every 8 hours as needed suggested as well. PHYSICAL EXAMINATION: VITAL SIGNS: Reviewed. Temperature 98.8, pulse is 94, blood pressure 156/85, respirations 26. MEDICATIONS: Reviewed. See above. LABORATORY DATA: Reviewed. Hemoglobin and hematocrit 11.9 and 36.3, platelets 167, granulocytes are 4.66. Microbiology reviewed. Staph aureus in wound culture. MENTAL STATUS EXAMINATION: As this functional tester typewriters described above, the patient is very confused, not able to provide any history. The patient is obviously in delirium stage. Difficult to stay focus and switch attention. Speech was incoherent and random thought process concrete. Thought content obviously disorganized. Earlier, the patient was having agitation and hallucinations. Insight and judgment seem to be impaired at present moment. Impulses are not predictable. IMPRESSION: Obviously the patient has multifactorial hyperactive delirium which related to the multiple medical issues, pain pump which seems to be nonfunctioning. The patient also was diagnosed with pneumonia. Pulmonology on board. The patient also had been diagnosed with NSTEMI. Cardiology on board. Electrolyte imbalance and confusion. All of these factors could affect patient presentation. PLAN: This functional tester typewriters was suggested to continue IV Haldol, second generation of Geodon 10 mg three times a day. In regards of QTC prolongation, Geodon is dose dependent. QTC prolongation, small doses, is not contraindication for patient who has cardiac problems. Ativan as needed.. Address medical issues and delirium will be improving family involvement. We will follow up and advise accordingly. Thank you very much for letting me participate in the care of your patient. Taking care of this patient took more than 30 minutes of this functional tester typewriters's time. Joi Lemus MD
[2017-08-11] MEDS: Albuterol-Ipratrop 3 mg / 0.5 (3 ml) UD IH SCH ×5 (02:27→21:12)
[2017-08-11] MEDS: Dexmedetomidine 400mcg/100mL 400 MCG/100 ML BOTTLE IV PRN (02:38)
[2017-08-11] MEDS: Heparin 25,000units in 1/2NS 250 ML BAG IV SCH ×2 (02:40→14:47)
[2017-08-11 06:25] LABS: ARTERIAL BLOOD GAS HCO3 29.2 mmol/L (21-28); ARTERIAL BLOOD GAS HEMOGLOBIN 11.3 g/dL (11.7-17.4); ARTERIAL BLOOD GAS O2 CAPACITY 15.7 mL/dl (16-24); ARTERIAL BLOOD GAS O2 CONTENT 15.7 ML/dl (15-23); ARTERIAL BLOOD GAS PCO2 46 mm/Hg (35-45); ARTERIAL BLOOD GAS PH 7.41 (7.35-7.45); ARTERIAL BLOOD GAS TCO2 30.6 mmol.L (22-28)
[2017-08-11 06:38] LABS: BASO # 0.04 K/mm3 (0.0-2.0); BASO % 0.6 % (0.0-3.0); EOS # 0.4 (0.0-0.7); GRAN # 4.07 (1.4-6.5); GRAN % 57.7 % (50.0-68.0); LYMPH % 28.2 % (22.0-35.0); MEAN CELL VOLUME 89.6 fl (80.0-105.0); MEAN CORPUSCULAR HEMOGLOBIN 30.3 pg (25.0-35.0); MEAN CORPUSCULAR HGB CONC 33.8 g/dl (31.0-37.0); MEAN PLATELET VOLUME 9.9 fl (7.0-11.0); MONO # 0.6 (0.1-0.6); MONO % 8.5 % (1.0-6.0); RBC 3.96 10^6/uL (3.5-6.1); WHITE BLOOD COUNT 7.1 10^3/ul (4.5-11.0)
[2017-08-11] MEDS: Meropenem IV 1 gm in NS 50 ML IVPB SCH ×2 (07:09→14:47)
[2017-08-11] MEDS: Levothyroxine 100 MCG TAB GT SCH (07:10)
[2017-08-11 07:41] LABS: ALB/GLOB RATIO 1.2 (1.1-1.8); ALBUMIN 3.8 g/dL (3.0-4.8); ALT/SGPT 35 U/L (7-56); AST/SGOT 47 U/L (17-59); B-TYPE NATRIURETIC PEPTIDE 3930 pg/mL (0-450); BILIRUBIN,DIRECT 0.4 mg/dL (0.0-0.4); BLOOD UREA NITROGEN 15 mg/dL (7-21); GFR AFRICAN-AMERICAN > 60; GFR NON-AFRICAN AMERICAN > 60
[2017-08-11 08:04] LABS: CK MB% 1.1 % (2.5-3.0); CK-MB 5.8 ng/mL (0.0-3.6)
--- NOTE | 2017-08-11 08:21 | RAD ---
HISTORY: f/u COMPARISON: Portable chest 08/10/2017. FINDINGS: LUNGS: Diminished scattered infiltrates seen at the right lung with linear atelectasis identified in the right base. Increased bandlike density at the left base suggest atelectasis increased here with limited underlying infiltrate not completely exclude the left base posterior to the heart. No active pulmonary disease. PLEURA: No significant pleural effusion identified, no pneumothorax apparent. CARDIOVASCULAR: Stable cardiac silhouette. Diminished pulmonary vascular congestion. OSSEOUS STRUCTURES: No significant abnormalities. VISUALIZED UPPER ABDOMEN: Normal. OTHER FINDINGS: None. IMPRESSION: Significantly diminished infiltrates in the right chest from with residual linear atelectasis at the right base. Increased linear atelectasis left base with trace patchy density in the retrocardiac space not completely excluded. No pleural effusion bilaterally. Diminished pulmonary vascular congestion.
--- NOTE | 2017-08-11 08:29 | PN ---
DATE: 08/11/2017 PULMONARY NOTE SUBJECTIVE: The patient remains extubated. He is currently on nasal cannula. He is not short of breath. He remains somewhat confused. PHYSICAL EXAMINATION: VITAL SIGNS: Temperature is 98.5, pulse 56, respirations 18/20, blood pressure 119/60. Oxygen saturation on nasal cannula is 98%. HEENT: Normocephalic, atraumatic. NECK: No JVD. CARDIOVASCULAR: Systolic ejection murmur at the lower left sternal border. Questionable S3 gallop. LUNGS: Minimal/less crackles at the bases. Minimal/less rhonchi. No wheezing. EXTREMITIES: Positive for chronic edema. No cyanosis or clubbing. Calves are nontender to palpation. GI: Abdomen is soft, nontender, nondistended. Bowel sounds are positive. SKIN: Chronic cellulitic changes on both legs. NEUROLOGIC: Exam limited at the present time. PERTINENT LABORATORY DATA: Chest x-ray was done this morning and reviewed. It is a poor semi-erect film. However, the film does show continued improvement-- with decreased pulmonary infiltrates. IMPRESSION: 1. Respiratory failure. 2. Congestive heart failure. 3. Acute myocardial infarction. 4. Rule out aspiration pneumonia. 5. Anemia. 6. Encephalopathy. PLAN: The patient remains off the ventilator. He is on simple nasal cannula this morning. He is not short of breath at rest. He remains somewhat confused. I did discuss the case with the night nurse at length. The night nurse stated that the patient had a good night overall, but does not wear his BiPAP mask consistently. I did review the chest x-ray as above. Continued improvement-with decreased pulmonary infiltrates-is noted. In addition, the alveolar-arterial gradient is significantly less. Oxygen saturation on nasal cannula is now 98%. I will continue with the current nebulizer treatments and aspiration precautions for now. The patient remains on antibiotic therapy-as per Infectious Disease. Temperatures have resolved. The leukocytosis has also resolved. Input by Cardiology is also noted. The patient remains on intravenous Lasix. The clinical status of the patient is significantly improved overall. However, again, his future status/prognosis remains very guarded. I will discuss the above with the entire ICU team in the next few moments. I will also discuss the above with the attending physician. García Grace MD [facility] # [id number] EM
--- NOTE | 2017-08-11 09:04 | PN ---
DATE: 08/10/2017 LOCATION: The patient is seen earlier this morning in the ICU 128, bed 1. He is extubated. Appears to be comfortable. He is responsive and he says no fevers. OBJECTIVE: VITAL SIGNS: Temperature is 99, blood pressure is 140/70, respiratory rate of 21, heart rate of 88. HEENT: Unremarkable. NECK: Supple. LUNGS: Have decreased breath sounds. HEART: Normal S1 and S2. ABDOMEN: Soft, nontender. LABORATORY EXAMINATION: Reveals a white count of 6.7, hemoglobin of 11, platelets of 167. Coagulation is noted. Chemistries reveals a BUN of 11, creatinine of 0.9. HIV is negative. Urine for Legionella antigen is negative. Blood cultures are negative. Trach cultures and endotracheal aspirate culture are normal. Sputum brendan, normal brendan. Urine culture is negative. Nasal MRSA is not detected and procalcitonin is negative x2 less than 0.05. Review of the medications reveals the patient to be on meropenem, vancomycin, and Levaquin. Dr. Roland's note is reviewed. Dr. Andrew Hernandez's note is reviewed. ASSESSMENT AND PLAN: This is a 67-year-old male, who was seen earlier this morning in room 128, bed 1. He is now extubated with severe sepsis, respiratory failure, ventilator-dependent respiratory failure due to severe community-acquired pneumonia on top of acute non-ST elevation myocardial infarction, morbid obesity with a BMI of 50, hypertension, chronic obstructive lung disease, chronic methadone use, diabetic, peripheral vascular disease, chronic back pain, status post intrathecal pump placement and thus far the cultures are negative and today is day #4 of vancomycin, meropenem and Levaquin. As soon as the blood cultures are negative, methicillin-resistant Staphylococcus aureus screen is negative, we will discontinue the vancomycin and we will follow closely with you. Antonino Gilmore MD
[2017-08-11] MEDS: levoFLOXacin 750 mg in D5W 750 MG/150 ML BAG IVPB SCH (09:38)
[2017-08-11] MEDS: Aspirin 325 mg EC Tablets PO SCH (09:40)
[2017-08-11] MEDS: Potassium Chloride 20 mEq ER Tab PO SCH ×2 (09:40→17:52)
[2017-08-11] MEDS: Magnesium Sulfate 2 GM in Sodium Chloride 0.9% 100 ML IVPB SCH ×2 (10:30→13:18)
--- NOTE | 2017-08-11 10:44 | CP.PCM.PN ---
<Danny Almanza Ashvin - Last Filed: 08/11/17 10:31> Subjective - Date & Time of Evaluation Date of Evaluation: 08/11/17 Time of Evaluation: 10:31 - Subjective Subjective: Medicine progress note: Dr. Melgar Patient seen and examined at bedside. Offers complaints of nasal congestion. Denies any other new complaints. Per nursing, patient did better overnight. Objective - Vital Signs/Intake and Output Vital Signs (last 24 hours): Temp Pulse Resp BP Pulse Ox 98.3 F 88 27 H 175/76 H 100 08/11/17 06:00 08/11/17 08:15 08/11/17 08:15 08/11/17 09:39 08/11/17 07:50 Intake and Output: 08/11/17 08/11/17 06:59 18:59 Intake Total 2301 Output Total 1275 Balance 1026 - Medications Medications: Current Medications Acetylcysteine (Acetylcysteine 20%) 4 ml IH [id number] YESSENIA Albuterol/Ipratropium (Duoneb 3 Mg/0.5 Mg (3 Ml) Ud) 3 ml IH Q2H PRN PRN Reason: Shortness of Breath Albuterol/Ipratropium (Duoneb 3 Mg/0.5 Mg (3 Ml) Ud) 3 ml IH [id number] [facility] Aspirin (Ecotrin) 325 mg PO DAILY [facility] Last Admin: 08/11/17 09:40 Dose: 325 mg Atorvastatin Calcium (Lipitor) 40 mg NG DIN [facility] Last Admin: 08/10/17 17:06 Dose: 40 mg Furosemide (Lasix) 40 mg IVP DAILY [facility] Last Admin: 08/11/17 09:39 Dose: 40 mg Propofol (Diprivan) 1,000 mg in 100 mls @ 4.491 mls/hr IV .[id number] PRN; Protocol; 5 MCG/KG/MIN PRN Reason: TITRATE PER MD ORDER Last Titration: 08/09/17 08:05 Dose: 0 mcg/kg/min, 0 mls/hr Levofloxacin/Dextrose (Levaquin 750mg) 750 mg in 150 mls @ 100 mls/hr IVPB DAILY [facility] PRN Reason: Protocol Stop: 08/13/17 11:16 Last Admin: 08/11/17 09:38 Dose: 100 mls/hr Heparin Sodium/Sodium Chloride (Heparin 42055 Units/250ml 1/2 Normal Saline) 25 ,000 units in 250 mls @ 21.283 mls/hr IV .[id number] YESSENIA; 12 UNITS/KG/HR PRN Reason: Protocol Last Admin: 08/11/17 02:40 Dose: 14 units/kg/hr, 24.83 mls/hr Dexmedetomidine HCl (Precedex 400mcg/100ml) 400 mcg in 100 mls @ 9.025 mls/hr IV .Q11H5M PRN; Protocol; 0.2 MCG/KG/HR PRN Reason: Agitation Last Titration: 08/11/17 05:30 Dose: 0 mcg/kg/hr, 0 mls/hr Meropenem (Merrem Iv 1 Gm Premix) 50 mls @ 100 mls/hr IVPB Q8 YESSENIA PRN Reason: Protocol Stop: 08/18/17 22:01 Last Admin: 08/11/17 07:09 Dose: 100 mls/hr Magnesium Sulfate 2 gm/ Sodium (Chloride) 104 mls @ 102 mls/hr IVPB Q3H YESSENIA Stop: 08/11/17 13:17 Last Admin: 08/11/17 10:30 Dose: 102 mls/hr Levothyroxine Sodium (Synthroid) 100 mcg GT 0600 YESSENIA Last Admin: 08/11/17 07:10 Dose: 100 mcg Lorazepam (Ativan) 4 mg IVP Q4H PRN PRN Reason: Agitation Last Admin: 08/09/17 11:00 Dose: 4 mg Pantoprazole Sodium (Protonix Inj) 40 mg IVP DAILY [facility] Last Admin: 08/11/17 09:40 Dose: 40 mg Potassium Chloride (K-Dur 20 Meq Er Tab) 20 meq PO BID YESSENIA Last Admin: 08/11/17 09:40 Dose: 20 meq Quetiapine Fumarate (Seroquel) 25 mg PO HS YESSENIA PRN Reason: Protocol Last Admin: 08/10/17 22:12 Dose: 25 mg Saliva Substitute (Saliva Substitute) 0 ml PO DAILY PRN PRN Reason: Dry mouth Valsartan (Diovan) 160 mg PO DAILY YESSENIA Ziprasidone (Geodon Inj) 10 mg IM Q8H PRN; Protocol PRN Reason: Agitation - Labs Labs: 08/11/17 05:20 08/11/17 05:20 PT 13.3 SECONDS (9.4-12.5) H 08/07/17 05:15 INR 1.15 (0.93-1.08) H 08/07/17 05:15 APTT 50.8 Seconds (25.1-36.5) H 08/11/17 05:20 - Constitutional Appears: Well - Head Exam Head Exam: ATRAUMATIC, NORMAL INSPECTION, NORMOCEPHALIC - Eye Exam Eye Exam: EOMI, Normal appearance, PERRL Pupil Exam: NORMAL ACCOMODATION, PERRL - ENT Exam ENT Exam: Mucous Membranes Moist, Normal Exam - Neck Exam Neck Exam: Full ROM, Normal Inspection. absent: Lymphadenopathy - Respiratory Exam Respiratory Exam: Clear to Ausculation Bilateral, NORMAL BREATHING PATTERN - Cardiovascular Exam Cardiovascular Exam: REGULAR RHYTHM, +S1, +S2. absent: Murmur - GI/Abdominal Exam GI & Abdominal Exam: Soft, Normal Bowel Sounds. absent: Tenderness - Extremities Exam Extremities Exam: Full ROM, Normal Capillary Refill, Normal Inspection. absent : Joint Swelling, Pedal Edema - Back Exam Back Exam: NORMAL INSPECTION - Neurological Exam Neurological Exam: Alert, Awake, CN II-XII Intact, Normal Gait, Oriented x3 - Psychiatric Exam Psychiatric exam: Normal Affect, Normal Mood - Skin Skin Exam: Dry, Intact, Normal Color, Warm Assessment and Plan - Assessment and Plan (Free Text) Assessment: 67 year old male with PMH including HTN, COPD, HLD, DM, Chronic back pain s/p intrathecal Ziconotide pump, and peripheral vascular disease of bilateral LE who presented to [facility] after being seen in the special services supervisor (for severe headache , self-resolved) for new onset and worsening AMS, who was intubated and sedated. Patient was extubated today, is understandably groggy but is alert and oriented X 3. Patient's Haldol was discontinued. Patient also had an acute NSTEMI. ECHO showed transmitral doppler flow abnormal relaxation with normal ejection fraction. Troponins up to 4.08 but now downtrending. aPTT on Heparin drip is 50.8. Patient also had bilateral upper lobe infiltrates on Chest XR, most suggestive of pneumonia with a white count of 13 (now resolved). Blood culture, naris culture, urine culture, and sputum culture all negative. Plan: Altered Mental Status, possibly 2/2 Ziconotide intrathecal pump - Resolving - Patient was extubated, on tele now - Geodon 10 q8; Ativan 4 q4 prn; Seroquel 25 HS NSTEMI - Heparin drip, ASA; Brilinta discontinued - Daily aPTT - within therapeutic range - Cardiology consult: Dr. Hernandez Upper Lobe Pneumonia, likely 2/2 Aspiration - Merrem, Vancomycin, Levaquin Nasal Congestion - Acetylcysteine History of Hypertension - Diovan 160 daily; History of COPD - Patient currently on ventilator; Duonebs YESSENIA and PRN History of Hyperlipidemia - Holding lipitor because of sedation History of Diabetes - Patient has no oral intake, no sliding scale for now History Chronic Back Pain - Still on intrathecal ziconotide pump History of Hypothyroidism - Synthroid GI/DVT Prophylaxis - Pantoprazole; Heparin drip <Kolton Melgar U - Last Filed: 08/15/17 17:55> Objective - Vital Signs/Intake and Output Vital Signs (last 24 hours): Temp Pulse Resp BP Pulse Ox 98.2 F 76 20 120/69 94 L 08/15/17 17:25 08/15/17 17:25 08/15/17 17:25 08/15/17 17:25 08/15/17 10:00 Intake and Output: 08/15/17 08/15/17 06:59 18:59 Intake Total 1220 Output Total 3050 Balance -1830 - Medications Medications: Current Medications Acetylcysteine (Acetylcysteine 20%) 4 ml IH [id number] [facility] Last Admin: 08/15/17 13:37 Dose: Not Given Albuterol/Ipratropium (Duoneb 3 Mg/0.5 Mg (3 Ml) Ud) 3 ml IH Q2H PRN PRN Reason: Shortness of Breath Last Admin: 08/15/17 06:06 Dose: 3 ml Albuterol/Ipratropium (Duoneb 3 Mg/0.5 Mg (3 Ml) Ud) 3 ml IH [id number] [facility] Last Admin: 08/15/17 13:38 Dose: 3 ml Aspirin (Ecotrin) 325 mg PO DAILY [facility] Last Admin: 08/15/17 09:29 Dose: 325 mg Atorvastatin Calcium (Lipitor) 40 mg NG DIN [facility] Last Admin: 08/14/17 17:40 Dose: 40 mg Clopidogrel Bisulfate (Plavix) 75 mg PO DAILY [facility] Last Admin: 08/15/17 09:30 Dose: 75 mg Furosemide (Lasix) 40 mg IVP DAILY Y[facility] Last Admin: 08/15/17 09:30 Dose: 40 mg Levothyroxine Sodium (Synthroid) 100 mcg PO 0600 YESSENIA Last Admin: 08/15/17 05:06 Dose: 100 mcg Pantoprazole Sodium (Protonix Ec Tab) 40 mg PO ACB YESSENIA Last Admin: 08/15/17 09:30 Dose: 40 mg Potassium Chloride (K-Dur 20 Meq Er Tab) 20 meq PO BID YESSENIA Last Admin: 08/15/17 09:29 Dose: 20 meq Saliva Substitute (Saliva Substitute) 0 ml PO DAILY PRN PRN Reason: Dry mouth Valsartan (Diovan) 160 mg PO DAILY [facility] Last Admin: 08/15/17 09:30 Dose: 160 mg - Labs Labs: 08/14/17 06:30 08/14/17 06:30 PT 13.3 SECONDS (9.4-12.5) H 08/07/17 05:15 INR 1.15 (0.93-1.08) H 08/07/17 05:15 APTT 74.6 Seconds (25.1-36.5) H 08/13/17 07:00 Attending/Attestation - Attestation I have personally seen and examined this patient.: Yes I have fully participated in the care of the patient.: Yes I have reviewed all pertinent clinical information, including history, physical exam and plan: Yes Notes (Text): Please see/read my dictated notes.
--- NOTE | 2017-08-11 11:57 | PN ---
DATE: 08/11/2017 SUBJECTIVE: The patient is sitting in bed, still wanting to go home. No chest pain noted. PHYSICAL EXAMINATION: VITAL SIGNS: Blood pressure is 175/76, heart rate is in the 80s. NECK: Negative JVD. LUNGS: Decreased breath sounds. HEART: Reveals S1, S2. EXTREMITIES: Chronic edematous changes. LABORATORY DATA: Hemoglobin is 12. Troponin is trending down to 0.2. BUN and creatinine are unremarkable. IMPRESSION: 1. Status post respiratory failure. 2. Status post altered mental status. 3. Morbid obesity. 4. Non-ST elevation myocardial infarction. 5. Coronary artery disease. 6. Chronic edema. 7. Systemic hypertension. PLAN: Given these findings, the patient has not had recurrence of chest discomfort. The patient is scheduled for transfer to telemetry today. We will add ARB today for better blood pressure control. Andrew Hrenandez MD
[2017-08-11] MEDS: Acetylcysteine 20% Inhal Soln (4ml) IH SCH ×2 (13:14→21:11)
--- NOTE | 2017-08-11 13:53 | PN ---
DATE: 08/11/2017 SUBJECTIVE: The patient is seen in ICU bed 1. The patient is sitting up in the bed. The patient is complaining of difficulty expectoration of the phlegm. The patient kept taking off the BiPAP mask as per the nurse's notes. Yesterday, the patient refused BiPAP. The patient is seen sitting up in the bed. PHYSICAL EXAMINATION: VITAL SIGNS: T-max is 98.5-99.3; pulse 76, 84, 88; blood pressure 175/76, 171//82, 174/80, 141/71; respirations 22, 22, 27, 35; O2 sat is 100%, 89, 100, 85, 98, 94%. Intake/output: Output yesterday was 2400. Today's output is 1275. HEENT: Head examination normocephalic, atraumatic. HEENT examination shows pink conjunctivae. Anicteric sclerae. No oropharyngeal lesion. No neck rigidity. CHEST: Kyphosis. LUNGS: Shows decreased breath sound at the bases. Positive rhonchi, upper lung brock. CARDIOVASCULAR: S1, S2. Regular rhythm. Positive systolic murmur, left sternal border, right second intercostal space, left second intercostal space. ABDOMEN: Obese. Positive bowel sound. GENITALIA: Male. RECTAL: Deferred. EXTREMITY: Shows chronic lymphedematous changes of the lower extremity. MUSCULOSKELETAL: Shows body mass index today of 46. NEUROLOGIC: The patient is alert, awake, responsive, is able to move upper and lower extremity without assistance. Gait examination is not tested. DIAGNOSTICS: On 08/11/2017, WBC 7.1, hemoglobin and hematocrit 12 and 35.5, platelet 161, PTT 51. ABG on 50% FIO2: PH of 7.41, pCO2 of 46, pO2 of 141, bicarb 29, saturation of 100%. Sodium 140, potassium 3.6, chloride 98, CO2 of 32, anion gap 14, BUN 15, creatinine 0.9, GFR greater than 60, glucose 101 and 112, calcium 9, phosphorus 3.9, magnesium 1.6. Total bili 1.5, CPK 525. Troponin is 0.20 from peak troponin of 4.08. BNP is 3930. Chest x-ray from 08/11/2017 was noted, which shows decreased bilateral infiltrate with left lower lobe atelectasis and decreased pulmonary vascular congestion. EKG shows sinus rhythm, right axis deviation, age indeterminate anterior infarct. IMPRESSION AND PLAN: 1. Status post ventilator-dependent respiratory failure. 2. Status post altered mental status and encephalopathy with psychosis. 3. Acute [id number] myocardial infarction with elevated troponin. 4. Fever. 5. Severe sepsis. 6. Hypertension. 7. Tachypnea. 8. Bilateral lower extremity lymphedema. 9. Leukocytosis with granulocytosis. 10. Normocytic anemia. 11. Mild respiratory acidosis with mild hypercarbia. 12. Hypokalemia. 13. Hypomagnesemia. 14. Congestive heart failure with elevated BNP. 15. History of hypothyroidism. 16. Proteinuria. 17. Bilirubinuria. 18. Resolving bilateral multilobar pneumonia with persistent left lower lobe atelectasis. 19. Resolving congestive heart failure and pulmonary vascular congestion. 20. Right axis deviation with age indeterminate anterior infarct. 21. Sinus tachycardia. 22. Acute anterolateral infarct. 23. Bilateral multilobar pneumonia and pleural effusion. 24. Left ventricular ejection fraction of 58%. 25. Grade 1 abnormal relaxation pattern. 26. Severe sepsis with ventilator-dependent respiratory failure and severe bilateral multilobar community-acquired pneumonia. 27. 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 28. Status post intrathecal pump placement. 29. History of chronic back pain. 30. Super morbid obesity. 31. Multifactorial hyperactive delirium. 1. Status post ventilator dependent respiratory failure and status post extubation. 2. Congestive heart failure with bilateral multilobar pneumonia, infiltrate and bilateral effusion. 3. Cardiomegaly. 4. Super morbid obesity. 5. Acute non-ST elevation myocardial infarction with elevated troponin. 6. Right-axis deviation. 7. Age-indeterminate anterior infarct. 8. Status post altered mental status and encephalopathy. 9. Severe sepsis. 10. Bilateral multilobar community-acquired pneumonia. 11. History of narcotic dependent pain syndrome. 12. Chronic obstructive pulmonary disease. 13. Bilateral lower extremity lymphedema. 14. Status post gastric bypass. 15. Gait dysfunction. 16. Severe deconditioning. 17. History of hypothyroidism. 18. Febrile illness and fever. 19. Normocytic anemia. 20. Leukocytosis with granulocytosis. 21. Mild respiratory acidosis. 22. Hypokalemia. 23. Mild rhabdomyolysis with elevated CPK. 24. Hypothyroidism with elevated TSH. 25. History of vitamin B12 deficiency. 26. History of testosterone deficiency. 27. History of hypertension. 28. Proteinuria. 29. Ketonuria. 30. Bilirubinuria. 31. Bacteriuria. 32. Psychosis. 1. Ventilator-dependent respiratory failure. 2. Status post altered mental status and behavioral disorder. 3. Status post hallucination. 4. Morbid obesity with elevated body mass index of 51. 5. Transient low grade fever. 6. Transient tachycardia. 7. Transient hypotension. 8. Hypoxemia. 9. Leukocytosis with granulocytosis. 10. Normocytic anemia. 11. Transient hypercarbia and respiratory acidosis. 12. Hypokalemia. 13. Non-ST elevation myocardial infarction with elevated troponin. 14. Elevated CPK, questionable rhabdomyolysis. 15. History of hypothyroidism and vitamin B12 deficiency. 16. History of testosterone deficiency. 17. Hypokalemia. 18. Proteinuria, bilirubinuria, pyuria and ketonuria. 19. Questionable bilateral pleural effusion. 20. Right upper lobe consolidation versus pneumonia versus pulmonary edema. 21. Cardiomegaly. 22. Questionable ventilator dependent pneumonia and consolidation. 23. Bilateral dependent consolidation and bilateral ground-glass opacities. 24. Thoracic spine degenerative joint disease. 25. Status post cholecystectomy. 26. Status post gastric bypass. 27. Bilateral nephrolithiasis. 28. Encephalopathy, etiology undetermined. 29. 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 30. Ethmoid air cell partial opacification and left frontal sinus mucosal disease. 31. Left ventricular ejection fraction of 58% with grade 1 abnormal relaxation pattern. 32. Moderately thickened mitral valve. 33. Sinus tachycardia. 34. Acute anterolateral infarct with lateral injury and ischemia. 35. Acute anterolateral myocardial infarction. 36. History of hypertension, history of chronic pain syndrome, status post intrathecal ziconotide pump placement. 37. Bilateral lower extremity lymphedema. 38. Chronic pain syndrome. 39. Bilateral multilobar pneumonia. 40. History of chronic obstructive pulmonary disease. 41. History of chronic methadone and oxycodone use. 42. Transient hypertension. 43. Severe sepsis with ventilator-dependent respiratory failure. 44. Non-ST elevation myocardial infarction. 45. Acute encephalopathy probably secondary to intrathecal ziconotide side effect. 46. Transient psychosis. 47. Status post encephalopathy with hallucination and psychosis. 48. Questionable and possible ventilator-dependent bilateral multilobar aspiration pneumonia versus healthcare-associated pneumonia. 49. Morbid obesity. 50. Severe sepsis. 51. History of hypothyroidism. Plan at this time, the patient is awaiting a transfer out of the ICU to telemetry. The patient has been ordered serial labs. The patient has been given magnesium sulfate riders. The patient's current consultation: 1. Cardiology. 2. Infectious Disease. 3. Neurology. 4. Psychiatry. 5. Pulmonary. CURRENT MEDICATIONS: The patient has been added Mucomyst nebulizer 20% 4 mL with DuoNeb nebulizer every 6 hours. The patient is on Ativan 4 mg IV every 4 hours p.r.n. by ditch tender. The patient is on Diovan 160 daily. The patient is on DuoNeb nebulizer every 6 hours [id number] every 2 hours p.r.n., Ecotrin 325 mg daily, Geodon 10 mg IM every 8 hours p.r.n., heparin drip at 12 units per hour. The patient is on K-Dur 20 mEq twice a day, Lasix 40 mg IV daily, Levaquin 750 IV daily, Lipitor 40 mg daily, magnesium sulfate 2 g IV piggyback every 3 hours x2 doses. The patient is on meropenem 1 g IV every 8. The patient is on Protonix 40 IV daily, Seroquel 25 mg at bedtime, Synthroid 100 mcg daily. The patient is on BiPAP. Repeat EKG. Present, the patient has to be continued on above therapeutic intervention. The patient's overall prognosis is guarded to poor. Dictated and electronically signed, not read. Kolton Melgar MD MTDD
--- NOTE | 2017-08-11 14:25 | PN ---
DATE: SUBJECTIVE: This patient was initially seen yesterday. Please see notes for more detailed information. The patient was extubated and this database report writer was involved because of psychosis which was likely related to the medical issues. The patient was diagnosed with pneumonia, also the patient had pain pump and NSTEMI. Since yesterday, the patient did not have any agitation or aggression. The patient tolerated Seroquel at the nighttime well. Today, the patient was seen and examined. The patient presented to be alert, has periods of confusion and disorientation, but overall presented well. The patient did not require any p.r.n. medications. Vital signs are stable. Temperature 97.8, pulse is 89, blood pressure 175/76, respirations 27. The patient is participating in treatment plan. The patient requested to be seen by physical therapist. Medications reviewed. No p.r.n. medications were given. Ativan last time dose was on . Seroquel was 25 mg at the nighttime scheduled and Geodon was not given because the patient is presenting well. Labs reviewed. MENTAL STATUS EXAM: The patient presented to be alert, somewhat irritable. At times he could be loud, but there is no acute agitation. Mood described as fine. Affect was constricted and irritable, most likely it is related to personality and status post delirium. Mood described as I feel fine. Thought process concrete. Thought content: At times, the patient appears to be confused, but there are no hallucinations. Insight and judgment seem to be improving. Impulses are better controlled. IMPRESSION: Delirium is improving. PLAN: Continue current management. Continue current medication. Physical therapy. There is no need for the patient to be followed up by this database report writer. Please monitor mood as well as possible agitation. Orders are in the computer. Seroquel 25 mg needs to be weaned off after couple of days of good sleep and psychosis improvement. Seroquel 25 mg could be given as needed and if the patient does not require Seroquel, it could be safely discontinued. Thank you very much for letting me participate in care of your patient. Should you have any questions, give me a call back. Re-consult as needed. Joi Lemus MD
--- NOTE | 2017-08-11 14:26 | CARD ---
APPROVED REPORT EKG Measurement Heart [id number] <Conclusion> Normal sinus rhythm Rightward axis Possible Anterior infarct, age undetermined Abnormal ECG
--- NOTE | 2017-08-11 18:24 | PN ---
DATE: 08/11/2017 SUBJECTIVE: The patient is in bed, in no acute distress, nontoxic. The patient was seen earlier this morning. No fevers or chills. He is awake. He is extubated and comfortable. OBJECTIVE: VITAL SIGNS: Temperature is 97, blood pressure is 150/80, respiratory rate of 21, heart rate of 93, and O2 saturation is 91%. HEENT: Unremarkable. NECK: Supple. LUNGS: Decreased breath sounds. HEART: Normal S1 and S2. ABDOMEN: Soft, nontender. LABORATORY EXAMINATION: Reveals a white count of 7.1, hemoglobin of 12, and the platelets of 161. BUN of 15, creatinine of 0.9. Troponin is elevated. The patient's procalcitonin is reported to be less than 0.05. Urinalysis is noted and toxicology is noted. Serologies, HIV is negative. Urine for Legionella is negative. Microbiology reveals the blood cultures negative. Nasal MRSA is negative. Trach cultures negative. Patient had a chest x-ray this morning, which revealed scattered infiltrates seen on the right lung, linear atelectasis, and increased band-like density at left base suggest atelectasis. No active pulmonary disease. ASSESSMENT AND PLAN: This is a 67-year-old male with morbid obesity with a body mass index of 46, who was seen earlier this morning in the ICU, sitting in bed comfortably, answering questions, he is extubated. He was admitted with severe sepsis, respiratory failure, ventilator-dependent respiratory failure due to severe community-acquired pneumonia on top of acute non-ST elevation myocardial infarction, morbid obesity with a BMI of 46, hypertension, chronic obstructive lung disease, chronic methadone use, diabetic, peripheral vascular disease, and intrathecal pump placement. Today is day #5 of vancomycin, meropenem, Levaquin. Vancomycin was continued yesterday. We will discontinue meropenem. The patient is at risk for developing nosocomial infections. Today is day #5 of Levaquin. We will switch to p.o. and complete 3 more days of p.o. Levaquin to complete 7 to 10 days. This patient also has non-ST elevation myocardial infarction, coronary artery disease, and systemic hypertension. Antonino Gilmore MD
[2017-08-12] MEDS: Albuterol-Ipratrop 3 mg / 0.5 (3 ml) UD IH SCH ×4 (02:09→21:51)
[2017-08-12] MEDS: Acetylcysteine 20% Inhal Soln (4ml) IH SCH ×4 (02:09→21:52)
[2017-08-12] MEDS: Heparin 25,000units in 1/2NS 250 ML BAG IV SCH ×5 (02:31→23:55)
[2017-08-12] MEDS: Levothyroxine 100 MCG TAB GT SCH (06:10)
[2017-08-12 07:08] LABS: BASO # 0.04 K/mm3 (0.0-2.0); BASO % 0.5 % (0.0-3.0); EOS # 0.4 (0.0-0.7); EOS % 4.8 % (1.5-5.0); GRAN # 5.12 (1.4-6.5); GRAN % 65.8 % (50.0-68.0); HEMOGLOBIN 12.8 g/dL (14.0-18.0); LYMPH # 1.7 (1.2-3.4); LYMPH % 21.6 % (22.0-35.0); MEAN CELL VOLUME 88.5 fl (80.0-105.0); MEAN PLATELET VOLUME 9.7 fl (7.0-11.0); MONO # 0.6 (0.1-0.6); MONO % 7.3 % (1.0-6.0); RBC 4.26 10^6/uL (3.5-6.1); RED CELL DISTRIBUTION WIDTH 14.8 % (11.5-14.5); WHITE BLOOD COUNT 7.8 10^3/ul (4.5-11.0)
[2017-08-12 07:37] LABS: ALB/GLOB RATIO 1.3 (1.1-1.8); ALBUMIN 4.1 g/dL (3.0-4.8); ALT/SGPT 39 U/L (7-56); AST/SGOT 44 U/L (17-59); BILIRUBIN,DIRECT 0.4 mg/dL (0.0-0.4); BLOOD UREA NITROGEN 17 mg/dL (7-21); CALCIUM 9.4 mg/dL (8.4-10.5); GFR AFRICAN-AMERICAN > 60; GFR NON-AFRICAN AMERICAN > 60
[2017-08-12 07:44] LABS: B-TYPE NATRIURETIC PEPTIDE 2090 pg/mL (0-450); TROPONIN I 0.16 ng/mL
[2017-08-12 08:14] LABS: CK MB% 1.2 % (2.5-3.0); CK-MB 5.6 ng/mL (0.0-3.6)
--- NOTE | 2017-08-12 08:32 | RAD ---
HISTORY: follow up COMPARISON: 08/11/2017. FINDINGS: LUNGS: There is interval improved aeration in both lower lobes with residual atelectasis. No focal consolidation. PLEURA: No significant pleural effusion identified, no pneumothorax apparent. CARDIOVASCULAR: Normal. OSSEOUS STRUCTURES: No significant abnormalities. VISUALIZED UPPER ABDOMEN: Normal. OTHER FINDINGS: None. IMPRESSION: Interval improved aeration in the lower lobes with residual atelectasis.
--- NOTE | 2017-08-12 08:53 | PN ---
DATE: 08/12/2017 PULMONARY NOTE SUBJECTIVE: The patient appears comfortable this morning. He is not short of breath at rest. He is awake and alert. PHYSICAL EXAMINATION: VITAL SIGNS: Temperature is 98.5, pulse is 91, respiratory rate 18/20, blood pressure 158/76. Oxygen saturation on nasal cannula is 95%. HEENT: Normocephalic, atraumatic. NECK: No JVD. CARDIOVASCULAR: Systolic ejection murmur at the lower left sternal border. Questionable S3 gallop. LUNGS: Minimal/less crackles at the bases. Minimal/less rhonchi. No wheezing. EXTREMITIES: Positive for chronic edema. No cyanosis or clubbing. Calves are nontender to palpation. GI: Abdomen is soft, nontender, nondistended. Bowel sounds are positive. SKIN: Chronic cellulitic changes on both legs. NEUROLOGIC: Exam limited at the present time. PERTINENT LABORATORY DATA: Chest x-ray was done this morning and reviewed. There is further clearing of the pulmonary infiltrates. IMPRESSION: 1. Respiratory failure. 2. Congestive heart failure. 3. Acute myocardial infarction. 4. Rule out aspiration pneumonia. 5. Anemia. 6. Encephalopathy. PLAN: The patient appears comfortable this morning. He is not short of breath at rest. He does state to feeling much, much better overall. He is much less confused. I did discuss the case with the night nurse at length. The night nurse stated that the patient had a very good night. I did review the chest x-ray as above. The chest x-ray shows continued improvement with decreased pulmonary infiltrates. Comparing the film of today to last week's films, there is significant improvement. On physical exam, there is certainly less bronchospasm noted. In addition, the alveolar-arterial gradient is significantly less. I will continue with the current nebulizer treatments for now. The patient remains on antibiotic therapy-as per Infectious Disease. Temperatures have resolved. The leukocytosis has resolved. I would continue with the treatment for congestive heart failure and acute myocardial infarction-as per Cardiology. Input by Dr. Hernandez is noted. The patient remains on intravenous Lasix. Overall status of the patient is significantly improved. However, he does remain very guarded overall. I will discuss the above with the entire ICU team in the next few moments. I will also discuss the above with the attending physician. García Grace MD EM
[2017-08-12] MEDS: Potassium Chloride 20 mEq ER Tab PO SCH ×2 (10:12→17:33)
[2017-08-12] MEDS: Aspirin 325 mg EC Tablets PO SCH (10:12)
[2017-08-12] MEDS: levoFLOXacin 500 MG TAB PO SCH (10:14)
--- NOTE | 2017-08-12 14:20 | CP.PCM.PN ---
<Danny Almanza Ashvin - Last Filed: 08/12/17 14:11> Subjective - Date & Time of Evaluation Date of Evaluation: 08/12/17 Time of Evaluation: 14:11 - Subjective Subjective: Medicine progress note: Dr. Melgar Patient seen and examined at bedside. No acute events overnight. Patient is doing well, is less aggressive per nursing. Objective - Vital Signs/Intake and Output Vital Signs (last 24 hours): Temp Pulse Resp BP Pulse Ox 98.5 F 93 H 32 H 131/78 95 08/12/17 04:00 08/12/17 13:00 08/12/17 13:00 08/12/17 10:13 08/12/17 13:00 Intake and Output: 08/12/17 08/12/17 06:59 18:59 Intake Total 1265 906 Output Total 850 1325 Balance 415 -419 - Medications Medications: Current Medications Acetylcysteine (Acetylcysteine 20%) 4 ml IH [id number] [facility] Last Admin: 08/12/17 13:50 Dose: Not Given Albuterol/Ipratropium (Duoneb 3 Mg/0.5 Mg (3 Ml) Ud) 3 ml IH Q2H PRN PRN Reason: Shortness of Breath Albuterol/Ipratropium (Duoneb 3 Mg/0.5 Mg (3 Ml) Ud) 3 ml IH [id number] [facility] Last Admin: 08/12/17 13:50 Dose: Not Given Aspirin (Ecotrin) 325 mg PO DAILY [facility] Last Admin: 08/12/17 10:12 Dose: 325 mg Atorvastatin Calcium (Lipitor) 40 mg NG DIN [facility] Last Admin: 08/11/17 17:52 Dose: 40 mg Furosemide (Lasix) 40 mg IVP DAILY [facility] Last Admin: 08/12/17 10:13 Dose: 40 mg Heparin Sodium/Sodium Chloride (Heparin 35656 Units/250ml 1/2 Normal Saline) 25 ,000 units in 250 mls @ 21.283 mls/hr IV .[id number] YESSENIA; 12 UNITS/KG/HR PRN Reason: Protocol Last Admin: 08/12/17 13:05 Dose: 16 units/kg/hr, 28.377 mls/hr Dexmedetomidine HCl (Precedex 400mcg/100ml) 400 mcg in 100 mls @ 9.025 mls/hr IV .Q11H5M PRN; Protocol; 0.2 MCG/KG/HR PRN Reason: Agitation Last Titration: 08/11/17 05:30 Dose: 0 mcg/kg/hr, 0 mls/hr Levofloxacin (Levaquin) 500 mg PO DAILY YESSENIA PRN Reason: Protocol Stop: 08/15/17 10:01 Last Admin: 08/12/17 10:14 Dose: 500 mg Levothyroxine Sodium (Synthroid) 100 mcg GT 0600 [facility] Last Admin: 08/12/17 06:10 Dose: 100 mcg Lorazepam (Ativan) 4 mg IVP Q4H PRN PRN Reason: Agitation Last Admin: 08/09/17 11:00 Dose: 4 mg Pantoprazole Sodium (Protonix Ec Tab) 40 mg PO ACB YESSENIA Potassium Chloride (K-Dur 20 Meq Er Tab) 20 meq PO BID [facility] Last Admin: 08/12/17 10:12 Dose: 20 meq Quetiapine Fumarate (Seroquel) 25 mg PO HS YESSENIA PRN Reason: Protocol Last Admin: 08/11/17 22:27 Dose: 25 mg Saliva Substitute (Saliva Substitute) 0 ml PO DAILY PRN PRN Reason: Dry mouth Valsartan (Diovan) 160 mg PO DAILY [facility] Last Admin: 08/12/17 10:10 Dose: 160 mg Ziprasidone (Geodon Inj) 10 mg IM Q8H PRN; Protocol PRN Reason: Agitation - Labs Labs: 08/12/17 05:30 08/12/17 05:30 PT 13.3 SECONDS (9.4-12.5) H 08/07/17 05:15 INR 1.15 (0.93-1.08) H 08/07/17 05:15 APTT 44.7 Seconds (25.1-36.5) H 08/12/17 05:30 - Constitutional Appears: Well - Head Exam Head Exam: ATRAUMATIC, NORMAL INSPECTION, NORMOCEPHALIC - Eye Exam Eye Exam: EOMI, Normal appearance, PERRL Pupil Exam: NORMAL ACCOMODATION, PERRL - ENT Exam ENT Exam: Mucous Membranes Moist, Normal Exam - Neck Exam Neck Exam: Full ROM, Normal Inspection. absent: Lymphadenopathy - Respiratory Exam Respiratory Exam: Clear to Ausculation Bilateral, NORMAL BREATHING PATTERN - Cardiovascular Exam Cardiovascular Exam: REGULAR RHYTHM, +S1, +S2. absent: Murmur - GI/Abdominal Exam GI & Abdominal Exam: Soft, Normal Bowel Sounds. absent: Tenderness - Extremities Exam Extremities Exam: Full ROM, Normal Capillary Refill, Normal Inspection. absent : Joint Swelling, Pedal Edema - Back Exam Back Exam: NORMAL INSPECTION - Neurological Exam Neurological Exam: Alert, Awake, CN II-XII Intact, Normal Gait, Oriented x3 - Psychiatric Exam Psychiatric exam: Normal Affect, Normal Mood - Skin Skin Exam: Dry, Intact, Normal Color, Warm Assessment and Plan - Assessment and Plan (Free Text) Assessment: 67 year old male with PMH including HTN, COPD, HLD, DM, Chronic back pain s/p intrathecal Ziconotide pump, and peripheral vascular disease of bilateral LE who presented to [facility] after being seen in the die cleaner (for severe headache , self-resolved) for new onset and worsening AMS, who was intubated and sedated. Patient was extubated today, is understandably groggy but is alert and oriented X 3. Patient's Haldol was discontinued. Patient also had an acute NSTEMI. ECHO showed transmitral doppler flow abnormal relaxation with normal ejection fraction. Troponins up to 4.08 but now downtrending. aPTT on Heparin drip is 50.8. Patient also had bilateral upper lobe infiltrates on Chest XR, most suggestive of pneumonia with a white count of 13 (now resolved) - Merrem and Vanc discontinued Blood culture, naris culture, urine culture, and sputum culture all negative. Plan: Altered Mental Status, possibly 2/2 Ziconotide intrathecal pump - Resolving - Patient was extubated, on tele now - Geodon 10 q8; Ativan 4 q4 prn; Seroquel 25 HS NSTEMI - Heparin drip, ASA; Brilinta discontinued - Daily aPTT - within therapeutic range - Cardiology consult: Dr. Hernandez Upper Lobe Pneumonia, likely 2/2 Aspiration - Levaquin day 5 Nasal Congestion - Acetylcysteine History of Hypertension - Diovan 160 daily; History of COPD - Patient currently on ventilator; Duonebs YESSENIA and PRN History of Hyperlipidemia - Holding lipitor because of sedation History of Diabetes - Patient has no oral intake, no sliding scale for now History Chronic Back Pain - Still on intrathecal ziconotide pump History of Hypothyroidism - Synthroid GI/DVT Prophylaxis - Pantoprazole; Heparin drip <Talia,Kolton U - Last Filed: 08/15/17 17:56> Objective - Vital Signs/Intake and Output Vital Signs (last 24 hours): Temp Pulse Resp BP Pulse Ox 98.2 F 76 20 120/69 94 L 08/15/17 17:25 08/15/17 17:25 08/15/17 17:25 08/15/17 17:25 08/15/17 10:00 Intake and Output: 08/15/17 08/15/17 06:59 18:59 Intake Total 1220 Output Total 3050 Balance -1830 - Medications Medications: Current Medications Acetylcysteine (Acetylcysteine 20%) 4 ml IH [id number] [facility] Last Admin: 08/15/17 13:37 Dose: Not Given Albuterol/Ipratropium (Duoneb 3 Mg/0.5 Mg (3 Ml) Ud) 3 ml IH Q2H PRN PRN Reason: Shortness of Breath Last Admin: 08/15/17 06:06 Dose: 3 ml Albuterol/Ipratropium (Duoneb 3 Mg/0.5 Mg (3 Ml) Ud) 3 ml IH [id number] [facility] Last Admin: 08/15/17 13:38 Dose: 3 ml Aspirin (Ecotrin) 325 mg PO DAILY [facility] Last Admin: 08/15/17 09:29 Dose: 325 mg Atorvastatin Calcium (Lipitor) 40 mg NG DIN [facility] Last Admin: 08/14/17 17:40 Dose: 40 mg Clopidogrel Bisulfate (Plavix) 75 mg PO DAILY [facility] Last Admin: 08/15/17 09:30 Dose: 75 mg Furosemide (Lasix) 40 mg IVP DAILY [facility] Last Admin: 08/15/17 09:30 Dose: 40 mg Levothyroxine Sodium (Synthroid) 100 mcg PO 0600 [facility] Last Admin: 08/15/17 05:06 Dose: 100 mcg Pantoprazole Sodium (Protonix Ec Tab) 40 mg PO ACB [facility] Last Admin: 08/15/17 09:30 Dose: 40 mg Potassium Chloride (K-Dur 20 Meq Er Tab) 20 meq PO BID [facility] Last Admin: 08/15/17 09:29 Dose: 20 meq Saliva Substitute (Saliva Substitute) 0 ml PO DAILY PRN PRN Reason: Dry mouth Valsartan (Diovan) 160 mg PO DAILY [facility] Last Admin: 08/15/17 09:30 Dose: 160 mg - Labs Labs: 08/14/17 06:30 08/14/17 06:30 PT 13.3 SECONDS (9.4-12.5) H 08/07/17 05:15 INR 1.15 (0.93-1.08) H 08/07/17 05:15 APTT 74.6 Seconds (25.1-36.5) H 08/13/17 07:00 Attending/Attestation - Attestation I have personally seen and examined this patient.: Yes I have fully participated in the care of the patient.: Yes I have reviewed all pertinent clinical information, including history, physical exam and plan: Yes Notes (Text): Please see/read my dictated notes.
[2017-08-12] MEDS: Albuterol-Ipratrop 3 mg / 0.5 (3 ml) UD IH PRN (14:48)
--- NOTE | 2017-08-12 18:07 | CP.PCM.PN ---
Subjective - Date & Time of Evaluation Date of Evaluation: 08/11/17 Time of Evaluation: 09:00 - Subjective Subjective: Comfortable in bed, extubated, no fevers, no diarrhea. Objective - Vital Signs/Intake and Output Vital Signs (last 24 hours): Temp Pulse Resp BP Pulse Ox 97.8 F 108 H 21 154/85 H 91 L 08/11/17 12:00 08/11/17 18:00 08/11/17 16:00 08/11/17 14:00 08/11/17 16:00 Intake and Output: 08/11/17 08/12/17 18:59 06:59 Intake Total 4825 Output Total 1900 Balance 2925 - Medications Medications: Current Medications Acetylcysteine (Acetylcysteine 20%) 4 ml IH [id number] [facility] Last Admin: 08/11/17 21:11 Dose: Not Given Albuterol/Ipratropium (Duoneb 3 Mg/0.5 Mg (3 Ml) Ud) 3 ml IH Q2H PRN PRN Reason: Shortness of Breath Albuterol/Ipratropium (Duoneb 3 Mg/0.5 Mg (3 Ml) Ud) 3 ml IH [id number] [facility] Last Admin: 08/11/17 21:12 Dose: Not Given Aspirin (Ecotrin) 325 mg PO DAILY [facility] Last Admin: 08/11/17 09:40 Dose: 325 mg Atorvastatin Calcium (Lipitor) 40 mg NG DIN [facility] Last Admin: 08/11/17 17:52 Dose: 40 mg Furosemide (Lasix) 40 mg IVP DAILY [facility] Last Admin: 08/11/17 09:39 Dose: 40 mg Propofol (Diprivan) 1,000 mg in 100 mls @ 4.491 mls/hr IV .[id number] PRN; Protocol; 5 MCG/KG/MIN PRN Reason: TITRATE PER MD ORDER Last Titration: 08/09/17 08:05 Dose: 0 mcg/kg/min, 0 mls/hr Heparin Sodium/Sodium Chloride (Heparin 93394 Units/250ml 1/2 Normal Saline) 25 ,000 units in 250 mls @ 21.283 mls/hr IV .[id number] YESSENIA; 12 UNITS/KG/HR PRN Reason: Protocol Last Admin: 08/11/17 14:47 Dose: 14 units/kg/hr, 24.83 mls/hr Dexmedetomidine HCl (Precedex 400mcg/100ml) 400 mcg in 100 mls @ 9.025 mls/hr IV .Q11H5M PRN; Protocol; 0.2 MCG/KG/HR PRN Reason: Agitation Last Titration: 08/11/17 05:30 Dose: 0 mcg/kg/hr, 0 mls/hr Levofloxacin (Levaquin) 500 mg PO DAILY YESSENIA PRN Reason: Protocol Stop: 08/15/17 10:01 Levothyroxine Sodium (Synthroid) 100 mcg GT 0600 [facility] Last Admin: 08/11/17 07:10 Dose: 100 mcg Lorazepam (Ativan) 4 mg IVP Q4H PRN PRN Reason: Agitation Last Admin: 08/09/17 11:00 Dose: 4 mg Pantoprazole Sodium (Protonix Inj) 40 mg IVP DAILY [facility] Last Admin: 08/11/17 09:40 Dose: 40 mg Potassium Chloride (K-Dur 20 Meq Er Tab) 20 meq PO BID [facility] Last Admin: 08/11/17 17:52 Dose: 20 meq Quetiapine Fumarate (Seroquel) 25 mg PO HS [facility] PRN Reason: Protocol Last Admin: 08/10/17 22:12 Dose: 25 mg Saliva Substitute (Saliva Substitute) 0 ml PO DAILY PRN PRN Reason: Dry mouth Valsartan (Diovan) 160 mg PO DAILY [facility] Last Admin: 08/11/17 11:23 Dose: 160 mg Ziprasidone (Geodon Inj) 10 mg IM Q8H PRN; Protocol PRN Reason: Agitation - Labs Labs: 08/11/17 05:20 08/11/17 05:20 PT 13.3 SECONDS (9.4-12.5) H 08/07/17 05:15 INR 1.15 (0.93-1.08) H 08/07/17 05:15 APTT 50.8 Seconds (25.1-36.5) H 08/11/17 05:20 - Constitutional Appears: Chronically Ill - Head Exam Head Exam: NORMAL INSPECTION - Respiratory Exam Respiratory Exam: Decreased Breath Sounds - Cardiovascular Exam Cardiovascular Exam: +S1, +S2 - GI/Abdominal Exam GI & Abdominal Exam: Soft. absent: Tenderness Assessment and Plan - Assessment and Plan (Free Text) Plan: Assessment Severe sepsis with ventilator-dependent respiratory failure due to severe community-acquired pneumonia on top of acute NSTEMI, clinically improving morbid obesity with BMI 50 HTN COPD chronic methadone use DM peripheral vascular disease chronic back pain S/P intrathecal pump placement Plan on Levaquin day 6 to complete 7-10 days of therapy will continue to monitor clinically
--- NOTE | 2017-08-12 18:21 | PN ---
DATE: 08/12/2017 CARDIOLOGY FOLLOWUP SUBJECTIVE: The patient's breathing has much improved. PHYSICAL EXAMINATION: VITAL SIGNS: Blood pressure is 131/78, the heart rate is in the 90s. NECK: Negative JVD. LUNGS: Bilateral rhonchi. HEART: Reveals S1, S2. EXTREMITIES: Chronic edema. LABORATORY DATA: Hemoglobin is 12.8. Chemistries: Troponin is on a downward trend to 0.16, BUN and creatinine are unremarkable. IMPRESSION: 1. Status post non-ST elevation myocardial infarction. 2. Respiratory failure. 3. Coronary artery disease. 4. Chronic anemia. 5. Hypertension. PLAN: Given these findings, we will continue on the current treatment at this time. No plans for catheterization anytime soon given the patient's inability to cooperate. Andrew Hernandez MD
[2017-08-13] MEDS: Albuterol-Ipratrop 3 mg / 0.5 (3 ml) UD IH PRN (01:45)
[2017-08-13] MEDS: Acetylcysteine 20% Inhal Soln (4ml) IH SCH ×4 (03:15→19:24)
[2017-08-13] MEDS: Albuterol-Ipratrop 3 mg / 0.5 (3 ml) UD IH SCH ×4 (03:15→19:35)
[2017-08-13] MEDS: Levothyroxine 100 MCG TAB GT SCH (06:00)
[2017-08-13 08:04] LABS: BASO # 0.04 K/mm3 (0.0-2.0); BASO % 0.5 % (0.0-3.0); EOS # 0.3 (0.0-0.7); EOS % 3.1 % (1.5-5.0); GRAN # 5.51 (1.4-6.5); GRAN % 69.1 % (50.0-68.0); HEMOGLOBIN 12.5 g/dL (14.0-18.0); LYMPH # 1.6 (1.2-3.4); LYMPH % 20.3 % (22.0-35.0); MEAN CELL VOLUME 89.5 fl (80.0-105.0); MEAN CORPUSCULAR HEMOGLOBIN 29.8 pg (25.0-35.0); MEAN CORPUSCULAR HGB CONC 33.2 g/dl (31.0-37.0); MEAN PLATELET VOLUME 9.9 fl (7.0-11.0); MONO # 0.6 (0.1-0.6); RBC 4.2 10^6/uL (3.5-6.1); RED CELL DISTRIBUTION WIDTH 14.9 % (11.5-14.5)
[2017-08-13 08:18] LABS: B-TYPE NATRIURETIC PEPTIDE 861 pg/mL (0-450)
[2017-08-13 08:26] LABS: ALB/GLOB RATIO 1.3 (1.1-1.8); ALBUMIN 4.1 g/dL (3.0-4.8); ALT/SGPT 39 U/L (7-56); AST/SGOT 41 U/L (17-59); BILIRUBIN,DIRECT 0.4 mg/dL (0.0-0.4); BLOOD UREA NITROGEN 18 mg/dL (7-21); CALCIUM 9.5 mg/dL (8.4-10.5); GFR AFRICAN-AMERICAN > 60; GFR NON-AFRICAN AMERICAN > 60
--- NOTE | 2017-08-13 08:55 | PN ---
DATE: 08/13/2017 PULMONARY NOTE SUBJECTIVE: The patient appears very comfortable at rest. He is not short of breath. PHYSICAL EXAMINATION VITAL SIGNS: Temperature is 98, pulse is 78, respirations 19, blood pressure 129/73. Oxygen saturation on room air is 95%. HEENT: Normocephalic, atraumatic. No JVD. CARDIOVASCULAR: Systolic ejection murmur at the lower left sternal border. Questionable S3 gallop. LUNGS: Minimal crackles at the bases. No rhonchi or wheezing this morning. EXTREMITIES: Less edema. No cyanosis, no clubbing. Calves are nontender to palpation. GI: Abdomen is soft, nontender and nondistended. Bowel sounds are positive. SKIN: Chronic cellulitic changes on both legs. NEUROLOGIC: Limited at the present time. IMPRESSION: 1. Status post respiratory failure. 2. Congestive heart failure. 3. Acute myocardial infarction. 4. Rule out aspiration pneumonia. 5. Anemia. 6. Encephalopathy. PLAN: The patient appears very comfortable this morning. He is not short of breath at rest. He does state to feeling much, much better overall. I did discuss the case with the night nurse at length. The night nurse stated that the patient had a very good night. I did review the last chest x-ray - in yesterday's assessment. There is continued significant improvement. On physical exam, there is significantly less bronchospasm. In addition, the oxygen saturation on room air is now 95%. I will continue with the current nebulizer treatments for now. Inputs by Infectious Disease and Cardiology are noted. The clinical status of this patient is significantly improved overall. However, again, his future status/prognosis does remain very guarded. I will discuss the above with the attending physician. García Grace MD MTDD
[2017-08-13] MEDS: Heparin 25,000units in 1/2NS 250 ML BAG IV SCH (08:59)
[2017-08-13] MEDS: Potassium Chloride 20 mEq ER Tab PO SCH ×2 (09:05→17:40)
[2017-08-13] MEDS: Aspirin 325 mg EC Tablets PO SCH (09:05)
[2017-08-13] MEDS: levoFLOXacin 500 MG TAB PO SCH (09:05)
[2017-08-13] MEDS: Pantoprazole 40 mg EC Tab PO SCH (09:08)
--- NOTE | 2017-08-13 09:58 | PN ---
DATE: 08/13/2017 SUBJECTIVE: The patient is in bed, in no acute distress, nontoxic. No fevers. PHYSICAL EXAMINATION: VITAL SIGNS: Temperature is 98, blood pressure is 120/70, respiratory rate of 20, heart rate of 74. HEENT: Examination of HEENT is unremarkable. NECK: Supple. LUNGS: Have decreased breath sounds. HEART: Normal S1, S2. ABDOMEN: Soft, nontender. LABORATORY DATA: Laboratory examination reveals the patient's white count of 8, hemoglobin of 12 and platelets of 170. Chemistries are noted. BUN of 18, creatinine of 0.8. Urinalysis is noted and toxicology is noted. Serology is negative. Microbiology, cultures are no growth. Review of orders reveals the patient to be on p.o. Levaquin. ASSESSMENT AND PLAN: A 67-year-old male with severe sepsis, ventilator-dependent respiratory failure due to severe community-acquired pneumonia on top of acute igo-AU-tpfqejezf myocardial infarction, clinically improving, morbid obesity with body mass index of 50, hypertension, chronic obstructive lung disease and chronic methadone use, peripheral vascular disease, diabetes mellitus and chronic back pain and status post intrathecal pump placement. Today is day #7 of Levaquin p.o. The patient is seen early this morning. We will follow closely with you. Antonino Gilmore MD
--- NOTE | 2017-08-13 12:40 | PN ---
DATE: 08/13/2017 SUBJECTIVE: The patient is seen sitting up in the bed in room 267, bed 1. The patient is comfortable. Watching TV. Overnight nurse's notes were reviewed. No adverse events were documented. The patient appeared very comfortable at present. PHYSICAL EXAMINATION: VITAL SIGNS: T-max 98; pulse 74, 78, sinus rhythm; blood pressure 129/73; respirations 19; O2 sat 95%. Intake/output was noted. HEENT: Head examination normocephalic, atraumatic. HEENT examination shows pinkish conjunctivae. Anicteric sclerae. No oropharyngeal lesion. No neck rigidity. CHEST: Symmetrical. Decreased breath sounds at the bases. CARDIOVASCULAR: S1, S2. Regular rhythm. Positive systolic murmur, left sternal border, right second intercostal space, left second intercostal space. ABDOMEN: Morbidly obese. GENITALIA: Male. EXTREMITY: Shows chronic lymphedema of the lower extremity. Chronic skin changes of the lower extremity. MUSCULOSKELETAL: Shows an elevated body mass index. Musculoskeletal examination shows a BMI of 46. DIAGNOSTICS: On 08/13/2017, WBC 8, hemoglobin and hematocrit 12.5 and 37.6, platelet 170, granulocytes 69, PTT 74.6. Sodium 138, potassium 4.6, chloride 94, CO2 of 33, anion gap 16, BUN 18, creatinine 0.8, GFR greater than 60. Glucose 93, glucose 124. Calcium 9.5, phosphorus 4.2, magnesium 1.9. BNP is down to 861. Peak BNP was 5220. Microbiology: Cultures are negative. Last chest x-ray from 08/12/2017 was reviewed, which shows improved aeration. IMPRESSION AND PLAN: 1. Status post ventilator-dependent respiratory failure. 2. Super morbid obesity. 3. Severe sepsis with ventilator-dependent respiratory failure with severe community-acquired multilobar bilateral pneumonia. 4. Acute cyx-OL-lpabfmzlg myocardial infarction with elevated troponin. 5. Possible diastolic congestive heart failure with elevated BNP. 6. Left ventricular ejection fraction of 55%. 7. Age indeterminate anterior infarct. 8. Acute anterolateral infarct with lateral injury. 9. History of chronic narcotic-dependent pain syndrome. 10. Status post encephalopathy and psychosis and hallucination. 11. Hypertension and chronic obstructive pulmonary disease. 12. Hypokalemia. 13. Dyslipidemia. 14. Hypothyroidism. 1. Status post ventilator-dependent respiratory failure. 2. Severe sepsis with multilobar bilateral ventilator-dependent versus community-acquired pneumonia. 3. Super morbid obesity. 4. Hypertension. 5. Fever. 6. Encephalopathy with altered mental status and hallucination (resolved). 7. Hypoxemia. 8. Transient respiratory acidosis with hypercarbia. 9. Normocytic anemia. 10. Acute non-ST elevation myocardial infarction with elevated troponin. 11. Congestive heart failure and bibasilar atelectasis (resolving). 12. History of testosterone deficiency, history of hypothyroidism, history of vitamin B12 deficiency. 13. History of chronic narcotic-dependent pain syndrome, status post intrathecal ziconotide pump treatment and removal. 14. Bilateral lower extremity lymphedema. 15. Chronic . 16. Congestive heart failure with elevated BNP. 17. Questionable mild rhabdomyolysis with elevated CPK. 1. Status post ventilator-dependent respiratory failure. 2. Status post altered mental status and encephalopathy with psychosis. 3. Acute ohp-DD-duciyhyeo myocardial infarction with elevated troponin. 4. Fever. 5. Severe sepsis. 6. Hypertension. 7. Tachypnea. 8. Bilateral lower extremity lymphedema. 9. Leukocytosis with granulocytosis. 10. Normocytic anemia. 11. Mild respiratory acidosis with mild hypercarbia. 12. Hypokalemia. 13. Hypomagnesemia. 14. Congestive heart failure with elevated BNP. 15. History of hypothyroidism. 16. Proteinuria. 17. Bilirubinuria. 18. Resolving bilateral multilobar pneumonia with persistent left lower lobe atelectasis. 19. Resolving congestive heart failure and pulmonary vascular congestion. 20. Right axis deviation with age indeterminate anterior infarct. 21. Sinus tachycardia. 22. Acute anterolateral infarct. 23. Bilateral multilobar pneumonia and pleural effusion. 24. Left ventricular ejection fraction of 58%. 25. Grade 1 abnormal relaxation pattern. 26. Severe sepsis with ventilator-dependent respiratory failure and severe bilateral multilobar community-acquired pneumonia. 27. 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 28. Status post intrathecal pump placement. 29. History of chronic back pain. 30. Super morbid obesity. 31. Multifactorial hyperactive delirium. 1. Status post ventilator dependent respiratory failure and status post extubation. 2. Congestive heart failure with bilateral multilobar pneumonia, infiltrate and bilateral effusion. 3. Cardiomegaly. 4. Super morbid obesity. 5. Acute non-ST elevation myocardial infarction with elevated troponin. 6. Right-axis deviation. 7. Age-indeterminate anterior infarct. 8. Status post altered mental status and encephalopathy. 9. Severe sepsis. 10. Bilateral multilobar community-acquired pneumonia. 11. History of narcotic dependent pain syndrome. 12. Chronic obstructive pulmonary disease. 13. Bilateral lower extremity lymphedema. 14. Status post gastric bypass. 15. Gait dysfunction. 16. Severe deconditioning. 17. History of hypothyroidism. 18. Febrile illness and fever. 19. Normocytic anemia. 20. Leukocytosis with granulocytosis. 21. Mild respiratory acidosis. 22. Hypokalemia. 23. Mild rhabdomyolysis with elevated CPK. 24. Hypothyroidism with elevated TSH. 25. History of vitamin B12 deficiency. 26. History of testosterone deficiency. 27. History of hypertension. 28. Proteinuria. 29. Ketonuria. 30. Bilirubinuria. 31. Bacteriuria. 32. Psychosis. 1. Ventilator-dependent respiratory failure. 2. Status post altered mental status and behavioral disorder. 3. Status post hallucination. 4. Morbid obesity with elevated body mass index of 51. 5. Transient low grade fever. 6. Transient tachycardia. 7. Transient hypotension. 8. Hypoxemia. 9. Leukocytosis with granulocytosis. 10. Normocytic anemia. 11. Transient hypercarbia and respiratory acidosis. 12. Hypokalemia. 13. Non-ST elevation myocardial infarction with elevated troponin. 14. Elevated CPK, questionable rhabdomyolysis. 15. History of hypothyroidism and vitamin B12 deficiency. 16. History of testosterone deficiency. 17. Hypokalemia. 18. Proteinuria, bilirubinuria, pyuria and ketonuria. 19. Questionable bilateral pleural effusion. 20. Right upper lobe consolidation versus pneumonia versus pulmonary edema. 21. Cardiomegaly. 22. Questionable ventilator dependent pneumonia and consolidation. 23. Bilateral dependent consolidation and bilateral ground-glass opacities. 24. Thoracic spine degenerative joint disease. 25. Status post cholecystectomy. 26. Status post gastric bypass. 27. Bilateral nephrolithiasis. 28. Encephalopathy, etiology undetermined. 29. 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 30. Ethmoid air cell partial opacification and left frontal sinus mucosal disease. 31. Left ventricular ejection fraction of 58% with grade 1 abnormal relaxation pattern. 32. Moderately thickened mitral valve. 33. Sinus tachycardia. 34. Acute anterolateral infarct with lateral injury and ischemia. 35. Acute anterolateral myocardial infarction. 36. History of hypertension, history of chronic pain syndrome, status post intrathecal ziconotide pump placement. 37. Bilateral lower extremity lymphedema. 38. Chronic pain syndrome. 39. Bilateral multilobar pneumonia. 40. History of chronic obstructive pulmonary disease. 41. History of chronic methadone and oxycodone use. 42. Transient hypertension. 43. Severe sepsis with ventilator-dependent respiratory failure. 44. Non-ST elevation myocardial infarction. 45. Acute encephalopathy probably secondary to intrathecal ziconotide side effect. 46. Transient psychosis. 47. Status post encephalopathy with hallucination and psychosis. 48. Questionable and possible ventilator-dependent bilateral multilobar aspiration pneumonia versus healthcare-associated pneumonia. 49. Morbid obesity. 50. Severe sepsis. 51. History of hypothyroidism. Plan at this time, the patient has been much more stable since hospitalization and since out of the ICU. The patient will be repeated another day of repeat labs. The patient is awaiting Cardiology recommendations and decision about continuation of the heparin drip. The patient's current medications, Mucomyst nebulizer every 6 hours; Ativan 4 mg IV every four p.r.n., which will be considered for discontinuation as the patient is not getting that; Diovan started 160 mg daily by Cardiology; DuoNeb nebulizer every 6 hours [id number] and every 2 hours p.r.n.; Ecotrin 325 daily; Geodon 10 mg IM every 8 hours p.r.n.; the patient is still on heparin drip, which needs to be decided by Cardiology regarding the duration and continuation; K-Dur 20 mEq twice a day; Lasix 40 mg IV daily; Levaquin 500 mg p.o. daily; Lipitor 40 mg daily; Protonix 40 mg daily; Seroquel 25 mg at bedtime p.r.n. by Psychiatry; Synthroid 100 mcg p.o. daily. At present, the patient's further management will be dependent upon the patient's clinical condition, hemodynamic status and as per the patient's response to therapeutic intervention, as per the patient's diagnostic test results and recommendation by all the physicians. As mentioned, I have spoken to the patient's at length about the patient's condition and overall guarded to poor prognosis. The patient was seen by the Pool Player. Discharge planning was subacute rehab per the recommendation of the Physical Therapy, but I have spoken to the patient today and he is more interested in going home. So discharge disposition needs to be discussed by the patient and the patient's family with the Pool Player. Dictated and electronically signed, not read. Kolton Melgar MD MTDBrinda
--- NOTE | 2017-08-13 13:22 | PN ---
DATE: 08/13/2017 CARDIOLOGY FOLLOWUP SUBJECTIVE: The patient is comfortable, sitting up in bed. He is much more cooperative today. PHYSICAL EXAMINATION: VITAL SIGNS: Blood pressure is 129/73 with the heart rates in the 70s. NECK: Negative JVD. LUNGS: Without rales. HEART: Reveals S1, S2. EXTREMITIES: Chronic edematous changes. LABORATORY DATA: BUN and creatinine are unremarkable. The hemoglobin is 12.5. IMPRESSION: 1. Status post respiratory failure. 2. Jyh-LF-hzufoufwj myocardial infarction. 3. Morbid obesity. 4. Chronic anemia. 5. Hypertension. PLAN: Given these findings, I believe the patient is able to undergo cardiac catheterization now that he is much more awake and more cooperative. I had an extensive discussion with him and he is agreeable to undergo the procedure. I will discuss with Dr. Back about doing the procedure through the left upper extremity to avoid him lying flat for a long period of time. The patient is agreeable. We will try to arrange for Tuesday. Andrew Hernandez MD
[2017-08-14] MEDS: Acetylcysteine 20% Inhal Soln (4ml) IH SCH ×4 (01:57→19:31)
[2017-08-14] MEDS: Albuterol-Ipratrop 3 mg / 0.5 (3 ml) UD IH SCH ×4 (01:58→19:30)
[2017-08-14] MEDS: Levothyroxine 100 MCG TAB PO SCH (05:39)
[2017-08-14 07:26] LABS: BASO # 0.03 K/mm3 (0.0-2.0); BASO % 0.4 % (0.0-3.0); EOS # 0.4 (0.0-0.7); EOS % 4.5 % (1.5-5.0); GRAN # 5.59 (1.4-6.5); GRAN % 68.6 % (50.0-68.0); HEMOGLOBIN 12.6 g/dL (14.0-18.0); LYMPH # 1.5 (1.2-3.4); LYMPH % 18.5 % (22.0-35.0); MEAN CELL VOLUME 88.4 fl (80.0-105.0); MEAN CORPUSCULAR HEMOGLOBIN 29.8 pg (25.0-35.0); MEAN CORPUSCULAR HGB CONC 33.7 g/dl (31.0-37.0); MONO # 0.7 (0.1-0.6); RBC 4.23 10^6/uL (3.5-6.1); RED CELL DISTRIBUTION WIDTH 14.9 % (11.5-14.5); WHITE BLOOD COUNT 8.2 10^3/ul (4.5-11.0)
[2017-08-14 07:32] LABS: ALB/GLOB RATIO 1.4 (1.1-1.8); ALBUMIN 4.2 g/dL (3.0-4.8); ALT/SGPT 37 U/L (7-56); AST/SGOT 42 U/L (17-59); BILIRUBIN,DIRECT 0.3 mg/dL (0.0-0.4); BLOOD UREA NITROGEN 19 mg/dL (7-21); CALCIUM 9.6 mg/dL (8.4-10.5); GFR AFRICAN-AMERICAN > 60; GFR NON-AFRICAN AMERICAN > 60
[2017-08-14 07:41] LABS: B-TYPE NATRIURETIC PEPTIDE 488 pg/mL (0-450)
[2017-08-14] MEDS: Pantoprazole 40 mg EC Tab PO SCH (09:11)
[2017-08-14] MEDS: levoFLOXacin 500 MG TAB PO SCH (09:11)
[2017-08-14] MEDS: Potassium Chloride 20 mEq ER Tab PO SCH ×2 (09:11→17:40)
[2017-08-14] MEDS: Aspirin 325 mg EC Tablets PO SCH (09:11)
[2017-08-15] MEDS: Albuterol-Ipratrop 3 mg / 0.5 (3 ml) UD IH PRN ×2 (00:15→06:06)
--- NOTE | 2017-08-15 03:05 | PN ---
DATE: 08/14/2017 SUBJECTIVE: The patient is in bed, was seen earlier this morning, in room 267, bed 1. No fevers and no chills. He is comfortable. PHYSICAL EXAMINATION: VITAL SIGNS: Temperature is 97, blood pressure is 130/60, respiratory rate of 18. HEENT: Unremarkable. NECK: Supple. LUNGS: Have decreased breath sounds. HEART: Normal S1 and S2. ABDOMEN: Soft, nontender. LABORATORY DATA: Reveals a white count of 8.2, hemoglobin of 12, platelets of 177 . Chemistries reveal a BUN of 19, creatinine of 0.9. Procalcitonin is less than 0.05. Urinalysis is noted. HIV is nonreactive, and urine for Legionella is negative. Microbiology reveals the cultures are negative. Review of orders reveals the patient to be on p.o. Levaquin. ASSESSMENT AND PLAN: This is a 67-year-old male who is seen earlier this morning in 267, bed 1, severe sepsis, ventilator-dependent respiratory failure due to severe community-acquired pneumonia on top of acute xjk-DX-ojpnxzyud myocardial infarction, with morbid obesity with body mass index of 50, and hypertension, chronic obstructive lung disease and chronic methadone use, peripheral vascular disease, diabetes mellitus and chronic back pain, status post intrathecal pump placement. Today is day #8 of Levaquin. We will follow with you. Antonino Gilmore MD
[2017-08-15] MEDS: Albuterol-Ipratrop 3 mg / 0.5 (3 ml) UD IH SCH ×4 (04:11→19:24)
[2017-08-15] MEDS: Acetylcysteine 20% Inhal Soln (4ml) IH SCH ×4 (04:11→19:24)
[2017-08-15] MEDS: Levothyroxine 100 MCG TAB PO SCH (05:06)
--- NOTE | 2017-08-15 08:43 | PN ---
DATE: 08/15/2017 PULMONARY NOTE SUBJECTIVE: The patient appears very comfortable this morning. He is not short of breath at rest. PHYSICAL EXAMINATION: VITAL SIGNS: Temperature is 97.9, pulse 87, respirations 18/20, blood pressure 110/64. Oxygen saturation on room air is 95-96%. HEENT: Normocephalic, atraumatic. No JVD. CARDIOVASCULAR: Systolic ejection murmur at the lower left sternal border. No S3 gallop. LUNGS: Very minimal/less crackles at the bases. Otherwise clear. EXTREMITIES: Less edema. No cyanosis. No clubbing. Calves are nontender to palpation. GI: Abdomen is soft, nontender and nondistended. Bowel sounds are positive. SKIN: Chronic cellulitic changes on both legs. NEUROLOGIC: Limited at the present time. IMPRESSION: 1. Status post respiratory failure. 2. Status post congestive heart failure. 3. Acute myocardial infarction. 4. Rule out aspiration pneumonia. 5. Anemia. 6. Encephalopathy - resolved. PLAN: The patient appears very comfortable this morning. He is not short of breath at rest. He is awake and alert, conversive. He does state to feeling much, much better overall. I did discuss the case with the night nurse at length. The night nurse stated that the patient had a very good night. On physical exam, the patient's bronchospasm has primarily resolved. In addition, the alveolar-arterial gradient is also resolved. Oxygen saturation on room air is now 95%. I will continue with the current nebulizer treatments for now. The patient remains on antibiotic therapy - as per Infectious Disease. Temperatures have fully resolved. The leukocytosis has also fully resolved. Input by Cardiology is also noted. The clinical status of the patient is significantly improved overall. I will discuss the above with the attending physician. García Grace MD MTDBrinda
--- NOTE | 2017-08-15 09:05 | PN ---
DATE: 08/12/2017 LOCATION: The patient is seen in ICU, bed 1. SUBJECTIVE: The patient is sitting up in the bed. Yesterday's symptoms of difficulty expectoration is almost resolved. The patient is alert, awake, oriented x3. The patient is in no distress. The patient is seen sitting up in the bed watching TV. The patient is able to answer all the questions appropriately. A 13-system review was done. PHYSICAL EXAMINATION: VITAL SIGNS: T-max 98.4; telemetry shows normal sinus rhythm, heart rate 80-87; blood pressure 158/76, respirations 20, O2 sat averaging between 91%-96%. HEAD: Normocephalic, atraumatic. HEENT: Shows pink conjunctivae, anicteric sclerae. No oropharyngeal lesion. No neck rigidity. CHEST: Kyphosis. LUNGS: Show decreasing rhonchi of the upper and mid lung brock. Questionable decreased breath sounds at the bases, left more than the right. CARDIOVASCULAR: S1, S2, regular rhythm. Positive systolic murmur in left sternal border, right second intercostal space, left second intercostal space. ABDOMEN: Obese. Positive bowel sounds. Protuberant. GENITALIA: Male. Barger catheter removed. EXTREMITIES: Show chronic skin changes of the lymphedema of the lower extremity. MUSCULOSKELETAL: Shows elevated body mass index for age and height. NEUROLOGIC: The patient is alert, awake, oriented x3. Cranial nerves II-XII intact and limited. Gait examination could not be tested. DIAGNOSTIC DATA: On 08/12/2017, WBC 7.8, hemoglobin and hematocrit 12.8 and 38, platelets 171. Sodium 142, potassium 4.1, chloride 99, CO2 of 29, BUN 17, creatinine 0.9, glucose 110, calcium 9.4, phosphorus 3.6, magnesium 2. CPK 467. BNP 2090. Troponin is 0.16. Chest x-ray from 08/12/2017 shows decreasing CHF, decreasing atelectasis at the bases. IMPRESSION: 1. Status post ventilator-dependent respiratory failure. 2. Severe sepsis with multilobar bilateral ventilator-dependent versus community-acquired pneumonia. 3. Super morbid obesity. 4. Hypertension. 5. Fever. 6. Encephalopathy with altered mental status and hallucination (resolved). 7. Hypoxemia. 8. Transient respiratory acidosis with hypercarbia. 9. Normocytic anemia. 10. Acute non-ST elevation myocardial infarction with elevated troponin. 11. Congestive heart failure and bibasilar atelectasis (resolving). 12. History of testosterone deficiency, history of hypothyroidism, history of vitamin B12 deficiency. 13. History of chronic narcotic-dependent pain syndrome, status post intrathecal ziconotide pump treatment and removal. 14. Bilateral lower extremity lymphedema. 15. Chronic . 16. Congestive heart failure with elevated BNP. 17. Questionable mild rhabdomyolysis with elevated CPK. 1. Status post ventilator-dependent respiratory failure. 2. Status post altered mental status and encephalopathy with psychosis. 3. Acute hde-[id number] myocardial infarction with elevated troponin. 4. Fever. 5. Severe sepsis. 6. Hypertension. 7. Tachypnea. 8. Bilateral lower extremity lymphedema. 9. Leukocytosis with granulocytosis. 10. Normocytic anemia. 11. Mild respiratory acidosis with mild hypercarbia. 12. Hypokalemia. 13. Hypomagnesemia. 14. Congestive heart failure with elevated BNP. 15. History of hypothyroidism. 16. Proteinuria. 17. Bilirubinuria. 18. Resolving bilateral multilobar pneumonia with persistent left lower lobe atelectasis. 19. Resolving congestive heart failure and pulmonary vascular congestion. 20. Right axis deviation with age indeterminate anterior infarct. 21. Sinus tachycardia. 22. Acute anterolateral infarct. 23. Bilateral multilobar pneumonia and pleural effusion. 24. Left ventricular ejection fraction of 58%. 25. Grade 1 abnormal relaxation pattern. 26. Severe sepsis with ventilator-dependent respiratory failure and severe bilateral multilobar community-acquired pneumonia. 27. 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 28. Status post intrathecal pump placement. 29. History of chronic back pain. 30. Super morbid obesity. 31. Multifactorial hyperactive delirium. 1. Status post ventilator dependent respiratory failure and status post extubation. 2. Congestive heart failure with bilateral multilobar pneumonia, infiltrate and bilateral effusion. 3. Cardiomegaly. 4. Super morbid obesity. 5. Acute non-ST elevation myocardial infarction with elevated troponin. 6. Right-axis deviation. 7. Age-indeterminate anterior infarct. 8. Status post altered mental status and encephalopathy. 9. Severe sepsis. 10. Bilateral multilobar community-acquired pneumonia. 11. History of narcotic dependent pain syndrome. 12. Chronic obstructive pulmonary disease. 13. Bilateral lower extremity lymphedema. 14. Status post gastric bypass. 15. Gait dysfunction. 16. Severe deconditioning. 17. History of hypothyroidism. 18. Febrile illness and fever. 19. Normocytic anemia. 20. Leukocytosis with granulocytosis. 21. Mild respiratory acidosis. 22. Hypokalemia. 23. Mild rhabdomyolysis with elevated CPK. 24. Hypothyroidism with elevated TSH. 25. History of vitamin B12 deficiency. 26. History of testosterone deficiency. 27. History of hypertension. 28. Proteinuria. 29. Ketonuria. 30. Bilirubinuria. 31. Bacteriuria. 32. Psychosis. 1. Ventilator-dependent respiratory failure. 2. Status post altered mental status and behavioral disorder. 3. Status post hallucination. 4. Morbid obesity with elevated body mass index of 51. 5. Transient low grade fever. 6. Transient tachycardia. 7. Transient hypotension. 8. Hypoxemia. 9. Leukocytosis with granulocytosis. 10. Normocytic anemia. 11. Transient hypercarbia and respiratory acidosis. 12. Hypokalemia. 13. Non-ST elevation myocardial infarction with elevated troponin. 14. Elevated CPK, questionable rhabdomyolysis. 15. History of hypothyroidism and vitamin B12 deficiency. 16. History of testosterone deficiency. 17. Hypokalemia. 18. Proteinuria, bilirubinuria, pyuria and ketonuria. 19. Questionable bilateral pleural effusion. 20. Right upper lobe consolidation versus pneumonia versus pulmonary edema. 21. Cardiomegaly. 22. Questionable ventilator dependent pneumonia and consolidation. 23. Bilateral dependent consolidation and bilateral ground-glass opacities. 24. Thoracic spine degenerative joint disease. 25. Status post cholecystectomy. 26. Status post gastric bypass. 27. Bilateral nephrolithiasis. 28. Encephalopathy, etiology undetermined. 29. 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 30. Ethmoid air cell partial opacification and left frontal sinus mucosal disease. 31. Left ventricular ejection fraction of 58% with grade 1 abnormal relaxation pattern. 32. Moderately thickened mitral valve. 33. Sinus tachycardia. 34. Acute anterolateral infarct with lateral injury and ischemia. 35. Acute anterolateral myocardial infarction. 36. History of hypertension, history of chronic pain syndrome, status post intrathecal ziconotide pump placement. 37. Bilateral lower extremity lymphedema. 38. Chronic pain syndrome. 39. Bilateral multilobar pneumonia. 40. History of chronic obstructive pulmonary disease. 41. History of chronic methadone and oxycodone use. 42. Transient hypertension. 43. Severe sepsis with ventilator-dependent respiratory failure. 44. Non-ST elevation myocardial infarction. 45. Acute encephalopathy probably secondary to intrathecal ziconotide side effect. 46. Transient psychosis. 47. Status post encephalopathy with hallucination and psychosis. 48. Questionable and possible ventilator-dependent bilateral multilobar aspiration pneumonia versus healthcare-associated pneumonia. 49. Morbid obesity. 50. Severe sepsis. 51. History of hypothyroidism. PLAN: At this time, the patient is awaiting transfer out of the ICU. The patient's condition, diagnoses, test results, recommendation by all the physician involved in the care of the patient have been explained to the patient's at length, Yudith Oneill, who works in the medical record at [facility]. All the above have been explained to the patient's and the patient at length and all questions concerned answered. At present, we are awaiting further recommendations from all the subspecialty involved in the care of the patient, especially Cardiology regarding pending of the cardiac catheterization, which was recommended by the pan washer which will determine whether the patient can be put for discharge to subacute rehab versus acute rehab and if the patient needs to have a cardiac catheterization during this hospitalization or electively after patient is more stabilized after rehab treatment. The patient will be continued on the medications as per the MVR, which is reviewed. The patient's IV antibiotics are being discontinued as per infectious disease recommendation. Dictated and electronically signed, not read. Kolton Melgar MD MTDBrinda
--- NOTE | 2017-08-15 09:11 | PN ---
DATE: 08/14/2017 SUBJECTIVE: The patient was seen sitting up in the bed in room 267, bed 1. The patient is awake, responsive, alert. The patient's family is at bedside. The patient is without any gross deficit. No hallucination noted. No psychosis noted. No auditory or visual hallucination. No psychosis noted. The patient's overnight nurse's notes were reviewed. The patient is off the heparin drip. PHYSICAL EXAMINATION: VITAL SIGNS: T-max 98.9. Telemetry sinus rhythm, heart rate in 80s, 90s beats per minute. Telemetry shows normal sinus rhythm. Blood pressure 134/87, 140/70; respirations 18-20; O2 sat in mid to high 90s. Intake/output not documented. HEENT: Head examination normocephalic, atraumatic. HEENT examination shows pinkish conjunctivae. Anicteric sclerae. No oropharyngeal lesion. No neck rigidity. CHEST: Morbidly obese and symmetrical. Lung examination shows positive rhonchi, upper lung brock. No rales, crackles or wheezing. Questionable decreased breath sounds at the left base. CARDIOVASCULAR: S1, S2, regular rhythm. Positive systolic murmur, left sternal border, right second intercostal space, left second intercostal space. ABDOMEN: Soft, morbidly obese. GENITALIA: Male. RECTAL: Deferred. EXTREMITY: Shows chronic lymphedema of the lower extremity was noted. MUSCULOSKELETAL: Shows elevated body mass index. NEUROLOGICAL: The patient is alert, awake, responsive, oriented x3. Cranial nerves II through XII limited. Gait examination could not be tested. MUSCULOSKELETAL: Examination shows an everted BMI. DIAGNOSTICS: CBC, CMP, LFTs reviewed. The patient was seen by other consultants. Their recommendations were noted. IMPRESSION AND PLAN: 1. Deconditioning. 2. Gait dysfunction. 3. Super morbid obesity. 4. Status post acute [id number] myocardial infarction with elevated troponin and anterolateral myocardial infarction. 5. Hypertension. 6. Normocytic anemia. 7. Status post ventilator-dependent respiratory failure. 8. Ventilator-dependent bilateral multilobar pneumonia. 9. Congestive heart failure with elevated BNP. 10. History of chronic narcotic-dependent pain syndrome. 11. Severe gait dysfunction and deconditioning and morbid obesity. 12. Bilateral lower extremity lymphedema. 13. History of gastric bypass surgery. 14. History of hypothyroidism. 15. History of testosterone deficiency. 16. History of vitamin B12 deficiency. 17. History of dyslipidemia. 1. Status post ventilator-dependent respiratory failure. 2. Super morbid obesity. 3. Severe sepsis with ventilator-dependent respiratory failure with severe community-acquired multilobar bilateral pneumonia. 4. Acute vps-BJ-avlfxvvtl myocardial infarction with elevated troponin. 5. Possible diastolic congestive heart failure with elevated BNP. 6. Left ventricular ejection fraction of 55%. 7. Age indeterminate anterior infarct. 8. Acute anterolateral infarct with lateral injury. 9. History of chronic narcotic-dependent pain syndrome. 10. Status post encephalopathy and psychosis and hallucination. 11. Hypertension and chronic obstructive pulmonary disease. 12. Hypokalemia. 13. Dyslipidemia. 14. Hypothyroidism. 1. Status post ventilator-dependent respiratory failure. 2. Severe sepsis with multilobar bilateral ventilator-dependent versus community-acquired pneumonia. 3. Super morbid obesity. 4. Hypertension. 5. Fever. 6. Encephalopathy with altered mental status and hallucination (resolved). 7. Hypoxemia. 8. Transient respiratory acidosis with hypercarbia. 9. Normocytic anemia. 10. Acute non-ST elevation myocardial infarction with elevated troponin. 11. Congestive heart failure and bibasilar atelectasis (resolving). 12. History of testosterone deficiency, history of hypothyroidism, history of vitamin B12 deficiency. 13. History of chronic narcotic-dependent pain syndrome, status post intrathecal ziconotide pump treatment and removal. 14. Bilateral lower extremity lymphedema. 15. Chronic . 16. Congestive heart failure with elevated BNP. 17. Questionable mild rhabdomyolysis with elevated CPK. 1. Status post ventilator-dependent respiratory failure. 2. Status post altered mental status and encephalopathy with psychosis. 3. Acute [id number]-[id number] myocardial infarction with elevated troponin. 4. Fever. 5. Severe sepsis. 6. Hypertension. 7. Tachypnea. 8. Bilateral lower extremity lymphedema. 9. Leukocytosis with granulocytosis. 10. Normocytic anemia. 11. Mild respiratory acidosis with mild hypercarbia. 12. Hypokalemia. 13. Hypomagnesemia. 14. Congestive heart failure with elevated BNP. 15. History of hypothyroidism. 16. Proteinuria. 17. Bilirubinuria. 18. Resolving bilateral multilobar pneumonia with persistent left lower lobe atelectasis. 19. Resolving congestive heart failure and pulmonary vascular congestion. 20. Right axis deviation with age indeterminate anterior infarct. 21. Sinus tachycardia. 22. Acute anterolateral infarct. 23. Bilateral multilobar pneumonia and pleural effusion. 24. Left ventricular ejection fraction of 58%. 25. Grade 1 abnormal relaxation pattern. 26. Severe sepsis with ventilator-dependent respiratory failure and severe bilateral multilobar community-acquired pneumonia. 27. 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 28. Status post intrathecal pump placement. 29. History of chronic back pain. 30. Super morbid obesity. 31. Multifactorial hyperactive delirium. 1. Status post ventilator dependent respiratory failure and status post extubation. 2. Congestive heart failure with bilateral multilobar pneumonia, infiltrate and bilateral effusion. 3. Cardiomegaly. 4. Super morbid obesity. 5. Acute non-ST elevation myocardial infarction with elevated troponin. 6. Right-axis deviation. 7. Age-indeterminate anterior infarct. 8. Status post altered mental status and encephalopathy. 9. Severe sepsis. 10. Bilateral multilobar community-acquired pneumonia. 11. History of narcotic dependent pain syndrome. 12. Chronic obstructive pulmonary disease. 13. Bilateral lower extremity lymphedema. 14. Status post gastric bypass. 15. Gait dysfunction. 16. Severe deconditioning. 17. History of hypothyroidism. 18. Febrile illness and fever. 19. Normocytic anemia. 20. Leukocytosis with granulocytosis. 21. Mild respiratory acidosis. 22. Hypokalemia. 23. Mild rhabdomyolysis with elevated CPK. 24. Hypothyroidism with elevated TSH. 25. History of vitamin B12 deficiency. 26. History of testosterone deficiency. 27. History of hypertension. 28. Proteinuria. 29. Ketonuria. 30. Bilirubinuria. 31. Bacteriuria. 32. Psychosis. 1. Ventilator-dependent respiratory failure. 2. Status post altered mental status and behavioral disorder. 3. Status post hallucination. 4. Morbid obesity with elevated body mass index of 51. 5. Transient low grade fever. 6. Transient tachycardia. 7. Transient hypotension. 8. Hypoxemia. 9. Leukocytosis with granulocytosis. 10. Normocytic anemia. 11. Transient hypercarbia and respiratory acidosis. 12. Hypokalemia. 13. Non-ST elevation myocardial infarction with elevated troponin. 14. Elevated CPK, questionable rhabdomyolysis. 15. History of hypothyroidism and vitamin B12 deficiency. 16. History of testosterone deficiency. 17. Hypokalemia. 18. Proteinuria, bilirubinuria, pyuria and ketonuria. 19. Questionable bilateral pleural effusion. 20. Right upper lobe consolidation versus pneumonia versus pulmonary edema. 21. Cardiomegaly. 22. Questionable ventilator dependent pneumonia and consolidation. 23. Bilateral dependent consolidation and bilateral ground-glass opacities. 24. Thoracic spine degenerative joint disease. 25. Status post cholecystectomy. 26. Status post gastric bypass. 27. Bilateral nephrolithiasis. 28. Encephalopathy, etiology undetermined. 29. 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 30. Ethmoid air cell partial opacification and left frontal sinus mucosal disease. 31. Left ventricular ejection fraction of 58% with grade 1 abnormal relaxation pattern. 32. Moderately thickened mitral valve. 33. Sinus tachycardia. 34. Acute anterolateral infarct with lateral injury and ischemia. 35. Acute anterolateral myocardial infarction. 36. History of hypertension, history of chronic pain syndrome, status post intrathecal ziconotide pump placement. 37. Bilateral lower extremity lymphedema. 38. Chronic pain syndrome. 39. Bilateral multilobar pneumonia. 40. History of chronic obstructive pulmonary disease. 41. History of chronic methadone and oxycodone use. 42. Transient hypertension. 43. Severe sepsis with ventilator-dependent respiratory failure. 44. Non-ST elevation myocardial infarction. 45. Acute encephalopathy probably secondary to intrathecal ziconotide side effect. 46. Transient psychosis. 47. Status post encephalopathy with hallucination and psychosis. 48. Questionable and possible ventilator-dependent bilateral multilobar aspiration pneumonia versus healthcare-associated pneumonia. 49. Morbid obesity. 50. Severe sepsis. 51. History of hypothyroidism. Plan at this time, the patient has been off the heparin drip. The patient's medications are as per the MAR of today, which was reviewed. The patient's all IV antibiotics have been discontinued. The patient's MAR and medications from today are reviewed. The patient has been advised to be out of bed. The patient has been ordered physical therapy, ambulation therapy. The patient has been ordered gait training. The patient has been ordered medically clear for discharge to acute rehab versus subacute rehab versus home whichever the patient and the family agrees to and whichever the patient is accepted to. Dictated and electronically signed, not read. Kolton Melgar MD [facility] # [id number] MTDD
[2017-08-15] MEDS: Aspirin 325 mg EC Tablets PO SCH (09:29)
[2017-08-15] MEDS: Potassium Chloride 20 mEq ER Tab PO SCH ×2 (09:29→18:14)
[2017-08-15] MEDS: levoFLOXacin 500 MG TAB PO SCH (09:29)
[2017-08-15] MEDS: Pantoprazole 40 mg EC Tab PO SCH (09:30)
--- NOTE | 2017-08-15 11:37 | PN ---
DATE: 08/15/2017 CARDIOLOGY FOLLOWUP SUBJECTIVE: The patient is feeling much better. His breathing has improved. PHYSICAL EXAMINATION VITAL SIGNS: Blood pressure is 110/64, heart rate is in the 60s. NECK: Negative JVD. LUNGS: Without rales. HEART: Reveals S1 and S2. EXTREMITIES: Chronic edema. LABORATORY DATA: Hemoglobin is 12.6. BUN and creatinine is normal. Glucose is elevated. IMPRESSION: 1. Status post non-ST elevation myocardial infarction. 2. Status post respiratory failure. 3. Diabetes mellitus. 4. Marked chronic edema. 5. Increased probability for coronary artery disease. 6. Morbid obesity. PLAN: Given these findings, we will schedule the patient for cardiac catheterization in the morning. Andrew Hernandez MD
--- NOTE | 2017-08-15 18:22 | PN ---
DATE: FOLLOWUP NOTE SUBJECTIVE: Over the weekend, the patient had positive improvement. The patient is less confused. No agitation. No aggression. This securities underwriter reviewed the vital signs. Vital signs seems to be stable. Temperature 97.8, pulse of 91, blood pressure 136/75, [id number], oxygen saturations 94, medications reviewed. The patient was on N-acetylcysteine, DuoNeb, aspirin, Lipitor, Plavix, Lasix, Synthroid, Protonix, potassium chloride, Seroquel was ordered, but the patient did not require Seroquel. The patient was on Diovan, Geodon IM 10 mg every 8 hours as needed. The patient did not require any iron because the patient is compliant with the medications. No psychosis, no aggression, no agitation. Labs reviewed. Most recent was from 08/14/2017. The patient was seen and examined, discussed with the patient's family on last Tuesday. The patient gave consents for collateral information. This securities underwriter had prolonged conversation with the patient's . Treatment plan was discussed. Going back to the patient's treatment and presentation, the patient was seen today. The patient presented to be alert and oriented, pleasant, cooperative. The patient remembered this securities underwriter and who she is, but does not remember her name. The patient knows the circumstances of his admission on the medical side. The patient does not appear to be confused. The patient has fair eye contacts. Speech was normal rate, tone, quality and quantity. Mood described, "I am feeling great." Affect reactive, mood congruent. Thought process, coherent and goal directed. Thought content, the patient denied visual, auditory or tactile hallucinations. Denied paranoid ideation. The patient denied thoughts of harming himself or others. Denied intents or plan. Insight and judgment seem to be improving. Impulses are well controlled. IMPRESSION: Most likely, the patient has multifactorial delirium. Please see admission note for more detailed information, which is improved. PLAN: This securities underwriter discontinued Seroquel and Geodon. The patient is improving. The patient needs to have physical therapy and needs to be followed up with Infectious Disease, Associate Professor as well as dba developer as well as physical therapist. This securities underwriter will sign off. The patient adamantly denied thoughts of harming himself or others. Denied intent or plan. The patient pose no imminent danger to self or others. Case was discussed with the medical team as well as the patient's as per patient's request. Thank you very much for letting me participate in the care of your patient. Should you have any questions, give me a call back. Joi Lemus MD
--- NOTE | 2017-08-15 19:36 | CP.PCM.PN ---
Subjective - Date & Time of Evaluation Date of Evaluation: 08/15/17 Time of Evaluation: 09:55 - Subjective Subjective: No fevers, not in distress, afebrile, feeling better. Objective - Vital Signs/Intake and Output Vital Signs (last 24 hours): Temp Pulse Resp BP Pulse Ox 97.9 F 87 21 110/64 95 08/15/17 05:56 08/15/17 05:56 08/15/17 05:56 08/15/17 05:56 08/15/17 05:56 Intake and Output: 08/15/17 08/15/17 06:59 18:59 Intake Total 1220 Output Total 3050 Balance -1830 - Medications Medications: Current Medications Acetylcysteine (Acetylcysteine 20%) 4 ml IH [id number] [facility] Last Admin: 08/15/17 07:49 Dose: Not Given Albuterol/Ipratropium (Duoneb 3 Mg/0.5 Mg (3 Ml) Ud) 3 ml IH Q2H PRN PRN Reason: Shortness of Breath Last Admin: 08/15/17 06:06 Dose: 3 ml Albuterol/Ipratropium (Duoneb 3 Mg/0.5 Mg (3 Ml) Ud) 3 ml IH [id number] [facility] Last Admin: 08/15/17 07:49 Dose: 3 ml Aspirin (Ecotrin) 325 mg PO DAILY [facility] Last Admin: 08/14/17 09:11 Dose: 325 mg Atorvastatin Calcium (Lipitor) 40 mg NG DIN [facility] Last Admin: 08/14/17 17:40 Dose: 40 mg Clopidogrel Bisulfate (Plavix) 75 mg PO DAILY [facility] Last Admin: 08/14/17 09:13 Dose: 75 mg Furosemide (Lasix) 40 mg IVP DAILY [facility] Last Admin: 08/14/17 09:11 Dose: 40 mg Dexmedetomidine HCl (Precedex 400mcg/100ml) 400 mcg in 100 mls @ 9.025 mls/hr IV .Q11H5M PRN; Protocol; 0.2 MCG/KG/HR PRN Reason: Agitation Last Titration: 08/11/17 05:30 Dose: 0 mcg/kg/hr, 0 mls/hr Levofloxacin (Levaquin) 500 mg PO DAILY [facility] PRN Reason: Protocol Stop: 08/15/17 10:01 Last Admin: 08/14/17 09:11 Dose: 500 mg Levothyroxine Sodium (Synthroid) 100 mcg PO 0600 [facility] Last Admin: 08/15/17 05:06 Dose: 100 mcg Pantoprazole Sodium (Protonix Ec Tab) 40 mg PO ACB [facility] Last Admin: 08/14/17 09:11 Dose: 40 mg Potassium Chloride (K-Dur 20 Meq Er Tab) 20 meq PO BID [facility] Last Admin: 08/14/17 17:40 Dose: 20 meq Quetiapine Fumarate (Seroquel) 25 mg PO HS PRN; Protocol PRN Reason: psychosis/hallucinations Saliva Substitute (Saliva Substitute) 0 ml PO DAILY PRN PRN Reason: Dry mouth Valsartan (Diovan) 160 mg PO DAILY [facility] Last Admin: 08/14/17 09:25 Dose: 160 mg Ziprasidone (Geodon Inj) 10 mg IM Q8H PRN; Protocol PRN Reason: Agitation - Labs Labs: 08/14/17 06:30 08/14/17 06:30 PT 13.3 SECONDS (9.4-12.5) H 08/07/17 05:15 INR 1.15 (0.93-1.08) H 08/07/17 05:15 APTT 74.6 Seconds (25.1-36.5) H 08/13/17 07:00 - Constitutional Appears: Chronically Ill - Head Exam Head Exam: NORMAL INSPECTION - ENT Exam ENT Exam: Mucous Membranes Moist - Respiratory Exam Respiratory Exam: Decreased Breath Sounds - Cardiovascular Exam Cardiovascular Exam: +S1, +S2 - GI/Abdominal Exam GI & Abdominal Exam: Soft. absent: Tenderness Assessment and Plan - Assessment and Plan (Free Text) Plan: Assessment Severe sepsis with ventilator-dependent respiratory failure due to severe community-acquired pneumonia on top of acute NSTEMI, clinically improving morbid obesity with BMI 50 HTN COPD chronic methadone use DM peripheral vascular disease chronic back pain S/P intrathecal pump placement Plan on Levaquin day 9 to complete 10 days of therapy will continue to monitor clinically
[2017-08-16] MEDS: Albuterol-Ipratrop 3 mg / 0.5 (3 ml) UD IH SCH ×4 (01:57→20:45)
[2017-08-16] MEDS: Acetylcysteine 20% Inhal Soln (4ml) IH SCH ×4 (01:58→20:45)
[2017-08-16] MEDS: Levothyroxine 100 MCG TAB PO SCH (06:36)
[2017-08-16 06:49] LABS: ALB/GLOB RATIO 1.3 (1.1-1.8); ALBUMIN 4.3 g/dL (3.0-4.8); ALT/SGPT 37 U/L (7-56); AST/SGOT 43 U/L (17-59); BLOOD UREA NITROGEN 22 mg/dL (7-21); CALCIUM 9.3 mg/dL (8.4-10.5); GFR AFRICAN-AMERICAN > 60; GFR NON-AFRICAN AMERICAN > 60
[2017-08-16] MEDS: Pantoprazole 40 mg EC Tab PO SCH (07:30)
--- NOTE | 2017-08-16 08:20 | PN ---
DATE: 08/15/2017 SUBJECTIVE: The patient is seen sitting up in the bed in room 267, bed 1. The patient is comfortable, in no distress. Overnight nurse's notes were reviewed. PHYSICAL EXAMINATION: GENERAL: The patient was found to be alert, awake, and oriented x3 without any deficits noted. VITAL SIGNS: T-max 98.2, telemetry shows sinus rhythm, heart rate 76, 91, blood pressure 120/69, 136/75, respirations 20, O2 sat is averaging around mid 90s. Intake 220, output 3050. HEENT: Head examination is normocephalic and atraumatic. HEENT examination shows pinkish conjunctivae. Anicteric sclerae. No oropharyngeal lesion. NECK: No neck rigidity. CHEST: Kyphosis. LUNGS: Shows no rales, crackles, or wheezing. Positive rhonchi bilaterally. CARDIOVASCULAR: S1 and S2, regular rhythm. Positive systolic murmur, left sternal border. Right second intercostal space, left second intercostal space. ABDOMEN: Morbidly obese. GENITALIA: Male. RECTAL: Deferred. EXTREMITIES: Chronic lymphedema of the lower extremity. MUSCULOSKELETAL: Shows a body mass index of 48.3. NEUROLOGIC: The patient is alert, awake and oriented x3. Cranial nerves II through XII limited. Gait examination not tested. Vascular examination unable to be appreciated. IMPRESSION: 1. Status post ventilator-dependent respiratory failure. 2. Multilobar bilateral pneumonia. 3. Severe sepsis with ventilator-dependent respiratory failure. 4. Severe community-acquired multilobar pneumonia. 5. Acute lvo-NZ-twlofaayc myocardial infarction with elevated troponin. 6. Multifactorial delirium. 7. Morbid obesity with severe gait dysfunction. 8. History of chronic lymphedema of the lower extremity. 9. History of hypothyroidism. PLAN: At this time, the patient was seen by Infectious Disease, Psychiatry, Cardiology, Pulmonary. The patient is scheduled for cardiac catheterization tomorrow. The patient was seen by Psychiatry, recommended to stop Geodon and Seroquel. The patient was seen by Infectious Disease, recommended to continue p.o. Levaquin for a total of 10 days. Current medications: Mucomyst nebulizer, Diovan 160 mg daily, DuoNeb nebulizer every 6 hours around the clock, and every 2 hours p.r.n., Ecotrin 325 mg daily, K-Dur 20 mEq twice a day, Lasix 40 mg IV daily, Lipitor 40 mg daily, Plavix 75 mg daily, Protonix 40 mg daily, Synthroid 100 mcg. The patient after the cardiac catheterization tomorrow will be considered for discharge depending upon the results of the cardiac catheterization. The patient has been seen by physical therapist. Dictated and electronically signed, not read. Kolton Melgar MD
[2017-08-16] MEDS: Aspirin 325 mg EC Tablets PO SCH (09:16)
[2017-08-16] MEDS: Potassium Chloride 20 mEq ER Tab PO SCH ×2 (10:00→17:39)
--- NOTE | 2017-08-16 11:02 | PN ---
DATE: 08/16/2017 PULMONARY NOTE SUBJECTIVE: The patient appears very comfortable this morning. He is not short of breath at rest. PHYSICAL EXAMINATION VITAL SIGNS: Temperature is 98.1, pulse on the monitor is 86, respiratory rate 18, blood pressure 141/87. Oxygen saturation on room air is 97%. HEENT: Normocephalic, atraumatic. No JVD. CARDIOVASCULAR: Systolic ejection murmur at the lower left sternal border. No S3 gallop. LUNGS: Clear bilaterally. EXTREMITIES: Less edema. No cyanosis, no clubbing. Calves are nontender to palpation. GI: Abdomen is soft, nontender and nondistended. Bowel sounds are positive. SKIN: Chronic cellulitic changes on both legs. NEUROLOGIC: Limited at the present time. IMPRESSION: 1. Status post respiratory failure. 2. Status post congestive heart failure. 3. Acute myocardial infarction. 4. Rule out aspiration pneumonia. 5. Anemia. PLAN: The patient appears very comfortable this morning. He is not short of breath at rest. He does state to feeling much, much better overall. I did discuss the case with the night nurse at length. The night nurse stated that the patient had a very good night. On physical exam, the patient's bronchospasm has resolved. In addition, the alveolar-arterial gradient has also resolved. Oxygen saturation on room air is now 97%. I will continue with the current nebulizer treatments for now. Input by Cardiology is noted. The patient is for cardiac catheterization later this morning. The patient remains off antibiotic therapy. Infectious Disease input is noted. There are no temperatures noted. There is no leukocytosis. The clinical status of this patient is significantly improved overall. I will discuss the above with the attending physician. García Grace MD EM
[2017-08-16] MEDS ORDERED: Lidocaine 2% Inj (20ml) ONE (13:54)
[2017-08-16] MEDS ORDERED: Iohexol 350 MG/100 ML VIAL ONE (13:55)
[2017-08-16] MEDS ORDERED: Iohexol 350mgl/ml 50 ML ONE (13:55)
--- NOTE | 2017-08-16 15:47 | PN ---
DATE: 08/16/2017 CARDIOLOGY FOLLOWUP SUBJECTIVE: The patient was brought down to the maintenance shop laborer to investigate his coronary arteries, given his non-STEMI. The patient was unable to lie flat on the table for any significant amount of time. The test was aborted. The patient denies shortness of breath in the sitting position. PHYSICAL EXAMINATION: VITAL SIGNS: Blood pressure 141/87, heart rates in the 90s. NECK: Negative JVD. LUNGS: Decreased breath sounds. HEART: Reveals S1, S2. EXTREMITIES: Chronic edema. LABORATORY DATA: Hemoglobin is 12.6, BUN and creatinine are 22 and 1.2 with a glucose of 133. IMPRESSION: 1. Status post respiratory failure. 2. High probability for coronary artery disease. 3. Status post non-ST elevation myocardial infarction. 4. Diabetes mellitus. 5. Chronic edema in the lower extremities. 6. Morbid obesity. Given these findings, the patient is unable to stay still in the supine position for procedure. We will cancel the procedure for today. We may only be able to proceed with medical therapy. Andrew Hernandez MD
--- NOTE | 2017-08-16 19:26 | PN ---
DATE: 08/16/2017 SUBJECTIVE: Patient is in bed, in no acute distress, nontoxic. No fevers and chills. PHYSICAL EXAMINATION: VITAL SIGNS: Temperature is 98, blood pressure is 130/80, respiratory rate of 20, heart rate of 92. HEENT: Unremarkable. NECK: Supple. LUNGS: Have decreased breath sounds. HEART: Normal S1, S2. ABDOMEN: Soft, nontender. LABORATORY EXAMINATION: Reviewed. Review of orders reveal the patient is off of antibiotics. Patient's white count of 8.2. BUN of 22, creatinine of 1.2. Dr. Andrew Hernandez's note is reviewed. Dr. Grace's progress note is reviewed. Dr. Melgar's note is also reviewed. ASSESSMENT AND PLAN: This is a 67-year-old male with severe sepsis; ventilator-dependent respiratory failure due to severe community-acquired pneumonia on top of acute non-ST elevation infarction, clinically improved, with morbid obesity with body mass index of 50; hypertension; chronic obstructive lung disease; chronic methadone use; peripheral vascular disease. Completed the Levaquin therapy, currently off of antibiotics. Antonino Gilmore MD
--- NOTE | 2017-08-16 22:40 | PN ---
DATE: 08/16/2017 SUBJECTIVE: The patient is seen in room 267, bed 1. Patient is lying in recliner. Patient is alert, awake, responsive. Overnight nurse's notes were reviewed. No adverse events were documented. Patient slept well without any adverse events documented. According to the nurse's notes today afternoon, patient's cardiac catheterization was canceled because the patient was unable to lay flat. PHYSICAL EXAMINATION: VITAL SIGNS: T-max 98.2 to 97.8, telemetry shows sinus rhythm, heart rate of 65 to 82, 66 to 76, blood pressure 136/81, 141/87, 136/75, respirations 20, O2 sat 94%, 95%, 96%, averaging mid 90s. Intake output from today is not documented. Yesterday's intake 1220, output 3050. HEENT: Head examination is normocephalic, atraumatic. HEENT examination shows pinkish conjunctivae. Anicteric sclerae. No oropharyngeal lesion. No neck rigidity. CHEST: Kyphosis. LUNGS: Still shows some residual rhonchi bilaterally. Decreased breath sounds around at the bases, left more than the right. CARDIOVASCULAR: Shows S1, S2, regular rhythm. Questionable soft systolic murmur, left sternal border, right second intercostal space. ABDOMEN: Obese, protuberant. GENITALIA: Male. Barger catheter removed. EXTREMITY: Shows chronic lymphedema of the lower extremities. MUSCULOSKELETAL: Shows a body mass index greater than 47. DIAGNOSTIC STUDIES: CBC none from today. Chemistry from today, sodium 138, potassium 4.5, chloride 95, CO2 of 32, anion gap 15, BUN 22, creatinine 1.2. GFR greater than 60. Glucose 120, 133, 101, calcium 9.3. Total bilirubin 2.3. IMPRESSION AND PLAN: 1. Status post ventilator-dependent respiratory failure. 2. Severe sepsis. 3. Multilobar community-acquired pneumonia. 4. Acute non-ST elevation myocardial infarction with elevated troponin. 5. Chronic obstructive pulmonary disease. 6. Super morbid obesity with body mass index of greater than 47. 7. Leukocytosis with granulocytosis. 8. Normocytic anemia. 9. Respiratory acidosis with hypercarbia. 10. Transient hypokalemia. 11. Hypomagnesemia. 12. Acute non-ST elevation myocardial infarction with elevated troponin with elevated creatine phosphokinase. 13. Congestive heart failure. 14. History of hypothyroidism. 15. Proteinuria. 16. Bacteriuria. 17. Multifactorial delirium. 18. Hypertension. 19. Hyperkalemia. 20. Dyslipidemia. 21. Chronic narcotic-dependent pain syndrome. 22. History of testosterone deficiency. 23. History of chronic constipation. 24. Severe gait dysfunction and deconditioning and bedridden status versus questionable functional quadriplegia. PLAN: At this time, patient was recommended to be treated medically as per Cardiology as patient was unable to complete the cardiac catheterization procedure because of patient's body habitus and inability to lay flat on the cardiac cath table. Patient's case referred to 7th grade social studies teacher for discharge planning. fire services plumber notes were reviewed. Plan at this time, patient will be continued on medications as per the MAR which I reviewed. Mucomyst 20% 4 mL every 6, Diovan 160 mg daily, DuoNeb nebulizer every 6 hours every 2 hours p.r.n., Ecotrin 325 mg daily, K-Dur 20 mEq twice a day, Lasix 40 mg IV daily, Lipitor 40 mg daily, Plavix 75 mg daily, Protonix 40 mg daily, Synthroid 100 mcg p.o. daily. Electrolytes and chemistry from today from reviewed. Patient's potassium, sodium all are within normal limits. Dictated and electronically signed, not read. Kolton Melgar MD
[2017-08-17] MEDS: Albuterol-Ipratrop 3 mg / 0.5 (3 ml) UD IH SCH ×3 (03:22→14:32)
[2017-08-17] MEDS: Acetylcysteine 20% Inhal Soln (4ml) IH SCH ×2 (03:25→07:52)
[2017-08-17] MEDS: Levothyroxine 100 MCG TAB PO SCH (06:09)
[2017-08-17 06:35] LABS: ALB/GLOB RATIO 1.4 (1.1-1.8); ALBUMIN 4.2 g/dL (3.0-4.8); ALT/SGPT 33 U/L (7-56); AST/SGOT 44 U/L (17-59); BLOOD UREA NITROGEN 22 mg/dL (7-21); GFR AFRICAN-AMERICAN > 60; GFR NON-AFRICAN AMERICAN > 60
[2017-08-17] MEDS: Pantoprazole 40 mg EC Tab PO SCH (07:46)
[2017-08-17] MEDS ORDERED: Metoprolol Succinate 25 mg XL Tab PO SCH (08:00)
--- NOTE | 2017-08-17 08:48 | PN ---
DATE: 08/17/2017 PULMONARY NOTE SUBJECTIVE: The patient appears very comfortable this morning. He is not short of breath at rest. PHYSICAL EXAMINATION: VITAL SIGNS: Temperature is 97, pulse is 73, respirations 18/20, blood pressure 147/78. Oxygen saturation on room air is 92%-97%. HEENT: Normocephalic, atraumatic. NECK: No JVD. CARDIOVASCULAR: Systolic ejection murmur at the lower left sternal border. No S3 gallop. LUNGS: Clear bilaterally. EXTREMITIES: Less edema. No cyanosis, no clubbing. Calves are nontender to palpation. GI: Abdomen is soft, nontender, nondistended. Bowel sounds are positive. SKIN: Chronic cellulitic changes on both legs. NEUROLOGIC: Exam limited at the present time. IMPRESSION: 1. Status post respiratory failure. 2. Status post congestive heart failure. 3. Acute myocardial infarction. 4. Rule out aspiration pneumonia. 5. Anemia. 6. Encephalopathy-resolved. PLAN: The patient appears very comfortable this morning. He is not short of breath at rest. He is awake, alert, conversive. He does state to feeling much better overall. I did discuss the case with the night nurse at length. The night nurse stated that the patient had a very good night. However, the patient did have a problem with his positioning during cardiac catheterization yesterday. Input by Dr. Hernandez is noted. On physical exam, his bronchospasm has basically resolved. In addition, the alveolar-arterial gradient is also resolved. I will continue with the current nebulizer treatments for now. The clinical status of this patient is significantly improved overall. However, his future status/prognosis does remain very guarded. I will discuss the above with the attending physician. García Grace MD MTDD
--- NOTE | 2017-08-17 09:13 | PN ---
DATE: 08/17/2017 CARDIOLOGY FOLLOWUP SUBJECTIVE: The patient is ambulating without chest pain. PHYSICAL EXAMINATION VITAL SIGNS: Blood pressure is 147/78, heart rate is in the 70s. NECK: Negative JVD. LUNGS: No rales noted. HEART: Reveals S1, S2. EXTREMITIES: Chronic edema noted. LABORATORY DATA: BUN and creatinine is normal. Glucose is 117. IMPRESSION: 1. Status post respiratory failure. 2. Morbid obesity. 3. Recurrent pedal edema. 4. Recent non-ST elevation myocardial infarction. 5. Diabetes mellitus. PLAN: Given the patient's difficulty in lying flat for a period of time for the procedure, the risk of catheterization may be too high. The patient is currently being treated medically with clopidogrel and statin therapy as well as aspirin. We will add low-dose beta blockers. We will discontinue telemetry today. I have discussed with the patient about continuing medical therapy instead of his increased risk for cardiac catheterization. Andrew Hernandez MD
[2017-08-17 09:20] VITALS: RESP 18; O2SAT 95
[2017-08-17] MEDS: Aspirin 325 mg EC Tablets PO SCH (09:54)
[2017-08-17] MEDS: Potassium Chloride 20 mEq ER Tab PO SCH (09:54)
[2017-08-17] MEDS: Albuterol-Ipratrop 3 mg / 0.5 (3 ml) UD IH PRN (12:07)
[2017-08-17 12:28] VITALS: BP 104/53; PULSE 75; TEMP 97.9
--- NOTE | 2017-08-17 12:45 | PN ---
FINAL PROGRESS NOTE AND DISCHARGE SUMMARY DATE: 08/17/2017 LOCATION: The patient is seen in room 267, bed 1. SUBJECTIVE: Overnight events were noted over the last 24 hours and 12 hours. The patient was unable to undergo cardiac catheterization secondary to inability to lay flat on the cardiac catheterization table, so cardiac cath was canceled. PHYSICAL EXAMINATION: VITAL SIGNS: The patient's vital signs reviewed. The patient is afebrile. Telemetry shows normal sinus rhythm, blood pressure 135/80, 140/70, respiration 18 to 20, O2 sat between mid to high 90%. INTAKE/OUTPUT: Reviewed. HEENT: Head: Normocephalic, atraumatic. HEENT examination shows pinkish conjunctivae. Anicteric sclerae. No oropharyngeal lesion. No neck rigidity. CHEST: Kyphosis. LUNGS: Shows positive rhonchi bilaterally. Decreased breath sound at the left base. CARDIOVASCULAR: S1 and S2, regular rhythm. Positive systolic murmur left sternal border, right second intercostal space, left second intercostal space. ABDOMEN: Soft, obese. Positive bowel sounds. GENITALIA: Male. RECTAL: Deferred. EXTREMITIES: Shows positive lymphedema of the lower extremity. Body mass index is elevated. NEUROLOGICAL: The patient is alert, awake, responsive. He is able to move upper and lower extremity without assistance. Gait examination could not be tested. LABORATORY DATA: The patient's CMP, LFTs were reviewed, which is within normal limits. August 17 CMP was reviewed. No other diagnostics noted. FINAL IMPRESSION AND PLAN & DISCHARGE DIAGNOSES: 1. Status post ventilator-dependent respiratory failure. 2. Status post ventilator-dependent multilobar bilateral pneumonia. 3. Acute [id number] myocardial infarction with elevated troponin. 4. Congestive heart failure with elevated BNP. 5. Anterolateral myocardial infarction with elevated troponin and acute non-ST elevation myocardial infarction. 6. Hypertension. 7. Super morbid obesity. 8. Bilateral lymphedema of the lower extremity. 9. Severe kyphoscoliosis. 10. Severe gait dysfunction and deconditioning. 11. Possible functional quadriplegia. 12. Severe deconditioning. 13. History of hypertension. 14. Bilateral lower extremity lymphedema. 15. History of hypothyroidism. 16. Hyperlipidemia. 17. Chronic narcotic-dependent pain syndrome status post intrathecal pump placement. 18. History of constipation. PLAN AT THIS TIME: The patient has been advised medical management as per Cardiology for myocardial infarction. The patient's case has been referred to Marketing Finance Specialist for discharge planning to subacute rehab versus acute rehab versus home. Home being the last option if the patient is declined by acute rehab and subacute rehab. The patient's current medications are as per the MAR, which will be continued. The patient will be continued on out of bed to chair, physical therapy, occupational therapy, ambulation therapy ordered. PATIENT AND THE FAMILY FINALLY AGREES FOR THE PATIENT TO GO TO REHAB WILL DISCHARGE TO REHAB Dictated and electronically signed, not read. Kolton Melgar MD MTDD
--- NOTE | 2017-08-17 16:08 | CP.PCM.PN ---
Subjective - Date & Time of Evaluation Date of Evaluation: 08/17/17 Time of Evaluation: 10:25 - Subjective Subjective: No fevers, not in distress, no diarrhea. Objective - Vital Signs/Intake and Output Vital Signs (last 24 hours): Temp Pulse Resp BP Pulse Ox 97.9 F 75 18 104/53 L 95 08/17/17 12:00 08/17/17 12:00 08/17/17 12:00 08/17/17 12:00 08/17/17 08:00 - Medications Medications: Current Medications Acetylcysteine (Acetylcysteine 20%) 4 ml IH [id number] [facility] Last Admin: 08/17/17 07:52 Dose: Not Given Albuterol/Ipratropium (Duoneb 3 Mg/0.5 Mg (3 Ml) Ud) 3 ml IH Q2H PRN PRN Reason: Shortness of Breath Last Admin: 08/17/17 12:07 Dose: 3 ml Albuterol/Ipratropium (Duoneb 3 Mg/0.5 Mg (3 Ml) Ud) 3 ml IH [id number] [facility] Last Admin: 08/17/17 14:32 Dose: 3 ml Aspirin (Ecotrin) 325 mg PO DAILY [facility] Last Admin: 08/17/17 09:54 Dose: 325 mg Atorvastatin Calcium (Lipitor) 40 mg NG DIN [facility] Last Admin: 08/16/17 17:39 Dose: 40 mg Clopidogrel Bisulfate (Plavix) 75 mg PO DAILY [facility] Last Admin: 08/17/17 09:54 Dose: 75 mg Furosemide (Lasix) 40 mg PO DAILY [facility] Levothyroxine Sodium (Synthroid) 100 mcg PO 0600 [facility] Last Admin: 08/17/17 06:09 Dose: 100 mcg Metoprolol Succinate (Toprol Xl) 25 mg PO BRK [facility] Last Admin: 08/17/17 08:18 Dose: 25 mg Pantoprazole Sodium (Protonix Ec Tab) 40 mg PO ACB [facility] Last Admin: 08/17/17 07:46 Dose: 40 mg Potassium Chloride (K-Dur 20 Meq Er Tab) 20 meq PO BID [facility] Last Admin: 08/17/17 09:54 Dose: 20 meq Saliva Substitute (Saliva Substitute) 0 ml PO DAILY PRN PRN Reason: Dry mouth Valsartan (Diovan) 160 mg PO DAILY [facility] Last Admin: 08/17/17 09:54 Dose: 160 mg - Labs Labs: 08/14/17 06:30 08/17/17 06:00 PT 13.3 SECONDS (9.4-12.5) H 08/07/17 05:15 INR 1.15 (0.93-1.08) H 08/07/17 05:15 APTT 74.6 Seconds (25.1-36.5) H 08/13/17 07:00 - Constitutional Appears: Chronically Ill - Head Exam Head Exam: NORMAL INSPECTION - Respiratory Exam Respiratory Exam: Decreased Breath Sounds - Cardiovascular Exam Cardiovascular Exam: +S1, +S2 - GI/Abdominal Exam GI & Abdominal Exam: Soft. absent: Tenderness Assessment and Plan - Assessment and Plan (Free Text) Plan: Assessment S/P Severe sepsis with ventilator-dependent respiratory failure due to severe community-acquired pneumonia on top of acute NSTEMI, clinically improved and S/ P treatment morbid obesity with BMI 50 HTN COPD chronic methadone use DM peripheral vascular disease chronic back pain S/P intrathecal pump placement Plan completed 10 days of Levaquin - will continue to monitor clinically off antibiotics since he is at risk for nosocomial infections
== END 2017-08-17 16:41 | DRG 871 ==
LOC: ED 18:12 → ERH 22:35 → ICU 23:20 → 2RNO 08-12 13:15
PROVIDERS: ADMIT Internal Medicine; ATTEND Internal Medicine
PROC: 5A1945Z Respiratory Ventilation, 24-96 Consecutive Hours (ICD-10-PCS; principal; 2017-08-06)
PROC: 0BH17EZ Insertion of Endotracheal Airway into Trachea, Via Natural or Artificial Opening (ICD-10-PCS; 2017-08-06)
PROC: 5A09357 Assistance with Respiratory Ventilation, Less than 24 Consecutive Hours, Continuous Positive Airway Pressure (ICD-10-PCS; 2017-08-09)
DX: A41.9 Sepsis, unspecified organism (principal); I21.4 Non-ST elevation (NSTEMI) myocardial infarction; J69.0 Pneumonitis due to inhalation of food and vomit; R53.2 Functional quadriplegia; J96.01 Acute respiratory failure with hypoxia; I13.0 Hypertensive heart and chronic kidney disease with heart failure and stage 1 through stage 4 chronic kidney disease, or unspecified chronic kidney disease; I50.30 Unspecified diastolic (congestive) heart failure; M62.82 Rhabdomyolysis; E87.2 Acidosis; F05 Delirium due to known physiological condition; J98.11 Atelectasis; Z68.43 Body mass index [BMI] 50.0-59.9, adult; G92 Toxic encephalopathy; T39.95XA Adverse effect of unspecified nonopioid analgesic, antipyretic and antirheumatic, initial encounter; N18.9 Chronic kidney disease, unspecified; R65.20 Severe sepsis without septic shock; J44.9 Chronic obstructive pulmonary disease, unspecified; E03.9 Hypothyroidism, unspecified; E78.5 Hyperlipidemia, unspecified; G89.4 Chronic pain syndrome; E66.01 Morbid (severe) obesity due to excess calories; E11.51 Type 2 diabetes mellitus with diabetic peripheral angiopathy without gangrene; I89.0 Lymphedema, not elsewhere classified; M41.9 Scoliosis, unspecified; E11.22 Type 2 diabetes mellitus with diabetic chronic kidney disease; E11.65 Type 2 diabetes mellitus with hyperglycemia; D64.9 Anemia, unspecified; E87.6 Hypokalemia; E53.8 Deficiency of other specified B group vitamins; E29.1 Testicular hypofunction; M47.814 Spondylosis without myelopathy or radiculopathy, thoracic region; N20.0 Calculus of kidney; I25.10 Atherosclerotic heart disease of native coronary artery without angina pectoris; E83.42 Hypomagnesemia; K59.09 Other constipation; Z96.89 Presence of other specified functional implants; F29 Unspecified psychosis not due to a substance or known physiological condition; Z88.0 Allergy status to penicillin; Z98.84 Bariatric surgery status; Z79.899 Other long term (current) drug therapy

== ENCOUNTER 2017-10-25 06:05 | Day surgery (SDC) | payer OTHER, MEDICARE ==
[2017-10-21 13:12] VITALS: BMI 47.5
[2017-10-25] MEDS ORDERED: Adenosine 90 mg/30mL IV ONE (07:05)
[2017-10-25] MEDS ORDERED: Lidocaine 2% Inj (20ml) ONE (07:05)
[2017-10-25] MEDS ORDERED: Phenylephrine 10 mg/ml Inj ONE (07:05)
[2017-10-25] MEDS ORDERED: Iohexol 350mgl/ml 50 ML ONE (07:06)
[2017-10-25] MEDS ORDERED: Nitroglycerin 50mg in D5W 50 MG/250 ML BOTTLE IV ONE (07:06)
[2017-10-25] MEDS ORDERED: Iodixanol 320 MG/ML 100 ML BOTTLE IV ONE (07:06)
[2017-10-25] MEDS ORDERED: Iodixanol 320 MG/ML 200 ML BOTTLE IV ONE (07:06)
[2017-10-25 07:09] LABS: BASO # 0.03 K/mm3 (0.0-2.0); BASO % 0.4 % (0.0-3.0); EOS # 0.3 (0.0-0.7); EOS % 3.4 % (1.5-5.0); GRAN # 5.42 (1.4-6.5); GRAN % 66.3 % (50.0-68.0); HEMOGLOBIN 12.8 g/dL (14.0-18.0); LYMPH % 24.3 % (22.0-35.0); MEAN CELL VOLUME 90.1 fl (80.0-105.0); MEAN CORPUSCULAR HEMOGLOBIN 30.2 pg (25.0-35.0); MEAN CORPUSCULAR HGB CONC 33.5 g/dl (31.0-37.0); MEAN PLATELET VOLUME 9.6 fl (7.0-11.0); MONO # 0.5 (0.1-0.6); MONO % 5.6 % (1.0-6.0); RBC 4.24 10^6/uL (3.5-6.1); RED CELL DISTRIBUTION WIDTH 14.3 % (11.5-14.5); WHITE BLOOD COUNT 8.2 10^3/ul (4.5-11.0)
[2017-10-25 07:13] LABS: BLOOD UREA NITROGEN 17 mg/dL (7-21); CALCIUM 9.2 mg/dL (8.4-10.5); GFR AFRICAN-AMERICAN > 60; GFR NON-AFRICAN AMERICAN > 60; HDL CHOLESTEROL 35 mg/dL (29-60)
[2017-10-25 07:17] LABS: INR 1.03 (0.93-1.08); PARTIAL THROMBOPLASTIN TIME 25.8 Seconds (25.1-36.5); PROTHROMBIN TIME 11.8 SECONDS (9.4-12.5)
[2017-10-25 07:24] LABS: LDL CHOLESTEROL 54 mg/dL (0-129)
[2017-10-25] MEDS ORDERED: Midazolam 2 MG/2 ML VIAL ONE (07:48)
[2017-10-25 07:52] VITALS: RESP 18
[2017-10-25] MEDS ORDERED: Verapamil 2 ML ONE (08:11)
[2017-10-25] MEDS ORDERED: DiphenhydrAMINE 50 mg/ml Inj ONE (08:29)
[2017-10-25] MEDS ORDERED: Bacitracin 500 Units/gm Oint Foilpak UD TOP ONE (08:48)
[2017-10-25 09:07] VITALS: TEMP 98.1
[2017-10-25 11:52] VITALS: O2SAT 97
--- NOTE | 2017-10-25 12:19 | CARD ---
APPROVED REPORT EKG Measurement Heart [id number] <Conclusion> Normal sinus rhythm with borderline 1st degree AVB Possible Inferior infarct, age undetermined PRWP NSSTW changes
[2017-10-25] MEDS ORDERED: Bacitracin 500 Units/gm Oint Foilpak UD ONE (13:00)
[2017-10-25 13:25] VITALS: BP 167/84; PULSE 76
--- NOTE | 2017-10-25 13:57 | CARDCATH ---
PROCEDURE DATE: 10/25/2017 REFERRING PHYSICIAN: Andrew Hernandez MD. INDICATIONS: Mr. Rasheed Oneill is a 67-year-old morbidly obese male with history of hypertension, diabetes mellitus, who was admitted in late July with a [id number] OH, respiratory failure, intubated and then subsequently he was being managed medically. He was brought for evaluation of underlying CAD as the etiology of his pnl-UH-myeuvyzzu OH back in July. The patient underwent a cardiac catheterization via left radial arterial access approach. PROCEDURE PERFORMED: Left heart catheterization with selective left and right coronary angiogram, 6-[place] left radial arterial access, wrist band for hemostasis. TECHNIQUES OF PROCEDURE: After obtaining informed consent, the patient was brought to the cardiac cath suite in post-absorptive and non-sedated state. The patient was prepped and draped in the usual sterile fashion. A 2% lidocaine was used for infiltration anesthesia. Using modified Seldinger technique, a 6-[place] sheath was introduced into the left radial artery. Subsequently, over a J-wire, JR4 and JL4 diagnostic catheters were used to engage the left and right coronary systems and angiograms were obtained in different orthogonal views. Subsequently, LV gram was obtained in the [place] view. Hemodynamics were obtained and pullback gradients were noted. HEMODYNAMIC FINDING: Left ventricular end-diastolic pressure was 38 mmHg. There was no gradient noted upon the aortic valve pullback. There was no AI, no MR. Left ventricular ejection fraction estimated to be 50%-55%. CORONARY ANATOMY: Left main patent, large-sized vessel, bifurcates into LAD and circumflex. Left circumflex runs in the groove, continues distally into a small branch and then gives off a medium-sized obtuse marginal branch. Left anterior descending artery, large-sized vessel, gives one medium-sized diagonal branch, distally tapers into a small vessel with nonobstructive disease. Right coronary artery is a large-sized vessel, gives off right PDA, nonobstructive disease. PLV is a small-sized vessel. IMPRESSION: Nonobstructive coronary artery disease, elevated end-diastolic pressure consistent with diastolic congestive heart failure. RECOMMENDATIONS: Continue aggressive medical management, risk factor modification. Continue DAPT for 1 year for mer-PC-dimbfxdmn OH. Continue diet and medications for diastolic congestive heart failure. The patient can be discharged home in 4 hours and follow up with Dr. Andrew Hernandez who is his primary coat padder and Dr. Melgar. Alan Back MD
== END 2017-10-25 14:20 | disposition home or self-care (01) ==
LOC: CATH 06:05
PROVIDERS: ATTEND Internal Medicine Interventional Cardiology
DX: I25.10 Atherosclerotic heart disease of native coronary artery without angina pectoris (principal); I11.0 Hypertensive heart disease with heart failure; I50.30 Unspecified diastolic (congestive) heart failure; E11.9 Type 2 diabetes mellitus without complications; I25.2 Old myocardial infarction; E66.01 Morbid (severe) obesity due to excess calories; Z68.42 Body mass index [BMI] 45.0-49.9, adult
CPT/HCPCS: 36415; 80048; 80061; 85025; 85610; 85730; 86850; 86870; 86900; 93005; 93458; 99152; 99153; C1769; C1887; C1894; J0153; J1200; J1644; J2250; J3010; J7040; Q9966